=== PATIENT | female | born 1960 | race Caucasian/White ===

== ENCOUNTER 2021-06-03 08:43 | Outpatient (REF) | payer OTHER, SELFPAY ==
--- NOTE | ~2021-06-03 | XR_ITS ---
EXAMINATION: XR BILATERAL HIPS WITH AP PELVIS CLINICAL INFORMATION: Bilateral primary osteoarthrosis of hip. COMPARISON: None TECHNIQUE: AP view of the pelvis and 2 views of each hip were obtained. FINDINGS: Marked decreased joint space, subchondral sclerosis, osteophyte formations, consistent with moderate to severe osteoarthrosis is present at the right hip. Moderate osteoarthrosis is noted at the left hip. Both SI joints and symphysis pubis appear unremarkable. The soft tissues are unremarkable. XR/XR hip BI w PEL1V IMPRESSION: 1. Abnormal radiographic appearance of showing features consistent with moderate to severe osteoarthrosis of the right hip and moderate osteoarthrosis of the left hip. 2. Otherwise unremarkable.
== END 2021-06-03 08:44 | disposition home or self-care (01) ==
LOC: HO.XRAY 08:43
PROVIDERS: PCP Pediatrics; Visit Provider Internal Medicine
DX: M16.0 Bilateral primary osteoarthritis of hip (principal); M54.16 Radiculopathy, lumbar region
CPT/HCPCS: 73521; 99202

== ENCOUNTER 2021-12-31 08:39 | Outpatient (REF) | payer OTHER, SELFPAY ==
--- NOTE | ~2021-12-31 | MM_ITS ---
EXAMINATION: MM SCREENING DIGITAL BREAST TOMOSYNTHESIS, BILATERAL CLINICAL INFORMATION: Screening. Asymptomatic. The lifetime risk of breast cancer based on the Tyrer-Cuzick Model is 4.6%. COMPARISON: Mammography: May 25, 2019 and studies dating back to May 01, 2017 TECHNIQUE: Digital breast tomosynthesis is performed in both the craniocaudal and mediolateral oblique views along with computer-aided detection (CAD). Synthesized 2D images are generated from the tomosynthesis. FINDINGS: The breasts are almost entirely fatty (ACR BI-RADS breast composition Category a). There are no significant masses, abnormal calcifications, or other abnormalities. MM/MM tomosynthesis screening BI IMPRESSION: There are no significant changes from prior study. ASSESSMENT: BI-RADS 1: Negative RECOMMENDATION: Routine annual mammography screening. This patient's information was entered into a reminder system with a target due date for their next mammogram.
--- NOTE | ~2021-12-31 | MM_ITS ---
EXAMINATION: BONE DENSITOMETRY CLINICAL INDICATION: Menopausal. COMPARISON: Baseline BD dated 08/26/2018. TECHNIQUE: Using a [employer] DXA System (software version: 13.1) manufactured by [employer], dual-energy x-ray absorptiometry was performed of the lumbar spine and left hip. The images are of good technical quality. Summary results are attached. FINDINGS: AP SPINE L1-L4: Current: BMD 0.970 g/cm2, Z-score -1.6, T-score -1.8, osteopenia, 6.8% decrease from baseline (<5% change is not significant). Baseline: BMD 1.041 g/cm2. LEFT FEMUR, NECK: Current: BMD 0.749 g/cm2, Z-score -1.5, T-score -2.1, osteopenia. Baseline: BMD 0.831 g/cm2. LEFT FEMUR, TOTAL: Current: BMD 0.884 g/cm2, Z-score -0.8, T-score -1.0, normal, 6.8% decrease from baseline (<5% change is not significant). Baseline: BMD 0.864 g/cm2. IDENTIFIED RISK FACTORS: Menopause, tobacco use (current smoker), family history (parental hip fracture). HISTORY OF FRACTURE: None listed. MEDICATIONS: Calcium supplements or multivitamin, vitamin D. MM/XR DEXA axial skeleton IMPRESSION: 1. DIAGNOSIS: Osteopenia based on the lowest T-score value of -2.1 in the femoral neck applying World Health Organization criteria. 2. 10-YEAR FRACTURE RISK PREDICTION, FRAX: Major osteoporotic fracture (clinical spine, forearm, hip or shoulder) 18.2%. Hip fracture 2.3%. 3. Treatment Recommendations: NOF guidelines recommend consideration for treatment in postmenopausal women and men age 50 and older presenting with the following: -A hip or vertebral (clinical or morphometric) fracture. -T-score less than or equal to -2.5 at the femoral neck or spine after appropriate evaluation to exclude secondary causes. -Low bone mass at the hip or spine and a 10-year fracture probability by FRAX of greater than or equal to 3% for hip fracture or greater than or equal to 20% for major osteoporotic fracture based on the [place] adapted WHO algorithm. 4. Other Recommendations: All treatment decisions require clinical judgment and consideration of individual patient factors, including patient preferences, comorbidities, previous drug use, risk factors not captured in the FRAX model (e.g. frailty, falls, vitamin D deficiency, increased bone turnover, interval significant decline in bone density) and possible under or overestimation of fracture risk by FRAX. Additional medical evaluation for secondary cause of low bone mineral density may be appropriate. FUTURE SCAN RECOMMENDATION: People with diagnosed cases of osteoporosis or at high risk for fracture should have regular bone mineral density tests. For patients eligible for Medicare, routine testing is allowed once every 2 years. The testing frequency can be increased to one year for patients who have rapidly progressing disease, those who are receiving or discontinuing medical therapy to restore bone mass, or have additional risk factors.
== END 2021-12-31 08:40 | disposition home or self-care (01) ==
LOC: HO.MAMMO 08:39
PROVIDERS: PCP Pediatrics; Visit Provider Pediatrics
DX: Z12.31 Encounter for screening mammogram for malignant neoplasm of breast (principal); Z13.820 Encounter for screening for osteoporosis; M85.80 Other specified disorders of bone density and structure, unspecified site; Z78.0 Asymptomatic menopausal state
CPT/HCPCS: 77063; 77067; 77080

== ENCOUNTER → 2022-09-19 10:43 | Outpatient (RCR) | payer OTHER, SELFPAY ==
--- NOTE | 2021-07-24 17:26 | MHC.PT.EP ---
[facility] [place] Office [place] Office [address] Edouard Gaspar [address] [phone] F: [phone] F: [phone] F: [phone] F: [phone] Physical Therapy Plan of Care Date of Evaluation: Date of Surgery: Diagnosis: lumbar radiuculopathy, OA of B hips. Assessment: Pt is a 61 y/o female referred to PT for eval and treat of lumbar radiculopathy and B hip OA resulting in decreased tolerance for walking, standing, sitting for duration, squatting, negotiating stairs, and entering/ exiting vehicles secondary to decreased B hip and core strength, increased B hip tissue tension, decreased trunk ROM, R LE referred symptoms, and pain. Pt is deemed an appropriate candidate to receive skilled PT in order to address her physical limitations to improve her functional ability. Frequency and Duration: The patient will be seen 2 x/wk x 5 wks. Short Term Goals: initiate HEP. improve baseline pain to < 5/10; initial: 6-8/10 Mcc Goals: I with HEP. Pt will be able to walk 2 blocks with at least moderate difficulty; initial: extreme difficulty or unable (LEFI) LEFI score improved by at least 9 points to demonstrate improved functional ability. Improve B hip abd MMT to > 4+/5; initial 4/5. Treatment Plan: Modalities to reduce pain, spasms and effusion. Manual therapy to restore motion and function. Therapeutic exercise to improve strength and flexibility. Neuromuscular re-education for posture and balance. Therapeutic activities to return to functional activities of daily living. Electronically signed by: Harry Awad PT. Please sign and return to therapist. Thank you for your referral.
--- NOTE | 2022-09-19 10:41 | MHC.PT.DC ---
[facility] [place] Office [place] Office [place] Office [address] Edouard Gaspar [address] [phone] F: [phone] F: [phone] F: [phone] F: [phone] Physical Therapy Discharge Report Diagnosis: lumbar radiuculopathy, OA of B hips. Date of Surgery: Date of Evaluation: 07/22/21 Date of Discharge: 09/19/22 Treatments to Date: 1 Cancellations to Date: No Shows to Date: Discharge Status: Patient Elected to Stop Visit Non-compliance Discharge Summary: Pt did not trial therapy at the time after evaluation. Electronically signed by: Harry Awad PT. Please sign and return to therapist. Thank you for your referral.
== END | disposition home or self-care (01) ==
LOC: HO.PTCHIC 07-22 09:56
PROVIDERS: PCP Pediatrics; Visit Provider Internal Medicine
DX: M54.16 Radiculopathy, lumbar region (principal); M16.0 Bilateral primary osteoarthritis of hip
CPT/HCPCS: 97110; 97161

== ENCOUNTER 2022-12-17 06:18 | Inpatient (IN) | payer OTHER, SELFPAY ==
[2022-12-17] VITALS (11 sets, daily range): BP systolic 102–168; BP diastolic 42–98; PULSE 83–119; RESP 16–24; TEMP 36.4–37.8; O2SAT 94–98; BMI 29.2
--- NOTE | ~2022-12-17 | CT_ITS ---
EXAMINATION: CT HEAD WITHOUT CONTRAST CLINICAL INFORMATION: Altered mental status. COMPARISON: None available. TECHNIQUE: Contiguous axial imaging was performed from the skull base to vertex without intravenous administration of contrast. This CT examination was performed using dose optimization techniques as appropriate, variously including the following: *Automated exposure control *Adjustment of mA and/or kV according to patient size (this includes techniques or standardized protocols for targeted exams where dose is matched to indication/reason for exam; i.e. extremities or head) *Use of iterative reconstruction technique DLP: 641 mGy-cm FINDINGS: There is no acute intra-axial, extra-axial bleed, masses or midline shift. There is no acute infarction evolution. There is no edema. The carrillo to white matter differentiation is maintained. The lateral ventricles are symmetrical in size and configuration without enlargement. Bone windows reveal no calvarial abnormality. Minimal mucoperiosteal thickening in the floor of the right maxillary sinus. Rest of the paranasal sinuses and mastoid air cells are well-aerated. CT/CT head/brain wo IV con IMPRESSION: No acute intracranial process seen. Minimal right maxillary sinus inflammatory changes.
--- NOTE | ~2022-12-17 | XR_ITS ---
EXAMINATION: XR CHEST CLINICAL INFORMATION: 10/25/2010 chest radiograph. COMPARISON: None available. TECHNIQUE: Frontal view of the chest was obtained. FINDINGS: No significant abnormality is noted involving the heart, lungs, mediastinum, bony thorax or soft tissues. XR/XR chest 1V IMPRESSION: No acute cardiopulmonary process.
--- NOTE | 2022-12-17 06:27 | ECG_ITS ---
Test Reason : AMS Blood Pressure : / mmHG Vent. Rate : 119 BPM Atrial Rate : 119 BPM P-R Int : 178 ms QRS Dur : 062 ms QT Int : 312 ms P-R-T Axes : 071 018 078 degrees QTc Int : 438 ms Sinus tachycardia with Premature atrial complexes Nonspecific ST abnormality Abnormal ECG When compared with ECG of 18-MAR-2011 09:58, Premature atrial complexes are now Present Nonspecific ST and T wave abnormality slightly more prominent Referred By: Matt Bah Electronically Signed By:EMELIA LYMAN
--- NOTE | 2022-12-17 06:39 | ED.GENADULT ---
HPI - General Adult General Chief complaint: Altered Mental Status Stated complaint: FOUND IN ROAD,ALTERED PER EMS Time Seen by Provider: 12/17/22 06:39 Source: EMS, RN notes reviewed and old records reviewed Mode of arrival: EMS Limitations: altered mental status History of Present Illness HPI narrative: Patient is a 62-year-old female with history of HTN, T2DM, and unknown psychiatric disorder presenting to the emergency department via EMS for altered mental status. Per EMS, patient lives with her brother and he noted that she was not in the home around 3:00 a.m. and was later found sitting in the road outside. Patient nonverbal during assessment but resisting some interventions. MD complaint: altered mental status Onset (ago): hour(s) Treatments prior to arrival: none Related Data Home Medications Medication Instructions Recorded Confirmed aripiprazole 5 mg tablet 5 mg PO DAILY 06/03/21 12/17/22 atorvastatin 20 mg tablet 20 mg PO DAILY 06/03/21 12/17/22 bupropion HCl 300 mg 24 hr tablet, 300 mg PO DAILY 06/03/21 12/17/22 extended release metformin 500 mg tablet 500 mg PO BID 06/03/21 12/17/22 omega-3 fatty acids 1,000 mg 1,000 mg PO DAILY 06/03/21 12/17/22 capsule (Fish Oil Concentrate) venlafaxine 75 mg tablet 75 mg PO DAILY 06/03/21 12/17/22 celecoxib 100 mg capsule 100 mg PO DAILY PRN Pain 12/17/22 12/17/22 cholecalciferol (vitamin D3) 25 25 mcg PO DAILY 12/17/22 12/17/22 mcg (1,000 unit) tablet fluticasone propionate 220 1 puff inhalation BID 12/17/22 12/17/22 mcg/actuation HFA aerosol inhaler (Flovent HFA) ibuprofen 600 mg tablet 600 mg PO TID PRN Pain 12/17/22 12/17/22 [id number] acid 0.4 1 tab PO DAILY 12/17/22 12/17/22 mg-lycopene 300 mcg-lutein 250 mcg tablet (Cerovite Senior) Previous Rx's Medication Instructions Recorded acetaminophen 650 mg 650 mg PO Q8H PRN pain #90 tabs 06/03/21 tablet,extended release Allergies Allergy/AdvReac Type Severity Reaction Status Date / Time Iodinated Contrast Media Allergy Mild RASH Unverified 04/12/20 17:35 [IV Dye, Iodine Containing] Sulfa (Sulfonamide Allergy Mild RASH Unverified 04/12/20 17:35 Antibiotics) [Sulfa (Sulfonamides)] oxycodone [From Percocet] AdvReac Mild NAUSEA & Unverified 04/12/20 17:35 VOMITING Review of Systems Review of Systems: Yes Unobtainable due to mental status Neurologic: Reports confusion Psychiatric: Psychiatric: Reports confusion [facility] Past Medical History Medical History (Updated 12/17/22 @ 10:22 by Marquita Hayward NP) Anxiety Arthritis Depression Dyslipidemia (high LDL; low HDL) Hypertension Obesity Psychiatric disorder Type 2 diabetes mellitus without complication Surgical History (Updated 06/03/21 @ 09:12 by Adriel Forde) History of cholecystectomy Social History Social History Advance Directives: No Physical Exam ED Vital Signs: Vital Signs - 24 hr 12/17/22 06:37 12/17/22 08:17 12/17/22 09:15 Temperature 98.9 F 100.1 F Pulse Rate 119 H 103 H 101 H Respiratory Rate 24 H 20 18 Blood Pressure 149/89 H 111/50 L 118/59 L Pulse Oximetry 98 97 Oxygen Delivery Method Room Air 12/17/22 09:36 12/17/22 10:03 12/17/22 11:10 Temperature 98.5 F 98.4 F Pulse Rate 95 99 Respiratory Rate 21 H 16 Blood Pressure 128/59 L 120/70 Pulse Oximetry 96 98 Oxygen Delivery Method Room Air Room Air 12/17/22 12:17 Temperature 99.0 F Pulse Rate 95 Respiratory Rate 19 Blood Pressure 137/66 Pulse Oximetry 95 Oxygen Delivery Method Room Air BMI result Body Mass Index 29.2 Vital signs have been reviewed and appear to be correct. Blood pressure slightly elevated. Heart rate tachycardic. Respiratory rate slightlt elevated. Temperature normal. Oxygen saturation normal. Const General: no acute distress, confusion and other (eyes closed but patient moving all extremities spontaneously) Nutritional Appearance: average body habitus Orientation/consciousness: confusion Limitations: altered mental status HENMT Head: Yes No palpable skull fracture present, Yes normocephalic, Yes atraumatic, No abrasion, No Clayton's sign, No raccoon eyes, No scalp tenderness and No periorbital ecchymosis Ears: external ears normal, TM's normal bilaterally and EAC's normal General nose exam: Normal external nose present, Normal nares present, Normal nasal mucous membranes and turbinates present, Normal septum present and No nasal discharge present Face and sinus: Yes face symmetric, No maxillary instability and No Facial tenderness on exam of face and sinuses Mouth: tongue normal, mucous membranes dry and No mouth trauma Throat: Yes posterior oropharynx normal and Yes uvula midline Eyes Other: Patient forcefully keeping eyes closed General: appearance normal, both eyes and all related structures Pupils: Equal, round and reactive pupils present Neck Neck: Yes normal visual inspection Chest Chest palpation & inspection: normal inspection of the chest, normal palpation of entire chest wall and no crepitus Resp Effort & Inspection: normal respiratory effort Auscultation: clear to auscultation bilaterally Cardio Rate: tachycardic Rhythm: regular rhythm Heart sounds: S1 normal heart sound present and S2 normal heart sound present Peripheral pulses: Peripheral pulses 2+ throughout GI Inspection: Yes normal to inspection Palpation (GI): Soft to palpation, nontender, no guarding and not rigid Back/Spine/Pelvis Back: No erythema and No ecchymosis Cervical Spine: normal cervical lordosis Thoracic/Lumbar Spine: thoracic and lumbar spine normal to inspection Pelvis: no pain with anterior-posterior compression and no pain with lateral compression Skin General skin exam: no rashes or lesions noted Neuro General: moves all extremities, confusion and Unable to assess gait Cranial nerves: Yes Equal, round and reactive pupils present Speech: Other speech findings present (Neuro) (not speaking) Gait exam (Neuro): Unable to assess gait Pupils: Normal pupillary reactivity/response: bilateral Extrem General: Yes normal to inspection and Yes capillary refill normal Psych Appearance: disheveled Course Course Course Narrative: 09:33 Patient now awake and alert, oriented x3 but remains confused. She states that she was recently hospitalized for urinary issues, but is unsure which hospital, she believes it was [facility]. When asked why she was outside at 3:00 a.m. last night patient stated that she was ?in the ambulance with a couple of dogs and they were bringing me somewhere to drop a crate on me.? FINDINGS: There is no acute intra-axial, extra-axial bleed, masses or midline shift. There is no acute infarction evolution. There is no edema. The carrillo to white matter differentiation is maintained. The lateral ventricles are symmetrical in size and configuration without enlargement. Bone windows reveal no calvarial abnormality. Minimal mucoperiosteal thickening in the floor of the right maxillary sinus. Rest of the paranasal sinuses and mastoid air cells are well-aerated. CT/CT head/brain wo IV con IMPRESSION: No acute intracranial process seen. ? Minimal right maxillary sinus inflammatory changes. Patient providing UA specimen at this time. 10:20 UA positive for nitrites, 2+ leukocytes, recent UTI in september of this year per [facility] records. Urine for source of sepsis, hemodynamically stable, meets sepsis criteria but does not meet severe sepsis criteria. [place] text to Dr. Mcdonouhg for admission. Reevaluation(s) Reevaluation #1: Patient tachycardic, tachypneic, lactic 2.8, leukocytosis patient meeting sepsis criteria with unknown source. IV fluids ordered. Empiric abx ordered. Time: 08:20 Medications Administered Discontinued Medications Generic Name Dose Route Start Last Admin Trade Name Freq PRN Reason Stop Dose Admin Sodium Chloride 1,000 mls @ 999 mls/hr 12/17/22 08:30 12/17/22 10:04 Ns IV 12/17/22 09:30 Infused .Q1H1M STELLA Infusion Ceftriaxone Sodium 1 gm/ 50 mls @ 100 mls/hr 12/17/22 08:21 12/17/22 10:15 Sodium Chloride IV 12/17/22 08:50 100 mls/hr ONCE ONE Infusion Sodium Chloride 1,000 mls @ 999 mls/hr 12/17/22 10:30 12/17/22 14:51 Ns IV 12/17/22 11:30 Infused .Q1H1M STELLA Infusion Lorazepam 2 mg 12/17/22 08:24 12/17/22 08:36 Lorazepam 2 Mg/Ml Vial IVPUSH 12/17/22 08:25 2 mg ONCE ONE Administration Medical Decision Making Medical Decision Making MDM Narrative: Patient is a 62-year-old female with history of HTN, T2DM, and unknown psychiatric disorder presenting to the emergency department via EMS for altered mental status. On exam patient is maintaining her airway, moving all extremities equally and independently, resisting some interventions-squeezing eyes shut, turning head away during ear exam, skin intact, tachycardic, BP mildly elevated, afebrile, maintaining O2 sat of 98% on room air. POC glucose of 196 per EMS. Concern for ICH/CVA, metabolic derangement, metabolic acidosis/sepsis, toxidromes of intoxication/withdrawl, hepatic encephalopathy, endocrine emergency such as hypo/hyperthyroid or adrenal insufficiency, seizure, trauma. Given this wide differential, will send basic labs including electrolytes, TSH, LFTS, poc glucose to evaluate for infectious or metabolic causes, ETOH, UA, utox, CT head, CXR. Please refer to course for remaining clinical decision making. Lab Data 12/17/22 07:56 12/17/22 07:57 Labs: Lab Results 12/17/22 12/17/22 12/17/22 Range/Units 07:03 07:56 07:56 WBC 17.2 H (4.8-10.8) X10*3/uL RBC 5.86 H (4.20-5.50) X10*6/uL Hgb 16.7 H (12.0-16.0) g/dl Hct 50.8 H (37.0-47.0) % MCV 86.7 (80.0-98.0) fL MCH 28.5 (27.0-33.0) pg MCHC 32.9 (31.0-35.0) g/dl RDW 14.8 (11.0-16.0) % Plt Count 275 (160-400) X10*3/uL MPV 10.2 (9.4-12.3) fL Immature Gran % (Auto) 0.6 H (0.0-0.4) % Neut % (Auto) 86.3 H (45-73) % Lymph % (Auto) 7.3 L (20-40) % [place] % (Auto) 5.3 (2-11) % Eos % (Auto) 0.0 (0-4) % Baso % (Auto) 0.5 (0-2) % Lymph # (Auto) 1.3 (1.2-4.9) X10*3/uL [place] # (Auto) 0.9 (0.1-1.2) X10*3/uL Eos # (Auto) 0.0 (0.0-0.4) X10*3/uL Baso # (Auto) 0.1 (0.0-0.2) X10*3/uL Abs Immat Gran (auto) 0.11 H (0.00-0.03) X10*3/uL Absolute Neuts (auto) 14.8 H (2.0-8.3) x10*3/uL Absolute Nucleated RBC 0.000 (0.0-0.012) X10*3/uL Nucleated RBC % (auto) 0.0 (0.0-0.2) /100WBC VBG pH (7.32-7.43) VBG pCO2 mmHg VBG pO2 mmHg VBG HCO3 (22-26) mmol/L VBG O2 Saturation % VBG Base Excess mmol/L Sodium (135-145) mmol/L Potassium (3.3-5.1) mmol/L Chloride (96-108) mmol/L Carbon Dioxide (22-29) mmol/L Anion Gap (12-20) BUN (9-16) mg/dL Creatinine (0.5-1.4) mg/dL Estim Creat Clear Calc Estimated GFR POC Glucose 191 H (60-115) mg/dL Random Glucose (60-115) mg/dL Lactic Acid (0.5-2.0) mmol/L Lactic Acid F/U @ 2Hr (0.5-2.0) mmol/L Calcium (8.4-10.2) mg/dL Total Bilirubin (0.0-1.0) mg/dL Direct Bilirubin (0.0-0.5) mg/dL AST (5-31) U/L ALT (0-31) U/L Alkaline Phosphatase (39-117) U/L Troponin I High Sens 8.4 (<3.5-17.0) ng/L B-Natriuretic Peptide (<100) pg/mL Total Protein (6.5-8.0) g/dL Albumin (3.5-5.0) g/dL Lipase (8-78) U/L TSH (0.32-4.0) uIU/mL Urine Color Urine Appearance Urine pH (5.0-9.0) Ur Specific [place] (1.005-1.025) Urine Protein (Neg-Trace) mg/dL Urine Glucose (UA) (Negative) mg/dL Urine Ketones (Negative) mg/dL Urine Blood (Negative) Urine Nitrite (Negative) Ur Leukocyte Esterase (Negative) Urine RBC (0-2) /HPF Urine WBC (0-5) /HPF Ur Squamous Epith Cells (0-2) /HPF Calcium Oxalate Crystal Urine Bacteria (None Seen) Hyaline Casts (0-2) /LPF Urine Opiates Screen (Not Detect) Urine Fentanyl Screen (Not Detect) Ur Barbiturates Screen (Not Detect) Ur Phencyclidine Scrn (Not Detect) Ur Amphetamines Screen (Not Detect) U Benzodiazepines Scrn (Not Detect) Urine Cocaine Screen (Not Detect) U Marijuana (THC) Screen (Not Detect) Ethyl Alcohol mg/dL 12/17/22 12/17/22 12/17/22 Range/Units 07:56 07:56 07:57 WBC (4.8-10.8) X10*3/uL RBC (4.20-5.50) X10*6/uL Hgb (12.0-16.0) g/dl Hct (37.0-47.0) % MCV (80.0-98.0) fL MCH (27.0-33.0) pg MCHC (31.0-35.0) g/dl RDW (11.0-16.0) % Plt Count (160-400) X10*3/uL MPV (9.4-12.3) fL Immature Gran % (Auto) (0.0-0.4) % Neut % (Auto) (45-73) % Lymph % (Auto) (20-40) % [place] % (Auto) (2-11) % Eos % (Auto) (0-4) % Baso % (Auto) (0-2) % Lymph # (Auto) (1.2-4.9) X10*3/uL [place] # (Auto) (0.1-1.2) X10*3/uL Eos # (Auto) (0.0-0.4) X10*3/uL Baso # (Auto) (0.0-0.2) X10*3/uL Abs Immat Gran (auto) (0.00-0.03) X10*3/uL Absolute Neuts (auto) (2.0-8.3) x10*3/uL Absolute Nucleated RBC (0.0-0.012) X10*3/uL Nucleated RBC % (auto) (0.0-0.2) /100WBC VBG pH (7.32-7.43) VBG pCO2 mmHg VBG pO2 mmHg VBG HCO3 (22-26) mmol/L VBG O2 Saturation % VBG Base Excess mmol/L Sodium 139 (135-145) mmol/L Potassium 4.3 (3.3-5.1) mmol/L Chloride 105 (96-108) mmol/L Carbon Dioxide 16 L (22-29) mmol/L Anion Gap 22 H (12-20) BUN 20 H (9-16) mg/dL Creatinine 1.19 (0.5-1.4) mg/dL Estim Creat Clear Calc 58.4 Estimated GFR 46 POC Glucose (60-115) mg/dL Random Glucose 169 H (60-115) mg/dL Lactic Acid 2.8 H* (0.5-2.0) mmol/L Lactic Acid F/U @ 2Hr (0.5-2.0) mmol/L Calcium 10.0 (8.4-10.2) mg/dL Total Bilirubin 0.7 (0.0-1.0) mg/dL Direct Bilirubin 0.1 (0.0-0.5) mg/dL AST 20 (5-31) U/L ALT 20 (0-31) U/L Alkaline Phosphatase 99 (39-117) U/L Troponin I High Sens (<3.5-17.0) ng/L B-Natriuretic Peptide (<100) pg/mL Total Protein 7.3 (6.5-8.0) g/dL Albumin 4.4 (3.5-5.0) g/dL Lipase 26 (8-78) U/L TSH (0.32-4.0) uIU/mL Urine Color Urine Appearance Urine pH (5.0-9.0) Ur Specific [place] (1.005-1.025) Urine Protein (Neg-Trace) mg/dL Urine Glucose (UA) (Negative) mg/dL Urine Ketones (Negative) mg/dL Urine Blood (Negative) Urine Nitrite (Negative) Ur Leukocyte Esterase (Negative) Urine RBC (0-2) /HPF Urine WBC (0-5) /HPF Ur Squamous Epith Cells (0-2) /HPF Calcium Oxalate Crystal Urine Bacteria (None Seen) Hyaline Casts (0-2) /LPF Urine Opiates Screen (Not Detect) Urine Fentanyl Screen (Not Detect) Ur Barbiturates Screen (Not Detect) Ur Phencyclidine Scrn (Not Detect) Ur Amphetamines Screen (Not Detect) U Benzodiazepines Scrn (Not Detect) Urine Cocaine Screen (Not Detect) U Marijuana (THC) Screen (Not Detect) Ethyl Alcohol < 10 mg/dL 12/17/22 12/17/22 12/17/22 Range/Units 07:57 09:43 09:47 WBC (4.8-10.8) X10*3/uL RBC (4.20-5.50) X10*6/uL Hgb (12.0-16.0) g/dl Hct (37.0-47.0) % MCV (80.0-98.0) fL MCH (27.0-33.0) pg MCHC (31.0-35.0) g/dl RDW (11.0-16.0) % Plt Count (160-400) X10*3/uL MPV (9.4-12.3) fL Immature Gran % (Auto) (0.0-0.4) % Neut % (Auto) (45-73) % Lymph % (Auto) (20-40) % [place] % (Auto) (2-11) % Eos % (Auto) (0-4) % Baso % (Auto) (0-2) % Lymph # (Auto) (1.2-4.9) X10*3/uL [place] # (Auto) (0.1-1.2) X10*3/uL Eos # (Auto) (0.0-0.4) X10*3/uL Baso # (Auto) (0.0-0.2) X10*3/uL Abs Immat Gran (auto) (0.00-0.03) X10*3/uL Absolute Neuts (auto) (2.0-8.3) x10*3/uL Absolute Nucleated RBC (0.0-0.012) X10*3/uL Nucleated RBC % (auto) (0.0-0.2) /100WBC VBG pH 7.30 L (7.32-7.43) VBG pCO2 52 mmHg VBG pO2 34 mmHg VBG HCO3 26 (22-26) mmol/L VBG O2 Saturation 50.0 % VBG Base Excess -1.2 mmol/L Sodium (135-145) mmol/L Potassium (3.3-5.1) mmol/L Chloride (96-108) mmol/L Carbon Dioxide (22-29) mmol/L Anion Gap (12-20) BUN (9-16) mg/dL Creatinine (0.5-1.4) mg/dL Estim Creat Clear Calc Estimated GFR POC Glucose (60-115) mg/dL Random Glucose (60-115) mg/dL Lactic Acid (0.5-2.0) mmol/L Lactic Acid F/U @ 2Hr (0.5-2.0) mmol/L Calcium (8.4-10.2) mg/dL Total Bilirubin (0.0-1.0) mg/dL Direct Bilirubin (0.0-0.5) mg/dL AST (5-31) U/L ALT (0-31) U/L Alkaline Phosphatase (39-117) U/L Troponin I High Sens (<3.5-17.0) ng/L B-Natriuretic Peptide 12 (<100) pg/mL Total Protein (6.5-8.0) g/dL Albumin (3.5-5.0) g/dL Lipase (8-78) U/L TSH 1.78 (0.32-4.0) uIU/mL Urine Color Urine Appearance Urine pH (5.0-9.0) Ur Specific [place] (1.005-1.025) Urine Protein (Neg-Trace) mg/dL Urine Glucose (UA) (Negative) mg/dL Urine Ketones (Negative) mg/dL Urine Blood (Negative) Urine Nitrite (Negative) Ur Leukocyte Esterase (Negative) Urine RBC (0-2) /HPF Urine WBC (0-5) /HPF Ur Squamous Epith Cells (0-2) /HPF Calcium Oxalate Crystal Urine Bacteria (None Seen) Hyaline Casts (0-2) /LPF Urine Opiates Screen (Not Detect) Urine Fentanyl Screen (Not Detect) Ur Barbiturates Screen (Not Detect) Ur Phencyclidine Scrn (Not Detect) Ur Amphetamines Screen (Not Detect) U Benzodiazepines Scrn (Not Detect) Urine Cocaine Screen (Not Detect) U Marijuana (THC) Screen (Not Detect) Ethyl Alcohol mg/dL 12/17/22 12/17/22 12/17/22 Range/Units 10:01 10:01 10:22 WBC (4.8-10.8) X10*3/uL RBC (4.20-5.50) X10*6/uL Hgb (12.0-16.0) g/dl Hct (37.0-47.0) % MCV (80.0-98.0) fL MCH (27.0-33.0) pg MCHC (31.0-35.0) g/dl RDW (11.0-16.0) % Plt Count (160-400) X10*3/uL MPV (9.4-12.3) fL Immature Gran % (Auto) (0.0-0.4) % Neut % (Auto) (45-73) % Lymph % (Auto) (20-40) % [place] % (Auto) (2-11) % Eos % (Auto) (0-4) % Baso % (Auto) (0-2) % Lymph # (Auto) (1.2-4.9) X10*3/uL [place] # (Auto) (0.1-1.2) X10*3/uL Eos # (Auto) (0.0-0.4) X10*3/uL Baso # (Auto) (0.0-0.2) X10*3/uL Abs Immat Gran (auto) (0.00-0.03) X10*3/uL Absolute Neuts (auto) (2.0-8.3) x10*3/uL Absolute Nucleated RBC (0.0-0.012) X10*3/uL Nucleated RBC % (auto) (0.0-0.2) /100WBC VBG pH (7.32-7.43) VBG pCO2 mmHg VBG pO2 mmHg VBG HCO3 (22-26) mmol/L VBG O2 Saturation % VBG Base Excess mmol/L Sodium (135-145) mmol/L Potassium (3.3-5.1) mmol/L Chloride (96-108) mmol/L Carbon Dioxide (22-29) mmol/L Anion Gap (12-20) BUN (9-16) mg/dL Creatinine (0.5-1.4) mg/dL Estim Creat Clear Calc Estimated GFR POC Glucose (60-115) mg/dL Random Glucose (60-115) mg/dL Lactic Acid (0.5-2.0) mmol/L Lactic Acid F/U @ 2Hr 1.3 (0.5-2.0) mmol/L Calcium (8.4-10.2) mg/dL Total Bilirubin (0.0-1.0) mg/dL Direct Bilirubin (0.0-0.5) mg/dL AST (5-31) U/L ALT (0-31) U/L Alkaline Phosphatase (39-117) U/L Troponin I High Sens (<3.5-17.0) ng/L B-Natriuretic Peptide (<100) pg/mL Total Protein (6.5-8.0) g/dL Albumin (3.5-5.0) g/dL Lipase (8-78) U/L TSH (0.32-4.0) uIU/mL Urine Color Dark Yellow Urine Appearance Cloudy Urine pH 5.0 (5.0-9.0) Ur Specific [place] 1.025 (1.005-1.025) Urine Protein 30 (1+) H (Neg-Trace) mg/dL Urine Glucose (UA) Negative (Negative) mg/dL Urine Ketones 40 (Negative) mg/dL Urine Blood Small (1+) H (Negative) Urine Nitrite Positive H (Negative) Ur Leukocyte Esterase Moderate (2+) H (Negative) Urine RBC 3-5 H (0-2) /HPF Urine WBC >50 H (0-5) /HPF Ur Squamous Epith Cells 11-20 (0-2) /HPF Calcium Oxalate Crystal Present Urine Bacteria 4+ (None Seen) Hyaline Casts 11-20 (0-2) /LPF Urine Opiates Screen Not Detected (Not Detect) Urine Fentanyl Screen Not Detected (Not Detect) Ur Barbiturates Screen Not Detected (Not Detect) Ur Phencyclidine Scrn Not Detected (Not Detect) Ur Amphetamines Screen Not Detected (Not Detect) U Benzodiazepines Scrn Not Detected (Not Detect) Urine Cocaine Screen Not Detected (Not Detect) U Marijuana (THC) Screen Not Detected (Not Detect) Ethyl Alcohol mg/dL Independent Interpretation I performed an independent interpretation of an: EKG and Plain X-Ray Interpretation: EKG: sinus tachycardia with PACs, rate 119 bpm, normal NV interval, no evidence of STEMI Radiology Impression Discussion of test interpretation with radiology: I have reviewed the radiologist's reading. Radiologist Impression: FINDINGS: No significant abnormality is noted involving the heart, lungs, mediastinum, bony thorax or soft tissues. XR/XR chest 1V IMPRESSION: No acute cardiopulmonary process. Critical Care Time Critical Care Time Critical Care Time: Yes Total Critical Care Time: 37 Attestation: I have personally provided critical care time exclusive of time spent on separately billable procedures. Time includes review of lab data, radiology results, discussion with consultants, and monitoring for potential decompensation. Intervention performed as documented. Discharge Plan Discharge Clinical Impression: Acute metabolic encephalopathy, Sepsis, UTI (urinary tract infection) Patient Disposition: Admitted As Inpatient
[2022-12-17 07:07] LABS: Glucose, Whole Blood 191 mg/dL (60-115)
--- OUTSIDE RECORDS SUMMARY | 2022-12-17 07:21 | XMS_ITS | Continuity of Care Document ---
Author Name Unknown Organization [facility] ter Address [address] [place] [id number] Care Team Providers Care Sewer System Supervisor Name Role Phone Laina CHACON, Kaitlynn Pinzon Primary Care Physician [phone] Encounter [facility] Date(s): 10/17/22 - 10/22/[address] [id number] Encounter Diagnosis COPD exacerbation(Final) - 10/17/22 Polycythemia(Final) - 10/17/22 Discharge Disposition: A-D/C Home Attending Physician: Umang Arciniega DO Admitting Physician: Dadyay CHACON, Steven Referring Physician: Not on Staff, Referring MD Allergies, Adverse Reactions, Alerts Substance Reaction Severity Status sulfa drugs Active Contrast Dye Active Immunizations Given and Recorded Vaccine Date Status Refusal Reason influenza virus vaccine, inactivated 05/08/22 Fermín rded influenza virus vaccine, inactivated 05/14/20 Fermín rded influenza virus vaccine, inactivated 05/24/19 Fermín rded influenza virus vaccine, inactivated 05/12/18 Fermín rded influenza virus vaccine, inactivated 08/17/17 Fermín rded SARS-CoV-2 (COVID-19) Ad26 vaccine 10/22/20 Record ed zoster vaccine, inactivated 04/19/19 Recorded zoster vaccine, inactivated 02/15/19 Recorded Zoster Vaccine Live 04/22/18 Recorded pneumococcal 23-valent vaccine 05/11/17 Recorded tetanus/diphtheria/pertussis, acel(Tdap) 02/09/17 Recorded Medications albuterol CFC free 90 mcg/inh inhalation aerosol 1, puffs, Inhalation, 4 times a day, PRN, # 8 Gm, Refills 0, Tot. Refills 0, Maintenance, 10/22/22 7:38:00 EDT, Aerosol, Route to Pharmacy Electronically, [id number], [facility], 170, cm, 10/22/22 7:25:00 EDT, H... Start Date: 10/22/22 Status: Ordered ARIPiprazole 5 mg oral tablet 5 mg, 1, tablet, By Mouth, Daily, Refills 0, Maintenance, 12/24/17 14:31:00 EDT Start Date: 12/24/17 Status: Ordered atorvastatin 20 mg oral tablet 1 tablet = 20 mg, By Mouth, Daily, 0 Refills, Maintenance Start Date: 12/24/17 Status: Ordered Augmentin 875 mg-125 mg oral tablet 1 tablet, By Mouth, Every 12 hours, for 2 days, # 4 tablet, 0 Refills, Acute 10/24/22 7:11:00 EDT, 10/22/22 7:11:00 EDT, Tablet, [facility], Partial fill upon patient request if the prescription is for a schedule II opioid drug., 170, cm... Start Date: 10/22/22 Stop Date: 10/24/22 Status: Ordered buPROPion 300 mg/24 hours (XL) oral tablet, extended release 1 tablet = 300 mg, By Mouth, Every 24 hours, 0 Refills, Maintenance, 12/24/17 14:31:20 EDT Start Date: 12/24/17 Status: Ordered celecoxib 100 mg oral capsule 1 capsule = 100 mg, By Mouth, Daily, 0 Refills, Maintenance, 10/17/22 9:00:00 EDT, Partial fill upon patient request if the prescription is for a schedule II opioid drug. Start Date: 10/17/22 Status: Ordered Centravites Adults oral tablet 1 tablet, By Mouth, Daily, 0 Refills, Maintenance, 10/17/22 9:01:00 EDT, Partial fill upon patient request if the prescription is for a schedule II opioid drug. Start Date: 10/17/22 Status: Ordered Fish Oil 1000 mg oral capsule 1 capsule = 1,000 mg, By Mouth, 2 times a day, 0 Refills, Maintenance, 10/17/22 6:56:00 EDT, Capsule, Partial fill upon patient request if the prescription is for a schedule II opioid drug. Start Date: 10/17/22 Status: Ordered metFORMIN 500 mg oral tablet 1 tablet = 500 mg, By Mouth, 2 times a day, 0 Refills, Maintenance, 12/24/17 14:32:00 EDT Start Date: 12/24/17 Status: Ordered Nicoderm C-Q Clear 14 mg/24 hr transdermal film, extended release 1 patch, Topically, Daily, for 14 days, # 14 patch, 0 Refills, Acute 11/05/22 7:12:00 EDT, :12:00 EDT, Patch, [facility], Partial fill upon patient request if the prescriptionis for a schedule II opioid drug., 170, cm, ... Start Date: 10/22/22 Stop Date: 11/05/22 Status: Ordered predniSONE 20 mg oral tablet 2 tablet = 40 mg, By Mouth, Daily, for 4 days, # 8 tablet, 0 Refills, Acute 10/26/22 7:11:00 EDT, 10/22/22 7:11:00 EDT, Tablet, [facility], Partial fill upon patient request if the prescription is for a schedule II opioid drug., 170, cm,... Start Date: 10/22/22 Stop Date: 10/26/22 Status: Ordered venlafaxine 75 mg oral tablet 1 tablet = 75 mg, By Mouth, 2 times a day, 0 Refills, Maintenance, 12/24/17 14:31:35 EDT Start Date: 12/24/17 Status: Ordered Vitamin D3 1000 intl units oral capsule 1 capsule = 1,000 International_Units, By Mouth, Daily, 0 Refills, Maintenance, 12/24/17 14:32:51 EDT Start Date: 12/24/17 Status: Ordered Problem List Condition Confirmation Course Effective Dates Status Health St atus Informant Obese class I Confirmed Active Results Orders for Microbiology Reports Name Date Blood Culture 10/17/22 Blood Culture #2 10/17/22 Microbiology Reports TEST:Blood Culture, Second Order STATUS:Auth (Verified) BODY SITE: SOURCE:Blood COLLECTED DATE/TIME:10/17/22 12:20 AM Blood Culture, Second Order SPECIMEN DESCRIPTION : BLOOD LAC SPECIAL REQUESTS : NONE CULTURE : NO GROWTH 5 DAYS. REPORT STATUS : FINAL 10/22/2022 TEST:Blood Culture STATUS:Auth (Verified) BODY SITE: SOURCE:Blood COLLECTED DATE/TIME:10/17/22 12:15 AM Blood Culture SPECIMEN DESCRIPTION : BLOOD RIGHT FOREARM SPECIAL REQUESTS : NONE CULTURE : NO GROWTH 5 DAYS. REPORT STATUS : FINAL 10/22/2022 Radiology Reports * Exam Date Time Procedure Performing Provider Status 10/18/22 6:57 AM Chest Portable Kaitlynn Chow; Auth (Verified) Notes: (Chest Portable) Reason For Exam: Shortness of Breath RESULT: Chest Portable Chest Portable Reason: Shortness of Breath; Clinical Question(s): Pulmonary Edema; Effusion, atelectasis; Order Comment: COMPARISON: 10/17/2022, 07/14/2010 FINDINGS: LINES AND TUBES: None. LUNGS AND PLEURA: Stable faint hazy opacity in the left midlung. Additional scattered foci on the right are not well demonstrated on the current exam. The left hemidiaphragm is excluded from the image. Pulmonary vascularity is within normal limits. No pleural effusion. No pneumothorax. HEART, MEDIASTINUM AND IRENA: Heart is normal in size. Normal mediastinal and hilar contour. BONES AND SOFT TISSUES: No acute abnormality. IMPRESSION: No significant interval change in left midlung opacity which could represent discoid atelectasis. Previously described right lung hazy opacities are not well demonstrated on the current study. WSN: [id number] Ordering Physician: Tyrese Kenney Dictated By: Shantelle An MD Dictated Date/Time: 10/18/22 4:39 pm Reviewed By: Shantelle An MD Signed By: Shantelle An MD Signed Date/Time: 10/18/22 4:39 pm Transcribed By: DEBORAH Transcribed Date/Time: 10/18/22 4:38 pm * Exam Date Time Procedure Performing Provider Status 10/18/22 11:[address] Angio Chest Ivett Goldman; Auth (Verified) Notes: (CT Angio Chest) Reason For Exam: PE Suspected, Intermediate Prob, Positive D-Dimer;Other: RESULT: CT Angio Chest EXAMINATION: CT Angio Chest INDICATION: Reason: Other:; PE Suspected, Intermediate Prob, Positive D-Dimer; Clinical Question(s): Pulmonary Embolism; Order Comment: TECHNIQUE: Spiral CTA of the chest was performed after rapid IV contrast administration without cardiac gating, triggered by an BENY on the main pulmonary artery. Images are formatted in multiple planes using 2-D multiplanar and 3-D maximum intensity projection. 50 cc of Omnipaque 300 was administered intravenously. Weight-based protocol using automatic tube modulation was used to optimize exposure parameters. CTDIvol Body: 6.90 mGy, DLP Body: 342 mGy*cm. COMPARISONS: None. ANGIOGRAPHIC FINDINGS: No pulmonary embolism to the subsegmental level. Normal caliber pulmonary arteries. No acute aortic abnormality seen on this study performed without cardiac gating. NON-ANGIOGRAPHIC FINDINGS: Ship Keeper View Findings, Lines and Tubes: None. Trachea and Airways: Diffuse bronchial wall thickening is present. Lungs and Pleura: There are tree-in-bud and groundglass type opacity seen throughout the lungs as well as extensive calcified nodules. Calcified nodules are likely chronic. Tree-in-bud type opacity suggests infectious or inflammatory process/bronchiolitis. Aspiration can also produce this appearance. Previous examination also suggested diffuse centrilobular groundglass nodules suggesting smoking-related respiratory bronchiolitis. This may in part account for appearance on today's exam. Mediastinum and irena: No mass or hematoma. No mediastinal or hilar lymphadenopathy. No esophageal abnormality. Heart: Heart is normal in size. No pericardial effusion. Chest Wall Soft Tissues: Normal. Diaphragm and upper abdomen: No significant abnormality. Bones: No acute abnormality. IMPRESSION: No evidence of pulmonary embolism. Scattered groundglass opacity with some areas of tree-in-bud type abnormality. Previous exam suggested chronic most likely smoking-related lung disease. There does appear to be some interval change in the appearance from 11/21/2021 suggesting possible acute infectious or inflammatory bronchiolitis or aspiration. Extensive calcified nodules likely chronic. WSN: [id number] Ordering Physician: La Nena Reid Dictated By: Nilesh Gonsalez MD Dictated Date/Time: 10/18/22 12:01 p Reviewed By: Nilesh Gonsalez MD Signed By: Nilesh Gonsalez MD Signed Date/Time: 10/18/22 12:01 pm Transcribed By: DEBORAH Transcribed Date/Time: 10/18/22 11:54 am * Exam Date Time Procedure Performing Provider Status 10/17/22 12:40 AM Chest Portable Shani Casarez; Auth (Verified) Notes: (Chest Portable) Reason For Exam: Shortness of Breath RESULT: Chest Portable Chest Portable Reason: Shortness of Breath; Clinical Question(s): Pneumonia; Special Instructions: PUI COMPARISON: CT chest from 11/13/2021 Chest radiograph from 07/14/2010 FINDINGS: LINES AND TUBES: None. LUNGS AND PLEURA: Large number of small calcified granulomas throughout the lungs. Some faint scattered hazy opacities in the right greater than left lung are appreciated, increased from topogram from CT chest on 11/13/2021. Normal pulmonary vascularity. No pleural effusion. No pneumothorax. HEART, MEDIASTINUM AND IRENA: Heart is normal in size. Normal mediastinal and hilar contour. BONES AND SOFT TISSUES: No acute abnormality. Calculation of the right rotator cuff musculature. IMPRESSION: Some faint scattered hazy opacities in the right greater than left lung are appreciated, increased from topogram from CT chest on 11/13/2021. Infection is a possible consideration. Multiple small calcified granulomas. WSN: [id number] Ordering Physician: Tia Erazo Dictated By: Kenan Suazo MD Dictated Date/Time: 10/17/22 8:06 am Reviewed By: Kenan Suazo MD Signed By: Kenan Suazo MD Signed Date/Time: 10/17/22 8:06 am Transcribed By: DEBORAH Transcribed Date/Time: 10/17/22 8:02 am Vital Signs Most recent to oldest [Reference Range]: 1 2 3 Height 170 cm (10/22/22 7:25 AM) 170 cm (10/22/22 2:06 AM) 170 cm (10/21/22 7:44 PM) Weight 94.9 kg (10/22/22 5:11 AM) 94.9 kg (10/21/22 5:29 AM) 93.8 kg (10/20/22 6:12 AM) Oxygen Saturation [94-100 %] 94 % (10/22/22 7:25 AM) 96 % (10/22/22 2:06 AM) 95 % (10/21/22 7:44 PM) Pulse Rate [55-90 bpm] 78 bpm (10/22/22 7:25 AM) 87 bpm (10/22/22 2:06 AM) 89 bpm (10/21/22 7:44 PM) Body Mass Index [18.5-24.99 kg/m2] 33.98 kg/m2 *>HHI* (10/17/22 6:33 AM) Blood Pressure [90-138/55-84 mm Hg] 141/92mm Hg *H* (10/22/22 7:25 AM) 143/71mm Hg *H* (10/22/22 2:06 AM) 139/75mm Hg *H* (10/21/22 7:44 PM) Respiratory Rate [16-30 br/min] 18 br/min (10/22/22 7:25 AM) 18 br/min (10/22/22 2:06 AM) 18 br/min (10/21/22 7:44 PM) Temperature [96.8-100.4 DegF] 98.2 DegF (10/22/22 7:25 AM) 96.8 DegF (10/22/22 2:06 AM) 98.0 DegF (10/21/22 7:44 PM) Liters per Minute 4 L/min (10/22/22 7:25 AM) 3 L/min (10/22/22 2:06 AM) 3 L/min (10/21/22 7:44 PM) Mode of Delivery (Oxygen) Nasal cannula (10/22/22 7:25 AM) Nasal cannula (10/22/22 2:06 AM) Nasal cannula (10/21/22 7:44 PM) Blood pressure sites Arm, left (10/22/22 7:25 AM) Arm, left (10/22/22 2:06 AM) Arm, left (10/21/22 7:44 PM) Temperature Route Temporal (10/22/22 7:25 AM) Temporal (10/22/22 2:06 AM) Temporal (10/21/22 7:44 PM) Dry Weight 98.9 kg (10/17/22 6:33 AM) 99.1 kg (10/17/22 12:01 AM) Weight Obtained Via Bed scale (10/22/22 5:11 AM) Bed scale (10/21/22 5:29 AM) Bed scale (10/20/22 6:12 AM) Dry Weight Obtained Via Patient lift orozco ging scale (10/17/22 12:01 AM) Social History Social History Type Response Smoking Status 10 or more cigarette s (1/2 pack or more)/day in last 30 days; Interested in cessation: Yes; Type: Cigarettes; Tobacco user in household: Yes; Other: 1 to 1 1/2 pack a day - was attempting to quit; Started at age: 16; entered on: 10/17/22 Sex Admission evaluation note * Waldemar Pinedo MD: MODIFY, PERFORM, MODIFY Event Display: Admission Note Authored Date: Patient: ??SONALI HILLMAN ? Age:??62 Years?Sex:??Female?:??1960?? Chief Complaint/Reason for Consultation COPD exacerbation History of Present Illness 62-year-old??lady with past medical history??significant for??longstanding COPD,??anxiety,??heavy smoking for 40 years??and she is trying to??cut down smoking and is smoking half pack per??day.?She also complains of increasing shortness of breath??and wheezing.?? Oxygen saturation was in 60s??inER??on room air.?? Patient was put on nonrebreather??and later??on high flow oxygen.?? She also complained of dry??cough.?? CBC shows leukocytosis with left shift.?? Chest x-ray??is suggestive??of possible pneumonia.?? The patient is being admitted to [facility] for??further evaluation and treatment??for COPD exacerbation,???possible??pneumonia. Review of Systems Constitutional: No fever HEENT: No visual loss, blurred vision, double vision or yellow sclera. No runny nose or sore throat. Cardiovascular: No chest pain, palpitations or pedal edema. Respiratory: Shortness of breath, cough, wheezing. Gastrointestinal: No nausea, vomiting or diarrhea. No abdominal pain.?? Neurologic: No headache, dizziness, unilateral weakness, numbness or tingling in the extremities. Objective Measurements?? Height: 170 cm (10/17/22) Weight: 98.2 kg (10/17/22) Dry Weight: 98.9 kg (10/17/22) Body Mass Index:??33.98 kg/m2??Critical (10/17/22) ? Vital Signs?? Temperature: 97.7 DegF (10/17/22 08:00:00) Temperature Route: Oral (10/17/22 08:00:00) Pulse Rate: 90 bpm (10/17/22 06:33:00) Heart Rate Monitored: 73 bpm (10/17/22 10:00:00) Respiratory Rate: 20 br/min (10/17/22 10:00:00) Systolic Blood Pressure: 118 mm Hg (10/17/22 10:00:00) Diastolic Blood Pressure: 55 mm Hg (10/17/22 10:00:00) Blood pressure sites: Arm, right (10/17/22 10:00:00) Mean Arterial Pressure: 110 mm Hg (10/17/22 06:33:00) Pulse Pressure: 63 mm Hg (10/17/22 10:00:00) Oxygen Saturation: 95 % (10/17/22 10:00:00) Liters per Minute: 6 L/min (10/17/22 10:00:00) Mode of Delivery (Oxygen): Nasal cannula (10/17/22 10:00:00) FiO2: 40 % (10/17/22 00:21:00) Early Warning Score: 9 (10/17/22 10:44:56) ? Intake/Output? 10/17 04:31 10/17 07:00 10/16 07:00 10/15 07:00 10/14 07:00 ?? 10/17 10:52 10/17 10:52 10/17 06:59 10/16 06:59 10/15 06:59 Intake ?380 ?240 ?140 ?0 ?0 Output ?0 ?0 ?0 ?0 ?0 Net Total ?380 ?240 ?140 ?0 ?0 ? Urine Count ?2 ?1 ?1 ?0 ?0 ? Precautions No Precautions documented.? Mobility & Ambulation Level Mobility & Ambulation Level Activity Assistance: Minimum assistance (10/17/22) Activity Status ADL: Ambulating in room, Bathroom privileges, Up with assistance (10/17/22) Ambulatory devices needed: None (10/17/22) ? Physical Exam General: Alert Mental Status: Oriented to person, place and time. Head: Normocephalic. Neck: Supple Respiratory: Clear to auscultation and percussion. No wheezing, rales or rhonchi. Cardiovascular: Heart sounds normal. No thrills. Regular rate and rhythm, no murmurs, rubs or gallops. Gastrointestinal: Abdomen soft, non-tender, non-distended. Normal bowel sounds.?? Neurologic: Cranial nerves II-XII grossly intact. No focal neurological deficits. Sensation intact bilaterally. Skin: No rashes or lesions.?? Musculoskeletal: No cyanosis Assessment/Plan Diagnoses COPD exacerbation ??(J44.1) Polycythemia ??(D75.1) ?? Assessment:??62-year-old lady with past medical history significant for longstanding COPD, anxiety,heavy smoking for 40 years and she is trying to cut down smoking and is smoking half pack per day. She also complains of increasing shortness of breath and wheezing. Oxygen saturation was in 60s in ER on room air. Patient was put on nonrebreather and later on high flow oxygen. She also complained of dry cough. CBC shows leukocytosis with left shift. Chest x-ray is suggestive of possible pneumonia. The patient is being admitted to [facility] for further evaluation and treatment for COPD exacerbation, possible pneumonia. ? 1.?COPD exacerbation: I do not think this is pneumonia History of heavy smoking??for the past 40 years Patient??has leukocytosis Patient has longstanding??history of??smoking??and history of COPD??with oxygen saturations??in the60s Patient complains of??shortness of breath and wheezing Patient is on high flow oxygen Patient is afebrile??and not spiking any fevers Patient??received??methylprednisolone??125 mg x 1 I reviewed??p.o. prednisone??40 mg daily for??4 more days ? 2.?Extensive history of smoking: Patient states that she has been smoking for??about 40 years I have ordered nicotine patch I have discussed the potential??serious??side effects of??heavy smoking??which can include??lung cancer hypertension ? 3.?Hyponatremia: Na 125 Likely from hypovolemic hyponatremia Improved with IV fluids Na is normal now 133 ? 4.? Anxiety: Patient has history of anxiety We will continue with??bupropion,??venlafaxine ? 5.?DVT prophylaxis: Subcu heparin Diet:??Cardiac/diabetic diet CODE STATUS: Full code ? I have discussed the above plan with the patient at bedside who is in agreement ? Discharge Planning:? Histories Allergies Allergies ?(Active and Proposed Allergies Only) sulfa drugs? (Severity: Unknown severity, Onset: Unknown) Contrast Dye? (Severity: Unknown severity, Onset: Unknown) ? Past Medical History/Problem List Active Problems??(1) Obese class I ? Past Surgical History No surgery history documented. ? Social History Alcohol Details:??Use: Never. Employment/School Details:??Status: Disabled. Nutrition/Health Details:??Diet: Diabetic. Substance Abuse Details:??Use: Never. Tobacco Details:??Use: 10 or more cigarettes (1/2 pack or more)/day in last 30 days. ??Interested in cessation: Yes. ??Other: 1 ??to 1 1/2 pack a day - was attempting to quit. ??Type: Cigarettes. ??Started at age: 16 Years. ??Tobacco user in household: Yes. Electronic Cigarette/Vaping Details:??Electronic Cigarette Use: Never. ? Psychosocial History ? Family History No family history recorded. ? Medications Home Medications Aripiprazole (ARIPiprazole 5 mg oral tablet)?5?Milligram?1?tablet?By Mouth?Daily Atorvastatin (atorvastatin 20 mg oral tablet)?1?tab(s)?20?Milligram?By Mouth?Daily BuPROpion (buPROPion 300 mg/24 hours (XL) oral tablet, extended release)?1?tab(s)?300?Milligram?By Mouth?Every 24 hours Celecoxib (celecoxib 100 mg oral capsule)?1?capsule?100?Milligram?By Mouth?Daily Cholecalciferol (Vitamin D3 1000 intl units oral capsule)?1?capsule?1,000?InternationalUnit?By Mouth?Daily Metformin (metFORMIN 500 mg oral tablet)?1?tab(s)?500?Milligram?By Mouth?2 times a day Multivitamin With Minerals (Centravites Adults oral tablet)?1?tab(s)?By Mouth?Daily Paterson-3 Polyunsaturated Fatty Acids (Fish Oil 1000 mg oral capsule)?1?capsule?1,000?Milligram?By Mouth?2 times a day Venlafaxine (venlafaxine 75 mg oral tablet)?1?tab(s)?75?Milligram?By Mouth?2 times a day ? Inpatient Medications Medications (24) Active SCHEDULED: (12) Aripiprazole 5 mg Tablet (ARIPiprazole 5 mg oral tablet) ??5 mg, By Mouth, Daily BuPROPion XL 300 mg Tablet (BuPROpion SR Tablet) ??300 mg, By Mouth, Every 24 hours Heparin 5000 units/mL Inj (1 mL) (Heparin Inj) ??5,000 units 1 mL, Subcutaneous Injection, 3 times a day Insulin Lispro 100 units/mL Inj (3mL) (Insulin LISPRO Sliding Scale) ??2-10 units, Subcutaneous Injection, 3 times a day before meals Multivitamin Therapeutic / Minerals Tablet (Multivit Therapeutic/Minerals Tablet) ??1 tablet, By Mouth, Daily NaCl 0.9% Flush 3ml (NaCL 0.9% Flush) ??3 mL, IV Push, Every 8 hours NaCl 0.9% Flush 3ml (NaCL 0.9% Flush) ??3 mL, IV Push, Every 8 hours Nicotine 14 mg / 24 hour Patch (Nicotine Topical) ??14 mg, Topically, Daily PredniSONE 20 mg Tablet (predniSONE 20 mg oral tablet) ??40 mg, By Mouth, Daily Remove Patch (Remove ??Patch) ??1 each, Topically, Daily Venlafaxine IR 75 mg Tablet (Venlafaxine IR 75 mg tablet) ??75 mg, By Mouth, 2 times a day Vitamin D 1000 IU Tablet (cholecalciferol 1000 intl units oral tablet) ??1,000 International_Units,By Mouth, Daily CONTINUOUS: (0) PRN: (12) Acetaminophen 325 mg Tablet (Acetaminophen Tablet) ??650 mg, By Mouth, Every 4 hours Dextromethorphan-Guaifenesin 20 mg-200 mg/10 mL Liqu UD (Robitussin DM Liquid) ??10 mL, By Mouth, Every 4 hours Dextrose Inj Syringe (Dextrose 50% Inj Syringe (25Gm)) ??12.5 Gm, IV Push Slowly, Every 20 minutes Dextrose Inj Syringe (Dextrose 50% Inj Syringe (25Gm)) ??25 Gm, IV Push Slowly, Every 15 minutes Glucagon 1 mg Inj (Glucagon Inj) ??1 mg, Intramuscular, Once Glucose 40% Gel (15 Gm) (Glucose Gel) ??15 Gm, By Mouth, Every 20 minutes Glucose 40% Gel (15 Gm) (Glucose Gel) ??30 Gm, By Mouth, Every 20 minutes Melatonin 3 mg Tablet (Melatonin Tablet) ??3 mg, By Mouth, Daily at bedtime NaCl 0.9% Flush 3ml (NaCL 0.9% Flush) ??3 mL, IV Push, Every 8 hours Polyethylene Glycol 17 Gm Powder (MiraLax Powder) ??17 Gm 1 pack/packet, By Mouth, Daily Senna 8.6 mg / Docusate 50 mg tablet (Docusate/Senna Tablet) ??1 tablet, By Mouth, 2 times a day Simethicone 80 mg Chewable Tablet (Simethicone Tablet) ??80 mg, Chew, 3 times a day ? Results Recent Labs BLOOD COUNT & DIFF WBC 16.3 k/mm3 (High)?? 10/17/2022 00:15 RBC 5.72 m/mm3 (High)?? 10/17/2022 00:15 Hgb 16.2 Gm/dL (High)?? 10/17/2022 00:15 Hct 51.1 % (High)?? 10/17/2022 00:15 MCV 89.3 femtoliters ()?? 10/17/2022 00:15 MCH 28.3 pg ()?? 10/17/2022 00:15 MCHC 31.7 g/dL (Low)?? 10/17/2022 00:15 Platelet Count 334 k/mm3 ()?? 10/17/2022 00:15 RDW-SD 45.9 femtoliters ()?? 10/17/2022 00:15 MPV 9.2 femtoliters (Low)?? 10/17/2022 00:15 Nucleated RBC (Automated) 0.0 #/100 WBC'S ()?? 10/17/2022 00:15 Abs. NRBC 0.0 k/mm3 ()?? 10/17/2022 00:15 Abs. Neut 12.4 k/mm3 (High)?? 10/17/2022 00:15 Abs. Lymph 2.4 k/mm3 ()?? 10/17/2022 00:15 Abs. Harlan 1.3 k/mm3 (High)?? 10/17/2022 00:15 Abs. Eo 0.1 k/mm3 ()?? 10/17/2022 00:15 Abs. Baso 0.1 k/mm3 ()?? 10/17/2022 00:15 Neut % 75.7 % ()?? 10/17/2022 00:15 Lymph % 14.9 % (Low)?? 10/17/2022 00:15 Harlan % 7.7 % ()?? 10/17/2022 00:15 Eos % 0.4 % ()?? 10/17/2022 00:15 Baso % 0.7 % ()?? 10/17/2022 00:15 Imm Gran 0.6 % ()?? 10/17/2022 00:15 Abs. Imm Gran 0.1 k/mm3 ()?? 10/17/2022 00:15 ?? CARDIAC Nt-Probnp 515 pg/mL (High)?? 10/17/2022 00:23 ?? CHEM GENERAL Sodium 125 mmol/L (Low)?? 10/17/2022 00:23 Potassium 4.6 mmol/L ()?? 10/17/2022 00:23 Chloride 86 mmol/L (Low)?? 10/17/2022 00:23 Bicarbonate Level 26 mmol/L ()?? 10/17/2022 00:23 Anion Gap 13 ()?? 10/17/2022 00:23 Glucose Level 194 mg/dL (High)?? 10/17/2022 00:23 Glucose, POC 179 mg/dL (High)?? 10/17/2022 00:10 BUN 13 mg/dL ()?? 10/17/2022 00:23 Creatinine-Blood 0.6 mg/dL ()?? 10/17/2022 00:23 Estimated GFR Creatinine 101 ML/MIN/1.73 M2 ()?? 10/17/2022 00:23 Calcium 9.4 mg/dL ()?? 10/17/2022 00:23 Protein, Total 7.5 Gm/dL ()?? 10/17/2022 00:23 Albumin 4.3 Gm/dL ()?? 10/17/2022 00:23 AG Ratio 1.3 ()?? 10/17/2022 00:23 Alkaline Phosphatase 113 units/L (High)?? 10/17/2022 00:23 AST (SGOT) 36 units/L (High)?? 10/17/2022 00:23 ALT (SGPT) 49 units/L (High)?? 10/17/2022 00:23 Bilirubin, Total 0.3 mg/dL ()?? 10/17/2022 00:23 Lactate 1.1 mmol/L ()?? 10/17/2022 02:43 ?? HEME OTHER Hold Blue Top SPECIMEN DISCARDED AFTER 4 HOURS. ()?? 10/17/2022 00:15 ?? VIROLOGY Influenza A PCR NEGATIVE ()?? 10/17/2022 00:15 Influenza B PCR NEGATIVE ()?? 10/17/2022 00:15 RSV PCR NEGATIVE ()?? 10/17/2022 00:15 COVID-19 PCR Specimen Source NASAL ()?? 10/17/2022 00:15 COVID-19 PCR Result NEGATIVE ()?? 10/17/2022 00:15 ? EKG study * Event Display: EKG Authored Date: * Event Display: ECG 12-Lead Authored Date: Please click on pdf link to open report * Event Display: ECG 12-Lead Authored Date: Ventricular Rate: 108 BPM Atrial Rate: 108 BPM P-R Interval: 200 ms QRS Duration: 74 ms Q-T Interval: 340 ms QTC Calculation(Bazett): 455 ms P [place]: 70 degrees R [place]: 37 degrees T [place]: 44 degrees Sinus tachycardia Biatrial enlargement Anteroseptal infarct , age undetermined Abnormal ECG No previous ECGs available Confirmed by UMANG GALAN ([id number]) on 10/17/2022 9:58:15 AM [place]: UMANG GALAN Heart * Event Display: Echocardiogram - Complete Authored Date: Transthoracic Echocardiography Report (TTE) Patient Demographics Patient Name SONALI HILLMAN Date of Study 10/17/2022 Corporate Gender Female Facility Race Ethnicity Date of 1960 Height: 66.93 inches Age 62 year(s) Weight: 216.05 pounds Accession Number [id number] BSA: 2.09 m2 Room Number [id number] BMI: 33.91 kg/m2 Referring Physician Waldemar Pinedo Interpreting Tianna Hunt MD, MD Physician School Transportation Supervisor Kandice Hamilton RCS Indications Heart failure. Clinical History Tobacco use. COPD Study Data Type of Study TTE procedure:Echo Complete-Doppler, Colorflow, M-Mode. Study Date10/17/2022 Start Time: 12:50 PM Study Location: [facility] [place] Study Status: Bedside Patient Status: Routine Technical Quality: Technically difficult due to breathing difficulities. Blood Pressure:126/76 mmHg EKG: Normal sinus rhythm HR: 86 bpm 2D Measurements LV Diastolic Dimension: 3.76 cm LV Systolic Dimension: 2.6 cm LV Septum Diastolic: 0.9 cm LV PW Diastolic: 0.8 cm LA ESV (BP):29.9 ml IVC Inspiration: 1.72 cm LA ESV Index: 14 ml/m2 LVOT Stroke Volume: 65.21 ml LVOT: 2.08 cm Stroke Volume Index31.2 ml/m2 Ascending Aorta:2.7 cm Cardiac Index:2.68 l/min/m2 Doppler Measurements AV Peak Velocity: 156 cm/s MV Peak E-Wave: 73.4 cm/s AV Peak Gradient: 9.73 mmHg MV Peak A-Wave: 90.2 cm/s AV Mean Gradient: 5 mmHg MV E/A Ratio: 0.81 AV VTI:25.6 cm MV P1/2t: 42 msec LVOT Peak Velocity: 109 cm/s LVOT VTI19.2 cm MV Deceleration Time: 144 msec AV Area (Continuity):2.55 cm2 MV Area (PHT): 5.24 cm2 E' Septal Velocity: 5.44 cm/s E' Lateral Velocity: 10.1 cm/s E/Med E':[id number] E/Lat E':[id number] Cardiac Anatomy Left Ventricle/Interventricular Septum The left ventricular size is normal. Left ventricular wall thickness is normal. The LV systolic function is normal . The left ventricular ejection fraction is 55-60 %. There are no definite regional wall motion abnormalities. There is no doppler evidence of increased filling pressures. Left Atrium/Interatrial Septum The left atrium is normal in size. Aortic Valve The aortic valve is trileaflet . The aortic valve appears mildly calcified. There is no significant aortic stenosis. There is no aortic regurgitation. Mitral Valve The mitral valve opening is normal. There is trivial mitral regurgitation. Aorta The ascending aorta and aortic root are normal in size. Right Ventricle The right ventricle is normal in size. Right ventricular systolic function appears preserved. Right Atrium The right atrium is normal in size. Pulmonic Valve The pulmonic valve is poorly visualized. Tricuspid Valve The tricuspid valve is grossly normal. There is no significant tricuspid valve regurgitation. Pumonary Artery An accurate pulmonary artery pressure could not be obtained. Venous Structures The inferior vena cava is moderately dilated with poor inspiratory collapse consistent with elevated right atrial pressures. Pericardium/Extracardiac There is no significant pericardial effusion. Summary The left ventricular size is normal. Left ventricular wall thickness is normal. The LV systolic function is normal . The left ventricular ejection fraction is 55-60 %. There are no definite regional wall motion abnormalities. There is no doppler evidence of increased filling pressures. The right ventricle is normal in size. Right ventricular systolic function appears preserved. The inferior vena cava is moderately dilated with poor inspiratory collapse consistent with elevated right atrial pressures. Comparison No prior study available for comparison. Signature * Event Display: Echocardiogram - Complete Authored Date: Note * Kassidy Thornton RN: PERFORM Event Display: Discharge/Transfer Note Hospital Authored Date: Nursing Discharge Note Entered On: 10/22/2022 10:50 EDT Performed On: 10/22/2022 10:50 EDT by Kassidy Thornton RN Nursing Discharge Note 2 Discharge Time : 10/22/2022 10:45 EDT Discharge Level of Care at Discharge : Homehealth/VNA Discharge VNA/Hospice/Home Care(v001) : [facility] [phone] Discharge Medical [employer](v001) : Naila Green Patient Left Unit Via : Wheelchair Patient Accompanied Off Unit with : Responsible adult DC Instructions Provided & Signed by Pt : Yes Patient Understands D/C Instructions : Yes Patient Instructions Discharge Signed : Yes Did Pt have Specialty Bed or Wound Vac : No Kassidy Thornton RN 10/22/2022 10:50 EDT * Umang Arciniega DO: MODIFY, PERFORM Event Display: Discharge/Transfer Note Hospital Authored Date: [id number] Patient: ??SONALI HILLMAN ? Age:??62 Years?Sex:??Female?:??1960?? Patient Information Discharge Location: Primary Care Physician: Kaitlynn Marina MD Admit Date/Time: 10/17/22 04:31 Discharge Disposition Discharge Disposition: Home with Home Health Discharge Diagnosis Anxiety (F41.9) Aspiration pneumonia (J69.0) COPD exacerbation (J44.1) Polycythemia (D75.1) Tobacco use (Z72.0) Obese class I ?? _ Discharge Medications Albuterol (albuterol CFC free 90 mcg/inh inhalation aerosol)?1?puff(s)?Inhalation?4 times a day?as needed?as needed for wheezing Amoxicillin-Clavulanate (Augmentin 875 mg-125 mg oral tablet)?1?tab(s)?By Mouth?Every 12 hours?for 2?Days Aripiprazole (ARIPiprazole 5 mg oral tablet)?5?Milligram?1?tablet?By Mouth?Daily Atorvastatin (atorvastatin 20 mg oral tablet)?1?tab(s)?20?Milligram?By Mouth?Daily BuPROpion (buPROPion 300 mg/24 hours (XL) oral tablet, extended release)?1?tab(s)?300?Milligram?By Mouth?Every 24 hours Celecoxib (celecoxib 100 mg oral capsule)?1?capsule?100?Milligram?By Mouth?Daily Cholecalciferol (Vitamin D3 1000 intl units oral capsule)?1?capsule?1,000?InternationalUnit?By Mouth?Daily Metformin (metFORMIN 500 mg oral tablet)?1?tab(s)?500?Milligram?By Mouth?2 times a day Multivitamin With Minerals (Centravites Adults oral tablet)?1?tab(s)?By Mouth?Daily Nicotine (Nicoderm C-Q Clear 14 mg/24 hr transdermal film, extended release)?1?patch(es)?Topically?Daily?for 14?Days [place]erson-3 Polyunsaturated Fatty Acids (Fish Oil 1000 mg oral capsule)?1?capsule?1,000?Milligram?By Mouth?2 times a day PredniSONE (predniSONE 20 mg oral tablet)?2?tab(s)?40?Milligram?By Mouth?Daily?for 4?Days Venlafaxine (venlafaxine 75 mg oral tablet)?1?tab(s)?75?Milligram?By Mouth?2 times a day ? Quality Measures Tobacco Use Treatment:?Cessation Medication Prescribed on Discharge:??Tobacco Cessation Medication Prescribed ? Vaccinations and Immunoprophylaxis influenza virus vaccine, inactivated: 0.5 Unknown (05/08/22 08:00:00) influenza virus vaccine, inactivated: 0.5 Unknown (05/14/20 08:00:00) influenza virus vaccine, inactivated: 0.5 Unknown (05/24/19 08:00:00) influenza virus vaccine, inactivated: 0.5 Unknown (05/12/18 08:00:00) influenza virus vaccine, inactivated: 0.5 Unknown (08/17/17 07:00:00) pneumococcal 23-valent vaccine: 0.5 Unknown (05/11/17 08:00:00) SARS-CoV-2 (COVID-19) Ad26 vaccine: 0.5 Unknown (10/22/20 08:00:00) tetanus/diphtheria/pertussis, acel(Tdap): 0.5 Unknown (02/09/17 08:00:00) Zoster Vaccine Live: 0.65 Unknown (04/22/18 08:00:00) zoster vaccine, inactivated: 0.5 Unknown (04/19/19 08:00:00) zoster vaccine, inactivated: 0.5 Unknown (02/15/19 08:00:00) ?? Medications Started Albuterol (albuterol 90 mcg/inh inhalation powder)?1?puff(s)?Inhalation?Every 6 hours?as needed?as needed Amoxicillin-Clavulanate (Augmentin 875 mg-125 mg oral tablet)?1?tab(s)?By Mouth?Every 12 hours?for 2?Days Nicotine (Nicoderm C-Q Clear 14 mg/24 hr transdermal film, extended release)?1?patch(es)?Topically?Daily?for 14?Days PredniSONE (predniSONE 20 mg oral tablet)?2?tab(s)?40?Milligram?By Mouth?Daily?for 4?Days Hospital Course Ms. hillman is a 62-year-old lady with medical history significant for longstanding COPD, anxiety, heavy smoking for 40 years and she is trying to cut down smoking and is smoking half pack per day. She also complains of increasing shortness of breath and wheezing. Oxygen saturation was in 60s in ER onroom air. Patient was put on nonrebreather and later on high flow oxygen. She also complained of dry cough. CBC shows leukocytosis with left shift. Chest x-ray is suggestive of possible pneumonia. The patient is being admitted to [facility] for further evaluation and treatment for COPD exacerbation, possible??aspiration??pneumonia.?She was started on Unasyn??and azithromycin??for possible infection. She continued course of steroids??will complete with oral prednisone outpatient.??She continues??with??present tobacco use history,??she will be discharged with nicotine patch.??She willcontinue with VNA and home oxygen.??She will follow-up with PCP. All discharge medications, instructions, questions??were discussed prior to leaving the hospital. ? COPD exacerbation ??Acute hypoxic respiratory failure ??Possible pneumonia (aspiration) vs infectious or inflammatory bronchiolitis ??Patient with a long standing history of COPD and 40 pack year smoking hx presented with hypoxia to the 60s at home ??She has leukocytosis and had worsening of SOB overnight along with tachycardia. CTPE obtained which suggests possible superimposed bacterial bronchiolitis vs aspiration ??-Continue unasyn as patient feels shortness of breath is improving, despite procalcitonin being low. Added azithromycin to reduce inflammation ??-Change to prednisone 40 mg daily from tomorrow, got one dose of solumedrol this morning ??-Albuteroll prn, scheduled duonebs q6h ??-Hold off on BiPAP for now as she is improving. Downgraded from [facility] 10/18 -Seen by pulm rehab this morning who are recommending 3L o2 at rest and 4L with ambulation, papers signed ? Extensive history of smoking ??Patient states that she has been smoking for about 40 years ??I have ordered nicotine patch ??I have discussed the potential serious side effects of heavy smoking which can include lung cancer hypertension ? Anxiety ??We will continue with bupropion, venlafaxine ? DVT prophylaxis: Subcu heparin ??Diet: Cardiac/diabetic diet ??CODE STATUS: Full code ?? Objective Measurements?? Height: 170 cm (10/22/22) Weight: 94.9 kg (10/22/22) Dry Weight: 98.9 kg (10/17/22) Body Mass Index:??33.98 kg/m2??Critical (10/17/22) ? Vital Signs?? Temperature: 96.8 DegF (10/22/22 02:06:00) Temperature Route: Temporal (10/22/22 02:06:00) Pulse Rate: 87 bpm (10/22/22 02:06:00) Respiratory Rate: 18 br/min (10/22/22 02:06:00) Systolic Blood Pressure:??143 mm Hg??High (10/22/22 02:06:00) Diastolic Blood Pressure: 71 mm Hg (10/22/22 02:06:00) Blood pressure sites: Arm, left (10/22/22 02:06:00) Mean Arterial Pressure: 95 mm Hg (10/22/22 02:06:00) Pulse Pressure: 72 mm Hg (10/22/22 02:06:00) Oxygen Saturation: 96 % (10/22/22 02:06:00) Liters per Minute: 3 L/min (10/22/22 02:06:00) Mode of Delivery (Oxygen): Nasal cannula (10/22/22 02:06:00) Early Warning Score: 2 (10/22/22 02:07:50) ? . Physical Exam Constitutional: Alert, in no distress. Oriented to person, place and time. Respiratory: Decreased bibasilar breath sounds Cardiovascular: RRR. S1 S2 regular. No murmurs, rubs or gallops. No JVD Gastrointestinal: Abdomen soft, non-tender, non-distended. Normal bowel sounds. No hepatosplenomegaly. Neurologic: Cranial nerves II-XII grossly intact. No focal neurological deficits. Flexor plantar response. Moves all extremities spontaneously. Sensation intact bilaterally. Skin: No rashes or lesions. No petechiae or purpura.?? Patient Education Titles Chronic Lung Disease: Starting an Exercise Plan?? Chronic Lung Disease: Preventing Lung Infections?? Chronic Lung Disease: Tips for Safe Exercise?? Follow-Up Appointments Added Follow Up ?Time Frame ?Comments Laina CHACON , Kaitlynn Pinzon Post Discharge Care Code Status: ?? Full Resuscitation Prognosis: Fair Home Health Face to Face *Denotes mandatory farley ?? *I certify that this patient is under my care and that I or an allowed non- physician working with me had a face to face encounter with the patient on this date:??10/22/2022 07:21 ?? *The encounter with the patient was in whole, or in part, for the following medical condition, which is the primary diagnosis(es) for home health care:??Anxiety (F41.9) Aspiration pneumonia (J69.0) COPD exacerbation (J44.1) Polycythemia (D75.1) Tobacco use (Z72.0) Obese class I ? *Select the indications for the discipline/s that are being arranged for this patient. Nursing (select all that apply): [_] None [_x] Medication management (reconciliation, teaching)?? [x_] Chronic disease management?? [_] Wound care and treatment?? [_] Home safety evaluation [_] Administer SQ/IM/IV medications?? [_] Cath care?? [_] Drain care?? [_] Trach or GT care?? Other _ Occupation Therapy (select all that apply): [_] None [_] ADL Management [_] Fall prevention training [_] Energy conservation [_] Cognitive training Other _ Physical Therapy (select all that apply): [_] None [_] Functional mobility training [_] Home exercise program to strengthen [_] Increase ROM?? [_] Falls prevention training [_] Home maintenance program for chronic disease Other _ Speech Therapy (select all that apply): [_] None [_] Swallow evaluation and training [_] Speech and language training [_] Cognitive training to process, organize, and/or recall information Other _ ? *Homebound due to (select all that apply): [x_] Inability to leave home without assistance/supervision [_] Inability to ambulate without assistance [_] Pain [_] Decreased strength and endurance [_] Unsteady gait [x_] Severe SOB and fatigue [_] Impaired transfers [_] Inability to negotiate stairs [_] Limited weight bearing [_] Mental status change? *Physician Signature:??Umang Arciniega D.O. ?? *By signing this, I certify that I have personally evaluated the patient and agree with the findings and recommendations as documented above. ? Results Discharge Labs BLOOD COUNT & DIFF WBC 13.1 k/mm3 (High)?? 10/21/2022 07:44 RBC 5.10 m/mm3 ()?? 10/21/2022 07:44 Hgb 14.8 Gm/dL ()?? 10/21/2022 07:44 Hct 46.8 % (High)?? 10/21/2022 07:44 MCV 91.8 femtoliters ()?? 10/21/2022 07:44 MCH 29.0 pg ()?? 10/21/2022 07:44 MCHC 31.6 g/dL (Low)?? 10/21/2022 07:44 Platelet Count 304 k/mm3 ()?? 10/21/2022 07:44 RDW-SD 49.0 femtoliters (High)?? 10/21/2022 07:44 MPV 9.2 femtoliters (Low)?? 10/21/2022 07:44 Nucleated RBC (Automated) 0.0 #/100 WBC'S ()?? 10/21/2022 07:44 Abs. NRBC 0.0 k/mm3 ()?? 10/21/2022 07:44 Abs. Neut 9.7 k/mm3 (High)?? 10/21/2022 07:44 Abs. Lymph 2.2 k/mm3 ()?? 10/21/2022 07:44 Abs. Harlan 1.0 k/mm3 (High)?? 10/21/2022 07:44 Abs. Eo 0.1 k/mm3 ()?? 10/21/2022 07:44 Abs. Baso 0.1 k/mm3 ()?? 10/21/2022 07:44 Neut % 73.7 % ()?? 10/21/2022 07:44 Lymph % 16.9 % ()?? 10/21/2022 07:44 Harlan % 7.9 % ()?? 10/21/2022 07:44 Eos % 0.5 % ()?? 10/21/2022 07:44 Baso % 0.6 % ()?? 10/21/2022 07:44 Imm Gran 0.4 % ()?? 10/21/2022 07:44 Abs. Imm Gran 0.1 k/mm3 ()?? 10/21/2022 07:44 ?? CARDIAC Nt-Probnp 515 pg/mL (High)?? 10/17/2022 00:23 ? CHEM GENERAL Sodium 140 mmol/L ()?? 10/21/2022 07:45 Potassium 4.5 mmol/L ()?? 10/21/2022 07:45 Chloride 96 mmol/L (Low)?? 10/21/2022 07:45 Bicarbonate Level 34 mmol/L (High)?? 10/21/2022 07:45 Anion Gap 10 ()?? 10/21/2022 07:45 Glucose Level 181 mg/dL (High)?? 10/19/2022 09:26 Glucose, POC 142 mg/dL (High)?? 10/21/2022 20:25 BUN 16 mg/dL ()?? 10/21/2022 07:45 Creatinine-Blood 0.7 mg/dL ()?? 10/21/2022 07:45 Estimated GFR Creatinine 95 ML/MIN/1.73 M2 ()?? 10/21/2022 07:45 Osmolality 267 mOs/kg (Low)?? 10/17/2022 00:23 Calcium 9.4 mg/dL ()?? 10/19/2022 09:26 Magnesium 2.3 mg/dL ()?? 10/18/2022 06:42 Protein, Total 7.5 Gm/dL ()?? 10/17/2022 00:23 Albumin 4.3 Gm/dL ()?? 10/17/2022 00:23 AG Ratio 1.3 ()?? 10/17/2022 00:23 Alkaline Phosphatase 113 units/L (High)?? 10/17/2022 00:23 AST (SGOT) 36 units/L (High)?? 10/17/2022 00:23 ALT (SGPT) 49 units/L (High)?? 10/17/2022 00:23 Bilirubin, Total 0.3 mg/dL ()?? 10/17/2022 00:23 Lactate 1.1 mmol/L ()?? 10/17/2022 02:43 Uric Acid 2.8 mg/dL ()?? 10/17/2022 00:23 ?? ENDOCRINE/TUMOR MARKER TSH 1.08 uIU/mL ()?? 10/18/2022 06:42 Cortisol Level 58.6 ??g/dL ()?? 10/18/2022 06:42 ?? HEME OTHER Hold Blue Top SPECIMEN DISCARDED AFTER 4 HOURS. ()?? 10/17/2022 00:15 ? MISC. CHEMISTRY Procalcitonin 0.06 ng/mL ()?? 10/18/2022 06:42 ? UA/URINALYSIS Appear/Color, Urine LIGHT YELLOW ()?? 10/17/2022 16:09 Specific Geronimo, Urine 1.010 ()?? 10/17/2022 16:09 pH, Urine 6.0 ()?? 10/17/2022 16:09 Albumin, Urine TRACE (Abnormal)?? 10/17/2022 16:09 Glucose, Urine 1+ (Abnormal)?? 10/17/2022 16:09 Ketones, Urine NEGATIVE ()?? 10/17/2022 16:09 Bilirubin, Urine NEGATIVE ()?? 10/17/2022 16:09 Hemoglobin, Urine NEGATIVE ()?? 10/17/2022 16:09 Nitrite, Urine POSITIVE (Abnormal)?? 10/17/2022 16:09 Leukocyte, Urine 1+ (Abnormal)?? 10/17/2022 16:09 Urobilinogen NORMAL mg/dL ()?? 10/17/2022 16:09 WBC's, Urine 9 /HPF (High)?? 10/17/2022 16:09 RBC's, Urine 1 /HPF ()?? 10/17/2022 16:09 Bacteria HEAVY HPF (Abnormal)?? 10/17/2022 16:09 Hold Urine Culture Testing available 48 hours from time of collection. ()?? 10/17/2022 16:09 ? URINE OTHER Creatinine, Urine Random 46.1 mg/dL ()?? 10/17/2022 16:09 Sodium, Urine Random 20 mmol/L ()?? 10/17/2022 16:09 Chloride, Urine Random 26 mmol/L ()?? 10/17/2022 16:09 Urea Nitrogen, Urine Random 474.0 mg/dL ()?? 10/17/2022 16:09 Osmolality, Urine Random 288 mOsm/kg ()?? 10/17/2022 16:09 ? VIROLOGY Influenza A PCR NEGATIVE ()?? 10/17/2022 00:15 Influenza B PCR NEGATIVE ()?? 10/17/2022 00:15 RSV PCR NEGATIVE ()?? 10/17/2022 00:15 COVID-19 PCR Specimen Source NASAL ()?? 10/20/2022 05:22 COVID-19 PCR Result NEGATIVE ()?? 10/20/2022 05:22 ? 39??minutes spent on discharge * Suzi RIOS, Cara Juarez: PERFORM Event Display: Patient Education/Instruction Authored Date: [id number] Inpatient Adult Discharge Instructions [place] [id number] Name: SONALI HILLMAN : 1960 Visit: 10/17/2022 04:31:00 Current Date: 10/22/2022 09:56 Account: [id number] Inpatient Adult Discharge Instructions We would like to thank you for allowing us to assist you with your healthcare needs. The following includes patient education materials and information regarding your injury/illness. Our entire staffstrives to provide an excellent experience for our patients and their families. PLEASE ENSURE YOU FOLLOW-UP PER THE INSTRUCTIONS BELOW! ?? YOUR OPINION IS IMPORTANT TO US! Please complete the survey you may receive by mail or email. Your feedback will be used to make improvements to the healthcare experiences of our patients and their families. Surveys are administered by [employer] ?? If further treatment with your primary care physician or another doctor is recommended, it is important for you to keep the appointment. Call your primary care physician or return to the Emergency Department immediately if your condition worsens, fails to improve, or new symptoms develop. If you need to find a doctor, you can call [facility] for a referral at [phone] or toll free at [phone] Box [email or web address] [phone]) or log in to [email or web address].. ?? You can view and manage your care through the patient portal or by using a health care sarah of your choosing. [employer] is a website that allows you to securely view your medical information including your hospital discharge summary, office visit summaries, medications and follow-up visits. You can also request appointments, renew medications, and request access to your medical information using a health care sarah of your choosing, or just ask a question. You can enroll at [email or web address] or register during your next office visit. You have been discharged from [facility], Patient Care Unit: M7. If you have any questions regarding these instructions after you leave, please call us and we will be happy to assist you. [facility] Your Care Team Attending Physician Umang Arciniega DO Consulting Providers Ranjith CHACON, Jeremy Burns MD Discharging Providers Umang Arciniega DO Reason for Admission General medical Your Diagnosis COPD exacerbation Polycythemia Aspiration pneumonia Anxiety Tobacco use Tests Performed Below is a partial list of the tests performed during your hospitalization. You may have had other tests and procedures not included in this list. Please discuss all test results with your provider. Basic Metabolic Panel BUN CBC w/ Differential Comprehensive Metabolic Panel Cortisol Level COVID-19 (2019 Novel Coronavirus) PCR COVID-19, RSV, and Flu A/B, Rapid PCR Creatinine Electrolytes GLUCOSE POC Hold Blue Top Tube Lactate Level Lytes Magnesium Level OSMOLALITY, SERUM ProBNP PROCALCITONIN, SERUM Sodium Urine TSH Urea Nitrogen Urine?-- Results Pending -- URIC ACID Urinalysis w/hold for Urine Culture Urine Chloride Urine Creatinine Urine Osmolality CT Angio Chest CXR Portable XR Chest Portable ? You will be contacted within 72 hours with your results. Primary Care Provider Laina CHACON , Kaitlynn Pinzon Advance Directive Health Care Proxy on File No Patient refuses to discuss Patient has a Designated Caregiver: No Discharge Vitals Temperature: 98.2 DegF Height: 170 cm Pulse Rate: 78 bpm Weight: 94.9 kg Respiratory Rate: 18 br/min Body Mass Index:??33.98 kg/m2??Critical Systolic Blood Pressure:??141 mm Hg??High Body surface area: 2.15 Diastolic Blood Pressure:??92 mm Hg??High ?? Oxygen Saturation: 94 % ?? Studies Pending All tests and labs ordered during this hospital stay have been completed unless listed below. Please discuss all pending results with your provider listed above in these instructions. ?? Add On Lab Order Blood Culture Blood Culture #2 Sputum Culture w/ Gram Smear Urea Nitrogen Urine What to do next Instructions From Your Doctor Discharge Orders Code Status:?? Full Resuscitation Prognosis:??Fair You Need to Schedule the Following Appointments Follow Up with??Laina CHACON , Kaitlynn Pinzon When?? Where: [address] [place] [phone] Discharge Medications SONALI HILLMAN :1960 Visit Date:10/17/2022 Medications: Please continue your medications until treatment is completed or stopped by your provider. Medications not listed below should be discontinued. Discuss any questions related to medications with your provider. What How Much When Instructions Next Dose New Albuterol (albuterol CFC free 90 mcg/ inh inhalation aerosol) 1 puff(s) Inhalation 4 times a day as needed for as needed for wheezing Pickup at [place] [address] as needed New Amoxicillin-Clavulanate (Augmentin 875 mg-125 mg oral tablet) 1 tab(s) Oral Every 12 hours Duration: 2 Days Pickup at [place] [address] Bedtime tonight? New Nicotine (Nicoderm C-Q Clear 14 mg/ 24 hr transdermal film, extended release) 1 patch(es) Topically Daily Duration: 14 Days Pickup at [place] [address] in the AM / remove patch at bedtime to prevent compromised sleep New PredniSONE (predniSONE 20 mg oral tablet) 2 tab(s) Oral Daily Duration: 4 Days Pickup at [place] [address] in the AM Unchanged Aripiprazole (ARIPiprazole 5 mg oral tablet) 1 tab(s) Oral Daily in the AM Unchanged Atorvastatin (atorvastatin 20 mg oral tablet) 1 tab(s) Oral Daily Daily at bedtime Bedtime tonight Unchanged BuPROpion (buPROPion 300 mg/ 24 hours (XL) oral tablet, extended release) 1 tab(s) Oral Every 24 hours In the AM Unchanged Celecoxib (celecoxib 100 mg oral capsule) 1 capsule Oral Daily in the AM Unchanged Cholecalciferol (Vitamin D3 1000 intl units oral capsule) 1 capsule Oral Daily in the AM Unchanged Metformin (metFORMIN 500 mg oral tablet) 1 tab(s) Oral Twice a day Before supper tonight Unchanged Multivitamin With Minerals (Centravites Adults oral tablet) 1 tab(s) Oral Daily in the AM Unchanged Paterson-3 Polyunsaturated Fatty Acids (Fish Oil 1000 mg oral capsule) 1 capsule Oral Twice a day Bedtime tonight Unchanged Venlafaxine (venlafaxine 75 mg oral tablet) 1 tab(s) Oral Twice a day Bedtime tonight Pharmacy Information [facility]: [address], [place] [id number] [phone] Test Results Below is a partial list of the most recent Laboratory test results done prior to this discharge. You may have had other tests and procedures not included in this list. Please discuss all test resultswith your provider. Basic Metabolic Panel (10/19/2022) ???Sodium - 138 mmol/L???Potassium - 4.6 mmol/L???Chloride - 92 mmol/L???Bicarbonate Level - 36 mmol/L???Anion Gap - 10???Glucose Level - 181 mg/dL???BUN - 19 mg/dL???Creatinine-Blood - 0.7 mg/dL???Estimated GFR Creatinine - 91 ML/MIN/1.73 M2???Calcium - 9.4 mg/dL BUN (10/21/2022) ???BUN - 16 mg/dL CBC w/ Differential (10/21/2022) ???WBC - 13.1 k/mm3???RBC - 5.10 m/mm3???Hgb - 14.8 Gm/dL???Hct - 46.8 %???MCV - 91.8 femtoliters???MCH - 29.0 pg???MCHC - 31.6 g/dL???Platelet Count - 304 k/mm3???RDW-SD - 49.0 femtoliters???MPV - 9.2 femtoliters???Nucleated RBC (Automated) - 0.0 #/100 WBC'S???Abs. NRBC - 0.0 k/mm3???Abs. Neut - 9.7 k/mm3???Abs. Lymph - 2.2 k/mm3???Abs. Harlan - 1.0 k/mm3???Abs. Eo - 0.1 k/mm3???Abs. Baso - 0.1 k/mm3???Neut % - 73.7 %???Lymph % - 16.9 %???Harlan % - 7.9 %???Eos % - 0.5 %???Baso % - 0.6 %???Imm Gran - 0.4 %???Abs. Imm Gran - 0.1 k/mm3 Comprehensive Metabolic Panel (10/17/2022) ???Sodium - 125 mmol/L???Potassium - 4.6 mmol/L???Chloride - 86 mmol/L???Bicarbonate Level - 26 mmol/L???Anion Gap - 13???Glucose Level - 194 mg/dL???BUN - 13 mg/dL???Creatinine-Blood - 0.6 mg/dL???Estimated GFR Creatinine - 101 ML/MIN/1.73 M2???Calcium - 9.4 mg/dL???Protein, Total - 7.5 Gm/dL???Alb umin - 4.3 Gm/dL???AG Ratio - 1.3???Alkaline Phosphatase - 113 units/L???AST (SGOT) - 36 units/L???ALT (SGPT) - 49 units/L???Bilirubin, Total - 0.3 mg/dL Cortisol Level (10/18/2022) ???Cortisol Level - 58.6 ??g/dL COVID-19 (2019 Novel Coronavirus) PCR (10/20/2022) ???COVID-19 PCR Specimen Source - NASAL???COVID-19 PCR Result - NEGATIVE COVID-19, RSV, and Flu A/B, Rapid PCR (10/17/2022) ???Influenza A PCR - NEGATIVE???Influenza B PCR - NEGATIVE???RSV PCR - NEGATIVE???COVID-19 PCR Specimen Source - NASAL???COVID-19 PCR Result - NEGATIVE Creatinine (10/21/2022) ???Creatinine-Blood - 0.7 mg/dL???Estimated GFR Creatinine - 95 ML/MIN/1.73 M2 Electrolytes (10/21/2022) ???Sodium - 140 mmol/L???Potassium - 4.5 mmol/L???Chloride - 96 mmol/L???Bicarbonate Level - 34 mmol/L???Anion Gap - 10 GLUCOSE POC (10/22/2022) ???Glucose, POC - 114 mg/dL Hold Blue Top Tube (10/17/2022) ???Hold Blue Top - SPECIMEN DISCARDED AFTER 4 HOURS. Lactate Level (10/17/2022) ???Lactate - 1.1 mmol/L Lytes (10/17/2022) ???Sodium - 133 mmol/L???Potassium - 4.1 mmol/L???Chloride - 89 mmol/L???Bicarbonate Level - 35 mmol/L???Anion Gap - 9 Magnesium Level (10/18/2022) ???Magnesium - 2.3 mg/dL OSMOLALITY, SERUM (10/17/2022) ???Osmolality - 267 mOs/kg ProBNP (10/17/2022) ???Nt-Probnp - 515 pg/mL PROCALCITONIN, SERUM (10/18/2022) ???Procalcitonin - 0.06 ng/mL Sodium Urine (10/17/2022) ???Sodium, Urine Random - 20 mmol/L TSH (10/18/2022) ???TSH - 1.08 uIU/mL URIC ACID (10/17/2022) ???Uric Acid - 2.8 mg/dL Urinalysis w/hold for Urine Culture (10/17/2022) ???Appear/Color, Urine - LIGHT YELLOW???Specific Geronimo, Urine - 1.010???pH, Urine - 6.0???Albumin, Urine - TRACE???Glucose, Urine - 1+???Ketones, Urine - NEGATIVE???Bilirubin, Urine - NEGATIVE???Hemoglobin, Urine - NEGATIVE???Nitrite, Urine - POSITIVE???Leukocyte, Urine - 1+???Urobilinogen - NORMAL???WBC's, Urine - 9 /HPF???RBC's, Urine - 1 /HPF???Bacteria - HEAVY???Hold Urine Culture - Testingavailable 48 hours from time of collection. Urine Chloride (10/17/2022) ???Chloride, Urine Random - 26 mmol/L Urine Creatinine (10/17/2022) ???Creatinine, Urine Random - 46.1 mg/dL Urine Osmolality (10/17/2022) ???Osmolality, Urine Random - 288 mOsm/kg Allergies (NKA means No Known Allergies) Contrast Dye sulfa drugs Problems Active Problems??(1) Obese class I?? Education Materials Below is the list of Educational Leaflet Providered with your Discharge Instructions. Prednisone Oral Tablet?? Amoxicillin/Clavulanate Oral Tablet?? Albuterol Dry Powder Inhaler?? Nicotine Transdermal System?? Anxiety: Learning to Just Be?? Chronic Lung Disease: Starting an Exercise Plan?? Chronic Lung Disease: Preventing Lung Infections?? Chronic Lung Disease: Tips for Safe Exercise?? Valuables and Belongings I fully understand and agree that [facility] accepts no responsibility for all my personal property including clothing, toilet articles, radios, jewelry, dentures, hearing aids, rings, money, or any other property that is in my possession or is brought to me after admission. I understand certain valuables may be placed in a hospital safe for a short period of time. I understand that the hospital is not liable for loss or damage due to accident, fire, or other natural occurrence while said property is in the safe. I accept full responsibility for any personal property that I keep with me, and will not hold the hospital responsible in case of loss or disappearance. I acknowledge that i have been encouraged to send valuables and belongings home. ?? Review of Valuable and Belonging List: With patient Date for Pt to Sign Valuables/Belongings: 10/17/22 06:44:00 ?? Other Discharge Information ? Case Management Discharge Plan?? Discharge Plan?? Discharge Agency Information?? Discharge Level of Care at Discharge: Homehealth/VNA Agency [employer] [facility]1: Intake Discharge Rx Program: Discharge Prescription Program Service Categories #1: Correction Discharge Rx Program: Discharge Prescription Program Service Comments #1: A nurse will call you to arrange a visit with you at your home. If you do not hear from agency, please call them. Discharge VNA/Hospice/Home Care: [facility] [phone] ?? Discharge Medical Equipment Companies: [employer] ? Pulmonary Rehab Status?? Pulmonary Rehab Discharge Status?? Patient Going Home on Oxygen: Yes Portable unit required: Yes Oxygen Device used at Home: Nasal cannula Liter flow: 2 LPM Oxygen Use Duration: At rest Oxygen Device used at Home (secondary): Nasal cannula Liter flow (secondary): 4 LPM Oxygen Use Duration (secondary): With activity CPAP/BiPAP Mask Type: Full CPAP/BiPAP Mask Size: Medium Respiratory Rate: 18 br/min Discharge Medical Equipment Companies: [employer] Home care instructions: Call company when you get home. ? Common Emergency Awareness Tips IS IT A STROKE? Act FAST and Check for these signs: FACE Does the face look uneven? ARM Does one arm drift down? SPEECH Does their speech sound strange? TIME Call at any sign of stroke ?? Heart Attack Signs Chest discomfort: Most heart attacks involve discomfort in the center of the chest and lasts more than a few minutes, or goes away and comes back. It can feel like uncomfortable pressure, squeezing, fullness or pain. Discomfort in upper body: Symptoms can include pain or discomfort in one or both arms, back, neck, jaw or stomach. Shortness of breath: With or without discomfort. Other signs: Breaking out in a cold sweat, nausea, or lightheaded. Remember, MINUTES DO MATTER. If you experience any of these heart attack warning signs, call to get immediate medical attention! ?? Smoking can increase your chances of developing chronic health problems and can cause harmful effects to other family members in your house. If you smoke, you are strongly encouraged to quit. Please call [facility] at [phone] or [phone]) or log in to [email or web address] for referrals to smoking cessation programs. ?? The National Suicide Prevention Hotline is available 16/02 if you or someone you know needs to find a reason to keep living. By calling 4-288-435-ylgv (1593) you'll be connected to a skilled, trained counselor at a crisis center in your area. INPATIENT DISCHARGE INSTRUCTIONS SIGNATURE PAGE SONALI HILLMAN Location:[facility] Registration Date and Time:10/17/2022 04:31 EDT Primary Care Physician: Laina CHACON , Kaitlynn Pinzon, I SONALI HILLMAN, have received the above patient education materials/instructions and have verbalized understanding. If ambulance or transport services are being used I further acknowledge being given a choice of service. ?? If you need to contact me, please call me at this number: . Patient/Solar Project Engineer Name: Patient/Solar Project Engineer Signature: Relationship to Patient: Witness Name/Signature: Date: * Cara Archer RN: PERFORM Event Display: Patient Education Leaflets Authored Date: [id number] Prednisone Oral Tablet ?? [id number] Prednisone Oral Tablet Brands: Deltasone Uses This medicine is used for the following purposes: ??? allergic reaction ??? autoimmune disorder ???blood disorder ??? endocrine disorder ??? inflammatory disease ??? immune suppression ??? cancer ??? COVID-19 (coronavirus) ?? Instructions Take the medicine with food. You may take with food to prevent stomach upset. Store at room temperature away from heat, light, and moisture. Do not keep in the bathroom. It is important that you keep taking each dose of this medicine on time even if you are feeling well. If you forget to take a dose on time, take it as soon as you remember. If it is almost time for thenext dose, do not take the missed dose. Return to your normal schedule. Do not take 2 doses at one time. Drug interactions can change how medicines work or increase risk for side effects. Tell your healthcare providers about all medicines taken. Include prescription and vurz-szk-valbjzr medicines, vitamins, and herbal medicines. Speak with your doctor or pharmacist before starting or stopping any medicine. Tell your doctor if symptoms do not get better or if they get worse. Talk to your doctor before taking other medicines, including aspirins and ibuprofen containing products. Speak to your doctor about which medicines are safe to use while you are on this medicine. This medicine may affect your blood sugar levels. If you have diabetes, talk to your doctor before changing the dose of your diabetes medicine. This medicine may affect the strength of your bones. If you have or are at increased risk for osteoporosis (weakening of the bones), your doctor may recommend foods with calcium and vitamin D. This medicine may interfere with skin allergy tests. Please tell your doctor or nurse that you are taking this medicine. Keep all appointments for medical exams and tests while on this medicine. ?? Cautions Tell your doctor and pharmacist if you ever had an allergic reaction to a medicine. This medicine may cause serious bleeding from the stomach or bowels. Stop this medicine and call your doctor immediately if you see any signs of bleeding. Bleeding can cause pain in the stomach, vomiting up liquid that looks like coffee grounds, and red or dark tarry stools. Do not use the medication any more than instructed. Please check with your doctor before drinking alcohol while on this medicine. Avoid smoking while on this medicine. Smoking may increase your risk for stomach bleeding. This medicine may reduce your body's ability to fight infections. Avoid contact with people with colds, flu or other infections. Contact your doctor if you develop fever, cough, sore throat, or chills. Speak with your health care provider before receiving any vaccinations. Tell the doctor or pharmacist if you are , planning to be , or . Always carry an ID card or wear a medical alert bracelet indicating your medical condition. Do not share this medicine with anyone who has not been prescribed this medicine. ?? Side Effects The following is a list of some common side effects from this medicine. Please speak with your doctor about what you should do if you experience these or other side effects. ??? acne ??? agitated feeling or trouble sleeping ??? decreased appetite ??? high blood sugar ??? high blood pressure ??? nausea and vomiting ??? stomach upset or abdominal pain Call your doctor or get medical help right away if you notice any of these more serious side effects: ??? bleeding or bruising ??? bone pain ??? coughing up blood or vomit that looks like coffee grounds ??? depression or feeling sad ??? swelling of the legs, feet, and hands ??? fever or chills ??? fast or irregular heart beats ??? menstruation changes (missed or fewer periods) ??? mood changes ??? muscle pain or cramps ??? seizures ??? thinning of the skin ??? severe stomach or bowel pain ??? dark, tarry stool ??? unusual or unexplained tiredness or weakness ??? increased urinary frequency ??? blurring or changes of vision ??? sudden or unexplained weight gain ??? slow wound healing A few people may have an allergic reaction to this medicine. Symptoms can include difficulty breathing, skin rash, itching, swelling, or severe dizziness. If you notice any of these symptoms, seek medical help quickly. ?? Extra Please speak with your doctor, nurse, or pharmacist if you have any questions about this medicine. ?? [email or web address] IMPORTANT NOTE: This document tells you briefly how to take your medicine, but it does not tell youall there is to know about it. Your doctor or pharmacist may give you other documents about your medicine. Please talk to them if you have any questions. Always follow their advice. There is a more complete description of this medicine available in [employer]. Scan this code on your smartphone or tablet or use the web address below. You can also ask your pharmacist for a printout. If you have any questions, please ask your pharmacist. The display and use of this drug information is subject to Terms of Use. Copyright(c) 2022 [employer]. ?? [employer]. All rights reserved. This information is not intended as a substitute for professional medical care. Always follow your healthcare professional's instructions. ?? * Suzi RIOS, Cara Juarez: PERFORM Event Display: Patient Education Leaflets Authored Date: [id number] Amoxicillin/Clavulanate Oral Tablet ?? [id number] Amoxicillin/Clavulanate Oral Tablet Brands: Augmentin Uses For treating bacterial infection. ?? Instructions Take the medicine with food. Keep the medicine at room temperature. Avoid heat and direct light. It is important that you keep taking each dose of this medicine on time even if you are feeling well. If you forget to take a dose on time, take it as soon as you remember. If it is almost time for thenext dose, do not take the missed dose. Return to your normal schedule. Do not take 2 doses at one time. Tell your doctor and pharmacist about all your medicines. Include prescription and yucd-hrr-raiycegvwrmjcusu, vitamins, and herbal medicines. Keep using this medicine for the full number of days that it is prescribed. Do not stop the medicine even if you start to feel better. If you have diabetes and use urine glucose tests, this medicine may cause incorrect results. Pleasecheck with your doctor before making any changes to your diabetes treatment plan. ?? Cautions Tell your doctor and pharmacist if you ever had an allergic reaction to a medicine. Do not use the medication any more than instructed. Please tell your doctor if you have moderate to severe diarrhea while on this medicine. Do not treat the diarrhea with azvn-pib-hahbjxu diarrhea medicine. Tell the doctor or pharmacist if you are , planning to be , or . Do not start or stop any other medicines without first speaking to your doctor or pharmacist. Do not share this medicine with anyone who has not been prescribed this medicine. ?? Side Effects The following is a list of some common side effects from this medicine. Please speak with your doctor about what you should do if you experience these or other side effects. ??? diarrhea ??? nausea and vomiting ??? stomach upset or abdominal pain Call your doctor or get medical help right away if you notice any of these more serious side effects: ??? severe or persistent abdominal pain ??? severe, watery or bloody diarrhea ??? signs of liver damage (such as yellowing of eye or skin, dark urine, or unusual tiredness) ??? red, burning, or itchyskin ??? yeast infection of mouth ??? vaginal itching or discharge A few people may have an allergic reaction to this medicine. Symptoms can include difficulty breathing, skin rash, itching, swelling, or severe dizziness. If you notice any of these symptoms, seek medical help quickly. ?? Extra Please speak with your doctor, nurse, or pharmacist if you have any questions about this medicine. ?? [email or web address] IMPORTANT NOTE: This document tells you briefly how to take your medicine, but it does not tell youall there is to know about it. Your doctor or pharmacist may give you other documents about your medicine. Please talk to them if you have any questions. Always follow their advice. There is a more complete description of this medicine available in [employer]. Scan this code on your smartphone or tablet or use the web address below. You can also ask your pharmacist for a printout. If you have any questions, please ask your pharmacist. The display and use of this drug information is subject to Terms of Use. Copyright(c) 2022 [employer]. ?? [employer]. All rights reserved. This information is not intended as a substitute for professional medical care. Always follow your healthcare professional's instructions. ?? * Suzi RIOS, Cara Juarez: PERFORM Event Display: Patient Education Leaflets Authored Date: [id number] Albuterol Dry Powder Inhaler ?? [id number] Albuterol Dry Powder Inhaler Brands: ProAir Uses This medicine is used for the following purposes: ??? prevent asthma attacks ??? asthma ??? chroniclung disease ?? Instructions Use the medicine as needed if you experience wheezing or difficulty breathing. Keep the medicine at room temperature. Avoid heat and direct light. Do not use a spacer with this inhaler. Ask your doctor, nurse or pharmacist to show you how to use this medicine correctly. Keep the medicine in the foil pouch until you are ready to use it. Do not wash the inhaler in water or take the inhaler apart. If you are using more than one puff or more than one inhaled medicine, wait at least 1 minute between puffs. Keep track of how many times you use the inhaler. Do not use it more than the total number of dosesshown on the package. Drug interactions can change how medicines work or increase risk for side effects. Tell your healthcare providers about all medicines taken. Include prescription and rpon-hek-otyqrbs medicines, vitamins, and herbal medicines. Speak with your doctor or pharmacist before starting or stopping any medicine. Do not share this medicine with anyone who has not been prescribed this medicine. Keep all appointments for medical exams and tests while on this medicine. ?? Cautions Tell your doctor and pharmacist if you ever had an allergic reaction to a medicine. Do not use the medication any more than instructed. Your ability to stay alert or to react quickly may be impaired by this medicine. Do not drive or operate machinery until you know how this medicine will affect you. Please check with your doctor before drinking alcohol while on this medicine. Tell the doctor or pharmacist if you are , planning to be , or . If this medicine causes more wheezing or makes it harder to breathe, stop the medicine. Get medicalhelp right away. If you have any trouble using the medicine, please tell your doctor, nurse or pharmacist. ?? Side Effects The following is a list of some common side effects from this medicine. Please speak with your doctor about what you should do if you experience these or other side effects. ??? agitated feeling or trouble sleeping ??? coughing ??? dizziness ??? dry mouth ??? headaches ???hoarseness or throat irritation ??? high blood pressure ??? nausea ??? shakiness ??? changes in taste or unpleasant taste Call your doctor or get medical help right away if you notice any of these more serious side effects: ??? rarely, a severe episode of asthma may occur ??? chest pain ??? confusion ??? fast or irregularheart beats ??? rapid breathing ??? worsening breathing symptoms A few people may have an allergic reaction to this medicine. Symptoms can include difficulty breathing, skin rash, itching, swelling, or severe dizziness. If you notice any of these symptoms, seek medical help quickly. ?? Extra Please speak with your doctor, nurse, or pharmacist if you have any questions about this medicine. ?? [email or web address] IMPORTANT NOTE: This document tells you briefly how to take your medicine, but it does not tell youall there is to know about it. Your doctor or pharmacist may give you other documents about your medicine. Please talk to them if you have any questions. Always follow their advice. There is a more complete description of this medicine available in [employer]. Scan this code on your smartphone or tablet or use the web address below. You can also ask your pharmacist for a printout. If you have any questions, please ask your pharmacist. The display and use of this drug information is subject to Terms of Use. Copyright(c) 2022 [employer]. ?? 5359-9867 [employer]. All rights reserved. This information is not intended as a substitute for professional medical care. Always follow your healthcare professional's instructions. ?? * Event Display: Cardiac Rhythm Strips Authored Date: * Pao Gutierrez: PERFORM Event Display: Discharge/Transfer Note Hospital Authored Date: Pulmonary Rehab Discharge Status Entered On: 10/21/2022 11:11 EDT Performed On: 10/21/2022 11:10 EDT by Pao Gutierrez Pulmonary Rehab Discharge Status Patient Going Home on Oxygen : Yes Portable unit required : Yes Oxygen Device used at Home : Nasal cannula Liter flow : 2 LPM Oxygen Use Duration : At rest Oxygen Device used at Home (secondary) : Nasal cannula Liter flow (secondary) : 4 LPM Oxygen Use Duration (secondary) : With activity Discharge Medical Equip Colatris(v001) [facility] Call company when you get home. Pao Gutierrez - 10/21/2022 11:10 EDT * Event Display: Cardiac Rhythm Strips Authored Date: Hospital Progress note * Jennifer Casarez RN: VERIFY, PERFORM, SIGN Event Display: Progress Note Hospital Authored Date: [id number] Patient: SONALI HILLMAN Age: 62 years Sex: Female : 1960 Associated Diagnoses: None Author: Jennifer Casarez RN Findings Problem Related to Alteration in Cardiac Function (new) : Alteration in Cardiac Function/new 10/22/2022 4:00 EDT Alteration in Cardiac Status Related to Heart failure Goals & Outcomes, Cardiac Status Pt will resume/maintain adequate cardiac output, Pt will resume/maintain adequate respiratory function Cardiac Interventions Implemented Assess/monitor cardiac status, Assess/monitor neuro status, Assess/monitor respiratory status, Document & Monitor O2 Sats; Administer O2 as ordered, Monitor & document daily weight BH Goals/Interventions, Cardiac Yes Cardiac, Problem Start 10/19/2022 22:47 Reviewed Plan with, Cardiac Status Patient Patient Progression, Cardiac Status Patient progressing according to plan . Nursing Data Respiratory/Pulmonary Data. : Respiratory/Pulmonary Data. 10/21/2022 21:00 EDT Respiratory Symptoms Dyspnea with exertion Respiratory effort Unlabored Chest expansion Symmetrical Accessory Muscles use No Cough Non-productive Respiratory pattern Regular Left Upper Lobe Breath Sounds Wheezing, expiratory, Wheezing, inspiratory Right Upper Lobe Breath Sounds Wheezing, expiratory, Wheezing, inspiratory Right Middle Lobe Breath Sounds Wheezing, expiratory, Wheezing, inspiratory Left Lower Lobe Breath Sounds Coarse crackles Right Lower Lobe Breath Sounds Coarse crackles Respiratory distress Mild Respiratory WNL except . Vital Signs : VITAL SIGNS SECTION 10/22/2022 2:06 EDT Temperature 96.8 DegF Temperature Route Temporal Pulse Rate 87 bpm Respiratory Rate 18 br/min Systolic Blood Pressure 143 mm Hg H Diastolic Blood Pressure 71 mm Hg Blood pressure sites Arm, left Mean Arterial Pressure 95 mm Hg Pulse Pressure 72 mm Hg Oxygen Saturation 96 % Liters per Minute 3 L/min Mode of Delivery (Oxygen) Nasal cannula 10/21/2022 20:31 EDT Early Warning Score 2.00 10/21/2022 19:45 EDT Early Warning Score 2.00 10/21/2022 19:44 EDT Temperature 98.0 DegF Temperature Route Temporal Pulse Rate 89 bpm Respiratory Rate 18 br/min Systolic Blood Pressure 139 mm Hg H Diastolic Blood Pressure 75 mm Hg Blood pressure sites Arm, left Mean Arterial Pressure 96 mm Hg Pulse Pressure 64 mm Hg Oxygen Saturation 95 % Liters per Minute 3 L/min Mode of Delivery (Oxygen) Nasal cannula . Evaluation The pt. 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 She denied experiencing pain, chest pain, and dizziness. Her lung sounds include scattered wheezes and course crackles and she has had an occasional non productive cough. She has no lower extremity edema and positive pedal pulses. The pt. is currently resting in bed with her call chang at the bedside. See the biophysical assessment, CIS and I&O for additional information.. * Antoinette Germain RN: VERIFY, PERFORM, SIGN Event Display: Progress Note Hospital Authored Date: Patient: SONALI HILLMAN Age: 62 years Sex: Female : 1960 Associated Diagnoses: None Author: Antoinette Germain RN Findings Problem Related to Alteration in Cardiac Function (new) : Alteration in Cardiac Function/new 10/21/2022 9:00 EDT Alteration in Cardiac Status Related to Heart failure Goals & Outcomes, Cardiac Status Pt will resume/maintain adequate cardiac output, Pt will resume/maintain adequate respiratory function Cardiac Interventions Implemented Assess/monitor cardiac status, Assess/monitor neuro status, Assess/monitor respiratory status, Assess for tolerance of IV infusions; verify rate & dose, Call/Report variances in ECG to provider, Ensure adequate caloric intake, If no bowel movement in 3 days activate bowel regime, Monitor anticoagulation values, Monitor ECG w/administration of antiarrhythmics (CO 13.420), Prep pt for treatments & procedures, Teach/encourage deep breath & cough exercises, Team conversation regarding appropriate level of care, Turn & reposition Q2 hours per activity restrictions, Use adjunctive therapies per Standards of Practice, Fluid restriction per MD order, Assess for sleep apnea, caffeine intake, stress, Assess for symptoms: blurred vision, headaches BH Goals/Interventions, Cardiac Yes Cardiac, Problem Start 10/19/2022 22:47 Reviewed Plan with, Cardiac Status Patient Patient Progression, Cardiac Status Plan Initiation . Alteration in Respiratory Function (new) : Alteration in Respiratory Function/new 10/21/2022 9:00 EDT Alteration in Resp Status Related to COPD Goals & Outcomes, Respiratory Pt will maintain/resume baseline physical assessment, Pt will notdevelop complications r/t mechanical ventilation, Pt will maintain adequate nutritional intake, Pt will maintain/resume normal fluid/electrolyte balance, Pt will not develop complications r/t immobility, Pt will demonstrate proper technique w/self care procedures Interventions, Respiratory Assess/monitor tolerance to IV infusions; verify rate/dose, Assess for and report S&S of respiratory distress, Position for comfort & optimal oxygenation, Monitor sputum color & consistency. Report changes to MD, Teach the proper use of inhalers, Teach Pt/caregiver Smoking cessation education, Teach purse lip breathing as needed for breathing retraining, Teach tripod positioning to promote air exchange BH Goals/Interventions, Respiratory Yes Respiratory, Problem Start 10/17/2022 9:00 Reviewed Plan with, Respiratory Patient Patient Progression, Respiratory Patient progressing according to plan . Evaluation PT IS ALERT AND ORIENTED X 4 PT IS VERY [place] ENCOURAGED TO WEAR HEARING AIDES. EDUCATED ON SMOKING CESSATION AND COUGHING AND DEEP BREATHING, , SKIN PALE, PT IS AMBULATING OOB TO THE BATHROOM, PT IS INCONTINENT OF URINE AND STATES THAT SHE HAS HAD LOSS OF BLADDER CONTROL FOR A WHILE. PT ENCOURAGED TO AMBULATE , KEGALS, AND WEAR INCONTINENCE PADS ALSO EDUCATED ON SKIN CARE AND HYGIENE WITH INCONTINENCE, TOLERATING UPDRAFTS WITHOUT DIFFICULTY. APPETITE GOOD, LS COARSHE WHEEZES INCREASED PRODUCTIVECOUGH , ABLE TO EXPECTORATE, TOLERATING IV ABT, PULMONARY SPOKE WITH PT TODAY AND PLAN FOR 3 LN/C AT REST WITH 4 LITERS WITH ACTIVITY AND AMBULATION, BLOOD SUGARS WNL, TARA LEGS ELEVATED, DENIES PAIN,VSS, CALL CHANG WITHIN REACH. DISCUSSED MEDICATION MANAGEMENT AND SIDE EFFECTS OF MEDS AND COMPLIANCE, . Discharge Information Case Management Discharge Plan : Case Management Discharge Plan Data 10/21/2022 15:26 EDT Discharge Level of Care at Discharge Homehealth/VNA Discharge VNA/Hospice/Home Care [facility] [phone] Agency [employer] [facility]1 Intake Service Categories #1 Correction Service Comments #1 A nurse will call you to arrange a visit with you at your home. If you do not hear from agency, please call them. 10/21/2022 11:10 EDT Discharge Medical Equipment [facility] Naila [facility] * Jeanette CHACON, Atchayaa: PERFORM Event Display: Progress Note Hospital Authored Date: [id number] Patient: ??SONALI HILLMAN ? Age:??62 Years?Sex:??Female?:??1960?? Subjective Plan was for dc today if patient was feeling better but she feels anxious and?? still has wheezing.She reports sob is improved Seen by pulm rehab this morning who are recommending 3L o2 at rest and 4L with ambulation, papers signed Review of Systems Negative except for the above Allergies Allergies ?(Active and Proposed Allergies Only) sulfa drugs? (Severity: Unknown severity, Onset: Unknown) Contrast Dye? (Severity: Unknown severity, Onset: Unknown) ? Past Medical History Active Problems??(1) Obese class I ? Past Surgical History No surgery history documented. ? Social History Alcohol Details:??Use: Never. Employment/School Details:??Status: Disabled. Nutrition/Health Details:??Diet: Diabetic. Substance Abuse Details:??Use: Never. Tobacco Details:??Use: 10 or more cigarettes (1/2 pack or more)/day in last 30 days. ??Interested in cessation: Yes. ??Other: 1 ??to 1 1/2 pack a day - was attempting to quit. ??Type: Cigarettes. ??Started at age: 16 Years. ??Tobacco user in household: Yes. Electronic Cigarette/Vaping Details:??Electronic Cigarette Use: Never. ? Objective Vital Signs?? Temperature: 98.4 DegF (10/21/22 13:20:00) Temperature Route: Oral (10/21/22 13:20:00) Pulse Rate:??97 bpm??High (10/21/22 13:20:00) Respiratory Rate: 20 br/min (10/21/22 13:20:00) Systolic Blood Pressure:??150 mm Hg??High (10/21/22 13:20:00) Diastolic Blood Pressure:??95 mm Hg??High (10/21/22 13:20:00) Blood pressure sites: Arm, left (10/21/22 13:20:00) Mean Arterial Pressure: 113 mm Hg (10/21/22 13:20:00) Pulse Pressure: 55 mm Hg (10/21/22 13:20:00) Oxygen Saturation:??93 %??Low (10/21/22 13:20:00) Liters per Minute: 4 L/min (10/21/22 13:20:00) Mode of Delivery (Oxygen): Nasal cannula (10/21/22 13:20:00) Early Warning Score: 2 (10/21/22 13:22:21) ? Intake/Output? 10/17 04:31 10/21 07:00 10/20 07:00 10/19 07:00 10/18 07:00 ?? 10/21 14:06 10/21 14:06 10/21 06:59 10/20 06:59 10/19 06:59 Intake ? 3170 ?300 ?560 ?660 ?970 Output ? 6000 ?600 ? 1600 ? 1450 ?950 Net Total ?-2830 ? -300 ?-1040 ? -790 ? 20 ? Urine Count ?6 ?0 ?0 ?0 ?4 ? Mobility & Ambulation Level Mobility & Ambulation Level Activity Assistance: Minimum assistance (10/20/22) Activity Status ADL: Bathroom privileges, Up to chair (10/20/22) Ambulatory devices needed: Walker (10/19/22) ? Physical Exam Constitutional: Alert, in no distress. Mental Status: Oriented to person, place and time. Head: Normocephalic. Eyes: Pupils are equal, round and reactive to light. Extraocular muscles intact. Ear, Nose and Throat: Oropharynx clear, mucous membranes moist. Ears and nose without masses, lesions or deformities. Trachea midline. Neck: Supple, Full range of motion. Respiratory: Bilateral wjheezing, significantly improved from prior days Cardiovascular: S1 S2 regular. No murmurs, rubs or gallops. Gastrointestinal: Abdomen soft, non-tender, non-distended. Normal bowel sounds. No pulsatile mass. No hepatosplenomegaly. Genitourinary: No costovertebral angle tenderness. Neurologic: Cranial nerves II-XII grossly intact. No focal neurological deficits. Flexor plantar response. Moves all extremities spontaneously. Sensation intact bilaterally. Skin: No rashes or lesions. No petechiae or purpura.?? Musculoskeletal: No cyanosis or clubbing. No gross deformities. Normal range of motion. Heme/Lymphatics/Immun: Palpation of neck reveals no swelling or tenderness of neck nodes. Palpationof groin reveals no swelling or tenderness of groin nodes. Psychiatric: Normal mood and affect _ Home Medications Aripiprazole (ARIPiprazole 5 mg oral tablet)?5?Milligram?1?tablet?By Mouth?Daily Atorvastatin (atorvastatin 20 mg oral tablet)?1?tab(s)?20?Milligram?By Mouth?Daily BuPROpion (buPROPion 300 mg/24 hours (XL) oral tablet, extended release)?1?tab(s)?300?Milligram?By Mouth?Every 24 hours Celecoxib (celecoxib 100 mg oral capsule)?1?capsule?100?Milligram?By Mouth?Daily Cholecalciferol (Vitamin D3 1000 intl units oral capsule)?1?capsule?1,000?InternationalUnit?By Mouth?Daily Metformin (metFORMIN 500 mg oral tablet)?1?tab(s)?500?Milligram?By Mouth?2 times a day Multivitamin With Minerals (Centravites Adults oral tablet)?1?tab(s)?By Mouth?Daily Paterson-3 Polyunsaturated Fatty Acids (Fish Oil 1000 mg oral capsule)?1?capsule?1,000?Milligram?By Mouth?2 times a day Venlafaxine (venlafaxine 75 mg oral tablet)?1?tab(s)?75?Milligram?By Mouth?2 times a day ? Inpatient Medications Medications (29) Active SCHEDULED: (15) Albuterol/Ipratropium Inhalation Astrid 3mL (Duoneb Inhalation Solution) ??1 vials, BAND Nebulizer, 4 times a day Ampicillin/Sulbactam 3 Gm Inj (Unasyn IVPB) ??3 Gm, IVPB, Every 6 hours Aripiprazole 5 mg Tablet (ARIPiprazole 5 mg oral tablet) ??5 mg, By Mouth, Daily Azithromycin 500 mg Tablet (Azithromycin Tablet) ??500 mg, By Mouth, Daily BuPROPion XL 300 mg Tablet (BuPROpion SR Tablet) ??300 mg, By Mouth, Every 24 hours Heparin 5000 units/mL Inj (1 mL) (Heparin Inj) ??5,000 units 1 mL, Subcutaneous Injection, 3 times a day Insulin Lispro 100 units/mL Inj (3mL) (Insulin LISPRO Sliding Scale) ??2-10 units, Subcutaneous Injection, 3 times a day before meals Multivitamin Therapeutic / Minerals Tablet (Multivit Therapeutic/Minerals Tablet) ??1 tablet, By Mouth, Daily NaCl 0.9% Flush 3ml (NaCL 0.9% Flush) ??3 mL, IV Push, Every 8 hours NaCl 0.9% Flush 3ml (NaCL 0.9% Flush) ??3 mL, IV Push, Every 8 hours Nicotine 14 mg / 24 hour Patch (Nicotine Topical) ??14 mg, Topically, Daily PredniSONE 20 mg Tablet (predniSONE 20 mg oral tablet) ??40 mg, By Mouth, Daily Remove Patch (Remove ??Patch) ??1 each, Topically, Daily Venlafaxine 37.5 mg XR Capsule (venlafaxine 37.5 mg oral capsule, extended release) ??75 mg, By Mouth, Daily Vitamin D 1000 IU Tablet (cholecalciferol 1000 intl units oral tablet) ??1,000 International_Units,By Mouth, Daily CONTINUOUS: (0) PRN: (14) Acetaminophen 325 mg Tablet (Acetaminophen Tablet) ??650 mg, By Mouth, Every 4 hours Albuterol 0.083% Inhalation Solution (Albuterol 0.083% inhalation astrid) ??2.5 mg 3 mL, BAND Nebulizer, Every 4 hours Albuterol/Ipratropium Inhalation Astrid 3mL (Duoneb Inhalation Solution) ??1 vials, BAND Nebulizer, Every 4 hours Dextromethorphan-Guaifenesin 20 mg-200 mg/10 mL Liqu UD (Robitussin DM Liquid) ??10 mL, By Mouth, Every 4 hours Dextrose Inj Syringe (Dextrose 50% Inj Syringe (25Gm)) ??12.5 Gm, IV Push Slowly, Every 20 minutes Dextrose Inj Syringe (Dextrose 50% Inj Syringe (25Gm)) ??25 Gm, IV Push Slowly, Every 15 minutes Glucagon 1 mg Inj (Glucagon Inj) ??1 mg, Intramuscular, Once Glucose 40% Gel (15 Gm) (Glucose Gel) ??15 Gm, By Mouth, Every 20 minutes Glucose 40% Gel (15 Gm) (Glucose Gel) ??30 Gm, By Mouth, Every 20 minutes Melatonin 3 mg Tablet (Melatonin Tablet) ??3 mg, By Mouth, Daily at bedtime NaCl 0.9% Flush 3ml (NaCL 0.9% Flush) ??3 mL, IV Push, Every 8 hours Polyethylene Glycol 17 Gm Powder (MiraLax Powder) ??17 Gm 1 pack/packet, By Mouth, Daily Senna 8.6 mg / Docusate 50 mg tablet (Docusate/Senna Tablet) ??1 tablet, By Mouth, 2 times a day Simethicone 80 mg Chewable Tablet (Simethicone Tablet) ??80 mg, Chew, 3 times a day ? 72 Hour Antibiotic History Active Antibiotics Calendar Day Last Administered First Administered Ampicillin-Sulbactam??3 Gm, 100 mL/hr, IVPB, Every 6 hours ?4 10/21/2022 08:57 10/18/2022 15:45 Azithromycin??500 mg, By Mouth, Daily ?3 10/21/2022 08:47 10/19/2022 16:18 ? Results Recent Labs BLOOD COUNT & DIFF WBC 13.1 k/mm3 (High)?? 10/21/2022 07:44 RBC 5.10 m/mm3 ()?? 10/21/2022 07:44 Hgb 14.8 Gm/dL ()?? 10/21/2022 07:44 Hct 46.8 % (High)?? 10/21/2022 07:44 MCV 91.8 femtoliters ()?? 10/21/2022 07:44 MCH 29.0 pg ()?? 10/21/2022 07:44 MCHC 31.6 g/dL (Low)?? 10/21/2022 07:44 Platelet Count 304 k/mm3 ()?? 10/21/2022 07:44 RDW-SD 49.0 femtoliters (High)?? 10/21/2022 07:44 MPV 9.2 femtoliters (Low)?? 10/21/2022 07:44 Nucleated RBC (Automated) 0.0 #/100 WBC'S ()?? 10/21/2022 07:44 Abs. NRBC 0.0 k/mm3 ()?? 10/21/2022 07:44 Abs. Neut 9.7 k/mm3 (High)?? 10/21/2022 07:44 Abs. Lymph 2.2 k/mm3 ()?? 10/21/2022 07:44 Abs. Harlan 1.0 k/mm3 (High)?? 10/21/2022 07:44 Abs. Eo 0.1 k/mm3 ()?? 10/21/2022 07:44 Abs. Baso 0.1 k/mm3 ()?? 10/21/2022 07:44 Neut % 73.7 % ()?? 10/21/2022 07:44 Lymph % 16.9 % ()?? 10/21/2022 07:44 Harlan % 7.9 % ()?? 10/21/2022 07:44 Eos % 0.5 % ()?? 10/21/2022 07:44 Baso % 0.6 % ()?? 10/21/2022 07:44 Imm Gran 0.4 % ()?? 10/21/2022 07:44 Abs. Imm Gran 0.1 k/mm3 ()?? 10/21/2022 07:44 ?? CHEM GENERAL Sodium 140 mmol/L ()?? 10/21/2022 07:45 Potassium 4.5 mmol/L ()?? 10/21/2022 07:45 Chloride 96 mmol/L (Low)?? 10/21/2022 07:45 Bicarbonate Level 34 mmol/L (High)?? 10/21/2022 07:45 Anion Gap 10 ()?? 10/21/2022 07:45 Glucose, POC 117 mg/dL (High)?? 10/21/2022 11:04 BUN 16 mg/dL ()?? 10/21/2022 07:45 Creatinine-Blood 0.7 mg/dL ()?? 10/21/2022 07:45 Estimated GFR Creatinine 95 ML/MIN/1.73 M2 ()?? 10/21/2022 07:45 ?? VIROLOGY COVID-19 PCR Specimen Source NASAL ()?? 10/20/2022 05:22 COVID-19 PCR Result NEGATIVE ()?? 10/20/2022 05:22 ? Abnormal Labs ?? BLOOD COUNT & DIFF ??Abs. Imm Gran ??0.1 k/mm3 () ??10/21/2022 07:44 ??Abs. Harlan ??1.0 k/mm3 (High) ??10/21/2022 07:44 ??Abs. NRBC ??0.0 k/mm3 () ??10/21/2022 07:44 ??Abs. Neut ??9.7 k/mm3 (High) ??10/21/2022 07:44 ??Hct ??46.8 % (High) ??10/21/2022 07:44 ??Imm Gran ??0.4 % () ??10/21/2022 07:44 ??MCHC ??31.6 g/dL (Low) ??10/21/2022 07:44 ??MPV ??9.2 femtoliters (Low) ??10/21/2022 07:44 ??Nucleated RBC (Automated) ??0.0 #/100 WBC'S () ??10/21/2022 07:44 ??RDW-SD ??49.0 femtoliters (High) ??10/21/2022 07:44 ??WBC ??13.1 k/mm3 (High) ??10/21/2022 07:44 ? CHEM GENERAL ??Bicarbonate Level ??34 mmol/L (High) ??10/21/2022 07:45 ??Chloride ??96 mmol/L (Low) ??10/21/2022 07:45 ??Estimated GFR Creatinine ??95 ML/MIN/1.73 M2 () ??10/21/2022 07:45 ??Glucose, POC ??117 mg/dL (High) ??10/21/2022 11:04 ? Note: Critical results are displayed in red. ? Blood Glucose Trend Glucose, POC:??117 mg/dL??High (10/21/22 11:04:00) Glucose, POC:??104 mg/dL??High (10/21/22 07:27:00) Glucose, POC:??143 mg/dL??High (10/20/22 22:31:00) Glucose, POC:??113 mg/dL??High (10/20/22 16:27:00) ? Urinalysis?? No qualifying data available. ?? Microbiology ?? COVID-19, RSV, and Flu A/B, Rapid PCR?? Completed?? Source: Nasal Body Site: Nose Collected Dt/Tm: 10/17/2022 00:07 Last Updated Dt/Tm: 10/17/2022 01:39 COVID-19 (2019 Novel Coronavirus) PCR?? Completed?? Source: Nasal Body Site: Nose Collected Dt/Tm: 10/20/2022 05:22 Last Updated Dt/Tm: 10/20/2022 17:20 ? Assessment/Plan 62-year-old lady with past medical history significant for longstanding COPD, anxiety, heavy smoking for 40 years and she is trying to cut down smoking and is smoking half pack per day. She also complains of increasing shortness of breath and wheezing. Oxygen saturation was in 60s in ER on room air. Patient was put on nonrebreather and later on high flow oxygen. She also complained of dry cough. CBC shows leukocytosis with left shift. Chest x-ray is suggestive of possible pneumonia. The patientis being admitted to [facility] for further evaluation and treatment for COPD exacerbation, possible pneumonia. ? COPD exacerbation Acute hypoxic respiratory failure Possible pneumonia (aspiration) vs infectious or inflammatory bronchiolitis Patient with a long standing history of COPD and 40 pack year smoking hx presented with hypoxia to the 60s at home She has leukocytosis and had worsening of SOB overnight??along with tachycardia. CTPE obtained which suggests possible superimposed bacterial bronchiolitis vs aspiration -Continue unasyn as patient feels shortness of breath is improving, despite procalcitonin being low. Added azithromycin to reduce inflammation -Change to prednisone 40 mg daily from tomorrow, got one dose of solumedrol this morning -Albuteroll prn, scheduled duonebs q6h -Hold off on BiPAP for now as she is improving. Downgraded from [facility] 10/18 ? Extensive history of smoking Patient states that she has been smoking for??about 40 years I have ordered nicotine patch I have discussed the potential??serious??side effects of??heavy smoking??which can include??lung cancer hypertension ? Anxiety We will continue with??bupropion,??venlafaxine ?? DVT prophylaxis: Subcu heparin Diet:??Cardiac/diabetic diet CODE STATUS: Full code OMN - copd exacerbation, wheezing, anticipate dc 10/22 am ?Order Date/Time ??Order Action ??Order Name ??Order Detail ??10/21/2022 11:11 ??Discontinue ??Pulm Rehab Nurse Eval Treat ??Reason: Home Care and Equipment, Home Care/Equipment: Oxygen Therapy, 10/21/22 10:23:00 EDT ??10/21/2022 11:05 ??Order ??Glucose POC ??Routine, 10/21/22 11:04:00 EDT ??10/21/2022 10:23 ??Order ??Pulm Rehab Nurse Eval Treat ??Reason: Home Care and Equipment, Home Care/Equipment: Oxygen Therapy, 10/21/22 10:23:00 EDT ??10/21/2022 07:39 ??Order ??Glucose POC ??Routine, 10/21/22 7:27:00 EDT ? CTA Chest vessels W contrast IV * BHSPowerscribe , CIS S: TRANSCRIBE Sunshine CHACON, Nilesh S: VERIFY Event Display: Result: Authored Date: EXAMINATION: CT Angio Chest INDICATION: Reason: Other:; PE Suspected, Intermediate Prob, Positive D-Dimer; Clinical Question(s): Pulmonary Embolism; Order Comment: TECHNIQUE: Spiral CTA of the chest was performed after rapid IV contrast administration without cardiac gating, triggered by an BENY on the main pulmonary artery. Images are formatted in multiple planes using 2-D multiplanar and 3-D maximum intensity projection. 50 cc of Omnipaque 300 was administered intravenously. Weight-based protocol using automatic tube modulation was used to optimize exposure parameters. CTDIvol Body: 6.90 mGy, DLP Body: 342 mGy*cm. COMPARISONS: None. ANGIOGRAPHIC FINDINGS: No pulmonary embolism to the subsegmental level. Normal caliber pulmonary arteries. No acute aortic abnormality seen on this study performed without cardiac gating. NON-ANGIOGRAPHIC FINDINGS: Ship Keeper View Findings, Lines and Tubes: None. Trachea and Airways: Diffuse bronchial wall thickening is present. Lungs and Pleura: There are tree-in-bud and groundglass type opacity seen throughout the lungs as well as extensive calcified nodules. Calcified nodules are likely chronic. Tree-in-bud type opacity suggests infectious or inflammatory process/bronchiolitis. Aspiration can also produce this appearance. Previous examination also suggested diffuse centrilobular groundglass nodules suggesting smoking-related respiratory bronchiolitis. This may in part account for appearance on today's exam. Mediastinum and irena: No mass or hematoma. No mediastinal or hilar lymphadenopathy. No esophageal abnormality. Heart: Heart is normal in size. No pericardial effusion. Chest Wall Soft Tissues: Normal. Diaphragm and upper abdomen: No significant abnormality. Bones: No acute abnormality. IMPRESSION: No evidence of pulmonary embolism. Scattered groundglass opacity with some areas of tree-in-bud type abnormality. Previous exam suggested chronic most likely smoking-related lung disease. There does appear to be some interval change in the appearance from 11/21/2021 suggesting possible acute infectious or inflammatory bronchiolitis or aspiration. Extensive calcified nodules likely chronic. WSN: [id number] Ordering Physician: La Nena Reid Dictated By: Nilesh Gonsalez MD Dictated Date/Time: 10/18/22 12:01 p Reviewed By: Nilesh Gonsalez MD Signed By: Nilesh Gonsalez MD Signed Date/Time: 10/18/22 12:01 pm Transcribed By: DEBORAH Transcribed Date/Time: 10/18/22 11:54 am Portable XR Chest Views * [facility]SPowerscribe , CIS S: TRANSCRIBE Shantelle An MD: VERIFY Event Display: Result: Authored Date: [id number] Chest Portable Reason: Shortness of Breath; Clinical Question(s): Pulmonary Edema; Effusion, atelectasis; Order Comment: COMPARISON: 10/17/2022, 07/14/2010 FINDINGS: LINES AND TUBES: None. LUNGS AND PLEURA: Stable faint hazy opacity in the left midlung. Additional scattered foci on the right are not well demonstrated on the current exam. The left hemidiaphragm is excluded from the image. Pulmonary vascularity is within normal limits. No pleural effusion. No pneumothorax. HEART, MEDIASTINUM AND IRENA: Heart is normal in size. Normal mediastinal and hilar contour. BONES AND SOFT TISSUES: No acute abnormality. IMPRESSION: No significant interval change in left midlung opacity which could represent discoid atelectasis. Previously described right lung hazy opacities are not well demonstrated on the current study. WSN: [id number] Ordering Physician: Tyrese Kenney Dictated By: Shantelle An MD Dictated Date/Time: 10/18/22 4:39 pm Reviewed By: Shantelle An MD Signed By: Shantelle An MD Signed Date/Time: 10/18/22 4:39 pm Transcribed By: DEBORAH Transcribed Date/Time: 10/18/22 4:38 pm * SHANTESPowerscquangbe , CIS S: TRANSCRIBE Kenan Suazo MD: VERIFY Event Display: Result: Authored Date: [id number] Chest Portable Reason: Shortness of Breath; Clinical Question(s): Pneumonia; Special Instructions: PUI COMPARISON: CT chest from 11/13/2021 Chest radiograph from 07/14/2010 FINDINGS: LINES AND TUBES: None. LUNGS AND PLEURA: Large number of small calcified granulomas throughout the lungs. Some faint scattered hazy opacities in the right greater than left lung are appreciated, increased from topogram from CT chest on 11/13/2021. Normal pulmonary vascularity. No pleural effusion. No pneumothorax. HEART, MEDIASTINUM AND IRENA: Heart is normal in size. Normal mediastinal and hilar contour. BONES AND SOFT TISSUES: No acute abnormality. Calculation of the right rotator cuff musculature. IMPRESSION: Some faint scattered hazy opacities in the right greater than left lung are appreciated, increased from topogram from CT chest on 11/13/2021. Infection is a possible consideration. Multiple small calcified granulomas. WSN: [id number] Ordering Physician: Tia Erazo Dictated By: Kenan Suazo MD Dictated Date/Time: 10/17/22 8:06 am Reviewed By: Kenan Suazo MD Signed By: Kenan Suazo MD Signed Date/Time: 10/17/22 8:06 am Transcribed By: DEBORAH Transcribed Date/Time: 10/17/22 8:02 am Patient Care team information Care Team Personnel Name: Kaitlynn Marina MD Position: [facility] Outreach Member Role: PCP Address: Address: [address] [place] [id number] Name: Giselle Mota RN Position: [facility] RN Member Role: Primary Care Nurse Name: Kassidy Thornton RN Position: [facility] RN Member Role: Primary Care Nurse Name: Payton Bee RN Position: [facility] RN Member Role: Primary Care Nurse Name: Cheng Catalan RN Position: S RN Member Role: Primary Care Nurse Name: Tara Fraser MD Position: [facility] ED Medicine MD Member Role: Chart Review Address: Address: [address] [place] [address] Emergency Medicine [place], [place] [address] Name: Kali Martines RN Position: [facility] ED RN W/OE and Tasks Member Role: Patient Care Provider Name: Tia Erazo DO Position: [facility] Resident Member Role: ED Resident Address: Address: [address] [place] [address]- Name: Sugey Cedillo Position: [facility] ED TA [facility] Member Role: Rubber Roller Grinder Operator Name: Brisa Hopkins Position: [facility] ED OA Charge Member Role: ED Associate Care Team Related Persons Name: YUMIKO SALCEDO Name: TIANNA HILLMAN Address: [address] [place] [address] Name: YUMIKO HITCHCOCK Address: [address] [place] [address]
--- OUTSIDE RECORDS SUMMARY | 2022-12-17 07:21 | XMS_ITS | Continuity of Care Document ---
Author Name Unknown Organization [facility] ter Address [address] [place] [address]- Care Team Providers Care Brick Maker Name Role Phone Laina CHACON, Kaitlynn Pinzon Primary Care Physician [phone] Encounter [facility] Date(s): 08/29/19 - 08/29/[address] [address]- [facility] Attending Physician: Rao CHACON, Ekta Dia
--- OUTSIDE RECORDS SUMMARY | 2022-12-17 07:21 | XMS_ITS | Continuity of Care Document ---
Author Name Unknown Organization [facility] ter Address [address] [place] [address]- Encounter [facility] Date(s): 01/11/19 - 11/25/[address] [address]- [facility] Attending Physician: Valerie Lee MD Admitting Physician: Valerie Lee MD Allergies, Adverse Reactions, Alerts Substance Reaction Severity Status sulfa drugs Active Contrast Dye Active Medications ARIPiprazole 5 mg oral tablet 5 mg, 1, tablet, By Mouth, Daily, Refills 0, Maintenance, 12/24/17 14:31:00 EDT Start Date: 12/24/17 Status: Ordered atorvastatin 20 mg oral tablet 1 tablet = 20 mg, By Mouth, Daily, 0 Refills, Maintenance Start Date: 12/24/17 Status: Ordered buPROPion 300 mg/24 hours (XL) oral tablet, extended release 1 tablet = 300 mg, By Mouth, Every 24 hours, 0 Refills, Maintenance, 12/24/17 14:31:20 EDT Start Date: 12/24/17 Status: Ordered metFORMIN 500 mg oral tablet 1 tablet = 500 mg, By Mouth, 2 times a day, 0 Refills, Maintenance, 12/24/17 14:32:00 EDT Start Date: 12/24/17 Status: Ordered NuLYTELY Grant oral powder for reconstitution See Instructions, 240 mL By Mouth Daily as directed on package labeling split prep, # 4,000 mL, 0 Refills, Maintenance, 12/24/17 14:45:32 EDT, REC Powder Start Date: 12/24/17 Status: Ordered NuLYTELY with Flavor Packs oral powder for reconstitution See Instructions, 1 glass every 15-30 minutes until finished, # 4,000 mL, 0 Refills, Maintenance, 05/09/19 9:23:22 EDT, procedure is 05/17, 1 glass every 15-30 minutes until finished Start Date: 05/09/19 Status: Ordered ranitidine 150 mg oral capsule 1 capsule = 150 mg, By Mouth, 2 times a day, 0 Refills, Maintenance, 12/24/17 14:31:52 EDT Start Date: 12/24/17 Status: Ordered traZODone 100 mg oral tablet 100 mg, 1, tablet, By Mouth, 3 times a day, Refills 0, Maintenance, 12/24/17 14:32:32 EDT Start Date: 12/24/17 Status: Ordered venlafaxine 75 mg oral tablet 1 tablet = 75 mg, By Mouth, 2 times a day, 0 Refills, Maintenance, 12/24/17 14:31:35 EDT Start Date: 12/24/17 Status: Ordered Vitamin D3 1000 intl units oral capsule 1 capsule = 1,000 International_Units, By Mouth, Daily, 0 Refills, Maintenance, 12/24/17 14:32:51 EDT Start Date: 12/24/17 Status: Ordered
--- OUTSIDE RECORDS SUMMARY | 2022-12-17 07:21 | XMS_ITS | Continuity of Care Document ---
Author Name Unknown Organization [facility] ter Address [address] [place] [address]- Encounter [facility] Date(s): 08/29/19 - 08/29/[address] [address]- [facility] Attending Physician: Ekta Yeh MD Allergies, Adverse Reactions, Alerts Substance Reaction [...]
--- OUTSIDE RECORDS SUMMARY | 2022-12-17 07:21 | XMS_ITS | Continuity of Care Document ---
Author Name Unknown Organization [facility] edicine Address [address] [address]- Care Team Providers Care Airport Operations Duty Manager Name Role Phone Kaitlynn Marina MD Primary Care Physician [phone] Encounter [facility] [place] [place] ACCT R [id number] Date(s): 09/19/21 - 10/19/21 [facility] Pulmonary Medicine [address] [place] [address]- Attending Physician: Nico Nieves Admitting Physician: AdmNico weinstein Referring Physician: AdmtrNico Allergies, Adverse Reactions, Alerts Substance Reaction Severity [...]
--- OUTSIDE RECORDS SUMMARY | 2022-12-17 07:21 | XMS_ITS | Continuity of Care Document ---
Author Name Unknown Organization [facility] Address [address] [place] [address]- Care Team Providers Care Seam Finisher Name Role Phone Laina CHACON, Kaitlynn Pinzon Primary Care Physician Encounter [facility] Date(s): 10/21/22 - 11/20/[address] [address] Attending Physician: Not on Staff, Attending MD Admitting Physician: Not on Staff, Admitting MD Referring Physician: Not on Staff, Referring MD [...] 7:38:00 EDT, Aerosol, Route to Pharmacy Electronically, [id number], [facility], 170, cm, 10/22/22 7:25:00 [...] 14:32:00 EDT Start Date: 12/24/17 Status: Ordered venlafaxine [...] atus Informant Obese class I Confirmed Active Social History Social History Type Response Smoking Status 10 or more cigarette s (1/2 pack or more)/day in last 30 days; Interested in cessation: Yes; Type: Cigarettes; Tobacco user in household: Yes; Other: 1 to 1 1/2 pack a day - was attempting to quit; Started at age: 16; entered on: 10/17/22 Sex Patient Care team information Care Team Personnel Name: Kaitlynn Marina MD Position: [facility] Outreach Member Role: PCP Address: Address: [address] [place] [address]- Name: Giselle Mota RN Position: S RN Member Role: Primary Care Nurse Name: Kassidy Thornton RN Position: [facility] RN Member Role: Primary Care Nurse Name: Payton Bee RN Position: [facility] RN Member Role: Primary Care Nurse Care Team Related Persons Name: YUMIKO SALCEDO Name: TIANNA FORDE Address: [address] [place] [address] Name: YUMIKO HITCHCOCK Address: [address] [place] [address]
[2022-12-17 08:01] LABS: MANUAL DIFF FLAG NO
[2022-12-17 08:03] LABS: Basophils Absolute Auto 0.1 X10*3/uL (0.0-0.2); Basophils Percent Auto 0.5 % (0-2); Hematocrit 50.8 % (37.0-47.0); Hemoglobin 16.7 g/dl (12.0-16.0); Imm Gran Abs Auto 0.11 X10*3/uL (0.00-0.03); Imm Gran Pct Auto 0.6 % (0.0-0.4); Lymphocytes Absolute Auto 1.3 X10*3/uL (1.2-4.9); Lymphocytes Percent Auto 7.3 % (20-40); Mean Corpuscular HGB Conc 32.9 g/dl (31.0-35.0); Mean Corpuscular Hemoglobin 28.5 pg (27.0-33.0); Mean Corpuscular Volume 86.7 fL (80.0-98.0); Mean Platelet Volume 10.2 fL (9.4-12.3); Monocytes Absolute Auto 0.9 X10*3/uL (0.1-1.2); Monocytes Percent Auto 5.3 % (2-11); Neutrophils Absolute Auto 14.8 x10*3/uL (2.0-8.3); Neutrophils Percent Auto 86.3 % (45-73); Platelet Count 275 X10*3/uL (160-400); Red Blood Count 5.86 X10*6/uL (4.20-5.50); Red Cell Distribution Width 14.8 % (11.0-16.0); White Blood Count 17.2 X10*3/uL (4.8-10.8)
[2022-12-17 08:16] LABS: Ethanol < 10 mg/dL
[2022-12-17 08:19] LABS: Lactic Acid 2.8 mmol/L (0.5-2.0)
[2022-12-17 08:19] LABS: Alanine Aminotransferase 20 U/L (0-31); Albumin Level 4.4 g/dL (3.5-5.0); Alkaline Phosphatase 99 U/L (39-117); Anion Gap 22 (12-20); Aspartate Amino Transferase 20 U/L (5-31); Bilirubin Direct 0.1 mg/dL (0.0-0.5); Bilirubin Total 0.7 mg/dL (0.0-1.0); Blood Urea Nitrogen 20 mg/dL (9-16); Carbon Dioxide 16 mmol/L (22-29); Chloride 105 mmol/L (96-108); Creatinine Clr Calc Pharmacy 58.4; Estimated Glomerular Filt Rate 46; Glucose Random 169 mg/dL (60-115); Lipase 26 U/L (8-78); Potassium 4.3 mmol/L (3.3-5.1); Sodium 139 mmol/L (135-145); Total Protein 7.3 g/dL (6.5-8.0)
[2022-12-17 08:23] LABS: B Type Natriuretic Peptide 12 pg/mL (<100)
[2022-12-17 08:25] LABS: Troponin-I High Sensitivity 8.4 ng/L (<3.5-17.0)
[2022-12-17] MEDS: LORazepam 2 MG/ML VIAL IVPUSH (08:36)
[2022-12-17] MEDS: 0.9 % Sodium Chloride 1,000 ML 999 ML IV ×2 (08:39→11:27)
--- NOTE | 2022-12-17 08:45 | PC.NURSE ---
patient is here with ams, she is not talking and is agitated.
--- NOTE | 2022-12-17 09:13 | PC.NURSE ---
unable to verify allergies or meds due to AMS
--- NOTE | 2022-12-17 09:42 | MHC.EDTECH ---
called [facility] @ 9:39am and spoke with Micheal requesting records per RAY Juárez
[2022-12-17] MEDS: cefTRIAXone sodium 1 GM in 0.9 % Sodium Chloride 50 ML IV (09:50)
[2022-12-17 10:00] LABS: Reflex Lactate? Lactic Acid Added
[2022-12-17 10:00] LABS: VBG Base Excess -1.2 mmol/L; VBG HCO3 26 mmol/L (22-26); VBG pCO2 52 mmHg; VBG pO2 34 mmHg
[2022-12-17 10:11] LABS: Appearance Urine Cloudy; Color Urine Dark Yellow; Glucose Urine UA Negative (Negative); Leukocyte Esterase Urine Moderate (2+) (Negative); Nitrite Urine Positive (Negative); Specific Gravity - Urine 1.025 (1.005-1.025); UMIC TRIGGER UACC YES; Urine Blood Small (1+) (Negative); Urine Ketones 40 mg/dL (Negative); Urine Protein 30 (1+) mg/dL (Neg-Trace)
[2022-12-17 10:19] LABS: Venous Blood Gas Refer to POC result
[2022-12-17 10:24] LABS: Bacteria Urine 4+ (None Seen); Calcium Oxalate Crystals Urine Present; UACC Culture Trigger YES; WBC Urine >50 /HPF (0-5)
[2022-12-17 10:29] LABS: TSH reflex Free T4 1.78 uIU/mL (0.32-4.0)
[2022-12-17 10:34] LABS: Amphetamine Screen Urine Not Detected (Not Detect); Barbiturates, Urine Not Detected (Not Detect); Benzodiazepines Screen Urine Not Detected (Not Detect); Cannabinoid Screen Urine Not Detected (Not Detect); Cocaine Screen Urine Not Detected (Not Detect); Fentanyl, urine Not Detected (Not Detect); Opiate Screen Urine Not Detected (Not Detect); Phencyclidine Screen Urine Not Detected (Not Detect)
[2022-12-17 10:45] LABS: ~Lactic Acid-LAB USE ONLY 1.3 mmol/L (0.5-2.0)
--- NOTE | 2022-12-17 11:02 | PHA.MEDREC ---
Pharmacy Consult ? Medication Reconciliation Pharmacy has completed the medication reconciliation. Spoke to patient's daughter Dana on phone ([phone]) who went over med bottles from her mom's house with me. Unsure if she has been taking medications regularly or not
--- NOTE | 2022-12-17 11:19 | PC.NURSE ---
spoke with daughter Dana regarding her mom and status. History of Bipolar, schzo and anxiety/depression disorder. 6-8 weeks ago her brother passed who is lived with and she has probably been noncompliant with her psyc meds since then. INformed her of her diagnosis and her need for an admission.
[2022-12-17] MEDS: Celecoxib 100 MG CAPSULE PO (20:03)
[2022-12-17] MEDS: Acetaminophen 325 MG TABLET 650 MG PO (20:03)
[2022-12-17] MEDS: metFORMIN HCl 500 MG TABLET PO (20:16)
--- NOTE | 2022-12-17 22:07 | MHC.EDTECH ---
Patient given a sandwich and milk
[2022-12-18 06:10] VITALS: BP 115/55; PULSE 75; RESP 20; O2SAT 96
--- NOTE | 2022-12-18 07:55 | PC.NURSE ---
assumed care of pt at 0700. pt resting quietly in hospital bed sleeping. in no apparent distress. rr even/unlabored. wctm
--- NOTE | 2022-12-18 08:23 | PM.IMHP ---
History of Present Illness Date of Service: 12/18/22 Chief Complaint: confusion 62-year-old female with history of HTN, T2DM, and unknown psychiatric disorder presenting to the emergency department via EMS for altered mental status.? Per EMS, patient lives with her brother and he noted that she was not in the home around 3:00 a.m. and was later found sitting in the road outside.? Patient nonverbal during assessment but resisting some interventions. In the ER, CT of head unremarkable. Urine with active sediment consistent with UTI. Review of Systems Review of Systems: Unable to obtain secondary to confusion [facility] Medical History Anxiety Arthritis Depression Dyslipidemia (high LDL; low HDL) Hypertension Obesity Psychiatric disorder Type 2 diabetes mellitus without complication Surgical History History of cholecystectomy Social History Advance Directives: No Meds Allergies Allergy/AdvReac Type Severity Reaction Status Date / Time Iodinated Contrast Media Allergy Mild RASH Unverified 04/12/20 17:35 [IV Dye, Iodine Containing] Sulfa (Sulfonamide Allergy Mild RASH Unverified 04/12/20 17:35 Antibiotics) [Sulfa (Sulfonamides)] oxycodone [From Percocet] AdvReac Mild NAUSEA & Unverified 04/12/20 17:35 VOMITING Active Medications: Current Medications Acetaminophen (Acetaminophen 325 Mg Tablet) 650 mg PO Q8H PRN PRN Reason: pain Last Admin: 12/17/22 20:03 Dose: 650 mg Acetaminophen (Acetaminophen 325 Mg Tablet) 650 mg PO Q6H PRN PRN Reason: Pain, Mild (Pain Scale 1-3) Aripiprazole (Aripiprazole 5 Mg Tablet) 5 mg PO DAILY [facility] Atorvastatin Calcium (Atorvastatin Calcium 20 Mg Tablet) 20 mg PO DAILY [facility] Bupropion HCl (Bupropion Hcl Xl 300 Mg Tab.Er.24h) 300 mg PO DAILY [facility] Enoxaparin Sodium (Enoxaparin Sodium 40 Mg/0.4 Ml Syringe) 40 mg SUBCUT Q24H [facility] Fluticasone Propionate (Fluticasone Propionate 250 Mcg Blst.W.Dev) 1 puff INHALE RBID [facility] Last Admin: 12/18/22 07:31 Dose: Not Given Glucose (Glucose Gel 15 Gm Gel..Gram.) 15 gm PO Q15M PRN; Protocol PRN Reason: per Hypoglycemia Standing Ord. Dextrose (D10) 250 mls @ 750 mls/hr IV Q15M PRN; Protocol PRN Reason: per Hypoglycemia Standing Ord. Insulin Human Lispro (Insulin Lispro 100 Unit/Ml 3 Ml Vial) 0 unit SUBCUT QIDACHS [facility]; Protocol Metformin HCl (Metformin Hcl 500 Mg Tablet) 500 mg PO BID [facility] Last Admin: 12/17/22 20:16 Dose: 500 mg Multivitamins/Vitamin C (Multivitamin Tablet) 1 tab PO DAILY [facility] Pharmacy Consult (Consult Rx Perform Med Rec) 1 each MISCELLANE ONCE PRN PRN Reason: Consult order Sodium Chloride (0.9 % Sodium Chloride Flush 3 Ml Syringe) 3 ml IVFLUSH QSHIFT [facility] Venlafaxine HCl (Venlafaxine Hcl 25 Mg Tablet) 75 mg PO DAILY [facility] Vitamin D (Cholecalciferol (Vitamin D3) 25 Mcg Tablet) 25 mcg PO DAILY [facility] Home Medications Medication Instructions Recorded Confirmed Last Taken Type aripiprazole 5 mg tablet 5 mg PO DAILY 06/03/21 12/17/22 Unknown History atorvastatin 20 mg tablet 20 mg PO DAILY 06/03/21 12/17/22 Unknown History bupropion HCl 300 mg 24 hr tablet, 300 mg PO DAILY 06/03/21 12/17/22 Unknown History extended release metformin 500 mg tablet 500 mg PO BID 06/03/21 12/17/22 Unknown History omega-3 fatty acids 1,000 mg 1,000 mg PO DAILY 06/03/21 12/17/22 Unknown History capsule (Fish Oil Concentrate) venlafaxine 75 mg tablet 75 mg PO DAILY 06/03/21 12/17/22 Unknown History celecoxib 100 mg capsule 100 mg PO DAILY PRN Pain 12/17/22 12/17/22 Unknown History cholecalciferol (vitamin D3) 25 25 mcg PO DAILY 12/17/22 12/17/22 Unknown History mcg (1,000 unit) tablet fluticasone propionate 220 1 puff inhalation BID 12/17/22 12/17/22 Unknown History mcg/actuation HFA aerosol inhaler (Flovent HFA) ibuprofen 600 mg tablet 600 mg PO TID PRN Pain 12/17/22 12/17/22 Unknown History dotfosug-yfo-xmnpx acid 0.4 1 tab PO DAILY 12/17/22 12/17/22 Unknown History mg-lycopene 300 mcg-lutein 250 mcg tablet (Cerovite Senior) Physical Exam Vital Signs and Narrative: Vital Signs: Last Vital Signs Temp 97.6 F 12/17/22 21:40 Pulse 75 12/18/22 06:10 Resp 20 12/18/22 06:10 BP 115/55 L 12/18/22 06:10 Pulse Ox 96 12/18/22 06:10 O2 Del Method Room Air 12/18/22 06:10 BMI result Body Mass Index 29.2 Const: Other: Awake; minimally verbal. Will make eye contact Resp: Other: Clear to auscultation bilaterally no rales rhonchi or wheezes Cardio: Other: No S4; positive S1-S2; no S3 murmurs rubs or gallops GI: Other: Soft nontender nondistended normoactive bowel sounds Neuro: Other: Awake alert. Cranial nerves 2-12 appear grossly intact (limited exam) motor 5/5 all extremities. Extrem: Other: No edema bilaterally Results Labs 12/17/22 07:56 12/17/22 07:57 Labs: Laboratory Results - last 24 hr 12/17/22 12/17/22 12/17/22 07:56 07:57 09:43 VBG pH VBG pCO2 VBG pO2 VBG HCO3 VBG O2 Saturation VBG Base Excess Lactic Acid F/U @ 2Hr Troponin I High Sens 8.4 B-Natriuretic Peptide 12 TSH 1.78 Urine Color Urine Appearance Urine pH Ur Specific [place] Urine Protein Urine Glucose (UA) Urine Ketones Urine Blood Urine Nitrite Ur Leukocyte Esterase Urine RBC Urine WBC Ur Squamous Epith Cells Calcium Oxalate Crystal Urine Bacteria Hyaline Casts Urine Opiates Screen Urine Fentanyl Screen Ur Barbiturates Screen Ur Phencyclidine Scrn Ur Amphetamines Screen U Benzodiazepines Scrn Urine Cocaine Screen U Marijuana (THC) Screen 12/17/22 12/17/22 12/17/22 09:47 10:01 10:01 VBG pH 7.30 L VBG pCO2 52 VBG pO2 34 VBG HCO3 26 VBG O2 Saturation 50.0 VBG Base Excess -1.2 Lactic Acid F/U @ 2Hr Troponin I High Sens B-Natriuretic Peptide TSH Urine Color Dark Yellow Urine Appearance Cloudy Urine pH 5.0 Ur Specific [place] 1.025 Urine Protein 30 (1+) H Urine Glucose (UA) Negative Urine Ketones 40 Urine Blood Small (1+) H Urine Nitrite Positive H Ur Leukocyte Esterase Moderate (2+) H Urine RBC 3-5 H Urine WBC >50 H Ur Squamous Epith Cells 11-20 Calcium Oxalate Crystal Present Urine Bacteria 4+ Hyaline Casts 11-20 Urine Opiates Screen Not Detected Urine Fentanyl Screen Not Detected Ur Barbiturates Screen Not Detected Ur Phencyclidine Scrn Not Detected Ur Amphetamines Screen Not Detected U Benzodiazepines Scrn Not Detected Urine Cocaine Screen Not Detected U Marijuana (THC) Screen Not Detected 12/17/22 10:22 VBG pH VBG pCO2 VBG pO2 VBG HCO3 VBG O2 Saturation VBG Base Excess Lactic Acid F/U @ 2Hr 1.3 Troponin I High Sens B-Natriuretic Peptide TSH Urine Color Urine Appearance Urine pH Ur Specific [place] Urine Protein Urine Glucose (UA) Urine Ketones Urine Blood Urine Nitrite Ur Leukocyte Esterase Urine RBC Urine WBC Ur Squamous Epith Cells Calcium Oxalate Crystal Urine Bacteria Hyaline Casts Urine Opiates Screen Urine Fentanyl Screen Ur Barbiturates Screen Ur Phencyclidine Scrn Ur Amphetamines Screen U Benzodiazepines Scrn Urine Cocaine Screen U Marijuana (THC) Screen Imaging Radiologist's Impressions: Impressions Head CT 12/17/22 08:55 IMPRESSION: No acute intracranial process seen. Minimal right maxillary sinus inflammatory changes. Assessment and Plan (1) Acute metabolic encephalopathy: Status: Acute (2) Sepsis: Status: Acute (3) UTI (urinary tract infection): Status: Acute (4) Hypertension: Status: Acute (5) Type 2 diabetes mellitus without complication: Status: Acute (6) Depression: Status: Acute Plan 62-year-old female with history of hypertension type 2 diabetes and unknown psychiatric disorder presents to the emergency room with acute mental status changes. Remains essentially nonverbal but more alert this a.m. 1. Acute metabolic encephalopathy secondary to UTI with sepsis -call placed to daughter Dana; message left for further information -ceftriaxone 2 g IV daily -follow-up urine culture 2. Hypertension -lists no home meds -acceptable control at present -at therapies as clinically indicated 3. Type 2 diabetes -continue metformin at outpatient dosing. .. Adjust as indicated -lispro correctional scale -ADA diet 4. Depression (per ER staff daughter states patient's brother 6 weeks ago which worsened her depression) -continue outpatient therapies -involve psych once UTI adequately treated Full code Lovenox Patient will require 2 midnights of inpatient stay going forward to treat UTI with IV antibiotics and assess acute metabolic encephalopathy response to therapy. This cannot be achieved a lesser acute setting Time Spent With Patient Time: Total time managing care of this patient today ____ minutes. Quality Stroke Does the patient have a stroke diagnosis?: No VTE Prior VTE?: No VTE Risk Level:: Medical - moderate - high VTE Device Contraindication: Treatment Not Indicated VTE Drug Contraindication: N/A - Med Ordered
[2022-12-18] MEDS: Cholecalciferol (Vitamin D3) 25 MCG TABLET PO (08:49)
[2022-12-18] MEDS: buPROPion HCl XL 300 MG TAB.ER.24H PO (08:50)
[2022-12-18] MEDS: Atorvastatin Calcium 20 MG TABLET PO (08:50)
[2022-12-18] MEDS: ARIPiprazole 5 MG TABLET PO (08:50)
[2022-12-18] MEDS: metFORMIN HCl 500 MG TABLET PO ×2 (08:50→21:15)
[2022-12-18] MEDS: Multivitamin TABLET 1 TAB PO (08:50)
[2022-12-18] MEDS: Venlafaxine HCL 25 MG TABLET 75 MG PO (08:51)
[2022-12-18] MEDS: cefTRIAXone sodium 2 GM in 0.9 % Sodium Chloride 50 ML IV (08:54)
--- NOTE | 2022-12-18 09:02 | PC.NURSE ---
pt medicated per sep. resting quietly. reports 3/10 pain but cannot tell me where. flat affect. in no apparent distress. awaiting admission orders. tm
[2022-12-18 12:48] VITALS: BP 124/70; PULSE 74; RESP 16; O2SAT 96
[2022-12-18 12:49] LABS: Glucose, Whole Blood 89 mg/dL (60-115)
[2022-12-18 14:47] VITALS: BP 107/53; PULSE 71; RESP 16; TEMP 37.2; O2SAT 94
[2022-12-18 16:07] LABS: Glucose, Whole Blood 125 mg/dL (60-115)
[2022-12-18] MEDS: 0.9 % Sodium Chloride Flush 3 ML SYRINGE IVFLUSH ×2 (17:06→21:16)
[2022-12-18 19:26] VITALS: BP 133/70; PULSE 95; RESP 18; TEMP 36.8; O2SAT 95
[2022-12-18 20:24] LABS: Glucose, Whole Blood 166 mg/dL (60-115)
[2022-12-18] MEDS: Insulin Lispro 100 UNIT/ML 3 ML VIAL SUBCUT (21:15)
[2022-12-19 03:31] VITALS: BP 107/51; PULSE 81; RESP 18; TEMP 36.6; O2SAT 96
[2022-12-19 07:36] VITALS: BP 115/58; PULSE 74; RESP 18; TEMP 36.7; O2SAT 95
[2022-12-19 08:00] LABS: MANUAL DIFF FLAG NO
[2022-12-19 08:03] LABS: Basophils Absolute Auto 0.1 X10*3/uL (0.0-0.2); Basophils Percent Auto 1.1 % (0-2); Eosinophils Absolute Auto 0.1 X10*3/uL (0.0-0.4); Eosinophils Percent Auto 1.3 % (0-4); Hematocrit 39.5 % (37.0-47.0); Hemoglobin 12.9 g/dl (12.0-16.0); Imm Gran Abs Auto 0.03 X10*3/uL (0.00-0.03); Imm Gran Pct Auto 0.4 % (0.0-0.4); Lymphocytes Absolute Auto 1.9 X10*3/uL (1.2-4.9); Mean Corpuscular HGB Conc 32.7 g/dl (31.0-35.0); Mean Corpuscular Volume 88.8 fL (80.0-98.0); Mean Platelet Volume 10.1 fL (9.4-12.3); Monocytes Absolute Auto 0.7 X10*3/uL (0.1-1.2); Monocytes Percent Auto 7.8 % (2-11); Neutrophils Absolute Auto 5.5 x10*3/uL (2.0-8.3); Neutrophils Percent Auto 66.4 % (45-73); Platelet Count 219 X10*3/uL (160-400); Red Blood Count 4.45 X10*6/uL (4.20-5.50); Red Cell Distribution Width 15.6 % (11.0-16.0); White Blood Count 8.3 X10*3/uL (4.8-10.8)
[2022-12-19 08:06] LABS: Glucose, Whole Blood 114 mg/dL (60-115)
[2022-12-19 08:20] LABS: Alanine Aminotransferase 17 U/L (0-31); Albumin Level 3.4 g/dL (3.5-5.0); Alkaline Phosphatase 70 U/L (39-117); Anion Gap 12 (12-20); Aspartate Amino Transferase 18 U/L (5-31); Bilirubin Total 0.6 mg/dL (0.0-1.0); Blood Urea Nitrogen 9 mg/dL (9-16); Calcium 8.8 mg/dL (8.4-10.2); Carbon Dioxide 24 mmol/L (22-29); Chloride 113 mmol/L (96-108); Creatinine Clr Calc Pharmacy 92.7; Estimated Glomerular Filt Rate > 60; Glucose Random 108 mg/dL (60-115); Potassium 3.8 mmol/L (3.3-5.1); Sodium 145 mmol/L (135-145); Total Protein 5.3 g/dL (6.5-8.0)
[2022-12-19] MEDS: Atorvastatin Calcium 20 MG TABLET PO (08:39)
[2022-12-19] MEDS: Multivitamin TABLET 1 TAB PO (08:39)
[2022-12-19] MEDS: Venlafaxine HCL 25 MG TABLET 75 MG PO (08:39)
[2022-12-19] MEDS: Enoxaparin Sodium 40 MG/0.4 ML SYRINGE SUBCUT (08:39)
[2022-12-19] MEDS: cefTRIAXone sodium 2 GM in 0.9 % Sodium Chloride 50 ML IV (08:39)
[2022-12-19] MEDS: Cholecalciferol (Vitamin D3) 25 MCG TABLET PO (08:39)
[2022-12-19] MEDS: buPROPion HCl XL 300 MG TAB.ER.24H PO (08:40)
[2022-12-19] MEDS: metFORMIN HCl 500 MG TABLET PO ×2 (08:40→20:31)
[2022-12-19] MEDS: 0.9 % Sodium Chloride Flush 3 ML SYRINGE IVFLUSH ×2 (08:40→15:40)
[2022-12-19] MEDS: ARIPiprazole 5 MG TABLET PO (08:40)
--- NOTE | 2022-12-19 09:30 | MHC.CLN ---
NUTRITION DIET CHANGED TO DIABETIC 1800 KCAL DUE TO DX DM AND TAKES DM MED.
[2022-12-19 11:19] LABS: Glucose, Whole Blood 105 mg/dL (60-115)
--- NOTE | 2022-12-19 13:01 | HO.PM.IMPN ---
Subjective Subjective Date of Service: 12/19/22 Interval History: Minimally interactive this a.m.. Denies pain. Appears more alert Review of Systems Unable to obtain Physical Exam Vital Signs: Vital Signs: Last Vital Signs Temp 98.1 F 12/19/22 07:36 Pulse 74 12/19/22 07:36 Resp 18 12/19/22 07:36 BP 115/58 L 12/19/22 07:36 Pulse Ox 95 12/19/22 07:36 O2 Del Method Room Air 12/19/22 07:36 BMI result Body Mass Index 29.2 Const: Other: Awake; minimally verbal. Will make eye contact Resp: Other: Clear to auscultation bilaterally no rales rhonchi or wheezes Cardio: Other: No S4; positive S1-S2; no S3 murmurs rubs or gallops GI: Other: Soft nontender nondistended normoactive bowel sounds Neuro: Other: Awake alert. Cranial nerves 2-12 appear grossly intact (limited exam) motor 5/5 all extremities. Extrem: Other: No edema bilaterally Objective Data Active Medications Acetaminophen (Acetaminophen 325 Mg Tablet) 650 mg PO Q8H PRN PRN Reason: pain Last Admin: 12/17/22 20:03 Dose: 650 mg Documented By: ANGUS Acetaminophen (Acetaminophen 325 Mg Tablet) 650 mg PO Q6H PRN PRN Reason: Pain, Mild (Pain Scale 1-3) Aripiprazole (Aripiprazole 5 Mg Tablet) 5 mg PO DAILY [facility] Last Admin: 12/19/22 08:40 Dose: 5 mg Documented By: XIOMY Atorvastatin Calcium (Atorvastatin Calcium 20 Mg Tablet) 20 mg PO DAILY [facility] Last Admin: 12/19/22 08:39 Dose: 20 mg Documented By: XIOMY Bupropion HCl (Bupropion Hcl Xl 300 Mg Tab.Er.24h) 300 mg PO DAILY [facility] Last Admin: 12/19/22 08:40 Dose: 300 mg Documented By: XIOMY Enoxaparin Sodium (Enoxaparin Sodium 40 Mg/0.4 Ml Syringe) 40 mg SUBCUT Q24H [facility] Last Admin: 12/19/22 08:39 Dose: 40 mg Documented By: XIOMY Fluticasone Propionate (Fluticasone Propionate 250 Mcg Blst.W.Dev) 1 puff INHALE RBID [facility] Last Admin: 12/19/22 08:00 Dose: Not Given Documented By: KENNETH Non-Admin Reason: Med Not Available Glucose (Glucose Gel 15 Gm Gel..Gram.) 15 gm PO Q15M PRN; Protocol PRN Reason: per Hypoglycemia Standing Ord. Dextrose (D10) 250 mls @ 750 mls/hr IV Q15M PRN; Protocol PRN Reason: per Hypoglycemia Standing Ord. Ceftriaxone Sodium 2 gm/ (Sodium Chloride) 50 mls @ 100 mls/hr IV Q24H [facility] Last Infusion: 12/19/22 09:44 Dose: 0 mls/hr Documented By: XIOMY Insulin Human Lispro (Insulin Lispro 100 Unit/Ml 3 Ml Vial) 0 unit SUBCUT QIDACHS [facility]; Protocol Last Admin: 12/19/22 11:32 Dose: Not Given Documented By: XIOMY Non-Admin Reason: No Insulin Coverage Metformin HCl (Metformin Hcl 500 Mg Tablet) 500 mg PO BID [facility] Last Admin: 12/19/22 08:40 Dose: 500 mg Documented By: XIOMY Multivitamins/Vitamin C (Multivitamin Tablet) 1 tab PO DAILY [facility] Last Admin: 12/19/22 08:39 Dose: 1 tab Documented By: XIOMY Pharmacy Consult (Consult Rx Perform Med Rec) 1 each MISCELLANE ONCE PRN PRN Reason: Consult order Sodium Chloride (0.9 % Sodium Chloride Flush 3 Ml Syringe) 3 ml IVFLUSH QSHIFT [facility] Last Admin: 12/19/22 08:40 Dose: 3 ml Documented By: XIOMY Venlafaxine HCl (Venlafaxine Hcl 25 Mg Tablet) 75 mg PO DAILY [facility] Last Admin: 12/19/22 08:39 Dose: 75 mg Documented By: XIOMY Vitamin D (Cholecalciferol (Vitamin D3) 25 Mcg Tablet) 25 mcg PO DAILY [facility] Last Admin: 12/19/22 08:39 Dose: 25 mcg Documented By: XIOMY Labs 12/19/22 07:47 12/19/22 07:47 Labs: Laboratory Results - last 24 hr 12/18/22 12/18/22 12/19/22 16:03 20:20 07:38 MCV MCH MCHC RDW Plt Count MPV Immature Gran % (Auto) Neut % (Auto) Lymph % (Auto) Gem % (Auto) Eos % (Auto) Baso % (Auto) Lymph # (Auto) Gem # (Auto) Eos # (Auto) Baso # (Auto) Abs Immat Gran (auto) Absolute Neuts (auto) Absolute Nucleated RBC Nucleated RBC % (auto) Anion Gap Estim Creat Clear Calc Estimated GFR POC Glucose 125 H 166 H 114 Random Glucose Calcium Total Bilirubin AST ALT Alkaline Phosphatase Total Protein Albumin 12/19/22 12/19/22 12/19/22 07:47 07:47 11:05 MCV 88.8 MCH 29.0 MCHC 32.7 RDW 15.6 Plt Count 219 MPV 10.1 Immature Gran % (Auto) 0.4 Neut % (Auto) 66.4 Lymph % (Auto) 23.0 Gem % (Auto) 7.8 Eos % (Auto) 1.3 Baso % (Auto) 1.1 Lymph # (Auto) 1.9 Gem # (Auto) 0.7 Eos # (Auto) 0.1 Baso # (Auto) 0.1 Abs Immat Gran (auto) 0.03 Absolute Neuts (auto) 5.5 Absolute Nucleated RBC 0.000 Nucleated RBC % (auto) 0.0 Anion Gap 12 Estim Creat Clear Calc 92.7 Estimated GFR > 60 POC Glucose 105 Random Glucose 108 Calcium 8.8 D Total Bilirubin 0.6 AST 18 ALT 17 Alkaline Phosphatase 70 Total Protein 5.3 L Albumin 3.4 L Microbiology Microbiology Results: Microbiology 12/17/22 09:43 Blood Culture - Preliminary Blood - Venous No growth after 48 hours. 12/17/22 Unknown Urine Culture - Preliminary Urine clean catch - Urine carrillo top Gram negative juanita 12/17/22 07:57 Blood Culture - Preliminary Blood - Venous No growth after 48 hours. Assessment and Plan (1) Acute metabolic encephalopathy: Status: Acute (2) Sepsis: Status: Acute (3) UTI (urinary tract infection): Status: Acute (4) Hypertension: Status: Acute (5) Type 2 diabetes mellitus without complication: Status: Acute Plan 62-year-old female with history of hypertension type 2 diabetes and unknown psychiatric disorder presents to the emergency room with acute mental status changes. Remains essentially nonverbal but more alert this a.m. 1. Acute metabolic encephalopathy secondary to UTI with sepsis -call placed to [facility]; message left for further information -ceftriaxone 2 g IV daily -urine culture... Prelim gram-negative rods 2. Hypertension -lists no home meds -acceptable control at present -at therapies as clinically indicated 3. Type 2 diabetes -continue metformin at outpatient dosing. .. Adjust as indicated -lispro correctional scale -ADA diet 4. Depression (per ER staff daughter states patient's brother 6 weeks ago which worsened her depression) -continue outpatient therapies -psych consult Full code Juan David Will require ongoing hospitalization for IV antibiotics to treat UTI causing acute metabolic encephalopathy Time Spent With Patient Time: Total time managing care of this patient today ____ minutes. Quality Stroke Does the patient have a stroke diagnosis?: No VTE Prior VTE?: No VTE Risk Level:: Medical - moderate - high VTE Device Contraindication: Treatment Not Indicated VTE Drug Contraindication: N/A - Med Ordered
--- NOTE | 2022-12-19 15:07 | P.CNPS_ITS ---
History of Present Illness Date of Service: 12/19/22 Chief Complaint: Sepsis secondary to UTI Requesting physician: Micheal Mcdonough Sources of Information: patient interviewed, chart reviewed and crisis/core team assessment reviewed HPI Narrative: Pt is a 62 yo female with psychiatric history, who presents with disorganized behavior in face of urosepsis and possibly psychosocial stressor of recently brother. Patient was found sitting outside her house at 03:00 in the morning and brought to the emergency room. Patient is medically stabilizing; White count returned to normal, vitals stable however patient remains confused and speaking very little, seems confused and continues to need consistent help froml nursing to attend ADLs. Psychiatry consulted to assess. On approach patient sitting up in bed, alert and oriented. She has considerable speech latency and when she talks she has very few words, however she is able to answer most questions appropriately. She says she is all right. She is not sure why she is in the hospital, because they had to get me out of the house but accepts that she had a urinary tract infection. She knows her date, but the hospital, the year; she thought maybe it was December. Patient said she lives with her stepbrother at [facility]; her younger brother a few weeks ago; the 2 were close and she is sad. Patient says she thinks she takes Abilify for depression or anxiety. Regarding auditory hallucinations, she says she thinks so but it is difficult to explain. Bunch Breaker asked if she is aware that there is significant latency and her response time. She is aware and says I have always been on the hesitant side... However she agrees that her latency is considerably more than usual. Past Psychiatric History: Patient currently on Abilify 5 mg, Wellbutrin 300 mg, venlafaxine Medical Evaluation Reviewed: Yes [facility] Medical History Anxiety Arthritis Depression Dyslipidemia (high LDL; low HDL) Hypertension Obesity Psychiatric disorder Type 2 diabetes mellitus without complication Surgical History History of cholecystectomy Family History: Unknown Social History: Lives with her stepbrother Phil in [place] Has a daughter named Dana who was involved Patient's younger brother recently Substance History: Unknown Trauma History: Unknown Diagnostics Vital Signs (24Hr): Vital Signs - 24 hr 12/18/22 19:26 12/19/22 03:31 12/19/22 07:36 Temperature 98.2 F 97.8 F 98.1 F Pulse Rate 95 81 74 Respiratory Rate 18 18 18 Blood Pressure 133/70 107/51 L 115/58 L Pulse Oximetry 95 96 95 Oxygen Delivery Method Room Air Room Air Room Air BMI result Body Mass Index 29.2 Labs 12/19/22 07:47 12/19/22 07:47 Labs: Laboratory Results - last 48 hr 12/18/22 12/18/22 12/18/22 12:42 16:03 20:20 WBC RBC Hgb Hct MCV MCH MCHC RDW Plt Count MPV Immature Gran % (Auto) Neut % (Auto) Lymph % (Auto) [place] % (Auto) Eos % (Auto) Baso % (Auto) Lymph # (Auto) [place] # (Auto) Eos # (Auto) Baso # (Auto) Abs Immat Gran (auto) Absolute Neuts (auto) Absolute Nucleated RBC Nucleated RBC % (auto) Sodium Potassium Chloride Carbon Dioxide Anion Gap BUN Creatinine Estim Creat Clear Calc Estimated GFR POC Glucose 89 125 H 166 H Random Glucose Calcium Total Bilirubin AST ALT Alkaline Phosphatase Total Protein Albumin 12/19/22 12/19/22 12/19/22 07:38 07:47 07:47 WBC 8.3 RBC 4.45 D Hgb 12.9 D Hct 39.5 D MCV 88.8 MCH 29.0 MCHC 32.7 RDW 15.6 Plt Count 219 MPV 10.1 Immature Gran % (Auto) 0.4 Neut % (Auto) 66.4 Lymph % (Auto) 23.0 [place] % (Auto) 7.8 Eos % (Auto) 1.3 Baso % (Auto) 1.1 Lymph # (Auto) 1.9 [place] # (Auto) 0.7 Eos # (Auto) 0.1 Baso # (Auto) 0.1 Abs Immat Gran (auto) 0.03 Absolute Neuts (auto) 5.5 Absolute Nucleated RBC 0.000 Nucleated RBC % (auto) 0.0 Sodium 145 Potassium 3.8 Chloride 113 H Carbon Dioxide 24 Anion Gap 12 BUN 9 Creatinine 0.75 Estim Creat Clear Calc 92.7 Estimated GFR > 60 POC Glucose 114 Random Glucose 108 Calcium 8.8 D Total Bilirubin 0.6 AST 18 ALT 17 Alkaline Phosphatase 70 Total Protein 5.3 L Albumin 3.4 L 12/19/22 11:05 WBC RBC Hgb Hct MCV MCH MCHC RDW Plt Count MPV Immature Gran % (Auto) Neut % (Auto) Lymph % (Auto) [place] % (Auto) Eos % (Auto) Baso % (Auto) Lymph # (Auto) [place] # (Auto) Eos # (Auto) Baso # (Auto) Abs Immat Gran (auto) Absolute Neuts (auto) Absolute Nucleated RBC Nucleated RBC % (auto) Sodium Potassium Chloride Carbon Dioxide Anion Gap BUN Creatinine Estim Creat Clear Calc Estimated GFR POC Glucose 105 Random Glucose Calcium Total Bilirubin AST ALT Alkaline Phosphatase Total Protein Albumin Imaging Radiology Impressions: ITS Impressions Chest X-Ray 12/17/22 06:50 IMPRESSION: No acute cardiopulmonary process. Head CT 12/17/22 08:55 IMPRESSION: No acute intracranial process seen. Minimal right maxillary sinus inflammatory changes. Mental Status Exam Mental Status Exam Narrative: Pt is alert and oriented; behavior is cooperative but also disorganized; calm; dressed in hospital attire, combed hair; mood is described as alright and affect constricted; eye contact appropriate; Speech is latent; psychomotor retardation present; thought process is goal directed but slow; Thought content is somewhat confused about situation; possibly some AH and pt seems internally preoccupied. Patients insight and judgment impaired Medications Medications Current Medications Acetaminophen (Acetaminophen 325 Mg Tablet) 650 mg PO Q8H PRN PRN Reason: pain Last Admin: 12/17/22 20:03 Dose: 650 mg Acetaminophen (Acetaminophen 325 Mg Tablet) 650 mg PO Q6H PRN PRN Reason: Pain, Mild (Pain Scale 1-3) Aripiprazole (Aripiprazole 5 Mg Tablet) 5 mg PO DAILY [facility] Last Admin: 12/19/22 08:40 Dose: 5 mg Atorvastatin Calcium (Atorvastatin Calcium 20 Mg Tablet) 20 mg PO DAILY [facility] Last Admin: 12/19/22 08:39 Dose: 20 mg Bupropion HCl (Bupropion Hcl Xl 300 Mg Tab.Er.24h) 300 mg PO DAILY [facility] Last Admin: 12/19/22 08:40 Dose: 300 mg Enoxaparin Sodium (Enoxaparin Sodium 40 Mg/0.4 Ml Syringe) 40 mg SUBCUT Q24H [facility] Last Admin: 12/19/22 08:39 Dose: 40 mg Fluticasone Propionate (Fluticasone Propionate 250 Mcg Blst.W.Dev) 1 puff INHALE RBID [facility] Last Admin: 12/19/22 08:00 Dose: Not Given Glucose (Glucose Gel 15 Gm Gel..Gram.) 15 gm PO Q15M PRN; Protocol PRN Reason: per Hypoglycemia Standing Ord. Dextrose (D10) 250 mls @ 750 mls/hr IV Q15M PRN; Protocol PRN Reason: per Hypoglycemia Standing Ord. Ceftriaxone Sodium 2 gm/ (Sodium Chloride) 50 mls @ 100 mls/hr IV Q24H [facility] Last Infusion: 12/19/22 09:44 Dose: Infused Insulin Human Lispro (Insulin Lispro 100 Unit/Ml 3 Ml Vial) 0 unit SUBCUT QIDACHS [facility]; Protocol Last Admin: 12/19/22 11:32 Dose: Not Given Metformin HCl (Metformin Hcl 500 Mg Tablet) 500 mg PO BID [facility] Last Admin: 12/19/22 08:40 Dose: 500 mg Multivitamins/Vitamin C (Multivitamin Tablet) 1 tab PO DAILY [facility] Last Admin: 12/19/22 08:39 Dose: 1 tab Pharmacy Consult (Consult Rx Perform Med Rec) 1 each MISCELLANE ONCE PRN PRN Reason: Consult order Sodium Chloride (0.9 % Sodium Chloride Flush 3 Ml Syringe) 3 ml IVFLUSH QSHIFT [facility] Last Admin: 12/19/22 08:40 Dose: 3 ml Venlafaxine HCl (Venlafaxine Hcl 25 Mg Tablet) 75 mg PO DAILY [facility] Last Admin: 12/19/22 08:39 Dose: 75 mg Vitamin D (Cholecalciferol (Vitamin D3) 25 Mcg Tablet) 25 mcg PO DAILY [facility] Last Admin: 12/19/22 08:39 Dose: 25 mcg Allergies Allergies Allergy/AdvReac Type Severity Reaction Status Date / Time Iodinated Contrast Media Allergy Mild RASH Unverified 04/12/20 17:35 [IV Dye, Iodine Containing] Sulfa (Sulfonamide Allergy Mild RASH Unverified 04/12/20 17:35 Antibiotics) [Sulfa (Sulfonamides)] oxycodone [From Percocet] AdvReac Mild NAUSEA & Unverified 04/12/20 17:35 VOMITING Assessment & Plan Assessment & Plan (1) Delirium: Status: Acute Code(s): R41.0 - Disorientation, unspecified Assessment and Plan: due to urosepsis (2) Depression: Status: Acute Code(s): F32.A - Depression, unspecified (3) Anxiety: Status: Acute Code(s): F41.9 - Anxiety disorder, unspecified Plan Pt is a 62 yo female with psychiatric history, who presents with disorganized behavior in face of urosepsis and possibly psychosocial stressor of recently brother. Patient was found sitting outside her house at 03:00 in the morning and brought to the emergency room. Patient is medically stabilizing; White count returned to normal, vitals stable however patient remains confused and speaking very little, seems confused and continues to need consistent help from nursing to attend ADLs. Psychiatry consulted to assess. Impression Patient has significant speech latency and seems confused, still needing help attending to ADLs. Patient's history and level of function remain unknown other than she self reports living in [place] with her stepbrother. Patient has psychiatric history for at least depression/anxiety however it is unclear if she also has psychotic illness. Even though WBC has normalized and vitals are s table, it remains possible that she is off of her baseline and still with some delirium due to the residual effects of urosepsis. It is likely that grief from the recent of her younger brother is contributory. Bunch Breaker recommends giving patient a little more time to clear up while gathering collateral from either her sister or stepbrother to better assess how close she is to her baseline functioning. Total time managing care of this patient today ____ minutes. Patient educated on: diagnosis, medication risk/benefits and medical condition Informed Consent: understands, does not understand and further education needed
[2022-12-19 15:38] VITALS: BP 109/55; PULSE 70; RESP 14; TEMP 36.1; O2SAT 95
[2022-12-19 16:15] LABS: Glucose, Whole Blood 95 mg/dL (60-115)
[2022-12-19 19:26] VITALS: BP 141/77; PULSE 100; RESP 20; TEMP 36.6; O2SAT 95
[2022-12-19 20:25] LABS: Glucose, Whole Blood 135 mg/dL (60-115)
[2022-12-20 03:58] VITALS: BP 124/66; PULSE 70; RESP 18; TEMP 36.8; O2SAT 96
[2022-12-20 06:22] LABS: MANUAL DIFF FLAG NO
[2022-12-20 06:26] LABS: Basophils Absolute Auto 0.1 X10*3/uL (0.0-0.2); Basophils Percent Auto 1.2 % (0-2); Eosinophils Absolute Auto 0.1 X10*3/uL (0.0-0.4); Eosinophils Percent Auto 1.3 % (0-4); Hematocrit 40.2 % (37.0-47.0); Imm Gran Abs Auto 0.04 X10*3/uL (0.00-0.03); Imm Gran Pct Auto 0.5 % (0.0-0.4); Lymphocytes Absolute Auto 1.8 X10*3/uL (1.2-4.9); Lymphocytes Percent Auto 23.4 % (20-40); Mean Corpuscular HGB Conc 32.3 g/dl (31.0-35.0); Mean Corpuscular Hemoglobin 28.7 pg (27.0-33.0); Mean Corpuscular Volume 88.7 fL (80.0-98.0); Mean Platelet Volume 10.3 fL (9.4-12.3); Monocytes Absolute Auto 0.6 X10*3/uL (0.1-1.2); Monocytes Percent Auto 8.5 % (2-11); Neutrophils Absolute Auto 4.9 x10*3/uL (2.0-8.3); Neutrophils Percent Auto 65.1 % (45-73); Platelet Count 219 X10*3/uL (160-400); Red Blood Count 4.53 X10*6/uL (4.20-5.50); Red Cell Distribution Width 15.3 % (11.0-16.0); White Blood Count 7.6 X10*3/uL (4.8-10.8)
[2022-12-20 06:41] LABS: Alanine Aminotransferase 17 U/L (0-31); Albumin Level 3.5 g/dL (3.5-5.0); Alkaline Phosphatase 69 U/L (39-117); Anion Gap 11 (12-20); Aspartate Amino Transferase 16 U/L (5-31); Bilirubin Total 0.6 mg/dL (0.0-1.0); Blood Urea Nitrogen 10 mg/dL (9-16); Carbon Dioxide 26 mmol/L (22-29); Chloride 110 mmol/L (96-108); Creatinine Clr Calc Pharmacy 85.9; Estimated Glomerular Filt Rate > 60; Glucose Fasting 110 mg/dL (60-99); Potassium 3.8 mmol/L (3.3-5.1); Sodium 143 mmol/L (135-145); Total Protein 5.4 g/dL (6.5-8.0)
[2022-12-20 07:12] VITALS: BP 121/61; PULSE 64; RESP 20; TEMP 36.8; O2SAT 97
[2022-12-20 07:32] LABS: Glucose, Whole Blood 111 mg/dL (60-115)
[2022-12-20] MEDS: Fluticasone Propionate 250 MCG BLST.W.DEV 1 PUFF INHALE ×2 (07:45→20:16)
[2022-12-20 07:47] VITALS: PULSE 83; RESP 18; O2SAT 91
[2022-12-20] MEDS: cefTRIAXone sodium 2 GM in 0.9 % Sodium Chloride 50 ML IV (08:12)
[2022-12-20] MEDS: Atorvastatin Calcium 20 MG TABLET PO (08:13)
[2022-12-20] MEDS: buPROPion HCl XL 300 MG TAB.ER.24H PO (08:13)
[2022-12-20] MEDS: Venlafaxine HCL 25 MG TABLET 75 MG PO (08:13)
[2022-12-20] MEDS: metFORMIN HCl 500 MG TABLET PO ×2 (08:13→21:06)
[2022-12-20] MEDS: Multivitamin TABLET 1 TAB PO (08:13)
[2022-12-20] MEDS: Cholecalciferol (Vitamin D3) 25 MCG TABLET PO (08:13)
[2022-12-20] MEDS: 0.9 % Sodium Chloride Flush 3 ML SYRINGE IVFLUSH ×3 (08:13→22:04)
[2022-12-20] MEDS: Enoxaparin Sodium 40 MG/0.4 ML SYRINGE SUBCUT (08:13)
[2022-12-20] MEDS: ARIPiprazole 5 MG TABLET PO (08:13)
[2022-12-20 11:25] LABS: Glucose, Whole Blood 93 mg/dL (60-115)
--- NOTE | 2022-12-20 12:12 | P.PNIM_ITS ---
Subjective Subjective Date of Service: 12/20/22 Interval History: Remains essentially catatonic/nonverbal despite resolution of UTI. No acute issues overnight Review of Systems Unable to obtain Physical Exam Vital Signs: Vital Signs: Last Vital Signs Temp 98.2 F 12/20/22 07:12 Pulse 83 12/20/22 07:47 Resp 18 12/20/22 07:47 BP 121/61 12/20/22 07:12 Pulse Ox 97 12/20/22 07:12 O2 Del Method Room Air 12/20/22 07:12 BMI result Body Mass Index 29.2 Const: Other: Awake; minimally verbal. Will make eye contact Resp: Other: Clear to auscultation bilaterally no rales rhonchi or wheezes Cardio: Other: No S4; positive S1-S2; no S3 murmurs rubs or gallops GI: Other: Soft nontender nondistended normoactive bowel sounds Neuro: Other: Awake alert. Cranial nerves 2-12 appear grossly intact (limited exam) motor 5/5 all extremities. Extrem: Other: No edema bilaterally Objective Data Active Medications Acetaminophen (Acetaminophen 325 Mg Tablet) 650 mg PO Q8H PRN PRN Reason: pain Last Admin: 12/17/22 20:03 Dose: 650 mg Documented By: ANGUS Acetaminophen (Acetaminophen 325 Mg Tablet) 650 mg PO Q6H PRN PRN Reason: Pain, Mild (Pain Scale 1-3) Aripiprazole (Aripiprazole 5 Mg Tablet) 5 mg PO DAILY [facility] Last Admin: 12/20/22 08:13 Dose: 5 mg Documented By: MARLON Atorvastatin Calcium (Atorvastatin Calcium 20 Mg Tablet) 20 mg PO DAILY [facility] Last Admin: 12/20/22 08:13 Dose: 20 mg Documented By: MARLON Bupropion HCl (Bupropion Hcl Xl 300 Mg Tab.Er.24h) 300 mg PO DAILY [facility] Last Admin: 12/20/22 08:13 Dose: 300 mg Documented By: MARLON Enoxaparin Sodium (Enoxaparin Sodium 40 Mg/0.4 Ml Syringe) 40 mg SUBCUT Q24H [facility] Last Admin: 12/20/22 08:13 Dose: 40 mg Documented By: MARLON Fluticasone Propionate (Fluticasone Propionate 250 Mcg Blst.W.Dev) 1 puff INHALE RBID [facility] Last Admin: 12/20/22 07:45 Dose: 1 puff Documented By: YOGESH Glucose (Glucose Gel 15 Gm Gel..Gram.) 15 gm PO Q15M PRN; Protocol PRN Reason: per Hypoglycemia Standing Ord. Dextrose (D10) 250 mls @ 750 mls/hr IV Q15M PRN; Protocol PRN Reason: per Hypoglycemia Standing Ord. Ceftriaxone Sodium 2 gm/ (Sodium Chloride) 50 mls @ 100 mls/hr IV Q24H [facility] Last Infusion: 12/20/22 08:47 Dose: 0 mls/hr Documented By: MARLON Insulin Human Lispro (Insulin Lispro 100 Unit/Ml 3 Ml Vial) 0 unit SUBCUT QIDACHS [facility]; Protocol Last Admin: 12/20/22 11:26 Dose: Not Given Documented By: MARLON Non-Admin Reason: No Insulin Coverage Metformin HCl (Metformin Hcl 500 Mg Tablet) 500 mg PO BID [facility] Last Admin: 12/20/22 08:13 Dose: 500 mg Documented By: MARLON Multivitamins/Vitamin C (Multivitamin Tablet) 1 tab PO DAILY [facility] Last Admin: 12/20/22 08:13 Dose: 1 tab Documented By: MARLON Pharmacy Consult (Consult Rx Perform Med Rec) 1 each MISCELLANE ONCE PRN PRN Reason: Consult order Sodium Chloride (0.9 % Sodium Chloride Flush 3 Ml Syringe) 3 ml IVFLUSH QSHIFT [facility] Last Admin: 12/20/22 08:13 Dose: 3 ml Documented By: MARLON Venlafaxine HCl (Venlafaxine Hcl 25 Mg Tablet) 75 mg PO DAILY [facility] Last Admin: 12/20/22 08:13 Dose: 75 mg Documented By: MARLON Vitamin D (Cholecalciferol (Vitamin D3) 25 Mcg Tablet) 25 mcg PO DAILY [facility] Last Admin: 12/20/22 08:13 Dose: 25 mcg Documented By: MARLON Labs 12/20/22 05:59 12/20/22 05:59 Labs: Laboratory Results - last 24 hr 12/19/22 12/19/22 12/20/22 16:11 20:04 05:59 MCV 88.7 MCH 28.7 MCHC 32.3 RDW 15.3 Plt Count 219 MPV 10.3 Immature Gran % (Auto) 0.5 H Neut % (Auto) 65.1 Lymph % (Auto) 23.4 [place] % (Auto) 8.5 Eos % (Auto) 1.3 Baso % (Auto) 1.2 Lymph # (Auto) 1.8 [place] # (Auto) 0.6 Eos # (Auto) 0.1 Baso # (Auto) 0.1 Abs Immat Gran (auto) 0.04 H Absolute Neuts (auto) 4.9 Absolute Nucleated RBC 0.000 Nucleated RBC % (auto) 0.0 Anion Gap Estim Creat Clear Calc Estimated GFR POC Glucose 95 135 H Fasting Glucose Calcium Total Bilirubin AST ALT Alkaline Phosphatase Total Protein Albumin 12/20/22 12/20/22 12/20/22 05:59 07:15 11:14 MCV MCH MCHC RDW Plt Count MPV Immature Gran % (Auto) Neut % (Auto) Lymph % (Auto) [place] % (Auto) Eos % (Auto) Baso % (Auto) Lymph # (Auto) [place] # (Auto) Eos # (Auto) Baso # (Auto) Abs Immat Gran (auto) Absolute Neuts (auto) Absolute Nucleated RBC Nucleated RBC % (auto) Anion Gap 11 L Estim Creat Clear Calc 85.9 Estimated GFR > 60 POC Glucose 111 93 Fasting Glucose 110 H Calcium 9.0 Total Bilirubin 0.6 AST 16 ALT 17 Alkaline Phosphatase 69 Total Protein 5.4 L Albumin 3.5 Microbiology Microbiology Results: Microbiology 12/17/22 Unknown Urine Culture - Final Urine clean catch - Urine carrillo top Klebsiella pneumoniae 12/17/22 09:43 Blood Culture - Preliminary Blood - Venous No growth after 48 hours. 12/17/22 07:57 Blood Culture - Preliminary Blood - Venous No growth after 48 hours. Assessment and Plan (1) Depression: Status: Acute (2) Hypertension: Status: Acute (3) Type 2 diabetes mellitus without complication: Status: Acute Plan 62-year-old female with history of hypertension type 2 diabetes and unknown psychiatric disorder presents to the emergency room with acute mental status changes. Remains essentially nonverbal but more alert this a.m. 1. Depression with psychotic features(catatonic features) -UTI resolved. Klebsiella sensitive to ceftriaxone. This presentation is in no way related to UTI. Purely psychiatric manifestation -will re consult Psychiatry -call placed to daughter Dana; message left for further information -ceftriaxone 2 g IV daily -urine culture... Klebsiella SS CTX 2. Hypertension -lists no home meds -acceptable control at present -at therapies as clinically indicated 3. Type 2 diabetes -continue metformin at outpatient dosing. .. Adjust as indicated -lispro correctional scale -ADA diet 4. UTI resolved - Full code [facility] Will require ongoing hospitalization for IV antibiotics to treat UTI ; psychiatry to assess presentation Time Spent With Patient Time: Total time managing care of this patient today ____ minutes. Quality Stroke Does the patient have a stroke diagnosis?: No VTE Prior VTE?: No VTE Risk Level:: Medical - moderate - high VTE Device Contraindication: Treatment Not Indicated VTE Drug Contraindication: N/A - Med Ordered
[2022-12-20 15:09] VITALS: BP 106/61; PULSE 70; RESP 18; TEMP 36.4; O2SAT 97
--- NOTE | 2022-12-20 15:28 | MHC.CM.PN ---
CM ATTEMPTED TO MEET WITH PT YESTERDAY, HOWEVER SHE WAS UNABLE TO ANSWER QUESTIONS CM MET WITH PT TODAY WHO IS NOW ANSWERING QUESTIONS WITH DELAY PT REPORTS SHE LIVES WITH A FAMILY MEMBER AND IS INDEPENDENT WITH SELF CARE SHE SAYS SHE HAS A WALKER SHE USES SOMETIMES SHE DENIES HAVING A HCP SHE IS COVID [place] PCP: LORNA PIERSON IMM DELIVERED ON 12/19/21 DCP: HOME NO SERVICES VS PSYCH ADMISSION FAMILY TO TRANSPORT IF PT GOES HOME AT DC
[2022-12-20 16:29] LABS: Glucose, Whole Blood 113 mg/dL (60-115)
[2022-12-20 19:37] VITALS: BP 104/58; PULSE 64; RESP 20; TEMP 36.5; O2SAT 96
[2022-12-20 20:17] VITALS: PULSE 64; RESP 20
[2022-12-20 20:45] LABS: Glucose, Whole Blood 100 mg/dL (60-115)
[2022-12-21 03:36] VITALS: BP 133/63; PULSE 68; RESP 20; TEMP 36.4; O2SAT 95
[2022-12-21 06:20] LABS: MANUAL DIFF FLAG NO
[2022-12-21 06:31] LABS: Basophils Absolute Auto 0.1 X10*3/uL (0.0-0.2); Basophils Percent Auto 1.4 % (0-2); Eosinophils Absolute Auto 0.1 X10*3/uL (0.0-0.4); Eosinophils Percent Auto 1.9 % (0-4); Hematocrit 40.7 % (37.0-47.0); Hemoglobin 13.1 g/dl (12.0-16.0); Imm Gran Abs Auto 0.02 X10*3/uL (0.00-0.03); Imm Gran Pct Auto 0.3 % (0.0-0.4); Lymphocytes Absolute Auto 1.7 X10*3/uL (1.2-4.9); Lymphocytes Percent Auto 26.7 % (20-40); Mean Corpuscular HGB Conc 32.2 g/dl (31.0-35.0); Mean Corpuscular Hemoglobin 28.7 pg (27.0-33.0); Mean Corpuscular Volume 89.1 fL (80.0-98.0); Mean Platelet Volume 9.9 fL (9.4-12.3); Monocytes Absolute Auto 0.6 X10*3/uL (0.1-1.2); Monocytes Percent Auto 9.4 % (2-11); Neutrophils Absolute Auto 3.9 x10*3/uL (2.0-8.3); Neutrophils Percent Auto 60.3 % (45-73); Platelet Count 224 X10*3/uL (160-400); Red Blood Count 4.57 X10*6/uL (4.20-5.50); Red Cell Distribution Width 15.2 % (11.0-16.0); White Blood Count 6.5 X10*3/uL (4.8-10.8)
[2022-12-21 06:53] LABS: Alanine Aminotransferase 14 U/L (0-31); Albumin Level 3.4 g/dL (3.5-5.0); Alkaline Phosphatase 66 U/L (39-117); Anion Gap 10 (12-20); Aspartate Amino Transferase 13 U/L (5-31); Bilirubin Total 0.5 mg/dL (0.0-1.0); Blood Urea Nitrogen 9 mg/dL (9-16); Carbon Dioxide 28 mmol/L (22-29); Chloride 108 mmol/L (96-108); Creatinine Clr Calc Pharmacy 83.8; Estimated Glomerular Filt Rate > 60; Glucose Fasting 107 mg/dL (60-99); Potassium 3.8 mmol/L (3.3-5.1); Sodium 142 mmol/L (135-145); Total Protein 5.4 g/dL (6.5-8.0)
[2022-12-21 07:24] VITALS: BP 126/62; PULSE 67; RESP 18; TEMP 36.2; O2SAT 96
[2022-12-21 07:40] LABS: Glucose, Whole Blood 113 mg/dL (60-115)
[2022-12-21] MEDS: Multivitamin TABLET 1 TAB PO (08:11)
[2022-12-21] MEDS: 0.9 % Sodium Chloride Flush 3 ML SYRINGE IVFLUSH ×2 (08:11→23:25)
[2022-12-21] MEDS: Enoxaparin Sodium 40 MG/0.4 ML SYRINGE SUBCUT (08:11)
[2022-12-21] MEDS: metFORMIN HCl 500 MG TABLET PO (08:12)
[2022-12-21] MEDS: buPROPion HCl XL 300 MG TAB.ER.24H PO (08:12)
[2022-12-21] MEDS: Cholecalciferol (Vitamin D3) 25 MCG TABLET PO (08:12)
[2022-12-21] MEDS: Venlafaxine HCL 25 MG TABLET 75 MG PO (08:12)
[2022-12-21] MEDS: ARIPiprazole 5 MG TABLET PO (08:12)
[2022-12-21] MEDS: Atorvastatin Calcium 20 MG TABLET PO (08:12)
[2022-12-21] MEDS: cefTRIAXone sodium 2 GM in 0.9 % Sodium Chloride 50 ML IV (08:13)
[2022-12-21 11:35] LABS: Glucose, Whole Blood 91 mg/dL (60-115)
--- NOTE | 2022-12-21 14:25 | HO.PM.IMPN ---
Subjective Subjective Date of Service: 12/21/22 Interval History: No acute issues overnight remains nonverbal Review of Systems Unable to obtain Physical Exam Vital Signs: Vital Signs: Last Vital Signs Temp 97.1 F 12/21/22 07:24 Pulse 67 12/21/22 07:24 Resp 18 12/21/22 07:24 BP 126/62 12/21/22 07:24 Pulse Ox 96 12/21/22 07:24 O2 Del Method Room Air 12/21/22 07:24 BMI result Body Mass Index 29.2 Const: Other: Awake; minimally verbal. Will make eye contact Resp: Other: Clear to auscultation bilaterally no rales rhonchi or wheezes Cardio: Other: No S4; positive S1-S2; no S3 murmurs rubs or gallops GI: Other: Soft nontender nondistended normoactive bowel sounds Neuro: Other: Awake alert. Cranial nerves 2-12 appear grossly intact (limited exam) motor 5/5 all extremities. Extrem: Other: No edema bilaterally Objective Data Active Medications Acetaminophen (Acetaminophen 325 Mg Tablet) 650 mg PO Q8H PRN PRN Reason: pain Last Admin: 12/17/22 20:03 Dose: 650 mg Documented By: ANGUS Acetaminophen (Acetaminophen 325 Mg Tablet) 650 mg PO Q6H PRN PRN Reason: Pain, Mild (Pain Scale 1-3) Aripiprazole (Aripiprazole 5 Mg Tablet) 5 mg PO DAILY [facility] Last Admin: 12/21/22 08:12 Dose: 5 mg Documented By: MARY Atorvastatin Calcium (Atorvastatin Calcium 20 Mg Tablet) 20 mg PO DAILY [facility] Last Admin: 12/21/22 08:12 Dose: 20 mg Documented By: MARY Bupropion HCl (Bupropion Hcl Xl 300 Mg Tab.Er.24h) 300 mg PO DAILY [facility] Last Admin: 12/21/22 08:12 Dose: 300 mg Documented By: MARY Enoxaparin Sodium (Enoxaparin Sodium 40 Mg/0.4 Ml Syringe) 40 mg SUBCUT Q24H [facility] Last Admin: 12/21/22 08:11 Dose: 40 mg Documented By: MARY Fluticasone Propionate (Fluticasone Propionate 250 Mcg Blst.W.Dev) 1 puff INHALE RBID [facility] Last Admin: 12/21/22 08:37 Dose: Not Given Documented By: HAZEL Non-Admin Reason: Patient Refused Glucose (Glucose Gel 15 Gm Gel..Gram.) 15 gm PO Q15M PRN; Protocol PRN Reason: per Hypoglycemia Standing Ord. Dextrose (D10) 250 mls @ 750 mls/hr IV Q15M PRN; Protocol PRN Reason: per Hypoglycemia Standing Ord. Ceftriaxone Sodium 2 gm/ (Sodium Chloride) 50 mls @ 100 mls/hr IV Q24H [facility] Last Infusion: 12/21/22 08:57 Dose: 0 mls/hr Documented By: MARY Insulin Human Lispro (Insulin Lispro 100 Unit/Ml 3 Ml Vial) 0 unit SUBCUT QIDACHS [facility]; Protocol Last Admin: 12/21/22 11:37 Dose: Not Given Documented By: MAYR Non-Admin Reason: No Insulin Coverage Metformin HCl (Metformin Hcl 500 Mg Tablet) 500 mg PO BID [facility] Last Admin: 12/21/22 08:12 Dose: 500 mg Documented By: MARY Multivitamins/Vitamin C (Multivitamin Tablet) 1 tab PO DAILY [facility] Last Admin: 12/21/22 08:11 Dose: 1 tab Documented By: MARY Pharmacy Consult (Consult Rx Perform Med Rec) 1 each MISCELLANE ONCE PRN PRN Reason: Consult order Sodium Chloride (0.9 % Sodium Chloride Flush 3 Ml Syringe) 3 ml IVFLUSH QSHIFT [facility] Last Admin: 12/21/22 08:11 Dose: 3 ml Documented By: MARY Venlafaxine HCl (Venlafaxine Hcl 25 Mg Tablet) 75 mg PO DAILY [facility] Last Admin: 12/21/22 08:12 Dose: 75 mg Documented By: MARY Vitamin D (Cholecalciferol (Vitamin D3) 25 Mcg Tablet) 25 mcg PO DAILY [facility] Last Admin: 12/21/22 08:12 Dose: 25 mcg Documented By: MARY Labs 12/21/22 06:00 12/21/22 06:00 Labs: Laboratory Results - last 24 hr 12/20/22 12/20/22 12/21/22 16:21 20:35 06:00 MCV 89.1 MCH 28.7 MCHC 32.2 RDW 15.2 Plt Count 224 MPV 9.9 Immature Gran % (Auto) 0.3 Neut % (Auto) 60.3 Lymph % (Auto) 26.7 [place] % (Auto) 9.4 Eos % (Auto) 1.9 Baso % (Auto) 1.4 Lymph # (Auto) 1.7 [place] # (Auto) 0.6 Eos # (Auto) 0.1 Baso # (Auto) 0.1 Abs Immat Gran (auto) 0.02 Absolute Neuts (auto) 3.9 Absolute Nucleated RBC 0.000 Nucleated RBC % (auto) 0.0 Anion Gap Estim Creat Clear Calc Estimated GFR POC Glucose 113 100 Fasting Glucose Calcium Total Bilirubin AST ALT Alkaline Phosphatase Total Protein Albumin 12/21/22 12/21/22 12/21/22 06:00 07:36 11:32 MCV MCH MCHC RDW Plt Count MPV Immature Gran % (Auto) Neut % (Auto) Lymph % (Auto) [place] % (Auto) Eos % (Auto) Baso % (Auto) Lymph # (Auto) [place] # (Auto) Eos # (Auto) Baso # (Auto) Abs Immat Gran (auto) Absolute Neuts (auto) Absolute Nucleated RBC Nucleated RBC % (auto) Anion Gap 10 L Estim Creat Clear Calc 83.8 Estimated GFR > 60 POC Glucose 113 91 Fasting Glucose 107 H Calcium 9.0 Total Bilirubin 0.5 AST 13 ALT 14 Alkaline Phosphatase 66 Total Protein 5.4 L Albumin 3.4 L Assessment and Plan (1) Depression: Status: Acute (2) Hypertension: Status: Acute Plan 62-year-old female with history of hypertension type 2 diabetes and unknown psychiatric disorder presents to the emergency room with acute mental status changes. Remains essentially nonverbal but more alert this a.m. 1. Depression with psychotic features(catatonic features) -UTI resolved. Klebsiella sensitive to ceftriaxone. This presentation is in no way related to UTI. Purely psychiatric manifestation -will re consult Psychiatry -call placed to daughter Dana; message left for further information -ceftriaxone 2 g IV daily -urine culture... Klebsiella SS CTX 2. Hypertension -lists no home meds -acceptable control at present -at therapies as clinically indicated 3. Type 2 diabetes -continue metformin at outpatient dosing. .. Adjust as indicated -lispro correctional scale -ADA diet 4. UTI resolved - Full code Lovenox Will require ongoing hospitalization for IV antibiotics to treat UTI ; psychiatry to assess presentation. Unable to get in touch with primary contact daughter; patient will not verbalize who she lives with her phone number Time Spent With Patient Time: Total time managing care of this patient today ____ minutes. Quality Stroke Does the patient have a stroke diagnosis?: No VTE Prior VTE?: No VTE Risk Level:: Medical - moderate - high VTE Device Contraindication: Treatment Not Indicated VTE Drug Contraindication: N/A - Med Ordered
[2022-12-21 15:55] VITALS: BP 118/71; PULSE 63; RESP 14; TEMP 36.9; O2SAT 96
[2022-12-21 16:17] LABS: Glucose, Whole Blood 92 mg/dL (60-115)
[2022-12-21] MEDS: Fluticasone Propionate 250 MCG BLST.W.DEV 1 PUFF INHALE (19:15)
[2022-12-21 20:00] VITALS: BP 119/59; PULSE 72; RESP 16; TEMP 37.1; O2SAT 94
[2022-12-21 20:42] LABS: Glucose, Whole Blood 102 mg/dL (60-115)
[2022-12-22 03:39] VITALS: BP 118/59; PULSE 69; RESP 18; TEMP 36.4; O2SAT 94
[2022-12-22 07:15] VITALS: BP 134/63; PULSE 64; RESP 18; TEMP 36.5; O2SAT 95
[2022-12-22 07:40] LABS: Glucose, Whole Blood 110 mg/dL (60-115)
[2022-12-22 08:23] LABS: MANUAL DIFF FLAG NO
[2022-12-22 08:29] LABS: Basophils Absolute Auto 0.1 X10*3/uL (0.0-0.2); Basophils Percent Auto 0.9 % (0-2); Eosinophils Absolute Auto 0.1 X10*3/uL (0.0-0.4); Hematocrit 42.2 % (37.0-47.0); Hemoglobin 13.7 g/dl (12.0-16.0); Imm Gran Abs Auto 0.05 X10*3/uL (0.00-0.03); Imm Gran Pct Auto 0.5 % (0.0-0.4); Lymphocytes Absolute Auto 1.8 X10*3/uL (1.2-4.9); Lymphocytes Percent Auto 18.2 % (20-40); Mean Corpuscular HGB Conc 32.5 g/dl (31.0-35.0); Mean Corpuscular Hemoglobin 29.2 pg (27.0-33.0); Mean Platelet Volume 9.9 fL (9.4-12.3); Monocytes Absolute Auto 0.8 X10*3/uL (0.1-1.2); Monocytes Percent Auto 7.7 % (2-11); Neutrophils Absolute Auto 7.1 x10*3/uL (2.0-8.3); Neutrophils Percent Auto 71.7 % (45-73); Platelet Count 233 X10*3/uL (160-400); Red Blood Count 4.69 X10*6/uL (4.20-5.50); Red Cell Distribution Width 15.3 % (11.0-16.0); White Blood Count 9.9 X10*3/uL (4.8-10.8)
[2022-12-22 08:43] LABS: Alanine Aminotransferase 18 U/L (0-31); Albumin Level 3.8 g/dL (3.5-5.0); Alkaline Phosphatase 72 U/L (39-117); Anion Gap 12 (12-20); Aspartate Amino Transferase 17 U/L (5-31); Bilirubin Total 0.5 mg/dL (0.0-1.0); Blood Urea Nitrogen 10 mg/dL (9-16); Calcium 9.4 mg/dL (8.4-10.2); Carbon Dioxide 25 mmol/L (22-29); Chloride 108 mmol/L (96-108); Creatinine Clr Calc Pharmacy 83.8; Estimated Glomerular Filt Rate > 60; Glucose Fasting 98 mg/dL (60-99); Potassium 4.1 mmol/L (3.3-5.1); Sodium 141 mmol/L (135-145)
[2022-12-22] MEDS: Multivitamin TABLET 1 TAB PO (08:55)
[2022-12-22] MEDS: ARIPiprazole 5 MG TABLET PO (08:55)
[2022-12-22] MEDS: Cholecalciferol (Vitamin D3) 25 MCG TABLET PO (08:55)
[2022-12-22] MEDS: 0.9 % Sodium Chloride Flush 3 ML SYRINGE IVFLUSH ×3 (08:55→20:20)
[2022-12-22] MEDS: metFORMIN HCl 500 MG TABLET PO ×2 (08:55→20:19)
[2022-12-22] MEDS: Venlafaxine HCL 25 MG TABLET 75 MG PO (08:55)
[2022-12-22] MEDS: Atorvastatin Calcium 20 MG TABLET PO (08:55)
[2022-12-22] MEDS: cefTRIAXone sodium 2 GM in 0.9 % Sodium Chloride 50 ML IV (08:55)
[2022-12-22] MEDS: buPROPion HCl XL 300 MG TAB.ER.24H PO (08:55)
[2022-12-22] MEDS: Enoxaparin Sodium 40 MG/0.4 ML SYRINGE SUBCUT (08:56)
[2022-12-22 11:15] LABS: Glucose, Whole Blood 96 mg/dL (60-115)
--- NOTE | 2022-12-22 11:48 | P.PNIM_ITS ---
Subjective Subjective Date of Service: 12/22/22 Interval History: Awake alert answering questions appropriately for taking a long time to respond complaining of intermittent left upper thigh discomfort that resolved by itself no aggravating or relieving factors pain can occur any time, denies associated fever chills, redness swelling, no trauma, denies urinary symptoms. Review of Systems All other systems are reviewed and negative, although cannot obtain detailed review of system due to mental status Physical Exam Vital Signs: Vital Signs: Last Vital Signs Temp 97.7 F 12/22/22 07:15 Pulse 64 12/22/22 07:15 Resp 18 12/22/22 07:15 BP 134/63 12/22/22 07:15 Pulse Ox 95 12/22/22 07:15 O2 Del Method Room Air 12/22/22 07:15 BMI result Body Mass Index 29.2 Const: Other: General sitting comfortably, in no acute distress. Neck supple no JVD. CVS regular rate rhythm, Respiratory lungs clear to auscultation, no respiratory distress, no wheeze, no rhonchi. Gastrointestinal abdomen soft, nontender, bowel sounds audible Extremities no edema. Neuro awake alert answering questions appropriately take a long time to answer, moving all 4 extremity, speech clear. Skin no rash Left thigh examination normal with no redness, no swelling no tenderness to palpation, Objective Data Active Medications Acetaminophen (Acetaminophen 325 Mg Tablet) 650 mg PO Q8H PRN PRN Reason: pain Last Admin: 12/17/22 20:03 Dose: 650 mg Documented By: ANGUS Acetaminophen (Acetaminophen 325 Mg Tablet) 650 mg PO Q6H PRN PRN Reason: Pain, Mild (Pain Scale 1-3) Aripiprazole (Aripiprazole 5 Mg Tablet) 5 mg PO DAILY [facility] Last Admin: 12/22/22 08:55 Dose: 5 mg Documented By: CESAR Atorvastatin Calcium (Atorvastatin Calcium 20 Mg Tablet) 20 mg PO DAILY [facility] Last Admin: 12/22/22 08:55 Dose: 20 mg Documented By: CESAR Bupropion HCl (Bupropion Hcl Xl 300 Mg Tab.Er.24h) 300 mg PO DAILY [facility] Last Admin: 12/22/22 08:55 Dose: 300 mg Documented By: CESAR Enoxaparin Sodium (Enoxaparin Sodium 40 Mg/0.4 Ml Syringe) 40 mg SUBCUT Q24H [facility] Last Admin: 12/22/22 08:56 Dose: 40 mg Documented By: CESAR Fluticasone Propionate (Fluticasone Propionate 250 Mcg Blst.W.Dev) 1 puff INHALE RBID [facility] Last Admin: 12/22/22 11:48 Dose: Not Given Documented By: TOM Non-Admin Reason: Patient Refused Glucose (Glucose Gel 15 Gm Gel..Gram.) 15 gm PO Q15M PRN; Protocol PRN Reason: per Hypoglycemia Standing Ord. Dextrose (D10) 250 mls @ 750 mls/hr IV Q15M PRN; Protocol PRN Reason: per Hypoglycemia Standing Ord. Ceftriaxone Sodium 2 gm/ (Sodium Chloride) 50 mls @ 100 mls/hr IV Q24H [facility] Last Infusion: 12/22/22 09:47 Dose: 0 mls/hr Documented By: CESAR Insulin Human Lispro (Insulin Lispro 100 Unit/Ml 3 Ml Vial) 0 unit SUBCUT QIDACHS [facility]; Protocol Last Admin: 12/22/22 11:17 Dose: Not Given Documented By: CESAR Non-Admin Reason: No Insulin Coverage Metformin HCl (Metformin Hcl 500 Mg Tablet) 500 mg PO BID [facility] Last Admin: 12/22/22 08:55 Dose: 500 mg Documented By: CESAR Multivitamins/Vitamin C (Multivitamin Tablet) 1 tab PO DAILY [facility] Last Admin: 12/22/22 08:55 Dose: 1 tab Documented By: CESAR Pharmacy Consult (Consult Rx Perform Med Rec) 1 each MISCELLANE ONCE PRN PRN Reason: Consult order Sodium Chloride (0.9 % Sodium Chloride Flush 3 Ml Syringe) 3 ml IVFLUSH QSHIFT [facility] Last Admin: 12/22/22 08:55 Dose: 3 ml Documented By: CESAR Venlafaxine HCl (Venlafaxine Hcl 25 Mg Tablet) 75 mg PO DAILY [facility] Last Admin: 12/22/22 08:55 Dose: 75 mg Documented By: CESAR Vitamin D (Cholecalciferol (Vitamin D3) 25 Mcg Tablet) 25 mcg PO DAILY [facility] Last Admin: 12/22/22 08:55 Dose: 25 mcg Documented By: CESAR Labs 12/22/22 08:10 12/22/22 08:10 Labs: Laboratory Results - last 24 hr 12/21/22 12/21/22 12/22/22 16:09 20:35 07:13 MCV MCH MCHC RDW Plt Count MPV Immature Gran % (Auto) Neut % (Auto) Lymph % (Auto) [place] % (Auto) Eos % (Auto) Baso % (Auto) Lymph # (Auto) [place] # (Auto) Eos # (Auto) Baso # (Auto) Abs Immat Gran (auto) Absolute Neuts (auto) Absolute Nucleated RBC Nucleated RBC % (auto) Anion Gap Estim Creat Clear Calc Estimated GFR POC Glucose 92 102 110 Fasting Glucose Calcium Total Bilirubin AST ALT Alkaline Phosphatase Total Protein Albumin 12/22/22 12/22/22 12/22/22 08:10 08:10 11:08 MCV 90.0 MCH 29.2 MCHC 32.5 RDW 15.3 Plt Count 233 MPV 9.9 Immature Gran % (Auto) 0.5 H Neut % (Auto) 71.7 Lymph % (Auto) 18.2 L [place] % (Auto) 7.7 Eos % (Auto) 1.0 Baso % (Auto) 0.9 Lymph # (Auto) 1.8 [place] # (Auto) 0.8 Eos # (Auto) 0.1 Baso # (Auto) 0.1 Abs Immat Gran (auto) 0.05 H Absolute Neuts (auto) 7.1 Absolute Nucleated RBC 0.000 Nucleated RBC % (auto) 0.0 Anion Gap 12 Estim Creat Clear Calc 83.8 Estimated GFR > 60 POC Glucose 96 Fasting Glucose 98 Calcium 9.4 Total Bilirubin 0.5 AST 17 ALT 18 Alkaline Phosphatase 72 Total Protein 6.0 L Albumin 3.8 Microbiology Microbiology Results: Microbiology 12/17/22 07:57 Blood Culture - Final Blood - Venous No growth after 5 days. Assessment and Plan (1) Depression: Status: Acute (2) Hypertension: Status: Acute Plan 62-year-old female with history of hypertension type 2 diabetes and unknown psychiatric disorder presents to the emergency room with acute mental status ch anges. Remains essentially nonverbal but more alert this a.m. 1. Depression with psychotic features(catatonic features) -UTI due to a Klebsiella sensitive to ceftriaxone. Patient answering questions appropriately but slow to respond , her mentation more likely due to psychiatric manifestation and not due to UTI. spoke with patient's daughter Dana, according to her patient stop taking her medications since her younger brother diet patient has history of bipolar disorder/schizophrenia for last 15 years has had multiple psychiatric hospitalization was doing well while she was on her medications, answer his questions appropriately without taking time at present does not seem to be at her baseline Will request psych team to re-evaluate patient since it seems that her UTI is resolving with IV antibiotics 2. Hypertension -lists no home meds, stable blood pressures 3. Type 2 diabetes -continue metformin at outpatient dosing. .. Adjust as indicated -lispro correctional scale -ADA diet 4. UTI on IV ceftriaxone will transition to by mouth Ceftin 250 mg b.i.d. - 5. History of anxiety/depression/psychiatric disorder continue all home medications including Abilify, Wellbutrin, and venlafaxine 6. Chronic right thigh pain will place patient back on Celebrex 100 mg Full code DVT prophylaxis Lovenox Will require ongoing hospitalization for to treat UTI ; psychiatry to assess presentation. Time Spent With Patient Time: Total time managing care of this patient today ____ minutes. Quality Stroke Does the patient have a stroke diagnosis?: No VTE Prior VTE?: No VTE Risk Level:: Medical - moderate - high VTE Device Contraindication: Treatment Not Indicated VTE Drug Contraindication: N/A - Med Ordered
[2022-12-22 15:53] VITALS: BP 109/63; PULSE 71; RESP 18; TEMP 36.2; O2SAT 95
[2022-12-22 16:05] LABS: Glucose, Whole Blood 106 mg/dL (60-115)
[2022-12-22] MEDS: Fluticasone Propionate 250 MCG BLST.W.DEV 1 PUFF INHALE (19:59)
[2022-12-22 20:00] VITALS: BP 121/56; PULSE 74; RESP 18; TEMP 36.8; O2SAT 93
[2022-12-22 20:02] VITALS: PULSE 73; RESP 18; O2SAT 94
[2022-12-22 20:30] LABS: Glucose, Whole Blood 130 mg/dL (60-115)
[2022-12-23 02:56] VITALS: BP 119/58; PULSE 73; RESP 18; TEMP 36.7; O2SAT 95
[2022-12-23 07:08] LABS: Glucose, Whole Blood 112 mg/dL (60-115)
[2022-12-23 07:36] VITALS: BP 112/58; PULSE 74; RESP 18; TEMP 37.2; O2SAT 95
[2022-12-23] MEDS: Fluticasone Propionate 250 MCG BLST.W.DEV 1 PUFF INHALE ×2 (07:45→20:06)
[2022-12-23 07:46] VITALS: PULSE 74; RESP 16; O2SAT 95
[2022-12-23] MEDS: Enoxaparin Sodium 40 MG/0.4 ML SYRINGE SUBCUT (08:43)
[2022-12-23] MEDS: metFORMIN HCl 500 MG TABLET PO ×2 (08:43→21:03)
[2022-12-23] MEDS: Venlafaxine HCL 25 MG TABLET 75 MG PO (08:44)
[2022-12-23] MEDS: ARIPiprazole 5 MG TABLET PO (08:44)
[2022-12-23] MEDS: Multivitamin TABLET 1 TAB PO (08:44)
[2022-12-23] MEDS: Acetaminophen 325 MG TABLET 650 MG PO (08:44)
[2022-12-23] MEDS: buPROPion HCl XL 300 MG TAB.ER.24H PO (08:44)
[2022-12-23] MEDS: Cholecalciferol (Vitamin D3) 25 MCG TABLET PO (08:44)
[2022-12-23] MEDS: Atorvastatin Calcium 20 MG TABLET PO (08:44)
[2022-12-23] MEDS: Celecoxib 100 MG CAPSULE PO (08:44)
[2022-12-23] MEDS: 0.9 % Sodium Chloride Flush 3 ML SYRINGE IVFLUSH ×2 (08:47→15:46)
[2022-12-23 11:28] LABS: Glucose, Whole Blood 99 mg/dL (60-115)
--- NOTE | 2022-12-23 15:13 | P.PNPSI_ITS ---
Subjective Subjective Date of Service: 12/23/22 Reason For Visit: Sepsis secondary to UTI Interim History: Follow-up from psych consult on 12/19 Patient sitting in bed calmly. Speech latency remains and patient says that it is hard to get her words out; however it is much improved since last week and patient can talk in sentences. Patient says she feels confused sometimes and that says she is not that great. Patient thinks it would be hard for her to take care of herself were she to return home and staff reports patient still needs prompting to attend some ADLs. She endorses auditory hallucinations that tell her to do crazy things including to get out of the house...that people want her out of the house which is why she was found outside on the curb a 3am the morning. Care team contacted patient's daughter who reports that patient is not at baseline and is presenting similarly to how she was when she was last psychiatrically admitted years ago. Daughter reports diagnosis of bipolar/schizophrenia Mental Status Exam Mental Status Exam Narrative: Pt is alert and oriented; behavior is cooperative but also disorganized; calm; dressed in hospital attire, combed hair; mood is described as not that great and affect constricted, anxious; eye contact appropriate; Speech is latent; psychomotor retardation present; thought process is goal directed but slow; Thought content is somewhat confused about situation; + AH and pt is internally preoccupied. No SI/HI Patients insight and judgment impaired Diagnostics Vital Signs (24Hr): Vital Signs - 24 hr 12/22/22 15:53 12/22/22 20:02 12/22/22 20:00 Temperature 97.2 F 98.3 F Pulse Rate 71 73 74 Respiratory Rate 18 18 18 Blood Pressure 109/63 121/56 L Pulse Oximetry 95 93 Oxygen Delivery Method Room Air Room Air 12/23/22 02:56 12/23/22 07:36 12/23/22 07:46 Temperature 98.1 F 98.9 F Pulse Rate 73 74 74 Respiratory Rate 18 18 16 Blood Pressure 119/58 L 112/58 L Pulse Oximetry 95 95 Oxygen Delivery Method Room Air Room Air BMI result Body Mass Index 29.2 Labs 12/22/22 08:10 12/22/22 08:10 Labs: Laboratory Results - last 48 hr 12/21/22 12/21/22 12/22/22 16:09 20:35 07:13 WBC RBC Hgb Hct MCV MCH MCHC RDW Plt Count MPV Immature Gran % (Auto) Neut % (Auto) Lymph % (Auto) [place] % (Auto) Eos % (Auto) Baso % (Auto) Lymph # (Auto) [place] # (Auto) Eos # (Auto) Baso # (Auto) Abs Immat Gran (auto) Absolute Neuts (auto) Absolute Nucleated RBC Nucleated RBC % (auto) Sodium Potassium Chloride Carbon Dioxide Anion Gap BUN Creatinine Estim Creat Clear Calc Estimated GFR POC Glucose 92 102 110 Fasting Glucose Calcium Total Bilirubin AST ALT Alkaline Phosphatase Total Protein Albumin 12/22/22 12/22/22 12/22/22 08:10 08:10 11:08 WBC 9.9 RBC 4.69 Hgb 13.7 Hct 42.2 MCV 90.0 MCH 29.2 MCHC 32.5 RDW 15.3 Plt Count 233 MPV 9.9 Immature Gran % (Auto) 0.5 H Neut % (Auto) 71.7 Lymph % (Auto) 18.2 L [place] % (Auto) 7.7 Eos % (Auto) 1.0 Baso % (Auto) 0.9 Lymph # (Auto) 1.8 [place] # (Auto) 0.8 Eos # (Auto) 0.1 Baso # (Auto) 0.1 Abs Immat Gran (auto) 0.05 H Absolute Neuts (auto) 7.1 Absolute Nucleated RBC 0.000 Nucleated RBC % (auto) 0.0 Sodium 141 Potassium 4.1 Chloride 108 Carbon Dioxide 25 Anion Gap 12 BUN 10 Creatinine 0.83 Estim Creat Clear Calc 83.8 Estimated GFR > 60 POC Glucose 96 Fasting Glucose 98 Calcium 9.4 Total Bilirubin 0.5 AST 17 ALT 18 Alkaline Phosphatase 72 Total Protein 6.0 L Albumin 3.8 12/22/22 12/22/22 12/23/22 15:57 20:05 07:03 WBC RBC Hgb Hct MCV MCH MCHC RDW Plt Count MPV Immature Gran % (Auto) Neut % (Auto) Lymph % (Auto) [place] % (Auto) Eos % (Auto) Baso % (Auto) Lymph # (Auto) [place] # (Auto) Eos # (Auto) Baso # (Auto) Abs Immat Gran (auto) Absolute Neuts (auto) Absolute Nucleated RBC Nucleated RBC % (auto) Sodium Potassium Chloride Carbon Dioxide Anion Gap BUN Creatinine Estim Creat Clear Calc Estimated GFR POC Glucose 106 130 H 112 Fasting Glucose Calcium Total Bilirubin AST ALT Alkaline Phosphatase Total Protein Albumin 12/23/22 11:23 WBC RBC Hgb Hct MCV MCH MCHC RDW Plt Count MPV Immature Gran % (Auto) Neut % (Auto) Lymph % (Auto) [place] % (Auto) Eos % (Auto) Baso % (Auto) Lymph # (Auto) [place] # (Auto) Eos # (Auto) Baso # (Auto) Abs Immat Gran (auto) Absolute Neuts (auto) Absolute Nucleated RBC Nucleated RBC % (auto) Sodium Potassium Chloride Carbon Dioxide Anion Gap BUN Creatinine Estim Creat Clear Calc Estimated GFR POC Glucose 99 Fasting Glucose Calcium Total Bilirubin AST ALT Alkaline Phosphatase Total Protein Albumin Imaging Radiology Impressions: ITS Impressions Chest X-Ray 12/17/22 06:50 IMPRESSION: No acute cardiopulmonary process. Head CT 12/17/22 08:55 IMPRESSION: No acute intracranial process seen. Minimal right maxillary sinus inflammatory changes. Medications Medications Current Medications Acetaminophen (Acetaminophen 325 Mg Tablet) 650 mg PO Q8H PRN PRN Reason: pain Last Admin: 12/23/22 08:44 Dose: 650 mg Acetaminophen (Acetaminophen 325 Mg Tablet) 650 mg PO Q6H PRN PRN Reason: Pain, Mild (Pain Scale 1-3) Aripiprazole (Aripiprazole 5 Mg Tablet) 5 mg PO DAILY [facility] Last Admin: 12/23/22 08:44 Dose: 5 mg Atorvastatin Calcium (Atorvastatin Calcium 20 Mg Tablet) 20 mg PO DAILY [facility] Last Admin: 12/23/22 08:44 Dose: 20 mg Bupropion HCl (Bupropion Hcl Xl 300 Mg Tab.Er.24h) 300 mg PO DAILY [facility] Last Admin: 12/23/22 08:44 Dose: 300 mg Cefuroxime Axetil (Cefuroxime Axetil 250 Mg Tablet) 250 mg PO Q12H [facility] Last Admin: 12/23/22 14:21 Dose: 250 mg Celecoxib (Celecoxib 100 Mg Capsule) 100 mg PO DAILY [facility] Last Admin: 12/23/22 08:44 Dose: 100 mg Enoxaparin Sodium (Enoxaparin Sodium 40 Mg/0.4 Ml Syringe) 40 mg SUBCUT Q24H [facility] Last Admin: 12/23/22 08:43 Dose: 40 mg Fluticasone Propionate (Fluticasone Propionate 250 Mcg Blst.W.Dev) 1 puff INHALE RBID [facility] Last Admin: 12/23/22 07:45 Dose: 1 puff Glucose (Glucose Gel 15 Gm Gel..Gram.) 15 gm PO Q15M PRN; Protocol PRN Reason: per Hypoglycemia Standing Ord. Dextrose (D10) 250 mls @ 750 mls/hr IV Q15M PRN; Protocol PRN Reason: per Hypoglycemia Standing Ord. Insulin Human Lispro (Insulin Lispro 100 Unit/Ml 3 Ml Vial) 0 unit SUBCUT QIDACHS [facility]; Protocol Last Admin: 12/23/22 12:36 Dose: Not Given Metformin HCl (Metformin Hcl 500 Mg Tablet) 500 mg PO BID [facility] Last Admin: 12/23/22 08:43 Dose: 500 mg Multivitamins/Vitamin C (Multivitamin Tablet) 1 tab PO DAILY [facility] Last Admin: 12/23/22 08:44 Dose: 1 tab Pharmacy Consult (Consult Rx Perform Med Rec) 1 each MISCELLANE ONCE PRN PRN Reason: Consult order Sodium Chloride (0.9 % Sodium Chloride Flush 3 Ml Syringe) 3 ml IVFLUSH QSHIFT [facility] Last Admin: 12/23/22 08:47 Dose: 3 ml Venlafaxine HCl (Venlafaxine Hcl 25 Mg Tablet) 75 mg PO DAILY [facility] Last Admin: 12/23/22 08:44 Dose: 75 mg Vitamin D (Cholecalciferol (Vitamin D3) 25 Mcg Tablet) 25 mcg PO DAILY [facility] Last Admin: 12/23/22 08:44 Dose: 25 mcg Allergies Allergies Allergy/AdvReac Type Severity Reaction Status Date / Time Iodinated Contrast Media Allergy Mild RASH Verified 12/22/22 20:19 [IV Dye, Iodine Containing] Sulfa (Sulfonamide Allergy Mild RASH Verified 12/22/22 20:20 Antibiotics) [Sulfa (Sulfonamides)] oxycodone [From Percocet] AdvReac Mild NAUSEA & Verified 12/22/22 20:20 VOMITING Assessment & Plan Assessment & Plan (1) Depression: Status: Acute Code(s): F32.A - Depression, unspecified (2) Hypertension: Status: Acute Code(s): I10 - Essential (primary) hypertension Plan Pt is a 62 yo female with hx for Schizoaffective disorder, HTN, DM, who presents with disorganized behavior in face of urosepsis after having gone off her medications due to sadness dealing with her recently brother.? Patient was found sitting outside her house at 03:00 in the morning and brought to the emergency room. Psychiatry asked to assess for speech latency. Psyc consult: 12/19 Patient is medically stabilizing; White count returned to normal, vitals stable however patient remains confused and speaking very little, seems confused and continues to need? consistent help from nursing to attend ADLs.? Patient has significant speech latency and seems confused, still needing help attending to ADLs.? Patient's history and level of function remain unknown other than she self reports living in [place] with her stepbrother.? Patient has psychiatric history for at least depression/anxiety however it is unclear if she also has psychotic illness.? Even though WBC has normalized and vitals are stable, it remains possible that she is off of her baseline and still with some delirium due to the residual effects of urosepsis.? It is likely that grief from the recent of her younger brother is contributory. Cpc recommends giving patient a little more time to clear up while gathering collateral from either her sister or stepbrother to better assess how close she is to her baseline functioning. F/U psych consult on 12/23 Patient sitting in bed calmly. Speech latency remains and patient says that it is hard to get her words out; however it is much improved since last week and patient can talk in sentences. Patient says she feels confused sometimes and t hat says she is not that great. Patient thinks it would be hard for her to take care of herself were she to return home and staff reports patient still needs prompting to attend some ADLs. She endorses auditory hallucinations that tell her to do crazy things including to get out of the house...that people want her out of the house which is why she was found outside on the curb a 3am the morning. Care team contacted patient's daughter who reports that patient is not at baseline and is presenting similarly to how she was when she was last psychiatrically admitted years ago. Daughter reports diagnosis of bipolar/schizophrenia IMPRESSION: Collateral reports patient has history of what sounds like schizoaffective disorder though she has been stable on psychiatric medication regimen for years. It seems that patient's current decompensation is due to going off her medications after her brother complicated by patient's sadness and delirium from infection. Patient is improving however remains with speech latency and residual disorganization. Daughter says this is far from patient's baseline. Patient appears with some catatonic like symptoms. She agrees to start Ativan Currently patient is psychiatrically decompensated and unable to take care of herself in the community; inpatient admission for stabilization and medication management PLAN: Start Ativan 0.5 mg t.i.d.; will increase if needed Continue Abilify 5 mg Continue Wellbutrin Continue Effexor Patient educated on: diagnosis and medication risk/benefits Informed Consent: understands and further education needed Reason for continued inpatient stay Substantial Risk for: inability to function Time Spent With Patient Time: Total time managing care of this patient today ____ minutes.
[2022-12-23 15:15] VITALS: BP 114/68; PULSE 73; RESP 18; TEMP 36; O2SAT 95
[2022-12-23] MEDS: LORazepam 0.5 MG TABLET PO ×2 (15:45→21:03)
--- NOTE | 2022-12-23 15:57 | PM.DS ---
DS: Providers Provider Date of Service: 12/23/22 Date of admission: 12/18/22 08:08 Primary care physician: Kaitlynn Marina MD Consults: 12/19/22 11:17 Consult to Care Team Stat Comment: Reason for consultation: depression Has provider been notified: No 12/19/22 12:50 Consult to Psychiatry Stat Consulting Provider: Psych Covering Reason for consultation: depression/nonverbal Has provider been notified: Yes 12/23/22 09:54 Consult to Care Team Stat Comment: Reason for consultation: depression grief DS: Diagnosis Discharge Diagnosis (1) Depression: Status: Acute (2) Hypertension: Status: Acute DS: Summary Hospital Course Hospital Course: History of presenting illness: Date of Service: 12/18/22 Chief Complaint: confusion 62-year-old female with history of HTN, T2DM, and unknown psychiatric disorder presenting to the emergency department via EMS for altered mental status.? Per EMS, patient lives with her brother and he noted that she was not in the home around 3:00 a.m. and was later found sitting in the road outside.? Patient nonverbal during assessment but resisting some interventions.? In the ER, CT of head unremarkable.? Urine with active sediment consistent with UTI. Hospital course: 62-year-old female with history of hypertension type 2 diabetes and unknown psychiatric disorder presents to the emergency room with acute mental status changes.? Remains essentially nonverbal but more alert this a.m. 1. Depression with psychotic features(catatonic features) initially felt to be related to UTI treated with IV ceftriaxone urine culture grew Klebsiella, patient mentation improved able to answer questions appropriately but very slow to respond, case discussed with patient's daughter she admitted that patient has history of bipolar disorder and schizophrenia diagnosed 15 years ago follows with psychiatrist Dr Peyman Moore, patient's younger brother recently since then patient stop taking her medications and became more confused, since patient received 5 days of antibiotics and remains withdrawn, she was evaluated by Psychiatry and now being discharged to psychiatric floor for further treatment for decompensated schizoaffective affective disorder. 2. Hypertension patient not on home medications blood pressure noted to be stable 3. Type 2 diabetes stable blood sugars recommend to continue metformin and diabetic diet monitor blood sugars twice daily, will hold off on insulin sliding scale since did not require insulin coverage. 4. UTI finished 4 days of IV ceftriaxone now on last day of by mouth Ceftin 250 mg b.i.d. - 5. History of anxiety/depression/psychiatric disorder continue all home medications including Abilify, Wellbutrin, and venlafaxine. 6. Chronic right thigh pain will place patient back on Celebrex 100 mg prn. Time Spent with Patient Time attestation: Total time managing care of this patient today ____ minutes. Discharge coordination time: Greater than 30 minutes Quality: Safe Use of Opioids Does Pt have an Active Cancer Diagnosis on the Problem List?: No Quality: Stroke Does the patient have a stroke diagnosis?: No Physical Exam Vital Signs: Vital Signs: Last Vital Signs Temp 96.8 F 12/23/22 15:15 Pulse 73 12/23/22 15:15 Resp 18 12/23/22 15:15 BP 114/68 12/23/22 15:15 Pulse Ox 95 12/23/22 15:15 O2 Del Method Room Air 12/23/22 15:15 BMI result Body Mass Index 29.2 Const: Other: General sitting co mfortably, in no a cute distress.? Ne ck? supple no JVD. CVS? regular rate rhythm, Respirato ry lungs clear to auscultation, no r espiratory distres s, no wheeze, no r honchi. Gastrointe stinal abdomen sof t, nontender, kath l sounds audible E xtremities no edyta a. Neuro awake emili rt answering quest ions appropriately take a long time to answer, moving all 4 extremity, s peech clear. Skin no rash Left thigh examination willis l with no redness, no swelling no te nderness to palpat ion, DS: Data Data Completed and Pending Labs on day of discharge: Laboratory Results - last 24 hr 12/22/22 12/22/22 12/23/22 15:57 20:05 07:03 POC Glucose 106 130 H 112 12/23/22 11:23 POC Glucose 99 Discharge Plan Discharge Patient Disposition: Xfer Psychiatric Hosp Discharge Diagnosis: UTI History of schizoaffective disorder with decompensation Referrals: Kaitlynn Marina MD [Primary Care Provider] - 1 Week Discharge Medications: New cefuroxime axetil 250 mg Tablet 250 mg PO Q12H Qty: 1 0RF lorazepam 0.5 mg Tablet 0.5 mg PO TID Qty: 30 0RF Continued fluticasone propionate [Flovent HFA] 220 mcg/actuation HFA aerosol inhaler 1 puff inhalation BID celecoxib 100 mg capsule 100 mg PO DAILY PRN (Reason: Pain) Cerovite Senior 0.4 mg-300 mcg- 250 mcg tablet 1 tab PO DAILY cholecalciferol (vitamin D3) 25 mcg (1,000 unit) tablet 25 mcg PO DAILY metformin 500 mg tablet 500 mg PO BID aripiprazole 5 mg tablet 5 mg PO DAILY bupropion HCl 300 mg tablet extended release 24 hr 300 mg PO DAILY venlafaxine 75 mg tablet 75 mg PO DAILY omega-3 fatty acids [Fish Oil Concentrate] 1,000 mg capsule 1,000 mg PO DAILY atorvastatin 20 mg tablet 20 mg PO DAILY acetaminophen 650 mg tablet extended release 650 mg PO Q8H PRN (Reason: pain) Qty: 90 0RF Discontinued ibuprofen 600 mg Tablet 600 mg PO TID PRN (Reason: Pain) Discharge Orders: Discharge Order (Routine); Ordered 12/23/22 Ordered By: Moris Manjarrez Diet: Diabetic diet Activity on Discharge: As tolerated Stand Alone Forms: Patient Portal Discharge page Care Plan Goals: Take Ceftin 250 mg 1 tablet tonight to finish total 5 day course of antibiotic Continue all home medications as above Plan of Treatment: Outpatient follow-up with primary care physician and Psychiatry. Assessment: As above Discharge Date/Time: 12/23/22 23:32
[2022-12-23 16:17] LABS: Glucose, Whole Blood 99 mg/dL (60-115)
--- NOTE | 2022-12-23 17:18 | HO.PM.IMPN ---
Subjective Subjective Date of Service: 12/23/22 Interval History: Patient awake alert answering questions appropriately the take a long time to answer, still needs prompting to attend some ADLs, is ambulating to bathroom, feeding herself, daughter does not feel that patient is at her baseline, no overnight events, no fevers, no chills, no nausea, no abdominal pain or diarrhea, denies shortness of breath, no headache, no dizziness. Review of Systems All other system reviewed and negative. Physical Exam Vital Signs: Vital Signs: Last Vital Signs Temp 96.8 F 12/23/22 15:15 Pulse 73 12/23/22 15:15 Resp 18 12/23/22 15:15 BP 114/68 12/23/22 15:15 Pulse Ox 95 12/23/22 15:15 O2 Del Method Room Air 12/23/22 15:15 BMI result Body Mass Index 29.2 Const: Other: General sitting co mfortably, in no a cute distress.? Ne ck? supple no JVD. CVS? regular rate rhythm, Respirato ry lungs clear to auscultation, no r espiratory distres s, no wheeze, no r honchi. Gastrointe stinal abdomen sof t, nontender, kath l sounds audible E xtremities no edyta a. Neuro awake emili rt answering quest ions appropriately take a long time to answer, moving all 4 extremity, s peech clear. Skin no rash Left thigh examination willis l with no redness, no swelling no te nderness to palpat ion, Objective Data Active Medications Acetaminophen (Acetaminophen 325 Mg Tablet) 650 mg PO Q8H PRN PRN Reason: pain Last Admin: 12/23/22 08:44 Dose: 650 mg Documented By: CESAR Acetaminophen (Acetaminophen 325 Mg Tablet) 650 mg PO Q6H PRN PRN Reason: Pain, Mild (Pain Scale 1-3) Aripiprazole (Aripiprazole 5 Mg Tablet) 5 mg PO DAILY [facility] Last Admin: 12/23/22 08:44 Dose: 5 mg Documented By: CESAR Atorvastatin Calcium (Atorvastatin Calcium 20 Mg Tablet) 20 mg PO DAILY [facility] Last Admin: 12/23/22 08:44 Dose: 20 mg Documented By: CESAR Bupropion HCl (Bupropion Hcl Xl 300 Mg Tab.Er.24h) 300 mg PO DAILY [facility] Last Admin: 12/23/22 08:44 Dose: 300 mg Documented By: CESAR Cefuroxime Axetil (Cefuroxime Axetil 250 Mg Tablet) 250 mg PO Q12H [facility] Last Admin: 12/23/22 14:21 Dose: 250 mg Documented By: CESAR Celecoxib (Celecoxib 100 Mg Capsule) 100 mg PO DAILY [facility] Last Admin: 12/23/22 08:44 Dose: 100 mg Documented By: CESAR Enoxaparin Sodium (Enoxaparin Sodium 40 Mg/0.4 Ml Syringe) 40 mg SUBCUT Q24H [facility] Last Admin: 12/23/22 08:43 Dose: 40 mg Documented By: CESAR Fluticasone Propionate (Fluticasone Propionate 250 Mcg Blst.W.Dev) 1 puff INHALE RBID [facility] Last Admin: 12/23/22 07:45 Dose: 1 puff Documented By: ERICK Glucose (Glucose Gel 15 Gm Gel..Gram.) 15 gm PO Q15M PRN; Protocol PRN Reason: per Hypoglycemia Standing Ord. Dextrose (D10) 250 mls @ 750 mls/hr IV Q15M PRN; Protocol PRN Reason: per Hypoglycemia Standing Ord. Insulin Human Lispro (Insulin Lispro 100 Unit/Ml 3 Ml Vial) 0 unit SUBCUT QIDACHS [facility]; Protocol Last Admin: 12/23/22 16:55 Dose: Not Given Documented By: USMAN Non-Admin Reason: No Insulin Coverage Lorazepam (Lorazepam 0.5 Mg Tablet) 0.5 mg PO TID [facility] Metformin HCl (Metformin Hcl 500 Mg Tablet) 500 mg PO BID [facility] Last Admin: 12/23/22 08:43 Dose: 500 mg Documented By: CESAR Multivitamins/Vitamin C (Multivitamin Tablet) 1 tab PO DAILY [facility] Last Admin: 12/23/22 08:44 Dose: 1 tab Documented By: CESAR Pharmacy Consult (Consult Rx Perform Med Rec) 1 each MISCELLANE ONCE PRN PRN Reason: Consult order Sodium Chloride (0.9 % Sodium Chloride Flush 3 Ml Syringe) 3 ml IVFLUSH QSHIFT [facility] Last Admin: 12/23/22 15:46 Dose: 3 ml Documented By: USMAN Venlafaxine HCl (Venlafaxine Hcl 25 Mg Tablet) 75 mg PO DAILY [facility] Last Admin: 12/23/22 08:44 Dose: 75 mg Documented By: CESAR Vitamin D (Cholecalciferol (Vitamin D3) 25 Mcg Tablet) 25 mcg PO DAILY [facility] Last Admin: 12/23/22 08:44 Dose: 25 mcg Documented By: CESAR Labs 12/22/22 08:10 12/22/22 08:10 Labs: Laboratory Results - last 24 hr 12/22/22 12/23/22 12/23/22 20:05 07:03 11:23 POC Glucose 130 H 112 99 12/23/22 16:11 POC Glucose 99 Assessment and Plan (1) UTI (urinary tract infection): Status: Acute Plan 62-year-old female with history of hypertension type 2 diabetes and unknown psychiatric disorder presents to the emergency room with acute mental status changes.? Remains essentially nonverbal but more alert this a.m. 1. Depression with psychotic features(catatonic features) initially felt to be related to UTI treated with IV ceftriaxone urine culture grew Klebsiella, patient mentation improved able to answer questions appropriately but very slow to respond, case discussed with patient's daughter she admitted that patient has history of bipolar disorder and schizophrenia diagnosed 15 years ago follows with psychiatrist Dr Peyman Moore, patient's younger brother recently since then patient stop taking her medications and became more confused, since patient received 5 days of antibiotics and remains withdrawn, she was evaluated by Psychiatry and felt to have schizoaffective disorder with decompensation with auditory hallucination therefore plan is for patient to be transferred to psychiatric floor. 2. Hypertension patient not on home medications blood pressure noted to be stable. 3. Type 2 diabetes stable blood sugars ,recommend to continue metformin and diabetic diet, monitor blood sugars twice daily, will hold off on insulin sliding scale since did not require insulin coverage. 4. UTI finished 4 days of IV ceftriaxone now on last day of by mouth Ceftin 250 mg b.i.d. - 5. History of anxiety/depression/psychiatric disorder continue all home medications including Abilify, Wellbutrin, and venlafaxine. 6. Chronic right thigh pain will place patient back on Celebrex 100 mg prn. Patient will need continued inpatient hospitalization for safe discharge to psychiatric floor. Time Spent With Patient Time: Total time managing care of this patient today ____ minutes. Quality Stroke Does the patient have a stroke diagnosis?: No VTE Prior VTE?: No VTE Risk Level:: Medical - moderate - high VTE Device Contraindication: Treatment Not Indicated VTE Drug Contraindication: N/A - Med Ordered
--- NOTE | 2022-12-23 17:20 | MHC.CARE ---
Clinical was presented to Sharda Nava at [facility], please call to obtain authorization number when a bed is secured.
--- NOTE | 2022-12-23 18:56 | PC.NURSE ---
Addendum entered by Rajani Greene RN 12/23/22 21:56: no call from Psych unit till now,nursing Uniform Designer made aware Original Note: Notified [facility]3 unit of this patient transfer ,RN will call for report when able
[2022-12-23 19:26] VITALS: BP 109/56; PULSE 72; RESP 18; TEMP 36.6; O2SAT 94
[2022-12-23 20:07] VITALS: PULSE 72; RESP 18; O2SAT 94
[2022-12-23 20:27] LABS: Glucose, Whole Blood 141 mg/dL (60-115)
== END 2022-12-23 23:32 | DRG 871 ==
LOC: HO.ED 13:32 → HO.EDOVER 12-18 08:18 → HO.S3 12-18 13:23
PROVIDERS: Emergency Medicine; Registered Nurse Emergency; Admitting Provider Hospitalist; Emergency Provider Emergency Medicine Emergency Medical Services; PCP Pediatrics; Visit Provider Hospitalist
DX: A41.9 Sepsis, unspecified organism (principal); G93.41 Metabolic encephalopathy; N39.0 Urinary tract infection, site not specified; F05 Delirium due to known physiological condition; F41.9 Anxiety disorder, unspecified; I10 Essential (primary) hypertension; B96.1 Klebsiella pneumoniae [K. pneumoniae] as the cause of diseases classified elsewhere; G89.29 Other chronic pain; F32.A Depression, unspecified; F25.9 Schizoaffective disorder, unspecified; E11.9 Type 2 diabetes mellitus without complications; Z87.891 Personal history of nicotine dependence; Z91.148 Patient's other noncompliance with medication regimen for other reason; Z91.041 Radiographic dye allergy status; Z88.2 Allergy status to sulfonamides; Z88.5 Allergy status to narcotic agent; Z79.84 Long term (current) use of oral hypoglycemic drugs; Z79.899 Other long term (current) drug therapy
CPT/HCPCS: 36415; 70450; 71045; 80048; 80053; 80076; 80307; 81001; 82803; 82947; 83605; 83690; 83880; 84443; 84484; 85025; 87040; 87086; 87088; 87186; 93005; 94640; 99285; J0696; J1650; J2060; S9485

== ENCOUNTER 2022-12-23 23:39 | Inpatient (IN) | payer OTHER, SELFPAY ==
[2022-12-23 23:15] VITALS: BP 125/66; PULSE 81; RESP 18; TEMP 36.4; O2SAT 93
--- NOTE | 2022-12-24 00:28 | PC.ADMIT ---
Pt is a 62-year-old, Malay speaking female who presented to the [facility] ED via ambulance on 12/18/22 after leaving her home at 3 AM and was found sitting in the road outside by her step brother and he called 911. She was admitted to the medical floor with UTI and sepsis and was eventually medically cleared and referred to the CARE team for assessment. Patient has been stable in the community for many years; recently she lost her brother and as a result stopped taking her medications as her brother?s has been traumatizing to her and she is not currently able to function in the community. Patient reports audio hallucinations, however when asked what the voices say she states ?people want me out of the house and voices tell me to do crazy things?. When asked what crazy things she is being told to do she states ?I don?t know?. She reports her mood as ?scared of what?s going to happen?, affect is flat. She has been non compliant with medications before coming to the hospital.? On admission patient reports anxiety 5/10 with depression 3/10. Patient denies any SI/HI or AH/VH. Patient signed a CV. Patient was cooperative with admission process.
--- NOTE | 2022-12-24 07:48 | PHA.MEDREC ---
Pharmacy Consult ? Medication Reconciliation Pharmacy has completed the medication reconciliation. Pharmacy reviewed discharge from most recent admission and claim history. Previous med rec patient didn't know medications and she currently has altered mental status.
[2022-12-24 08:32] VITALS: BP 104/62; PULSE 82; RESP 18; TEMP 36.6; O2SAT 95
[2022-12-24 09:54] LABS: Alanine Aminotransferase 40 U/L (0-31); Albumin Level 4.1 g/dL (3.5-5.0); Alkaline Phosphatase 71 U/L (39-117); Anion Gap 15 (12-20); Aspartate Amino Transferase 33 U/L (5-31); Bilirubin Total 0.4 mg/dL (0.0-1.0); Blood Urea Nitrogen 11 mg/dL (9-16); Calcium 9.5 mg/dL (8.4-10.2); Carbon Dioxide 22 mmol/L (22-29); Chloride 107 mmol/L (96-108); Cholesterol 130 mg/dL; Estimated Glomerular Filt Rate > 60; Glucose Fasting 101 mg/dL (60-99); HDL Cholesterol 48 mg/dL; LDL Cholesterol Calculated 46 mg/dl; Potassium 4.6 mmol/L (3.3-5.1); Sodium 139 mmol/L (135-145); Total Protein 6.3 g/dL (6.5-8.0); Triglycerides 180 mg/dL
[2022-12-24] MEDS: metFORMIN HCl 500 MG TABLET PO ×2 (12:01→22:46)
[2022-12-24] MEDS: ARIPiprazole 5 MG TABLET PO (12:01)
[2022-12-24] MEDS: LORazepam 1 MG TABLET PO ×3 (12:01→22:47)
[2022-12-24] MEDS: Venlafaxine HCL 25 MG TABLET 75 MG PO (12:01)
[2022-12-24] MEDS: Atorvastatin Calcium 20 MG TABLET PO (12:01)
[2022-12-24] MEDS: Celecoxib 100 MG CAPSULE PO (12:02)
[2022-12-24] MEDS: Cholecalciferol (Vitamin D3) 25 MCG TABLET PO (12:02)
[2022-12-24] MEDS: Fluticasone Propionate 250 MCG BLST.W.DEV 1 PUFF INHALE ×2 (12:32→22:46)
--- NOTE | 2022-12-24 15:40 | HO.PSYADMNOT ---
HPI Date of Service: 12/24/22 Chief Complaint: altered mental status Sources of Information: patient interviewed, chart reviewed and crisis/core team assessment reviewed HPI Subjective Notes: Ramon Warning Narrative: Pt is a 62 yo female with hx for Schizoaffective disorder, HTN, DM, who presents with disorganized behavior in face of urosepsis and having gone off her medications due to sadness dealing with her recently brother.? Patient was found sitting outside her house at 03:00 in the morning and brought to the emergency room. Patient was medically stabilized and infection cleared. However she remained with significant speech latency and some mild confusion, speaking very little, and needing consistent help from nursing to attend ADLs.? Patient had been restarted on her home medications of Abilify, Wellbutrin and venlafaxine. After few more days on medication and chance for any residual delirium to resolve, patient had improved some, able to speak in full sentences however she still remained with significant speech latency, needed help attending to some ADLs and per daughter is not at baseline and in fact presenting similar to past episodes when she required inpatient admission. On approach patient is sitting in bed. She says that she is trying to hang in there but continues to have auditory hallucinations that tell her get out of the house...that people want her out of the house (which is why she was found outside on the curb a 3am the morning). She remains with some confusion and does not think she would be able to take care of herself at home. Patient reports that at baseline she does not have any AH. Past Psychiatric History: Patient currently on Abilify 5 mg, Wellbutrin 300 mg, venlafaxine Medical Evaluation Reviewed: Yes [facility] Medical History (Updated 12/24/22 @ 15:48 by Luis A Martinez MD) Anxiety Arthritis Depression Dyslipidemia (high LDL; low HDL) Hypertension Obesity Psychiatric disorder Schizoaffective disorder Type 2 diabetes mellitus without complication Surgical History History of cholecystectomy Family History: Unknown Social History: Lives with her stepbrother Phil in [place] Has a daughter named Dana who was involved Patient's younger brother recently Substance History: Unknown Trauma History: Unknown Diagnostics Vital Signs (24Hr): Vital Signs - 24 hr 12/23/22 23:15 12/24/22 08:32 Temperature 97.6 F 97.9 F Pulse Rate 81 82 Respiratory Rate 18 18 Blood Pressure 125/66 104/62 Pulse Oximetry 93 95 Oxygen Delivery Method Room Air Room Air Labs 12/24/22 09:03 Labs: Laboratory Results - last 48 hr 12/24/22 09:03 Sodium 139 Potassium 4.6 Chloride 107 Carbon Dioxide 22 Anion Gap 15 BUN 11 Creatinine 0.83 Estim Creat Clear Calc TNP Estimated GFR > 60 Fasting Glucose 101 H Calcium 9.5 Total Bilirubin 0.4 AST 33 H ALT 40 H Alkaline Phosphatase 71 Total Protein 6.3 L Albumin 4.1 Triglycerides 180 Cholesterol 130 LDL Cholesterol, Calc 46 HDL Cholesterol 48 Meds/Allergies Meds Home Medications Medication Instructions Recorded Confirmed Type aripiprazole 5 mg tablet 5 mg PO DAILY 06/03/21 12/24/22 History atorvastatin 20 mg tablet 20 mg PO DAILY 06/03/21 12/24/22 History bupropion HCl 300 mg 24 hr tablet, 300 mg PO DAILY 06/03/21 12/24/22 History extended release metformin 500 mg tablet 500 mg PO BID 06/03/21 12/24/22 History omega-3 fatty acids 1,000 mg 1,000 mg PO DAILY 06/03/21 12/24/22 History capsule (Fish Oil Concentrate) venlafaxine 75 mg tablet 75 mg PO DAILY 06/03/21 12/24/22 History celecoxib 100 mg capsule 100 mg PO DAILY PRN Pain 12/17/22 12/24/22 History cholecalciferol (vitamin D3) 25 25 mcg PO DAILY 12/17/22 12/24/22 History mcg (1,000 unit) tablet fluticasone propionate 220 1 puff inhalation BID 12/17/22 12/24/22 History mcg/actuation HFA aerosol inhaler (Flovent HFA) etuyxjdi-nym-desyu acid 0.4 1 tab PO DAILY 12/17/22 12/24/22 History mg-lycopene 300 mcg-lutein 250 mcg tablet (Cerovite Senior) Allergies Allergies Allergy/AdvReac Type Severity Reaction Status Date / Time Iodinated Contrast Media Allergy Mild RASH Verified 12/22/22 20:19 [IV Dye, Iodine Containing] Sulfa (Sulfonamide Allergy Mild RASH Verified 12/22/22 20:20 Antibiotics) [Sulfa (Sulfonamides)] oxycodone [From Percocet] AdvReac Mild NAUSEA & Verified 12/22/22 20:20 VOMITING Mental Status Exam Mental Status Exam Narrative: Pt is alert and oriented; behavior is cooperative but also disorganized; calm; dressed in hospital attire, combed hair; mood is described as hanging in there and affect constricted, anxious; eye contact appropriate; Speech is latent; psychomotor retardation present; thought process is goal directed but slow; Thought content is somewhat confused about situation; + AH and pt is internally preoccupied. No SI/HI Patients insight and judgment impaired Assessment & Plan Assessment & Plan (1) Schizoaffective disorder: Status: Acute Code(s): F25.9 - Schizoaffective disorder, unspecified (2) Type 2 diabetes mellitus without complication: Status: Acute Code(s): E11.9 - Type 2 diabetes mellitus without complications (3) UTI (urinary tract infection): Status: Acute Code(s): N39.0 - Urinary tract infection, site not specified Plan Pt is a 62 yo female with hx for Schizoaffective disorder, HTN, DM, who presents with disorganized behavior in face of urosepsis and having gone off her medications due to sadness dealing with her recently brother.? Reportedly patient has been stable for years. At baseline on current regimen patient symptoms reportedly well controlled and without any AVH with patient able to care for herself in the community. Patient's decompensation in the face of going off her medications following grief at her brother's and further complicated by delirium from urosepsis. Patient has improved some now back on medications and with infection cleared however she remains with speech latency, AH and still with some confusion. Patient has some catatonic features and agrees to medication management. PLAN: CV Q 15 minute checks Increase Ativan to 1 mg t.i.d. for catatonic-like symptoms. Will continue to monitor Will Continue Abilify 5 mg which seems to have helped somewhat compared to confusion at admission however will monitor and possibly hold if catatonic symptoms continue or worsen Continue Wellbutrin Continue Effexor Continue oral antibiotic, Ceftin q.12h for UTI; will get recommendation on duration Patient educated on: diagnosis, medication risk/benefits and medical condition Informed Consent: understands and further education needed Reason for continued inpatient stay Substantial Risk for: inability to function Statement Statement: I have reviewed the history and physical and performed a pertinent examination on my patient. No changes have occurred unless specified. If the History and Physical was not performed prior to admission, the Hospitalist's service will be consulted for completing the admission physical. Time Spent With Patient Time: Total time managing care of this patient today ____ minutes.
[2022-12-24 22:00] VITALS: BP 99/51; PULSE 87; RESP 18; TEMP 36.2; O2SAT 94
[2022-12-24 22:53] LABS: Glucose, Whole Blood 140 mg/dL (60-115)
[2022-12-25 08:26] LABS: Glucose, Whole Blood 108 mg/dL (60-115)
[2022-12-25] MEDS: Venlafaxine HCL 25 MG TABLET 75 MG PO (08:55)
[2022-12-25] MEDS: Cholecalciferol (Vitamin D3) 25 MCG TABLET PO (08:55)
[2022-12-25] MEDS: metFORMIN HCl 500 MG TABLET PO ×2 (08:56→22:39)
[2022-12-25] MEDS: Celecoxib 100 MG CAPSULE PO (08:56)
[2022-12-25] MEDS: Multivitamin TABLET 1 TAB PO (08:56)
[2022-12-25] MEDS: buPROPion HCl XL 300 MG TAB.ER.24H PO (08:56)
[2022-12-25] MEDS: ARIPiprazole 5 MG TABLET PO (08:56)
[2022-12-25] MEDS: LORazepam 1 MG TABLET PO ×3 (08:56→22:39)
[2022-12-25] MEDS: Atorvastatin Calcium 20 MG TABLET PO (08:56)
[2022-12-25] MEDS: Fluticasone Propionate 250 MCG BLST.W.DEV 1 PUFF INHALE ×2 (09:08→22:38)
--- NOTE | 2022-12-25 09:32 | P.PNPSI_ITS ---
Subjective Subjective Date of Service: 12/25/22 Reason For Visit: altered mental status Interim History: Met with patient; discussed with team Patient reports that she is okay and a little better. Patient says that the auditory hallucinations are mostly resolved and not really there. Patient is attending to her ADLs on her; however she mostly stays lying in bed much of the day keeping to herself and remains with significant speech latency though when she does talk she is organized and talks in complete sentences. Discussed with patient is regularly like when she is stable which patient described as doing errands throughout the day, pain bills, shopping etcetera. Discussed medication and patient was hesitant to have Ativan raised to 4 times a day; securities underwriter agreed to leave it at t.i.d. dosing for now, but that if catatonic symptoms linger Ativan that it might need to go to q.i.d. Diagnostics Vital Signs (24Hr): Vital Signs - 24 hr 12/24/22 22:00 Temperature 97.1 F Pulse Rate 87 Respiratory Rate 18 Blood Pressure 99/51 L Pulse Oximetry 94 Oxygen Delivery Method Room Air Labs 12/24/22 09:03 Labs: Laboratory Results - last 48 hr 12/24/22 12/24/22 12/25/22 09:03 22:44 08:17 Sodium 139 Potassium 4.6 Chloride 107 Carbon Dioxide 22 Anion Gap 15 BUN 11 Creatinine 0.83 Estim Creat Clear Calc TNP Estimated GFR > 60 POC Glucose 140 H 108 Fasting Glucose 101 H Calcium 9.5 Total Bilirubin 0.4 AST 33 H ALT 40 H Alkaline Phosphatase 71 Total Protein 6.3 L Albumin 4.1 Triglycerides 180 Cholesterol 130 LDL Cholesterol, Calc 46 HDL Cholesterol 48 Medications Medications Current Medications Acetaminophen (Acetaminophen 325 Mg Tablet) 650 mg PO Q6H PRN PRN Reason: Headache/Pain Mild Scale (1-3) Al Hydroxide/Mg Hydroxide (Magnesium Hydrox/Alum Hydrox 30 Ml Oral.Susp) 30 ml PO Q6H PRN PRN Reason: Heartburn/Nausea Aripiprazole (Aripiprazole 5 Mg Tablet) 5 mg PO DAILY [facility] Last Admin: 12/25/22 08:56 Dose: 5 mg Atorvastatin Calcium (Atorvastatin Calcium 20 Mg Tablet) 20 mg PO DAILY [facility] Last Admin: 12/25/22 08:56 Dose: 20 mg Bupropion HCl (Bupropion Hcl Xl 300 Mg Tab.Er.24h) 300 mg PO DAILY [facility] Last Admin: 12/25/22 08:56 Dose: 300 mg Cefuroxime Axetil (Cefuroxime Axetil 250 Mg Tablet) 250 mg PO Q12H [facility] Last Admin: 12/25/22 03:14 Dose: 250 mg Celecoxib (Celecoxib 100 Mg Capsule) 100 mg PO DAILY [facility] Last Admin: 12/25/22 08:56 Dose: 100 mg Fluticasone Propionate (Fluticasone Propionate 250 Mcg Blst.W.Dev) 1 puff INHALE RBID [facility] Last Admin: 12/25/22 09:08 Dose: 1 puff Lorazepam (Lorazepam 1 Mg Tablet) 1 mg PO TID [facility] Last Admin: 12/25/22 08:56 Dose: 1 mg Magnesium Hydroxide (Milk Of Magnesia 30 Ml Oral.Susp) 30 ml PO DAILY PRN PRN Reason: Constipation Metformin HCl (Metformin Hcl 500 Mg Tablet) 500 mg PO BID [facility] Last Admin: 12/25/22 08:56 Dose: 500 mg Multivitamins/Vitamin C (Multivitamin Tablet) 1 tab PO DAILY [facility] Last Admin: 12/25/22 08:56 Dose: 1 tab Trazodone HCl (Trazodone Hcl 50 Mg Tablet) 50 mg PO BEDTIME [id number] PRN PRN Reason: Insomnia Venlafaxine HCl (Venlafaxine Hcl 25 Mg Tablet) 75 mg PO DAILY [facility] Last Admin: 12/25/22 08:55 Dose: 75 mg Vitamin D (Cholecalciferol (Vitamin D3) 25 Mcg Tablet) 25 mcg PO DAILY [facility] Last Admin: 12/25/22 08:55 Dose: 25 mcg Allergies Allergies Allergy/AdvReac Type Severity Reaction Status Date / Time Iodinated Contrast Media Allergy Mild RASH Verified 12/22/22 20:19 [IV Dye, Iodine Containing] Sulfa (Sulfonamide Allergy Mild RASH Verified 12/22/22 20:20 Antibiotics) [Sulfa (Sulfonamides)] oxycodone [From Percocet] AdvReac Mild NAUSEA & Verified 12/22/22 20:20 VOMITING Assessment & Plan Assessment & Plan (1) Schizoaffective disorder: Status: Acute Code(s): F25.9 - Schizoaffective disorder, unspecified (2) Type 2 diabetes mellitus without complication: Status: Acute Code(s): E11.9 - Type 2 diabetes mellitus without complications (3) UTI (urinary tract infection): Status: Acute Code(s): N39.0 - Urinary tract infection, site not specified Plan Pt is a 62 yo female with hx for Schizoaffective disorder, HTN, DM, who presents with disorganized behavior in face of urosepsis and having gone off her medications due to sadness dealing with her recently brother.? Reportedly patient has been stable for years. At baseline on current regimen patient symptoms reportedly well controlled and without any AVH with patient able to care for herself in the community. Patient's decompensation in the face of going off her medications following grief at her brother's and further complicated by delirium from urosepsis. Patient has improved some now back on medications and with infection cleared however she remains with speech latency, AH and still with some confusion. Patient has some catatonic features and agrees to medication management. Hospital course: 12/25 patient reports she is doing a little better; AH nearly fully resolved. patient remains with significant speech latency and inactivity however when she does talk she is organized and talks in full sentences. At baseline patient is very active, going on errands, pain her bills and fully capable of living on her own. Discussed medication and patient was hesitant to have Ativan raised to 4 times a day; securities underwriter agreed to leave it at t.i.d. dosing for now, but that if catatonic symptoms linger Ativan might need to go to q.i.d. PLAN: CV Q 15 minute checks Continue Ativan to 1 mg t.i.d. for catatonic-like symptoms. Catatonic symptoms linger, need to go to q.i.d. Continue Abilify 5 mg which seems to have helped somewhat compared to confusion at admission however will monitor and possibly hold if catatonic symptoms continue or worsen Continue Wellbutrin Continue Effexor Continue oral antibiotic, Ceftin q.12h for UTI; will get recommendation on duration Patient educated on: diagnosis and medication risk/benefits Informed Consent: understands Reason for continued inpatient stay Substantial Risk for: rapid decompensation Time Spent With Patient Time: Total time managing care of this patient today ____ minutes.
[2022-12-25 10:01] VITALS: BP 105/56; PULSE 81; RESP 18; TEMP 36.6; O2SAT 96
[2022-12-25 18:00] VITALS: BP 100/57; PULSE 81; RESP 18; TEMP 36.6; O2SAT 93
[2022-12-26 00:06] LABS: Glucose, Whole Blood 145 mg/dL (60-115)
[2022-12-26 08:16] LABS: Glucose, Whole Blood 103 mg/dL (60-115)
[2022-12-26 08:34] VITALS: BP 129/70; PULSE 91; RESP 16; TEMP 36.3; O2SAT 95
[2022-12-26] MEDS: Multivitamin TABLET 1 TAB PO (08:37)
[2022-12-26] MEDS: Venlafaxine HCL 25 MG TABLET 75 MG PO (08:37)
[2022-12-26] MEDS: ARIPiprazole 5 MG TABLET PO ×2 (08:37→15:39)
[2022-12-26] MEDS: Cholecalciferol (Vitamin D3) 25 MCG TABLET PO (08:37)
[2022-12-26] MEDS: metFORMIN HCl 500 MG TABLET PO ×2 (08:37→21:42)
[2022-12-26] MEDS: buPROPion HCl XL 300 MG TAB.ER.24H PO (08:37)
[2022-12-26] MEDS: LORazepam 1 MG TABLET PO ×2 (08:37→15:11)
[2022-12-26] MEDS: Celecoxib 100 MG CAPSULE PO (08:37)
[2022-12-26] MEDS: Atorvastatin Calcium 20 MG TABLET PO (08:38)
[2022-12-26] MEDS: Fluticasone Propionate 250 MCG BLST.W.DEV 1 PUFF INHALE ×2 (08:41→21:42)
--- NOTE | 2022-12-26 15:16 | HO.PSYCHPN ---
Subjective Subjective Date of Service: 12/26/22 Reason For Visit: altered mental status Subjective Notes: Conditional Voluntary Interim History: Met with patient; discussed with team Pt continues to present with delayed response rate, appears internally preoccupied. She does report hearing voices. She has been mostly in bed. She is staring, no waxy flexibility noted on exam. She denies SI/HI. Per nursing, pt mostly in bed, staring, minimally visible on the unit. Medication Compliance: Yes Side effects from medications: No Mental Status Exam Mental Status Exam Narrative: Appearance: casually groomed, fair hygiene, in bed staring, in NAD Behavior: indifferent Psychomotor: retardation noted SPeech: single word, delayed response rate, minimally spotaneous TP: poverty of thought TC: hearing voices Mood: good Affect: constricted SI: denies HI: denies VH/AH: hearing voices unclear extend as pt does not provide much details but appears internally preoccupied Delusions: no overt delusional content noted or reported Insight/judgment: poor x 2. Alert, oriented x 3. Not formally tested. Diagnostics Vital Signs (24Hr): Vital Signs - 24 hr 12/25/22 18:00 12/26/22 08:34 Temperature 97.8 F 97.4 F Pulse Rate 81 91 Respiratory Rate 18 16 Blood Pressure 100/57 L 129/70 Pulse Oximetry 93 95 Oxygen Delivery Method Room Air Room Air Labs 12/24/22 09:03 Labs: Laboratory Results - last 48 hr 12/24/22 12/25/22 12/25/22 22:44 08:17 22:30 POC Glucose 140 H 108 145 H 12/26/22 08:12 POC Glucose 103 Medications Medications Current Medications Acetaminophen (Acetaminophen 325 Mg Tablet) 650 mg PO Q6H PRN PRN Reason: Headache/Pain Mild Scale (1-3) Al Hydroxide/Mg Hydroxide (Magnesium Hydrox/Alum Hydrox 30 Ml Oral.Susp) 30 ml PO Q6H PRN PRN Reason: Heartburn/Nausea Aripiprazole (Aripiprazole 10 Mg Tablet) 10 mg PO DAILY [facility] Atorvastatin Calcium (Atorvastatin Calcium 20 Mg Tablet) 20 mg PO DAILY [facility] Last Admin: 12/26/22 08:38 Dose: 20 mg Bupropion HCl (Bupropion Hcl Xl 300 Mg Tab.Er.24h) 300 mg PO DAILY [facility] Last Admin: 12/26/22 08:37 Dose: 300 mg Cefuroxime Axetil (Cefuroxime Axetil 250 Mg Tablet) 250 mg PO Q12H [facility] Last Admin: 12/26/22 08:37 Dose: 250 mg Celecoxib (Celecoxib 100 Mg Capsule) 100 mg PO DAILY [facility] Last Admin: 12/26/22 08:37 Dose: 100 mg Fluticasone Propionate (Fluticasone Propionate 250 Mcg Blst.W.Dev) 1 puff INHALE RBID [facility] Last Admin: 12/26/22 08:41 Dose: 1 puff Lorazepam (Lorazepam 1 Mg Tablet) 1 mg PO TID [facility] Last Admin: 12/26/22 15:11 Dose: 1 mg Magnesium Hydroxide (Milk Of Magnesia 30 Ml Oral.Susp) 30 ml PO DAILY PRN PRN Reason: Constipation Metformin HCl (Metformin Hcl 500 Mg Tablet) 500 mg PO BID [facility] Last Admin: 12/26/22 08:37 Dose: 500 mg Multivitamins/Vitamin C (Multivitamin Tablet) 1 tab PO DAILY [facility] Last Admin: 12/26/22 08:37 Dose: 1 tab Trazodone HCl (Trazodone Hcl 50 Mg Tablet) 50 mg PO BEDTIME MRX1 PRN PRN Reason: Insomnia Venlafaxine HCl (Venlafaxine Hcl 25 Mg Tablet) 37.5 mg PO DAILY [facility] Vitamin D (Cholecalciferol (Vitamin D3) 25 Mcg Tablet) 25 mcg PO DAILY [facility] Last Admin: 12/26/22 08:37 Dose: 25 mcg Allergies Allergies Allergy/AdvReac Type Severity Reaction Status Date / Time Iodinated Contrast Media Allergy Mild RASH Verified 12/22/22 20:19 [IV Dye, Iodine Containing] Sulfa (Sulfonamide Allergy Mild RASH Verified 12/22/22 20:20 Antibiotics) [Sulfa (Sulfonamides)] oxycodone [From Percocet] AdvReac Mild NAUSEA & Verified 12/22/22 20:20 VOMITING Assessment & Plan Assessment & Plan (1) Schizoaffective disorder: Status: Acute Code(s): F25.9 - Schizoaffective disorder, unspecified (2) Type 2 diabetes mellitus without complication: Status: Acute Code(s): E11.9 - Type 2 diabetes mellitus without complications (3) UTI (urinary tract infection): Status: Acute Code(s): N39.0 - Urinary tract infection, site not specified Plan Pt is a 62 yo female with hx for Schizoaffective disorder, HTN, DM, who presents with disorganized behavior in face of urosepsis and having gone off her medications due to sadness dealing with her recently brother.? Reportedly patient has been stable for years. At baseline on current regimen patient symptoms reportedly well controlled and without any AVH with patient able to care for herself in the community. Patient's decompensation in the face of going off her medications following grief at her brother's and further complicated by delirium from urosepsis. Patient has improved some now back on medications and with infection cleared however she remains with speech latency, AH and still with some confusion. Patient has some catatonic features and agrees to medication management. Hospital course: 12/25 patient reports she is doing a little better; AH nearly fully resolved. patient remains with significant speech latency and inactivity however when she does talk she is organized and talks in full sentences. At baseline patient is very active, going on errands, pain her bills and fully capable of living on her own. Discussed medication and patient was hesitant to have Ativan raised to 4 times a day; advertising copywriter agreed to leave it at t.i.d. dosing for now, but that if catatonic symptoms linger Ativan might need to go to q.i.d. PLAN: 12/26 pt continues to present with AH, internally preoccupied, degree of catatonic like symptoms including speech minimally spontaneous and delayed response. No waxy flexibility. Recommend to decrease effexor as it may worsen psychosis, increase abilify to 10mg po daily- do not suspect increase in antipsychotic will worsen catatonic like symptoms. Continue with ativan 1mg po TID. Increase if need be over the weekend. Reason for continued inpatient stay Substantial Risk for: inability to function Time Spent With Patient Time: Total time managing care of this patient today ____ minutes.
[2022-12-26] MEDS: LORazepam 1 MG TABLET 2 MG PO ×2 (15:39→21:42)
[2022-12-26 21:00] VITALS: BP 113/55; PULSE 92; RESP 16; TEMP 36.4; O2SAT 97
[2022-12-26 21:18] LABS: Glucose, Whole Blood 134 mg/dL (60-115)
[2022-12-27 08:00] VITALS: BP 108/66; PULSE 89; RESP 18; TEMP 36.6; O2SAT 96
[2022-12-27] MEDS: LORazepam 1 MG TABLET 2 MG PO ×3 (09:27→21:27)
[2022-12-27] MEDS: buPROPion HCl XL 300 MG TAB.ER.24H PO (09:28)
[2022-12-27] MEDS: Celecoxib 100 MG CAPSULE PO (09:29)
[2022-12-27] MEDS: Atorvastatin Calcium 20 MG TABLET PO (09:29)
[2022-12-27] MEDS: Multivitamin TABLET 1 TAB PO (09:29)
[2022-12-27] MEDS: ARIPiprazole 10 MG TABLET PO (09:30)
[2022-12-27] MEDS: Cholecalciferol (Vitamin D3) 25 MCG TABLET PO (09:30)
[2022-12-27] MEDS: Venlafaxine HCL 25 MG TABLET 37.5 MG PO (09:30)
[2022-12-27] MEDS: Fluticasone Propionate 250 MCG BLST.W.DEV 1 PUFF INHALE ×2 (09:31→21:27)
[2022-12-27] MEDS: metFORMIN HCl 500 MG TABLET PO ×2 (10:16→21:27)
[2022-12-27 12:10] LABS: Glucose, Whole Blood 91 mg/dL (60-115)
--- NOTE | 2022-12-27 20:10 | HO.PSYCHPN ---
Subjective Subjective Date of Service: 12/27/22 Reason For Visit: altered mental status Subjective Notes: Conditional Voluntary Interim History: Pt continues to present with delayed response rate, appears internally preoccupied. She does report hearing voices. She has been mostly in bed. she was observed talking on phone in common area today. She is staring at times, no waxy flexibility noted on exam. She denies SI/HI. Per nursing, pt in bed much of the time but some time visible on the unit. Medication Compliance: Yes Side effects from medications: No Attending Groups: No Review of Systems Acute medical concerns: No Medical Review of Systems: unchanged Review of Systems Review of Systems no changes Mental Status Exam Mental Status Exam Narrative: Appearance: casually groomed, fair hygiene, in bed staring, in NAD Behavior: indifferent Psychomotor: retardation noted SPeech: single word, delayed response rate, minimally spotaneous TP: poverty of thought TC: hearing voices Mood: good Affect: constricted SI: denies HI: denies VH/AH: hearing voices unclear extend as pt does not provide much details but appears internally preoccupied Delusions: no overt delusional content noted or reported Insight/judgment: poor x 2. Alert, oriented x 3. Not formally tested. Diagnostics Vital Signs (24Hr): Vital Signs - 24 hr 12/26/22 21:00 12/27/22 08:00 Temperature 97.6 F 97.8 F Pulse Rate 92 89 Respiratory Rate 16 18 Blood Pressure 113/55 L 108/66 Pulse Oximetry 97 96 Oxygen Delivery Method Room Air Room Air Labs 12/24/22 09:03 Labs: Laboratory Results - last 48 hr 12/25/22 12/26/22 12/26/22 22:30 08:12 21:03 POC Glucose 145 H 103 134 H 12/27/22 11:59 POC Glucose 91 Medications Medications Current Medications Acetaminophen (Acetaminophen 325 Mg Tablet) 650 mg PO Q6H PRN PRN Reason: Headache/Pain Mild Scale (1-3) Al Hydroxide/Mg Hydroxide (Magnesium Hydrox/Alum Hydrox 30 Ml Oral.Susp) 30 ml PO Q6H PRN PRN Reason: Heartburn/Nausea Aripiprazole (Aripiprazole 10 Mg Tablet) 10 mg PO DAILY [facility] Last Admin: 12/27/22 09:30 Dose: 10 mg Atorvastatin Calcium (Atorvastatin Calcium 20 Mg Tablet) 20 mg PO DAILY [facility] Last Admin: 12/27/22 09:29 Dose: 20 mg Bupropion HCl (Bupropion Hcl Xl 300 Mg Tab.Er.24h) 300 mg PO DAILY [facility] Last Admin: 12/27/22 09:28 Dose: 300 mg Cefuroxime Axetil (Cefuroxime Axetil 250 Mg Tablet) 250 mg PO Q12H [facility] Last Admin: 12/27/22 09:29 Dose: 250 mg Celecoxib (Celecoxib 100 Mg Capsule) 100 mg PO DAILY [facility] Last Admin: 12/27/22 09:29 Dose: 100 mg Fluticasone Propionate (Fluticasone Propionate 250 Mcg Blst.W.Dev) 1 puff INHALE RBID [facility] Last Admin: 12/27/22 09:31 Dose: 1 puff Lorazepam (Lorazepam 1 Mg Tablet) 2 mg PO TID [facility] Last Admin: 12/27/22 14:38 Dose: 2 mg Magnesium Hydroxide (Milk Of Magnesia 30 Ml Oral.Susp) 30 ml PO DAILY PRN PRN Reason: Constipation Metformin HCl (Metformin Hcl 500 Mg Tablet) 500 mg PO BID [facility] Last Admin: 12/27/22 10:16 Dose: 500 mg Multivitamins/Vitamin C (Multivitamin Tablet) 1 tab PO DAILY [facility] Last Admin: 12/27/22 09:29 Dose: 1 tab Trazodone HCl (Trazodone Hcl 50 Mg Tablet) 50 mg PO BEDTIME [id number] PRN PRN Reason: Insomnia Venlafaxine HCl (Venlafaxine Hcl 25 Mg Tablet) 37.5 mg PO DAILY [facility] Last Admin: 12/27/22 09:30 Dose: 37.5 mg Vitamin D (Cholecalciferol (Vitamin D3) 25 Mcg Tablet) 25 mcg PO DAILY [facility] Last Admin: 12/27/22 09:30 Dose: 25 mcg Allergies Allergies Allergy/AdvReac Type Severity Reaction Status Date / Time Iodinated Contrast Media Allergy Mild RASH Verified 12/22/22 20:19 [IV Dye, Iodine Containing] Sulfa (Sulfonamide Allergy Mild RASH Verified 12/22/22 20:20 Antibiotics) [Sulfa (Sulfonamides)] oxycodone [From Percocet] AdvReac Mild NAUSEA & Verified 12/22/22 20:20 VOMITING Assessment & Plan Assessment & Plan (1) Schizoaffective disorder: Status: Acute Code(s): F25.9 - Schizoaffective disorder, unspecified (2) Type 2 diabetes mellitus without complication: Status: Acute Code(s): E11.9 - Type 2 diabetes mellitus without complications (3) UTI (urinary tract infection): Status: Acute Code(s): N39.0 - Urinary tract infection, site not specified Plan Pt is a 62 yo female with hx for Schizoaffective disorder, HTN, DM, who presents with disorganized behavior in face of urosepsis and having gone off her medications due to sadness dealing with her recently brother.? Reportedly patient has been stable for years. At baseline on current regimen patient symptoms reportedly well controlled and without any AVH with patient able to care for herself in the community. Patient's decompensation in the face of going off her medications following grief at her brother's and further complicated by delirium from urosepsis. Patient has improved some now back on medications and with infection cleared however she remains with speech latency, AH and still with some confusion. Patient has some catatonic features and agrees to medication management. Hospital course: 12/25 patient reports she is doing a little better; AH nearly fully resolved. patient remains with significant speech latency and inactivity however when she does talk she is organized and talks in full sentences. At baseline patient is very active, going on errands, pain her bills and fully capable of living on her own. Discussed medication and patient was hesitant to have Ativan raised to 4 times a day; writer producer agreed to leave it at t.i.d. dosing for now, but that if catatonic symptoms linger Ativan might need to go to q.i.d. PLAN: 12/26 pt continues to present with AH, internally preoccupied, degree of catatonic like symptoms including speech minimally spontaneous and delayed response. No waxy flexibility. Recommend to decrease effexor as it may worsen psychosis, increase abilify to 10mg po daily- do not suspect increase in antipsychotic will worsen catatonic like symptoms. Continue with ativan 1mg po TID. Increase if need be over the weekend. 12/27 continue treatmentplan; seeing some improvement Reason for continued inpatient stay Substantial Risk for: harm to self, inability to function and rapid decompensation Time Spent With Patient Time: Total time managing care of this patient today ____ minutes.
--- NOTE | 2022-12-27 20:13 | HO.PSYCHPN ---
Subjective Subjective Date of Service: 12/27/22 Reason For Visit: altered mental status Subjective Notes: Conditional Voluntary Interim History: Pt continues to present with delayed response rate, appears internally preoccupied. She does report hearing voices. She has been mostly in bed. she was observed talking on phone in common area today. She is staring at times, no waxy flexibility noted on exam. She denies SI/HI. Per nursing, pt in bed much of the time but some time visible on the unit. Medication Compliance: Yes Side effects from medications: No Attending Groups: No Review of Systems Acute medical concerns: No Medical Review of Systems: unchanged Review of Systems Review of Systems no changes Mental Status Exam Mental Status Exam Narrative: Appearance: casually groomed, fair hygiene, in bed staring, in NAD Behavior: indifferent Psychomotor: retardation noted SPeech: single word, delayed response rate, minimally spotaneous TP: poverty of thought TC: hearing voices Mood: good Affect: constricted SI: denies HI: denies VH/AH: hearing voices unclear extend as pt does not provide much details but appears internally preoccupied Delusions: no overt delusional content noted or reported Insight/judgment: poor x 2. Alert, oriented x 3. Not formally tested. Diagnostics Vital Signs (24Hr): Vital Signs - 24 hr 12/26/22 21:00 12/27/22 08:00 Temperature 97.6 F 97.8 F Pulse Rate 92 89 Respiratory Rate 16 18 Blood Pressure 113/55 L 108/66 Pulse Oximetry 97 96 Oxygen Delivery Method Room Air Room Air Labs 12/24/22 09:03 Labs: Laboratory Results - last 48 hr 12/25/22 12/26/22 12/26/22 22:30 08:12 21:03 POC Glucose 145 H 103 134 H 12/27/22 11:59 POC Glucose 91 Medications Medications Current Medications Acetaminophen (Acetaminophen 325 Mg Tablet) 650 mg PO Q6H PRN PRN Reason: Headache/Pain Mild Scale (1-3) Al Hydroxide/Mg Hydroxide (Magnesium Hydrox/Alum Hydrox 30 Ml Oral.Susp) 30 ml PO Q6H PRN PRN Reason: Heartburn/Nausea Aripiprazole (Aripiprazole 10 Mg Tablet) 10 mg PO DAILY [facility] Last Admin: 12/27/22 09:30 Dose: 10 mg Atorvastatin Calcium (Atorvastatin Calcium 20 Mg Tablet) 20 mg PO DAILY [facility] Last Admin: 12/27/22 09:29 Dose: 20 mg Bupropion HCl (Bupropion Hcl Xl 300 Mg Tab.Er.24h) 300 mg PO DAILY [facility] Last Admin: 12/27/22 09:28 Dose: 300 mg Cefuroxime Axetil (Cefuroxime Axetil 250 Mg Tablet) 250 mg PO Q12H [facility] Last Admin: 12/27/22 09:29 Dose: 250 mg Celecoxib (Celecoxib 100 Mg Capsule) 100 mg PO DAILY [facility] Last Admin: 12/27/22 09:29 Dose: 100 mg Fluticasone Propionate (Fluticasone Propionate 250 Mcg Blst.W.Dev) 1 puff INHALE RBID [facility] Last Admin: 12/27/22 09:31 Dose: 1 puff Lorazepam (Lorazepam 1 Mg Tablet) 2 mg PO TID [facility] Last Admin: 12/27/22 14:38 Dose: 2 mg Magnesium Hydroxide (Milk Of Magnesia 30 Ml Oral.Susp) 30 ml PO DAILY PRN PRN Reason: Constipation Metformin HCl (Metformin Hcl 500 Mg Tablet) 500 mg PO BID [facility] Last Admin: 12/27/22 10:16 Dose: 500 mg Multivitamins/Vitamin C (Multivitamin Tablet) 1 tab PO DAILY [facility] Last Admin: 12/27/22 09:29 Dose: 1 tab Trazodone HCl (Trazodone Hcl 50 Mg Tablet) 50 mg PO BEDTIME MRX1 PRN PRN Reason: Insomnia Venlafaxine HCl (Venlafaxine Hcl 25 Mg Tablet) 37.5 mg PO DAILY [facility] Last Admin: 12/27/22 09:30 Dose: 37.5 mg Vitamin D (Cholecalciferol (Vitamin D3) 25 Mcg Tablet) 25 mcg PO DAILY [facility] Last Admin: 12/27/22 09:30 Dose: 25 mcg Allergies Allergies Allergy/AdvReac Type Severity Reaction Status Date / Time Iodinated Contrast Media Allergy Mild RASH Verified 12/22/22 20:19 [IV Dye, Iodine Containing] Sulfa (Sulfonamide Allergy Mild RASH Verified 12/22/22 20:20 Antibiotics) [Sulfa (Sulfonamides)] oxycodone [From Percocet] AdvReac Mild NAUSEA & Verified 12/22/22 20:20 VOMITING Assessment & Plan Assessment & Plan (1) Schizoaffective disorder: Status: Acute Code(s): F25.9 - Schizoaffective disorder, unspecified (2) Type 2 diabetes mellitus without complication: Status: Acute Code(s): E11.9 - Type 2 diabetes mellitus without complications (3) UTI (urinary tract infection): Status: Acute Code(s): N39.0 - Urinary tract infection, site not specified Plan Pt is a 62 yo female with hx for Schizoaffective disorder, HTN, DM, who presents with disorganized behavior in face of urosepsis and having gone off her medications due to sadness dealing with her recently brother.? Reportedly patient has been stable for years. At baseline on current regimen patient symptoms reportedly well controlled and without any AVH with patient able to care for herself in the community. Patient's decompensation in the face of going off her medications following grief at her brother's and further complicated by delirium from urosepsis. Patient has improved some now back on medications and with infection cleared however she remains with speech latency, AH and still with some confusion. Patient has some catatonic features and agrees to medication management. Hospital course: 12/25 patient reports she is doing a little better; AH nearly fully resolved. patient remains with significant speech latency and inactivity however when she does talk she is organized and talks in full sentences. At baseline patient is very active, going on errands, pain her bills and fully capable of living on her own. Discussed medication and patient was hesitant to have Ativan raised to 4 times a day; scientific writer agreed to leave it at t.i.d. dosing for now, but that if catatonic symptoms linger Ativan might need to go to q.i.d. PLAN: 12/26 pt continues to present with AH, internally preoccupied, degree of catatonic like symptoms including speech minimally spontaneous and delayed response. No waxy flexibility. Recommend to decrease effexor as it may worsen psychosis, increase abilify to 10mg po daily- do not suspect increase in antipsychotic will worsen catatonic like symptoms. Continue with ativan 1mg po TID. Increase if need be over the weekend. 12/27 continue treatmentplan; seeing some improvement Reason for continued inpatient stay Substantial Risk for: harm to self, inability to function and rapid decompensation Time Spent With Patient Time: Total time managing care of this patient today ____ minutes.
[2022-12-27 21:06] LABS: Glucose, Whole Blood 135 mg/dL (60-115)
[2022-12-27 21:20] VITALS: BP 103/62; PULSE 89; RESP 16; TEMP 36.6; O2SAT 95
[2022-12-28 08:15] VITALS: BP 109/65; PULSE 84; RESP 18; TEMP 36.6; O2SAT 97
[2022-12-28 08:26] LABS: Glucose, Whole Blood 102 mg/dL (60-115)
[2022-12-28] MEDS: buPROPion HCl XL 300 MG TAB.ER.24H PO (08:58)
[2022-12-28] MEDS: Venlafaxine HCL 25 MG TABLET 37.5 MG PO (08:59)
[2022-12-28] MEDS: ARIPiprazole 10 MG TABLET PO (09:00)
[2022-12-28] MEDS: Celecoxib 100 MG CAPSULE PO (09:00)
[2022-12-28] MEDS: LORazepam 1 MG TABLET 2 MG PO ×3 (09:01→21:01)
[2022-12-28] MEDS: metFORMIN HCl 500 MG TABLET PO ×2 (09:02→21:01)
[2022-12-28] MEDS: Multivitamin TABLET 1 TAB PO (09:02)
[2022-12-28] MEDS: Cholecalciferol (Vitamin D3) 25 MCG TABLET PO (09:03)
[2022-12-28] MEDS: Fluticasone Propionate 250 MCG BLST.W.DEV 1 PUFF INHALE ×2 (09:04→21:00)
[2022-12-28] MEDS: Atorvastatin Calcium 20 MG TABLET PO (09:04)
--- NOTE | 2022-12-28 17:14 | P.PNPSI_ITS ---
Subjective Subjective Date of Service: 12/28/22 Reason For Visit: altered mental status Subjective Notes: 3 Day Medical Problems Affecting Mental Status: No Interim History: Pt presents less delayed in her response rate, appears less internally preoccupied. She is more appropriate and more active todya; asking for needs . She does report hearing voices. She has been in the milieu more today. Spending more time in commn area; walking more. She is staring at times, no waxy flexibility noted on exam. She denies SI/HI. eating well. staff report patient is more delayed and slowed with more catatonia in evenings. Medication Compliance: Yes Side effects from medications: No Attending Groups: No Review of Systems Acute medical concerns: No Medical Review of Systems: unchanged Review of Systems Review of Systems no changes Mental Status Exam Mental Status Exam Narrative: Appearance: casually groomed, fair hygiene, in NAD Behavior: indifferent Psychomotor: retardation noted SPeech: single word, delayed response rate, more spontaneous TP: poverty of thought TC: hearing voices Mood: good Affect: constricted SI: denies HI: denies VH/AH: hearing voices unclear extend as pt does not provide much details but sarah ears internally preoccupied Delusions: no overt delusional content noted or reported Insight/judgment: poor x 2. Alert, oriented x 3. Not formally tested. Diagnostics Vital Signs (24Hr): Vital Signs - 24 hr 12/27/22 21:20 12/28/22 08:15 Temperature 97.8 F 97.9 F Pulse Rate 89 84 Respiratory Rate 16 18 Blood Pressure 103/62 109/65 Pulse Oximetry 95 97 Oxygen Delivery Method Room Air Room Air Labs 12/24/22 09:03 Labs: Laboratory Results - last 48 hr 12/26/22 12/27/22 12/27/22 21:03 11:59 20:54 POC Glucose 134 H 91 135 H 12/28/22 08:09 POC Glucose 102 Medications Medications Current Medications Acetaminophen (Acetaminophen 325 Mg Tablet) 650 mg PO Q6H PRN PRN Reason: Headache/Pain Mild Scale (1-3) Al Hydroxide/Mg Hydroxide (Magnesium Hydrox/Alum Hydrox 30 Ml Oral.Susp) 30 ml PO Q6H PRN PRN Reason: Heartburn/Nausea Aripiprazole (Aripiprazole 10 Mg Tablet) 10 mg PO DAILY [facility] Last Admin: 12/28/22 09:00 Dose: 10 mg Atorvastatin Calcium (Atorvastatin Calcium 20 Mg Tablet) 20 mg PO DAILY [facility] Last Admin: 12/28/22 09:04 Dose: 20 mg Bupropion HCl (Bupropion Hcl Xl 300 Mg Tab.Er.24h) 300 mg PO DAILY [facility] Last Admin: 12/28/22 08:58 Dose: 300 mg Cefuroxime Axetil (Cefuroxime Axetil 250 Mg Tablet) 250 mg PO Q12H [facility] Last Admin: 12/28/22 09:02 Dose: 250 mg Celecoxib (Celecoxib 100 Mg Capsule) 100 mg PO DAILY [facility] Last Admin: 12/28/22 09:00 Dose: 100 mg Fluticasone Propionate (Fluticasone Propionate 250 Mcg Blst.W.Dev) 1 puff IN GUILLEN RBID [facility] Last Admin: 12/28/22 09:04 Dose: 1 puff Lorazepam (Lorazepam 1 Mg Tablet) 2 mg PO TID [facility] Last Admin: 12/28/22 15:09 Dose: 2 mg Magnesium Hydroxide (Milk Of Magnesia 30 Ml Oral.Susp) 30 ml PO DAILY PRN PRN Reason: Constipation Metformin HCl (Metformin Hcl 500 Mg Tablet) 500 mg PO BID [facility] Last Admin: 12/28/22 09:02 Dose: 500 mg Multivitamins/Vitamin C (Multivitamin Tablet) 1 tab PO DAILY [facility] Last Admin: 12/28/22 09:02 Dose: 1 tab Trazodone HCl (Trazodone Hcl 50 Mg Tablet) 50 mg PO BEDTIME MRX1 PRN PRN Reason: Insomnia Venlafaxine HCl (Venlafaxine Hcl 25 Mg Tablet) 37.5 mg PO DAILY [facility] Last Admin: 12/28/22 08:59 Dose: 37.5 mg Vitamin D (Cholecalciferol (Vitamin D3) 25 Mcg Tablet) 25 mcg PO DAILY [facility] Last Admin: 12/28/22 09:03 Dose: 25 mcg Allergies Allergies Allergy/AdvReac Type Severity Reaction Status Date / Time Iodinated Contrast Media Allergy Mild RASH Verified 12/22/22 20:19 [IV Dye, Iodine Containing] Sulfa (Sulfonamide Allergy Mild RASH Verified 12/22/22 20:20 Antibiotics) [Sulfa (Sulfonamides)] oxycodone [From Percocet] AdvReac Mild NAUSEA & Verified 12/22/22 20:20 VOMITING Assessment & Plan Assessment & Plan (1) Schizoaffective disorder: Status: Acute Code(s): F25.9 - Schizoaffective disorder, unspecified (2) Type 2 diabetes mellitus without complication: Status: Acute Code(s): E11.9 - Type 2 diabetes mellitus without complications (3) UTI (urinary tract infection): Status: Acute Code(s): N39.0 - Urinary tract infection, site not specified Plan Pt is a 62 yo female with hx for Schizoaffective disorder, HTN, DM, who presents with disorganized behavior in face of urosepsis and having gone off her medications due to sadness dealing with her recently brother.? Reportedly patient has been stable for years. At baseline on current regimen patient symptoms reportedly well controlled and without any AVH with patient able to care for herself in the community. Patient's decompensation in the face of going off her medications following grief at her brother's and further complicated by delirium from urosepsis. Patient has improved some now back on medications and with infection cleared however she remains with speech latency, AH and still with some confusion. Patient has some catatonic features and agrees to medication management. Hospital course: 12/25 patient reports she is doing a little better; AH nearly fully resolved. patient remains with significant speech latency and inactivity however when she does talk she is organized and talks in full sentences. At baseline patient is very active, going on errands, pain her bills and fully capable of living on her own. Discussed medication and patient was hesitant to have Ativan raised to 4 times a day; proposal manager writer agreed to leave it at t.i.d. dosing for now, but that if catatonic symptoms linger Ativan might need to go to q.i.d. PLAN: 12/26 pt continues to present with AH, internally preoccupied, degree of catatonic like symptoms including speech minimally spontaneous and delayed response. No waxy flexibility. Recommend to decrease effexor as it may worsen psychosis, increase abilify to 10mg po daily- do not suspect increase in antipsychotic will worsen catatonic like symptoms. Continue with ativan 1mg po TID. Increase if need be over the weekend. 6 continue treatmentplan; seeing some improvement 12/27 continues to improve; continue treatment plan Reason for continued inpatient stay Substantial Risk for: harm to self, inability to function and rapid decompensation Time Spent With Patient Time: Total time managing care of this patient today ____ minutes.
[2022-12-28 20:48] LABS: Glucose, Whole Blood 177 mg/dL (60-115)
[2022-12-28 20:50] VITALS: BP 116/62; PULSE 98; RESP 18; TEMP 36.4; O2SAT 93
[2022-12-29 08:15] VITALS: BP 128/62; PULSE 92; RESP 18; TEMP 36.6; O2SAT 95
[2022-12-29 08:45] LABS: Glucose, Whole Blood 159 mg/dL (60-115)
[2022-12-29] MEDS: Venlafaxine HCL 25 MG TABLET 37.5 MG PO (09:16)
[2022-12-29] MEDS: LORazepam 1 MG TABLET 2 MG PO ×3 (09:18→21:06)
[2022-12-29] MEDS: Atorvastatin Calcium 20 MG TABLET PO (09:18)
[2022-12-29] MEDS: metFORMIN HCl 500 MG TABLET PO ×2 (09:19→21:05)
[2022-12-29] MEDS: ARIPiprazole 10 MG TABLET PO (09:19)
[2022-12-29] MEDS: Multivitamin TABLET 1 TAB PO (09:19)
[2022-12-29] MEDS: Cholecalciferol (Vitamin D3) 25 MCG TABLET PO (09:20)
[2022-12-29] MEDS: Celecoxib 100 MG CAPSULE PO (09:20)
[2022-12-29] MEDS: buPROPion HCl XL 300 MG TAB.ER.24H PO (09:20)
[2022-12-29] MEDS: Fluticasone Propionate 250 MCG BLST.W.DEV 1 PUFF INHALE ×2 (09:21→21:05)
--- NOTE | 2022-12-29 14:48 | HO.PSYCHPN ---
Subjective Subjective Date of Service: 12/29/22 Reason For Visit: altered mental status Subjective Notes: Conditional Voluntary and 3 Day Interim History: Pt reports feels better with higher dose in ativan in that she can talk and move better. This engineering writer noted today that pt's speech is much more spontaneous and provides more detail as to how she is doing and plan after hospitalization. She denies SI/HI. She reports less voices, although it seems she was reporting to covering provider yesterday. We discussed that as catatonia like symptoms resolve, will try to lower ativan. Medication Compliance: Yes Review of Systems Review of Systems no changes Mental Status Exam Mental Status Exam Narrative: Appearance: casually groomed, fair hygiene, in NAD Behavior: more cooperative Psychomotor: less retardation noted SPeech: clear, less delayed response rate, more spontaneous TP: more linear and coherent, less poverty of thought TC: hearing voices Mood: good Affect: constricted SI: denies HI: denies VH/AH: reports less AH. Delusions: no overt delusional content noted or reported Insight/judgment: poor x 2. Alert, oriented x 3. Not formally tested. Diagnostics Vital Signs (24Hr): Vital Signs - 24 hr 12/28/22 20:50 12/29/22 08:15 Temperature 97.6 F 97.8 F Pulse Rate 98 92 Respiratory Rate 18 18 Blood Pressure 116/62 128/62 Pulse Oximetry 93 95 Oxygen Delivery Method Room Air Room Air Labs 12/24/22 09:03 Labs: Laboratory Results - last 48 hr 12/27/22 12/28/22 12/28/22 20:54 08:09 20:42 POC Glucose 135 H 102 177 H 12/29/22 08:33 POC Glucose 159 H Medications Medications Current Medications Acetaminophen (Acetaminophen 325 Mg Tablet) 650 mg PO Q6H PRN PRN Reason: Headache/Pain Mild Scale (1-3) Al Hydroxide/Mg Hydroxide (Magnesium Hydrox/Alum Hydrox 30 Ml Oral.Susp) 30 ml PO Q6H PRN PRN Reason: Heartburn/Nausea Aripiprazole (Aripiprazole 10 Mg Tablet) 10 mg PO DAILY STELLA Last Admin: 12/29/22 09:19 Dose: 10 mg Atorvastatin Calcium (Atorvastatin Calcium 20 Mg Tablet) 20 mg PO DAILY STELLA Last Admin: 12/29/22 09:18 Dose: 20 mg Bupropion HCl (Bupropion Hcl Xl 300 Mg Tab.Er.24h) 300 mg PO DAILY [facility] Last Admin: 12/29/22 09:20 Dose: 300 mg Cefuroxime Axetil (Cefuroxime Axetil 250 Mg Tablet) 250 mg PO Q12H [facility] Last Admin: 12/29/22 09:18 Dose: 250 mg Celecoxib (Celecoxib 100 Mg Capsule) 100 mg PO DAILY [facility] Last Admin: 12/29/22 09:20 Dose: 100 mg Fluticasone Propionate (Fluticasone Propionate 250 Mcg Blst.W.Dev) 1 puff INHALE RBID [facility] Last Admin: 12/29/22 09:21 Dose: 1 puff Lorazepam (Lorazepam 1 Mg Tablet) 2 mg PO TID [facility] Last Admin: 12/29/22 14:06 Dose: 2 mg Magnesium Hydroxide (Milk Of Magnesia 30 Ml Oral.Susp) 30 ml PO DAILY PRN PRN Reason: Constipation Metformin HCl (Metformin Hcl 500 Mg Tablet) 500 mg PO BID [facility] Last Admin: 12/29/22 09:19 Dose: 500 mg Multivitamins/Vitamin C (Multivitamin Tablet) 1 tab PO DAILY [facility] Last Admin: 12/29/22 09:19 Dose: 1 tab Trazodone HCl (Trazodone Hcl 50 Mg Tablet) 50 mg PO BEDTIME MRX1 PRN PRN Reason: Insomnia Vitamin D (Cholecalciferol (Vitamin D3) 25 Mcg Tablet) 25 mcg PO DAILY [facility] Last Admin: 12/29/22 09:20 Dose: 25 mcg Allergies Allergies Allergy/AdvReac Type Severity Reaction Status Date / Time Iodinated Contrast Media Allergy Mild RASH Verified 12/22/22 20:19 [IV Dye, Iodine Containing] Sulfa (Sulfonamide Allergy Mild RASH Verified 12/22/22 20:20 Antibiotics) [Sulfa (Sulfonamides)] oxycodone [From Percocet] AdvReac Mild NAUSEA & Verified 12/22/22 20:20 VOMITING Assessment & Plan Assessment & Plan (1) Schizoaffective disorder: Status: Acute Code(s): F25.9 - Schizoaffective disorder, unspecified (2) Type 2 diabetes mellitus without complication: Status: Acute Code(s): E11.9 - Type 2 diabetes mellitus without complications (3) UTI (urinary tract infection): Status: Acute Code(s): N39.0 - Urinary tract infection, site not specified Plan Pt is a 62 yo female with hx for Schizoaffective disorder, HTN, DM, who presents with disorganized behavior in face of urosepsis and having gone off her medications due to sadness dealing with her recently brother.? Reportedly patient has been stable for years. At baseline on current regimen patient symptoms reportedly well controlled and without any AVH with patient able to care for herself in the community. Patient's decompensation in the face of going off her medications following grief at her brother's and further complicated by delirium from urosepsis. Patient has improved some now back on medications and with infection cleared however she remains with speech latency, AH and still with some confusion. Patient has some catatonic features and agrees to medication management. Hospital course: 12/25 patient reports she is doing a little better; AH nearly fully resolved. patient remains with significant speech latency and inactivity however when she does talk she is organized and talks in full sentences. At baseline patient is very active, going on errands, pain her bills and fully capable of living on her own. Discussed medication and patient was hesitant to have Ativan raised to 4 times a day; engineering writer agreed to leave it at t.i.d. dosing for now, but that if catatonic symptoms linger Ativan might need to go to q.i.d. PLAN: 12/26 pt continues to present with AH, internally preoccupied, degree of catatonic like symptoms including speech minimally spontaneous and delayed response. No waxy flexibility. Recommend to decrease effexor as it may worsen psychosis, increase abilify to 10mg po daily- do not suspect increase in antipsychotic will worsen catatonic like symptoms. Continue with ativan 1mg po TID. Increase if need be over the weekend. 12/27 continue treatmentplan; seeing some improvement 12/28 continues to improve; continue treatment plan 12/29 d/c effexor. continue ativan, lower wellbutrin as it may be worsening psychosis. consider increasing abilify. Reason for continued inpatient stay Substantial Risk for: inability to function Time Spent With Patient Time: Total time managing care of this patient today ____ minutes.
[2022-12-29 21:02] LABS: Glucose, Whole Blood 149 mg/dL (60-115)
[2022-12-29 21:10] VITALS: BP 120/59; PULSE 91; RESP 20; TEMP 36.6; O2SAT 93
[2022-12-30 08:26] LABS: Glucose, Whole Blood 135 mg/dL (60-115)
[2022-12-30 09:27] LABS: Estimated Glomerular Filt Rate > 60
[2022-12-30 09:45] VITALS: BP 117/66; PULSE 86; RESP 18; TEMP 36.2; O2SAT 96
[2022-12-30] MEDS: Fluticasone Propionate 250 MCG BLST.W.DEV 1 PUFF INHALE ×2 (10:05→21:02)
[2022-12-30] MEDS: metFORMIN HCl 500 MG TABLET PO ×2 (10:06→21:02)
[2022-12-30] MEDS: ARIPiprazole 10 MG TABLET PO (10:06)
[2022-12-30] MEDS: Celecoxib 100 MG CAPSULE PO (10:06)
[2022-12-30] MEDS: Multivitamin TABLET 1 TAB PO (10:07)
[2022-12-30] MEDS: buPROPion HCl XL 150 MG TAB.ER.24H PO (10:07)
[2022-12-30] MEDS: Cholecalciferol (Vitamin D3) 25 MCG TABLET PO (10:07)
[2022-12-30] MEDS: Atorvastatin Calcium 20 MG TABLET PO (10:07)
[2022-12-30] MEDS: LORazepam 1 MG TABLET 2 MG PO (10:08)
--- NOTE | 2022-12-30 12:56 | P.DS_ITS ---
DS: Providers Provider Date of Service: 12/30/22 Date of admission: 12/23/22 23:39 Primary care physician: Unknown Physician DS: Diagnosis Discharge Diagnosis (1) Schizoaffective disorder: Status: Acute (2) Type 2 diabetes mellitus without complication: Status: Acute (3) UTI (urinary tract infection): Status: Resolved DS: Medications Discharge Medications Home Medications: Home Medications Medication Instructions Recorded Confirmed atorvastatin 20 mg tablet 20 mg PO DAILY 06/03/21 12/24/22 metformin 500 mg tablet 500 mg PO BID 06/03/21 12/24/22 omega-3 fatty acids 1,000 mg 1,000 mg PO DAILY 06/03/21 12/24/22 capsule (Fish Oil Concentrate) celecoxib 100 mg capsule 100 mg PO DAILY PRN Pain 12/17/22 12/24/22 cholecalciferol (vitamin D3) 25 25 mcg PO DAILY 12/17/22 12/24/22 mcg (1,000 unit) tablet fluticasone propionate 220 1 puff inhalation BID 12/17/22 12/24/22 mcg/actuation HFA aerosol inhaler (Flovent HFA) [id number] acid 0.4 1 tab PO DAILY 12/17/22 12/24/22 mg-lycopene 300 mcg-lutein 250 mcg tablet (Cerovite Senior) Previous Rx's Medication Instructions Recorded acetaminophen 650 mg 650 mg PO Q8H PRN pain #90 tabs 06/03/21 tablet,extended release aripiprazole 10 mg tablet 10 mg PO DAILY 30 days #30 tabs 12/30/22 bupropion HCl 150 mg 24 hr tablet, 150 mg PO DAILY 30 days #30 tabs 12/30/22 extended release lorazepam 1 mg tablet 0.5 mg PO BID 7 days #7 tabs 12/30/22 lorazepam 1 mg tablet 1 mg PO QID catatonia 7 days #28 12/30/22 tabs lorazepam 1 mg tablet 1 mg PO TID 7 days #21 tabs 12/30/22 lorazepam 1 mg tablet (Ativan) 1 mg PO BID 7 days #14 tabs 12/30/22 Mental Status Exam Mental Status Exam Narrative: Appearance: casually groomed, fair hygiene, in NAD Behavior: cooperative Psychomotor: less retardation noted SPeech: clear, less delayed response rate, more spontaneous TP: linear and coherent, less poverty of thought TC: no paranoid or delusional content noted Mood: pretty good Affect: blunted SI: denies HI: denies VH/AH: denies Insight/judgment: improving Alert, oriented x 3. Not formally tested. Data Data Completed and Pending Completed studies during hospitalization [Text1]: 12/24/22 12/24/22 12/25/22 09:03 22:44 08:17 Sodium 139 Potassium 4.6 Chloride 107 Carbon Dioxide 22 Anion Gap 15 BUN 11 Creatinine 0.83 Estim Creat Clear Calc TNP Estimated GFR > 60 POC Glucose 140 H 108 Fasting Glucose 101 H Calcium 9.5 Total Bilirubin 0.4 AST 33 H ALT 40 H Alkaline Phosphatase 71 Total Protein 6.3 L Albumin 4.1 Triglycerides 180 Cholesterol 130 LDL Cholesterol, Calc 46 HDL Cholesterol 48 12/25/22 12/26/22 12/26/22 22:30 08:12 21:03 Sodium Potassium Chloride Carbon Dioxide Anion Gap BUN Creatinine Estim Creat Clear Calc Estimated GFR POC Glucose 145 H 103 134 H Fasting Glucose Calcium Total Bilirubin AST ALT Alkaline Phosphatase Total Protein Albumin Triglycerides Cholesterol LDL Cholesterol, Calc HDL Cholesterol 12/27/22 12/27/22 12/28/22 11:59 20:54 08:09 Sodium Potassium Chloride Carbon Dioxide Anion Gap BUN Creatinine Estim Creat Clear Calc Estimated GFR POC Glucose 91 135 H 102 Fasting Glucose Calcium Total Bilirubin AST ALT Alkaline Phosphatase Total Protein Albumin Triglycerides Cholesterol LDL Cholesterol, Calc HDL Cholesterol 12/28/22 12/29/22 12/29/22 20:42 08:33 20:56 Sodium Potassium Chloride Carbon Dioxide Anion Gap BUN Creatinine Estim Creat Clear Calc Estimated GFR POC Glucose 177 H 159 H 149 H Fasting Glucose Calcium Total Bilirubin AST ALT Alkaline Phosphatase Total Protein Albumin Triglycerides Cholesterol LDL Cholesterol, Calc HDL Cholesterol 12/30/22 12/30/22 08:20 08:38 Sodium Potassium Chloride Carbon Dioxide Anion Gap BUN Creatinine 0.82 Estim Creat Clear Calc TNP Estimated GFR > 60 POC Glucose 135 H Fasting Glucose Calcium Total Bilirubin AST ALT Alkaline Phosphatase Total Protein Albumin Triglycerides Cholesterol LDL Cholesterol, Calc HDL Cholesterol DS: Summary Hospital Course Hospital Course: per 12/24 admission note: Pt is a 62 yo female with hx for Schizoaffective disorder, HTN, DM, who presents with disorganized behavior in face of urosepsis and having gone off her medications due to sadness dealing with her recently brother.? Patient was found sitting outside her house at 03:00 in the morning and brought to the emergency room.? Patient was medically stabilized and infection cleared.? However she remained with significant speech latency and some mild confusion, speaking very little, and needing consistent help from nursing to attend ADLs.? Patient had been restarted on her home medications of Abilify, Wellbutrin and venlafaxine.? After few more days on medication and chance for any residual delirium to resolve, patient had improved some, able to speak in full sentences however she still remained with significant speech latency, needed help attending to some ADLs and per daughter is not at baseline and in fact presenting similar to past episodes when she required inpatient admission.? On approach patient is sitting in bed.? She says that she is trying to hang in there but continues to have auditory hallucinations that tell her get out of the house...that people want her out of the house (which is why she was found outside on the curb a 3am the morning).? She remains with some confusion and does not think she would be able to take care of herself at home.? Patient reports that at baseline she does not have any AH. Past Psychiatric History: Patient currently on Abilify 5 mg, Wellbutrin 300 mg, venlafaxine Medical Evaluation Reviewed: Yes [facility] Medical History?(Updated 12/24/22 @ 15:48 by Luis A Martinez MD) Anxiety Arthritis Depression Dyslipidemia (high LDL; low HDL) Hypertension Obesity Psychiatric disorder Schizoaffective disorder Type 2 diabetes mellitus without complication Surgical History? History of cholecystectomy Family History: Unknown Social History: Lives with her stepbrother Phil in [place] Has a daughter named Dana who was involved Patient's younger brother recently Substance History: Unknown Trauma History: Unknown Precis: Pt is a 62 yo female with hx for Schizoaffective disorder, HTN, DM, who presents with disorganized behavior in face of urosepsis and having gone off her medications due to sadness dealing with her recently brother.? Reportedly patient has been stable for years.? At baseline on current regimen patient symptoms reportedly well controlled and without any AVH with patient able to care for herself in the community.? Patient's decompensation in the face of going off her medications following grief at her brother's and further complicated by delirium from urosepsis.? Patient has improved some now back on medications and with infection cleared however she remains with speech latency, AH and still with some confusion.? Patient has some catatonic features and agrees to medication management. Hospital course: 12/25 patient reports she is doing a little better; AH nearly fully resolved.? patient remains with significant speech latency and inactivity however when she does talk she is organized and talks in full sentences.? At baseline patient is very active, going on errands, pain her bills and fully capable of living on her own. Discussed medication and patient was hesitant to have Ativan raised to 4 times a day; conventional mortgage underwriter agreed to leave it at t.i.d. dosing for now, but that if catatonic symptoms linger Ativan? might need to go to q.i.d. 12/26 pt continues to present with AH, internally preoccupied, degree of catatonic like symptoms including speech minimally spontaneous and delayed response. No waxy flexibility. Recommend to decrease effexor as it may worsen psychosis, increase abilify to 10mg po daily- do not suspect increase in antipsychotic will worsen catatonic like symptoms. Continue with ativan 1mg po TID. Increase if need be over the weekend. 12/27 continue treatment plan; seeing some improvement 12/28 continues to improve; continue treatment plan 12/29 d/c effexor. continue ativan, lower wellbutrin as it may be worsening psychosis. consider increasing abilify. 12/30: stable. discharged to home per plan. 3-day notice matured. Time Spent with Patient Time attestation: Total time managing care of this patient today ____ minutes. Time spent: Greater than 30 minutes Discharge Plan Discharge Anticipated Discharge Date/Time: 12/31/22 11:00 Patient Disposition: Home, Self-Care Discharge Diagnosis: Schizoaffective Disorder Referrals: Physician,Unknown J [Primary Care Provider] - 1 Week Discharge Medications: New aripiprazole 10 mg Tablet 10 mg PO DAILY 30 Days Qty: 30 0RF bupropion HCl 150 mg Tablet Extended Release 24 Hr 150 mg PO DAILY 30 Days Qty: 30 0RF lorazepam 1 mg tablet 1 mg PO QID 7 Days Qty: 28 0RF lorazepam 1 mg tablet 1 mg PO TID 7 Days Qty: 21 0RF Rx Instructions: start once lorazepam 1 mg four times per day is finished lorazepam [Ativan] 1 mg tablet 1 mg PO BID 7 Days Qty: 14 0RF Rx Instructions: start once lorazepam 1 mg three times per day is finished lorazepam 1 mg tablet 0.5 mg PO BID 7 Days Qty: 7 0RF Rx Instructions: start once lorazepam 1 mg twice daily is finished Continued fluticasone propionate [Flovent HFA] 220 mcg/actuation HFA aerosol inhaler 1 puff inhalation BID celecoxib 100 mg capsule 100 mg PO DAILY PRN (Reason: Pain) Cerovite Senior 0.4 mg-300 mcg- 250 mcg tablet 1 tab PO DAILY cholecalciferol (vitamin D3) 25 mcg (1,000 unit) tablet 25 mcg PO DAILY metformin 500 mg tablet 500 mg PO BID omega-3 fatty acids [Fish Oil Concentrate] 1,000 mg capsule 1,000 mg PO DAILY atorvastatin 20 mg tablet 20 mg PO DAILY acetaminophen 650 mg tablet extended release 650 mg PO Q8H PRN (Reason: pain) Qty: 90 0RF Discontinued cefuroxime axetil 250 mg Tablet 250 mg PO Q12H Qty: 1 0RF lorazepam 0.5 mg Tablet 0.5 mg PO TID Qty: 30 0RF aripiprazole 5 mg tablet 5 mg PO DAILY bupropion HCl 300 mg tablet extended release 24 hr 300 mg PO DAILY venlafaxine 75 mg tablet 75 mg PO DAILY Discharge Orders: Discharge Order (Routine); Ordered 12/31/22 Ordered By: Anthony Gabriel Diet: Advance to usual diet Activity on Discharge: As tolerated Stand Alone Forms: Patient Portal Discharge page, Community Support Care Plan Goals: remain safe and stable in the outpatient treatment setting Health Concerns: none Plan of Treatment: take medications as prescribed, attend appointments as scheduled Assessment: not at imminent risk of harm to self or others Discharge Date/Time: 12/31/22 11:10
[2022-12-30] MEDS: LORazepam 1 MG TABLET PO ×2 (16:54→21:02)
[2022-12-30 20:30] VITALS: BP 110/56; PULSE 84; RESP 16; TEMP 36.2; O2SAT 96
[2022-12-30 21:14] LABS: Glucose, Whole Blood 145 mg/dL (60-115)
[2022-12-31 09:03] VITALS: BP 124/59; PULSE 87; TEMP 36.6; O2SAT 97
[2022-12-31 09:14] LABS: Glucose, Whole Blood 158 mg/dL (60-115)
[2022-12-31] MEDS: buPROPion HCl XL 150 MG TAB.ER.24H PO (09:14)
[2022-12-31] MEDS: Fluticasone Propionate 250 MCG BLST.W.DEV 1 PUFF INHALE (09:14)
[2022-12-31] MEDS: Multivitamin TABLET 1 TAB PO (09:14)
[2022-12-31] MEDS: Cholecalciferol (Vitamin D3) 25 MCG TABLET PO (09:15)
[2022-12-31] MEDS: Celecoxib 100 MG CAPSULE PO (09:15)
[2022-12-31] MEDS: Atorvastatin Calcium 20 MG TABLET PO (09:15)
[2022-12-31] MEDS: ARIPiprazole 10 MG TABLET PO (09:15)
[2022-12-31] MEDS: LORazepam 1 MG TABLET PO (09:16)
[2022-12-31] MEDS: metFORMIN HCl 500 MG TABLET PO (09:16)
--- NOTE | 2022-12-31 10:52 | PC.NURSE ---
Reviewed discharge information with pt. Pt denies SI/HI/AH/VH but reports feeling overwhelmed with the discharge process. Pt plans to take medications as directed and attend follow up appointments.
== END 2022-12-31 11:10 | disposition home or self-care (01) | DRG 885 ==
PROVIDERS: Psychiatry & Neurology Psychiatry; Admitting Provider Internal Medicine; Visit Provider Social Worker
DX: F25.9 Schizoaffective disorder, unspecified (principal); N39.0 Urinary tract infection, site not specified; E11.9 Type 2 diabetes mellitus without complications; Z91.148 Patient's other noncompliance with medication regimen for other reason; Z91.041 Radiographic dye allergy status; Z79.51 Long term (current) use of inhaled steroids; Z79.84 Long term (current) use of oral hypoglycemic drugs; Z79.899 Other long term (current) drug therapy
CPT/HCPCS: 36415; 80053; 80061; 82565; 82947

== ENCOUNTER 2025-02-17 08:44 | Outpatient (REF) | payer OTHER, SELFPAY ==
--- OUTSIDE RECORDS SUMMARY | 2025-02-17 08:56 | XMS_ITS | Data Portability ---
Author Organization [facility] Address [address] [place] [phone] Care Team Providers Care Biomedical Engineering Director Name Role Phone LORNA PIERSON Primary Care Provider HIM IRENE OTHER Assessment Encounter Date Assessment Date Assessment LastModified by Organization Details LastModified Time 04/10/2023 04/10/2023 As noted, we were called to see this patient regarding concerns of urinary frequency. Evaluation in the field was performed by my service assistant colleague, as noted above, I provided real-time direction and supervision for this visit. The evaluation revealed last UTI was in november. has sulfa allergy. exam and vitals reassuring. Dip positive. Impression: uti Plan: augmentin, [facility] Disposition: We discussed the diagnostic uncertainty of home visits and the risk associated with this. In this case, the patient and I felt this to be an acceptable and reasonable amount of risk given the benefit of avoiding an ED visit. We discussed the need to seek care urgently/emergen tly in the setting of any new or worsening serious symptoms, particularly Fevers chills lswamy Not available 04/10/2023 12:02:27 12/15/2023 12/15/2023 I have reviewed and agree with the Assessment and Plan as documented by the Building Rental Manager. I provided real-time medical direction via phone for this encounter, and was available for additional phone based assistance as needed. Pt seen for 1 weeks of sinus pain and congestion w/ yellow mucus. AVSS and well appearing per report. Not worsening just not getting better per pt. Denies fevers, CRAFT, neck pain, change in vision. Advised symptomatic care with ongoing monitoring of sxs and callback vs PCP evalutation in 1 week if persistent sxs for consideration of antibiotics per IDSA guidelines for non-severe sinusitis. pallfather Not available 12/25/2023 10:25:57 Plan of Treatment Reminders Order Date Submit Date Provider Last Modified By Organization Details Last Modified Time Details Appointments None recorded. Lab culture, urine 2023 024 [place] (Centralized Electronic Ordering - All Locations), Patient Can Go To The Location Of Their Choice, [id number] 4 10:05:20 urinalysis, dipstick 2023 024 [facility], [address] [place] [address], [phone] 20:47:17 culture, urine 2022 023 [place] (Centralized Electronic Ordering - All Locations), Patient Can Go To The Location Of Their Choice, 15:04:45 urinalysis, dipstick 2022 023 [facility], [address] [place] [address], [phone] 3 09:05:17 Referral None recorded. Procedures None recorded. Surgeries None recorded. Imaging None recorded. Medication Orders cefpodoxime 100 mg tablet 2023 024 [facility] #[id number], [address] [place] [address], [id number], 17:08:21 amoxicillin 875 mg-potassiu m clavulanate 125 mg tablet 2022 023 [facility], [address], [place], [phone], 13:09:35 Patient TargetsNo targets recorded. Patient InstructionsNo instructions recorded. Reason for Referral None Reported. Results Created Date Observation Date Name Description Value Unit Range Abnormal Flag Note LastModifiedBy Organization Detail LastModifiedTime 04/10/2004/10/2023 URINE CULTU RE specimen description URINE Not Available [facility] ([facility] Ordering - All Locations) Patient Can Go To The Location Of Their Choice, [id number] 04/13/2023 15:04:45 04/10/2004/10/2023 URINE CULTU RE special requests NONE Not Available [facility] (Centralized [facility] Ordering - All Locations) Patient Can Go To The Location Of Their Choice, 04/13/2023 15:04:45 04/10/2004/13/2023 URINE CULTU RE culture abnormal >100, 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 This isola te was ident ified using Maldi -TOF syste m These AST resul ts were perfo rmed on the Micro scan ID and AST syste m Not Available [facility] (Centralized Electronic Ordering - All Locations) Patient Can Go To The Location Of Their Choice, 04/13/2023 15:04:45 04/10/2004/13/2023 URINE CULTU RE report status FINAL 2022 Not Available [facility] (Centralized Electronic Ordering - All Locations) Patient Can Go To The Location Of Their Choice, 04/13/2023 15:04:45 04/10/2004/13/2023 URINE CULTU RE organism ORGAN ISM >100, 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 This isola te was ident ified using Maldi -TOF syste m These AST resul ts were perfo rmed on the Micro scan ID and AST syste m Not Available [facility] (Centralized Electronic Ordering - All Locations) Patient Can Go To The Location Of Their Choice, 04/13/2023 15:04:45 04/10/2004/13/2023 URINE CULTU RE method METHOD MIN. INHIB. CONC. (MCG/M L) Not Available [facility] (Centralized Electronic Ordering - All Locations) Patient Can Go To The Location Of Their Choice, 04/13/2023 15:04:45 04/10/2004/13/2023 URINE CULTU RE amoxicillin/ clavulanic acid AMOXIC ILLIN/ CLAVUL AN SUSCEP TIBLE susceptib le Not Available [facility] (Centralized Electronic Ordering - All Locations) Patient Can Go To The Location Of Their Choice, 04/13/2023 15:04:45 04/10/2004/13/2023 URINE CULTU RE ampicillin AMPICI LLIN RESIST ANT resistant Not Available [facility] (Centralized Electronic Ordering - All Locations) Patient Can Go To The Location Of Their Choice, 04/13/2023 15:04:45 04/10/2004/13/2023 URINE CULTU RE ampicillin/s ulbactam AMPICI LLIN/S ULBACT AM INTERM EDIATE intermedi ate Not Available [facility] (Centralized Electronic Ordering - All Locations) Patient Can Go To The Location Of Their Choice, 04/13/2023 15:04:45 04/10/2004/13/2023 URINE CULTU RE cefazolin CEFAZO CHRISTOPH SUSCEP TIBLE susceptib le Not Available [facility] (Centralized Electronic Ordering - All Locations) Patient Can Go To The Location Of Their Choice, 04/13/2023 15:04:45 04/10/2004/13/2023 URINE CULTU RE cefepime CEFEPI ME SUSCEP TIBLE susceptib le Not Available [facility] (Centralized Electronic Ordering - All Locations) Patient Can Go To The Location Of Their Choice, 04/13/2023 15:04:45 04/10/2004/13/2023 URINE CULTU RE ceftriaxone CEFTRI AXONE SUSCEP TIBLE susceptib le Not Available [facility] (Centralized Electronic Ordering - All Locations) Patient Can Go To The Location Of Their Choice, 04/13/2023 15:04:45 04/10/2004/13/2023 URINE CULTU RE ciprofloxaci n CIPROF LOXACI N SUSCEP TIBLE susceptib le Not Available [facility] (Centralized Electronic Ordering - All Locations) Patient Can Go To The Location Of Their Choice, 04/13/2023 15:04:45 04/10/2004/13/2023 URINE CULTU RE ertapenem ERTAPE NEM SUSCEP TIBLE susceptib le Not Available [facility] (Centralized Electronic Ordering - All Locations) Patient Can Go To The Location Of Their Choice, 04/13/2023 15:04:45 04/10/2004/13/2023 URINE CULTU RE gentamicin GENTAM ICIN SUSCEP TIBLE susceptib le Not Available [facility] (Centralized Electronic Ordering - All Locations) Patient Can Go To The Location Of Their Choice, 04/13/2023 15:04:45 04/10/2004/13/2023 URINE CULTU RE levofloxacin LEVOFL OXACIN SUSCEP TIBLE susceptib le Not Available [facility] (Centralized Electronic Ordering - All Locations) Patient Can Go To The Location Of Their Choice, 04/13/2023 15:04:45 04/10/2004/13/2023 URINE CULTU RE meropenem MEROPE NEM SUSCEP TIBLE susceptib le Not Available [facility] (Centralized Electronic Ordering - All Locations) Patient Can Go To The Location Of Their Choice, 04/13/2023 15:04:45 04/10/2004/13/2023 URINE CULTU RE nitrofuranto in NITROF URANTO IN SUSCEP TIBLE susceptib le Not Available [facility] (Centralized Electronic Ordering - All Locations) Patient Can Go To The Location Of Their Choice, 04/13/2023 15:04:45 04/10/2004/13/2023 URINE CULTU RE piperacillin /tazobactam PIPERA CILLIN /TAZOB AC SUSCEP TIBLE susceptib le Not Available [facility] (Centralized Electronic Ordering - All Locations) Patient Can Go To The Location Of Their Choice, 04/13/2023 15:04:45 04/10/2004/13/2023 URINE CULTU RE tetracycline TETRAC YCLINE SUSCEP TIBLE susceptib le Not Available [facility] (Centralized Electronic Ordering - All Locations) Patient Can Go To The Location Of Their Choice, 04/13/2023 15:04:45 04/10/2004/13/2023 URINE CULTU RE trimeth/sulf amethox TRIMET H/SULF AMETHO X SUSCEP TIBLE susceptib le Not Available [facility] (Centralized Electronic Ordering - All Locations) Patient Can Go To The Location Of Their Choice, 04/13/2023 15:04:45 07/22/2007/24/2024 URINE CULTU RE,CO MPREH ENSIV E urine culture,comp rehensive Final report abnormal Not Available [facility] ([facility]) [address], [place], [address], 07/24/2024 10:05:20 07/22/2007/24/2024 URINE CULTU RE,CO MPREH ENSIV E result 1 Klebsi tanmay pneumo niae abnormal Great er than 100,0 00 colon y formi ng units per mL Cefaz darek <=4 ug/mL Cefaz darek with an TOBIAS <=16 predi cts susce ptibi lity to the oral agent s cefac ade, cefdi blair, cefpo doxim e, cefpr ozil, cefur oxime , cepha lexin , and lorac arbef when used for thera py of uncom plica kaylee urina ry tract infec tions due to E. coli, Klebs iella pneum oniae , and Prote us mirab ilis. Not Available [facility] ([facility]) [address] [facility], [place], [address], 07/24/2024 10:05:20 07/22/20 24 07/24/2024 URINE CULTU RE,CO MPREH ENSIV E antimicrobia l susceptibili ty Commen t S = Susce ptibl e; I = Inter media te; R = Resis tant P = Posit prieto; N = Negat prieto MICS are expre ssed in micro grams per mL Antib iotic RSLT# 1 RSLT# 2 RSLT# 3 RSLT# 4 Amoxi cilli n/Cla vulan ic Acid S Ampic illin R Cefep jeremie S Ceftr iaxon e S Cefur oxime S Cipro floxa minesh S Ertap enem S Genta micin S Imipe nem S Levof loxac in S Merop enem S Nitro furan toin S Piper acill in/Ta zobac michaud S Tetra cycli ne S Tobra mycin S Trime thopr im/Gee lfa S Not Available [facility] ([facility]) [address] [facility], [place], [address], 07/24/2024 10:05:20 Result Notes None recorded. Medical Equipment None Reported. Allergies Allergen ID Allergen Name Allergen Category Reaction Reaction Severity Criticality Documentation Date Start Date Code Code System Note Provider Name and Address Organization Details Recorded Time 57279 iodine medicatio n Not available Not available Not available 07/22/2024 5933 RxNorm Not Available [facility] - production 10:52:51 32859 nitrofura ntoin medicatio n Not available Not available Not available 07/22/2024 7454 RxNorm Not Available [facility] - production 4 10:52:51 46241 Bactrim medicatio n Not available Not available Not available 07/22/2024 59488 9 RxNorm Not Available [facility] - production 4 10:52:51 3298 Substance with sulfonami de structure and antibacte rial mechanism of action (substanc e) medicatio n rash mild Not available 04/10/2023 97513 [id number] ROBERT ZELAYA MD [address], [place], [phone], Becual 3 11:56:15 3299 Iodinated contrast media (substanc e) medicatio n dyspnea moderate Not available 04/10/2023 78559 2004 ROBERT ZELAYA MD [address] [facility],[address], [place], [phone], Becual 3 11:56:37 Medications Name Sig Start Date Stop Date Status Note LastModified by Organization Details LastModified Time pulse oximet airial og5625 USE DIRECTED active Not Available Not Available No t Available furosemide 40 mg tablet TAKE ONE TABLET EVERY MORNING active Not Available Not Available No t Available metformin 500 mg tablet TAKE ONE TABLET BY MOUTH IN THE MORNING AND EVENING WITH MEALS active Not Available Not Available N ot Available venlafaxine ER 75 mg capsule,exte nded release 24 hr TAKE ONE CAPSULE EVERY MORNING active Not Available Not Available No t Available atorvastatin 20 mg tablet TAKE ONE TABLET DAILY active Not Available Not Available No t Available nicotine 14 mg/24 hr daily transdermal patch APPLY 1 PATCH TOPICALLY EVERY DAY. REMOVE OLD PATCH BEFORE APPLYING NEW ONE. active Not Available Not Available No t Available cefpodoxime 100 mg tablet TAKE 1 TABLET BY MOUTH EVERY 12 HOURS FOR 7 DAYS active Not Available Not Available N ot Available metoprolol succinate ER 50 mg tablet,exten ded release 24 hr TAKE ONE TABLET EVERY DAY active Not Available Not Available No t Available meloxicam 15 mg tablet TAKE ONE TABLET BY MOUTH EVERY DAY WITH FOOD OR MILK active Not Available Not Available No t Available polyvinyl alcohol 1.4 % eye drops PLACE ONE DROP IN EACH EYE TWICE DAILY active Not Available Not Available Not Available prednisone 20 mg tablet TAKE 2 TABLETS BY MOUTH EVERY DAY FOR 4 DAYS active Not Available Not Available No t Available acetaminophe n 300 mg-codeine 30 mg tablet TAKE ONE TABLET BY MOUTH EVERY SIX HOURS NEEDED FOR SEVERE PAIN active Not Available Not Available No t Available tramadol 50 mg tablet TAKE 1 TO 2 TABLETS BY MOUTH EVERY 6 HOURS NEEDED FOR MILD PAIN. DO NOT EXCEED 8 TABLETS (400MG) PER DAY. active Not Available Not Available No t Available acetaminophe n ER 650 mg tablet,exten ded release TAKE ONE TABLET EVERY 8 HOURS NEEDED active Not Available Not Available No t Available methocarbamo l 750 mg tablet TAKE ONE TABLET BY MOUTH EVERY DAY NEEDED active Not Available Not Available No t Available aspirin 325 mg tablet,delay ed release TAKE 1 TABLET BY MOUTH TWO TIMES A DAY active Not Available Not Available Not Available furosemide 80 mg tablet TAKE ONE TABLET BY MOUTH EVERY MORNING active Not Available Not Available No t Available cephalexin 500 mg capsule TAKE ONE CAPSULE BY MOUTH TWICE DAILY FOR ONE WEEK active Not Available Not Available No t Available pantoprazole 40 mg tablet,delay ed release TAKE 1 TABLET BY MOUTH EVERY DAY active Not Available Not Available No t Available docusate sodium 100 mg capsule TAKE 1 CAPSULE BY MOUTH TWO TIMES A DAY active Not Available Not Available Not Available lorazepam 1 mg tablet TAKE 1/2 TABLET BY MOUTH TWICE DAILY. START AFTER ONE MG TWICE DAILY COMPLETE active Not Available Not Available No t Available ibuprofen 600 mg tablet TAKE ONE TABLET BY MOUTH THREE TIMES DAILY WITH FOOD NEEDED MODERATE PAIN (4-6 PAIN SCALE) active Not Available Not Available Not Available polyethylene glycol 3350 17 gram/dose oral powder MIX 17 GRAM IN WATER OR JUICE AND DRINK DAILY. MAY INCREASE TO TWO TO THREE TIMES DAILY NEEDED FOR CONSTIPATIO N active Not Available Not Available No t Available celecoxib 100 mg capsule TAKE ONE CAPSULE TWICE DAILY active Not Available Not Available Not Available metformin ER 500 mg tablet,exten ded release 24 hr TAKE 1 TABLET DAILY WITH SUPPER active Not Available Not Available No t Available amoxicillin 875 mg-potassium clavulanate 125 mg tablet TAKE ONE TABLET EVERY TWELVE HOURS FOR 10 DAYS active Not Available Not Available No t Available nicotine 7 mg/24 hr daily transdermal patch APPLY 1 PATCH TOPICALLY TO THE SKIN DAILY IN THE MORNING THEN REMOVE AT BEDTIME DIRECTED DO NOT SMOKE WHILE USING PATCH active Not Available Not Available Not Available Ventolin HFA 90 mcg/actuatio n aerosol inhaler INHALE TWO PUFFS BY MOUTH EVERY 4 HOURS NEEDED FOR WHEEZING active Not Available Not Available No t Available oxycodone 5 mg tablet TAKE 1 TO 2 TABLETS BY MOUTH EVERY 4 HOURS NEEDED FOR SEVERE PAIN active Not Available Not Available Not Available azithromycin 500 mg tablet TAKE ONE TABLET DAILY FOR FIVE DAYS active Not Available Not Available No t Available aripiprazole 10 mg tablet TAKE ONE TABLET EVERY MORNING active Not Available Not Available No t Available aripiprazole 5 mg tablet TAKE ONE TABLET EVERY MORNING active Not Available Not Available No t Available bupropion HCl XL 300 mg 24 hr tablet, extended release TAKE ONE TABLET DAILY active Not Available Not Available No t Available bupropion HCl XL 150 mg 24 hr tablet, extended release TAKE ONE TABLET EVERY DAY active Not Available Not Available No t Available Flovent HFA 220 mcg/actuatio n aerosol inhaler INHALE ONE PUFF TWICE DAILY IN THE MORNING AND AT BEDTIME, RINSE MOUTH AFTER USE active Not Available Not Available No t Available varenicline tartrate 1 mg tablet TAKE ONE TABLET BY MOUTH TWICE DAILY active Not Available Not Available No t Available varenicline tartrate 0.5 mg (11)-1 mg (42) tablets in a dose pack USE DIRECTED ON PACKAGE active Not Available Not Available No t Available cholecalcife rol (vitamin D3) 25 mcg (1,000 unit) tablet TAKE ONE TABLET BY MOUTH ONCE DAILY active Not Available Not Available No t Available peg 3350-electro lytes 236 gram-22.74 gram-6.74 gram-5.86 gram solution TAKE DIRECTED active Not Available Not Available No t Available FreeStyle Lite Strips USE TO TEST BLOOD SUGAR EVERY MORNING active Not Available Not Available No t Available Cerovite Senior 0.4 mg-300 mcg-250 mcg tablet TAKE ONE TABLET BY MOUTH EVERY DAY active Not Available Not Available No t Available Artificial Tears (ye417-ukcvs clover-glyceri n) 1 %-0.2 %-0.2 % eye drops PLACE ONE DROP IN EACH EYE TWICE DAILY active Not Available Not Available Not Available Easy Touch Alcohol Prep Pads USE TWICE DAILY active Not Available Not Available No t Available Racquel-Mucil (aspartame) 3.4 gram/5.8 gram oral powder MIX with liquid AND TAKE 1.7 GRAM DAILY DIRECTED. MAY INCREASE TO TWO TO THREE TIMES DAILY NEEDED active Not Available Not Available No t Available Belsomra 10 mg tablet TAKE ONE TABLET AT BEDTIME active Not Available Not Available No t Available Arnuity Ellipta 200 mcg/actuatio n powder for inhalation INHALE 1 PUFF EVERY MORNING. RINSE MOUTH AFTER USE active Not Available Not Available No t Available omega-3 300 mg-dha 120 mg-epa 180 mg-fish oil 1,000 mg capsule TAKE ONE CAPSULE TWICE DAILY active Not Available Not Available Not Available Vitals Date Recorded Respiratory rate Body temperature Oxygen saturation Oxygen saturation in Arterial blood by Pulse oximetry Heart rate Systolic And Diastolic Provider Name and Address Organization Details Last Updated DateTime 4 15 /min 98.1 [degF] 97 % 97 % 60 /min 158/62 mm[Hg] Not Available [facility] 4 17:23:11 Date Recorded Oxygen saturation Oxygen saturation in Arterial blood by Pulse oximetry Heart rate Body height Body weight Respiratory rate Body temperature Systolic And Diastolic Provider Name and Address Organization Details Last Updated DateTime 3 94 % 94 % 81 /min 172.72 cm 22516.0 32 g 18 /min 97.8 [degF] 146/86 mm[Hg] Not Available [facility] 3 11:54:28 Date Recorded Heart rate Oxygen saturation Oxygen saturation in Arterial blood by Pulse oximetry Body temperature Respiratory rate Body weight Body height Systolic And Diastolic Provider Name and Address Organization Details Last Updated DateTime 4 80 /min 95 % 95 % 98.5 [degF] 18 /min 23744.9 52 g 170.18 cm 125/85 mm[Hg] Not Available [facility] 4 17:01:59 Social History None recorded. Functional Status None recorded. Mental Status None recorded. Family History Nothing Reported. Medical History No medical history recorded. Gynecological HistoryNo gynecological history recorded. Obstetrics History GPAL:G 0 P 0 0 0 0 Past Encounters Encounter ID Performer Location Encounter Start Date Encounter Closed Date Diagnosis/Indication Diagnosis SNOMED-CT Code Diagnosis ICD10 Code Diagnosis Note [id number] ELIDA ZELAYA MD [facility] [address] [place] [phone] 04/10/2023 11:54:22 04/13/2023 11:37:58 Urinary symptoms [id number] R39.9 [id number] Abdi Rueda MD [facility] [address] [place] [phone] 12/15/2023 17:23:06 12/25/2023 10:43:58 Sinusitis [id number] J32.9 [id number] SUSAN GOMEZ MD [facility] [address] [place] [phone] 07/22/2024 16:47:34 07/26/2024 19:48:03 Urinary symptoms [id number] R39.9 Evaluation in the field was performed by my service assistant colleague, as noted above, I provided real-time direction and supervisio n for this visit. The evaluation revealed a 64-year-ol d female with a history of COPD, asthma, and type 2 diabetes mellitus, presenting with complaints suggestive of a urinary tract infection . The patient reports dark and cloudy urine for the past week. She denies headache, dizziness, fever, chills, chest pain, shortness of breath, nausea, vomiting, diarrhea, abdominal pain, back pain, hematuria, or dysuria. The patient states [facility] with similar symptoms.P er chart review, her urine culture from March 2023 grew >100,000 CFU/mL of Klebsiella sensitive to cephalospo rins and fluoroquin olones, but resistant to trimethopr im-sulfame thoxazole. VS: Stable, afebrile.E xam: Alert and oriented, no acute distress.L karmen sounds: Clear bilaterall y.Abdomen: Soft, non-tender , no distension .No CVA tenderness .UA showed leukestera se and nitrates but no blood or ketones.Al kenan reviewed. Impression :Cystitis Plan:-Pt with no signs of systemic infection. Rx for Cefpodoxim e 100 mg BID for 7 days sent to her pharmacy.- The patient was advised to continue oral hydration. -A urine culture was sent to [facility]. Results will be followed up. If the culture is negative, the patient can discontinu e the antibiotic s.-Red flags discussed with the patient, including worsening symptoms, fever, flank pain, or blood in the urine. Primary care, consider__ _ Dispositio n: We discussed the diagnostic uncertaint y of home visits and the risk associated with this. In this case, the patient and I felt this to be an acceptable and reasonable amount of risk given the benefit of avoiding an ED visit. We discussed the need to seek care urgently/e mergently in the setting of any new or worsening serious symptoms, particular ly fever, flank pain, or blood in the urine, nausea vomiting or any other concerns . Health Concerns Section Related Observation LastModified by Organization Detai ls LastModified Time None Recorded Concern Status LastModified by Organization Details LastModified Time None Recorded Advance Directives Directive None Recorded Payers Insurance Date Sequence Insurance Name Policy Number Policy Rosario Covered Member ID Rosario Member ID Guarantor Name 07/31/2024 1 [facility] - DOS ON OR AFTER 2022 - DUAL ELIGIBLE - [employer] AND ONE [employer] (MEDICARE REPLACEMENT/ADV ANTAGE - HMO) Belle Garcia [id number] Belle Garcia Notes Date Note Type Note Provider Name and Address Organization Details Recorded Time 04/10/2023 text/html HPI: Patient with history of Mental disorder NOS. Patient alert and able to make all needs and concerns known. One week history of cloudy urine. Fluid intake good. No fever and no blood in urine. Increased urinary frequency. .................... .................... .................... .................... .................... .................... .................... . CRC Nursing Assessment: Comments: CRC RN did not require any additional information to process this visit. .................... .................... .................... .................... .................... .................... .................... . Building Rental Manager Note From Crys Uribe: Sent to a call for a pt complaining of uti symptoms. [facility] arrives on scene, pt is alert and oriented, airway is patent. Pt complains of increased urinary frequency, foul smelling urine x 1 wk and intermittent abd pain (near naval) yesterday. Abd pain yesterday (3 incidents) described as sharp pain, lasting approx 5 min. Pt denies craft, dizziness, cp, sob, n/v/d, current abd pain, dysuria, hematuria, increased urgency, urinary incontinence, flank pain, or fever. Pt is allergic to Sulfa and contrast dye. Pt states last UTI was in November. BP:146/86, P:81, RR:18, SpO2:94% RA, T:97.8; Head: unremarkable; Lung sounds: clear bilaterally; Abdomen: soft, non-tender, no distention; Back: no CVA tenderness; Extremities: unremarkable; Urine sample obtained: yellow, clear, concentrated; Urine dip: positive; [facility] consulted and orders urine culture to be sent to [facility]. [facility] sends script to pt's pharmacy. Red flags discussed. Pt has no further questions. [facility] Lab Orders: culture, urine: Performed urinalysis, dipstick: Performed .................... .................... .................... .................... .................... .................... .................... . Disposition: Fulfilled ELIDA ZELAYA MD [address] [facility],[address], [place], [address], TATIANA CHRISTIAN 04/10/2023 12:36:42 12/15/2023 text/html HPI: Patient started with a sore throat last week and now with suspected sinus infection. Thick creamy to yellow mucous and very congested. Underlying COPD no exacerbation at present. .................... .................... .................... .................... .................... .................... .................... . CRC Nurse Triage Notes (Cara Kruger): Comments: Reviewed HPI, no further info needed. HPattmazin RN .................... .................... .................... .................... .................... .................... .................... . Building Rental Manager Note From Micheal Willingham: Dispatched to the call address for the female with congestion and concerns for sinus infection. Pt states last Thursday she had a sore throat and then by Thursday evening that pain was gone but she started with nasal congestion. Pt states that she has had thick yellow tinged nasal discharge and sinus pressure. She denies headaches, fevers or cough (outside of baseline COPD cough). She has not taken any OTC medications for it. Pt denies shortness of breath, CP or any other symptoms at this time.Pt was found opening door, CAOx4, airway open and patent, breathing non labored, able to speak in full sentences, -JVD, -HEENT, skin PWD with good turgor, mucous membranes pink and moist, pupils PERRL, +CMSx4, lung sounds clear and equal bilaterally. VMC consulted. Pt advised to use steam to help evacuate sinus back up. Pt also advised that if symptoms continued for 14 total days or if she experiences worsening symptoms to call for a reevaluation. Red flags discussed. ALL times are approx. .................... .................... .................... .................... .................... .................... .................... . Disposition: Fulfilled Abdi Rueda MD [address] [place] [address],[address], [place], [address], [employer] 12/25/2023 10:26:13 07/22/2024 text/html ROS as noted in the HPI HPI: Patient with complaints of urinary concerns of dark cloudy urine . .................... .................... .................... .................... .................... .................... .................... . CRC Nurse Triage Notes (Clotilde Soto - RN): Chief Complaints: Urinary symptoms PMH: COPD/Asthma, Diabetes Mellitus Type 2 Comments: Per requestor also has allergies too- Povidone ,zoster vaccine live Building Rental Manager Organization Information for [employer] Legal Name: [employer]. Address: [address] [place] [address], [place]: Moody Jaffe MD [facility] No.: [id number] Building Rental Manager POC Test Results from [employer] [employer] - ALS Urine Dipstick (17:02:07) Urine leukocytes: 70+ NIDHI Urine nitrites: + NIT Urine urobilinogen: 0.2 URO Urine protein: 15+/- PRO Urine pH: 5.0 pH Urine blood: - BLO Urine specific gravity: 1.015 SG Urine ketones: - KET Urine bilirubin: - TARA Urine glucose: - GLU .................... .................... .................... .................... .................... .................... .................... . Building Rental Manager Note From [employer]rys [employer]ribe: Sent to a call for a pt complaining of UTI symptoms. SC8 arrives on scene, pt is alert and oriented, airway is patent. Pt allergies: IV contrast dye, and Sulfa; Pt unsure if allergic to Nitrofurantoin, Povidone, or Zoster vaccine; Pt complains of dark and cloudy urine x 1 week. Pt states last UTI was approx 1 yr ago and presented similarly. Pt denies craft, dizziness, cp, sob, n/v/d, abd pain, back pain, fever, hematuria, dysuria, or loc. BP:125/85, P:80, RR:18, SpO2:95% RA, T:98.5; Head: unremarkable; Lung sounds: clear bilaterally; Abdomen: soft, non-tender, no distention; Extremities: unremarkable; Skin: pink, warm, dry; Urine dip results: uploaded to [employer]. [facility] orders urine culture to be sent to [facility]. [facility] sends script to pt's pharmacy. Pt advised to increase oral hydration. Red flags discussed. Pt has no further questions. .................... .................... .................... .................... .................... .................... .................... . [facility] Consulted: Susan Gomez .................... .................... .................... .................... .................... .................... .................... . Disposition: Fulfilled SUSAN GOMEZ MD [address] [place] [address],[address] [facility], [place], [address], [facility] 07/22/2024 22:59:41 OBGyn Episode No OBEpisode recorded.
--- OUTSIDE RECORDS SUMMARY | 2025-02-17 08:56 | XMS_ITS | Patient Health Record ---
Author Organization [facility] Address [address] [place] [address] Care Team Providers Care Linux Support Engineer Name Role Phone Kaitlynn Marina Primary Care Provider Unavailab Kristen Lazo Unavailable [phone] Rudi Mcginnis Unavailable [phone] Allergies Allergen (clinical drug ingredient) Drug/Non Drug Allergy documented on EMR Reaction Allergy Type Onset Date Status povidone-iodine Povidone Iodine contrast dye- rash Drug Allergy Active Substance with sulfonamide structure and antibacterial mechanism of action (substance) Sulfa Antibiotics rash Drug Allergy Active Results Component Value Reference Range Notes HEMOGLOBIN A1C (GLYCOHEMOGLO BIN) Reviewed date:04/19/2024 09:06:43 AM Interpretation: Performing Lab: Notes/Report: TOTAL HEMOGLOBIN (HGBA1C) 6.3 HEMOGLOBIN A1C (GLYCOHEMOGLO BIN) Reviewed date:12/20/2024 09:26:32 AM Interpretation: Performing Lab: Notes/Report: HEMOGLOBIN A1C % (HH) 6.3 Reason For Referral No Information Medications Medication SIG (Take, Route, Frequency, Duration) Notes Start Date End Date Status buPROPion HCl 150MG Active Atorvastatin Calcium 20 MG 1 tablet Orally Once a day; Duration: 30 day(s) Active Arnuity Ellipta Acti ve Metoprolol Succinate 50 MG 1 capsule Orally Once a day; Duration: 30 day(s) Active Cerovite Senior Acti ve Ventolin HFA Active metFORMIN HCl ER 500 MG 1 tablet with ev ening meal Orally Once a day; Duration: 30 day(s) Active Vitamin D3 Active Fish Oil Not-Taking ARIPiprazole 10 MG 1 tablet Orally Once a day; Duration: 30 day(s) Active Flovent HFA Not-Taki ng Meloxicam 15 MG 1 tablet Orally Once a day; Duration: 30 day(s) Not-Taking Social History Tobacco Use: Social History Observation Description Date Details (start date - stop date) Current Smoker NA - NA Alcohol Screen Question Answer Notes Did you have a drink containing alcohol in the p ast year? No Points 0 Interpretation Negative Tobacco use other than smoking: Question Answer Notes Are you an other tobacco user? No Tobacco Control (Standard) Question Answer Notes Tobacco use: Current smoker How many cigarettes a day do you smoke? 11- Problems Problem Type SNOMED Code ICD Code Onset Dates Problem Status W/U Status Risk Notes Problem Polyneuropathy due to diabetes mellitus type I (680094801) Type 1 diabetes mellitus with diabetic polyneuropathy (E10.42) Active confirmed Problem Polyneuropathy due to type 2 diabetes mellitus (708181562) Type 2 diabetes mellitus with diabetic polyneuropathy (E11.42) Active confirmed Vital Signs Heart Rate 79 /min 12/20/2024 Blood pressure diastolic 82 mm Hg 12/20/2024 Height 5ft 8in in 12/20/2024 Blood pressure systolic 116 mm Hg 12/20/2024 Weight 211 lbs 12/20/2024 BMI 32.08 kg/m2 12/20/2024 Procedures Procedure Date Ordered Date Performed Result Body Sit e 34047-SIZLEEN NAIL, 6 OR MORE 07/22/2024 N/A 71971-ABHJ SKIN LESIONS, OVER 4 07/22/2024 N/A 79443-MTQLXOA NAIL, 6 OR MORE 12/20/2024 N/A 32136-EMID SKIN LESIONS, OVER 4 12/20/2024 N/A Encounters Encounter Location Date Provider Diagnosis [address] [address] 04/19/2024 Rudi Mcginnis Type 2 diabetes mellitus with diabetic polyneuropathy E11.42 ; Pain in right toe(s) M79.674 ; Pain in left toe(s) M79.675 ; Tinea unguium B35.1 and Xerosis cutis L85.[address] [address] 07/22/2024 Kristen Faria Type 2 diabetes mellitus with diabetic polyneuropathy E11.42 and Tinea unguium B35.[address] [facility] [address] [address] 12/20/2024 Kristen Faria Type 2 diabetes mellitus with diabetic polyneuropathy E11.42 and Tinea unguium B35.[address] [facility] [address] 10/28/2024 Kristen Faria Assessments Encounter Date Diagnosis (ICD Code) Assessment Notes Treatment Notes Treatment Clinical Notes Section Notes 04/19/2024 Type 2 diabetes mellitus with diabetic polyneuropathy (ICD-10 - E11.42) 07/22/2024 Type 2 diabetes mellitus with diabetic polyneuropathy (ICD-10 - E11.42) 07/22/2024 Tinea unguium (ICD-10 - B35.1) 12/20/2024 Type 2 diabetes mellitus with diabetic polyneuropathy (ICD-10 - E11.42) 12/20/2024 Tinea unguium (ICD-10 - B35.1) 04/19/2024 Pain in right toe(s) (ICD-10 - M79.674) 04/19/2024 Pain in left toe(s) (ICD-10 - M79.675) 04/19/2024 Tinea unguium (ICD-10 - B35.1) 04/19/2024 Xerosis cutis (ICD-10 - L85.3) Plan Of Treatment Pending Test Test Name Order Date 28816-WKOUDLN NAIL, 6 OR MORE 07/22/2024 11556-PJXEEDX NAIL, 6 OR MORE 12/20/2024 91940-IIKS SKIN LESIONS, OVER 4 12/21/19 25 30102-GUDT SKIN LESIONS, OVER 4 07/22/20 45830-YNTD SKIN LESIONS, OVER 4 08/28/19 24 01011-ZJSX SKIN LESIONS, OVER 4 01/05/20 24 Next Appt Details Provider Name:Kristen Thornton catherine, 05/12/2025 09:15:00 AM, [address] [address], [place], [address], Insurance Providers Payer Name Payer Address Payer Phone Subscriber Number Group Number Insured Name Patient Relationship to Insured Coverage Start Date Coverage End Date [facility] [employer] Claims [address] [place] [phone] [id number] Belle Garcia Self - patient is the insured Medical (General) History Medical History History ICD Code Anxiety Arthritis Back,Hip,and Knee pain Depression Diabetic Measles Chicken pox Surgical History Surgery Date(Month/Year) right hip replacement 12/2023 Hospitalization History Reason Date(Month/Year) Colonoscopy 11/08/24
--- OUTSIDE RECORDS SUMMARY | 2025-02-17 08:56 | XMS_ITS | Clinical Summary ---
Author Organization [facility] Address [address] [place] [address] Care Team Providers Care Labour Market Economist Name Role Phone Unavailable Primary Care Provider Unavailabl e Social History Tobacco Use Types Packs/Day Years Used Date Smoking Tobacco: Never Assessed Comments Unknown Sex and Gender Information Value Date Recorded Sex Assigned at Not on file Legal Sex Female 5:04 PM EST Gender Identity Not on file Sexual Orientation Not on file Plan of Treatment Health Maintenance Due Date Last Done Comments Breast Cancer Screening 1960 Colorectal Cancer Screening: Annual FOBT 2009 Colorectal Cancer Screening: Colonoscopy 2009 Colorectal Cancer Screening: Sigmoidoscopy 2009 Pneumococcal Vaccine: 50+ Ye ars (1 of 1 - PCV) 2010 Influenza Vaccine (#1) 2025 Hepatitis B Vaccine Aged Out No longe r eligible based on patient's age to complete this topic Insurance [facility] ([id number]) [facility] ([id number]) [place] [id number]
[2025-02-17 13:55] LABS: MANUAL DIFF FLAG NO
[2025-02-17 14:10] LABS: Hematocrit 49.9 % (37.0-47.0); Hemoglobin 16.2 g/dl (12.0-16.0); Imm Gran Abs Auto 0.02 X10*3/uL (0.00-0.03); Imm Gran Pct Auto 0.2 % (0.0-0.4); Lymphocytes Absolute Auto 2.5 X10*3/uL (1.2-4.9); Mean Corpuscular HGB Conc 32.5 g/dl (31.0-35.0); Mean Corpuscular Hemoglobin 30.5 pg (27.0-33.0); Mean Corpuscular Volume 93.8 fL (80.0-98.0); NRBC Abs Auto 0.000 X10*3/uL (0.0-0.012); NRBC Pct Auto 0.0 /100WBC (0.0-0.2); Platelet Count 223 X10*3/uL (160-400); Red Blood Count 5.32 X10*6/uL (4.20-5.50); White Blood Count 8.7 X10*3/uL (4.8-10.8)
[2025-02-17 14:16] LABS: Alanine Aminotransferase 14 U/L (0-31); Albumin Level 4.5 g/dL (3.5-5.0); Alkaline Phosphatase 97 U/L (39-117); Anion Gap 12 (12-20); Aspartate Amino Transferase 17 U/L (5-31); Blood Urea Nitrogen 12 mg/dL (9-16); Calcium 9.3 mg/dL (8.4-10.2); Carbon Dioxide 30 mmol/L (22-29); Chloride 106 mmol/L (96-108); Cholesterol 156 mg/dL (<200); Estimated Glomerular Filt Rate 54; HDL Cholesterol 54 mg/dL (>40); Potassium 4.9 mmol/L (3.3-5.1); Sodium 143 mmol/L (135-145); Total Protein 7.1 g/dL (6.5-8.0); Triglycerides 145 mg/dL (<150)
[2025-02-17 14:44] LABS: Folate 13.9 ng/mL (> or = 4.0); Vitamin B12 1018 pg/mL (200-900)
== END 2025-02-17 08:45 | disposition home or self-care (01) ==
LOC: HO.CHCLDS 08:44
PROVIDERS: Visit Provider Pediatrics
DX: E11.9 Type 2 diabetes mellitus without complications (principal); E78.5 Hyperlipidemia, unspecified
CPT/HCPCS: 36415; 80053; 80061; 82248; 82306; 82607; 82746; 84443; 85025

== ENCOUNTER 2025-05-18 08:29 | Outpatient (REF) | payer OTHER, SELFPAY | END 2025-05-18 08:30 | disposition home or self-care (01) | LOC: HO.MAMMO 08:29 | PROVIDERS: PCP Pediatrics; Visit Provider Pediatrics | DX: Z12.31 Encounter for screening mammogram for malignant neoplasm of breast (principal) | CPT/HCPCS: 77063; 77067 ==

== ENCOUNTER → 2025-05-18 08:30 | Outpatient (BNV) | payer OTHER, SELFPAY | PROVIDERS: PCP Pediatrics; Visit Provider Radiology Body Imaging | DX: Z12.31 Encounter for screening mammogram for malignant neoplasm of breast (principal) | CPT/HCPCS: 77063; 77067 ==

== ENCOUNTER 2025-05-25 15:18 | Outpatient (REF) | payer OTHER, SELFPAY ==
--- OUTSIDE RECORDS SUMMARY | 2023-12-04 05:30 | XMS_ITS ---
Author Organization [facility] Address [address] [place] [id number] Care Team Providers Care Award Machine Operator Name Role Phone Kaitlynn Marina Primary Care Provider UnavailKristen Hopkins Unavailable [phone] Rudi Rashid Unavailable [phone] Hunter Encounters Encounter Location Date Provider Diagnosis [address] [id number] 12/04/2023 Rudi Rashid Plan Of Treatment Next Appt Details Provider Name:Kristen Thornton catherine, 08/11/2025 09:30:00 AM, [address] [place] [address], [phone], Progress Notes * Belle FORDE ADOB: 0 (65 yo F)Acc No.[id number]:12/04/2023 Progress Note Patient: Belle ESCOBEDO Provider: Kiana Mcginnis DPM :1960 A ge:63 Y S ex:Female Date:12/04/2023 Address:[address] [place] [id number] Pcp:Kaitlynn Marina Subjective: * Chief Complaints: * [address] Hunter[address] * Medical History: Objective: * Vitals: Assessment: Plan: * Treatment: * Images: * The named appointment provid er may or may not be the originator of this progress note, and it is not deemed complete until electronically signed by the appointment provider. Sign off status: Pending * Provider: Kiana Mcginnis DPM Date: 0 12/04/2023 Generated for Nafisa boyd/Audra/Odilia on: 1 05:57 PM EDT
--- OUTSIDE RECORDS SUMMARY | 2023-12-18 05:15 | XMS_ITS ---
Author Organization [facility] Address [address] [place] [address] Care Team Providers Care Aboriginal Education Teacher Name Role Phone Kaitlynn Marina Primary Care Provider Mauricioab Kristen Lazo Unavailable [phone] Rudi Rashid Unavailable [phone] REASON FOR VISIT Painful nail(s) aggrevated by shoes and causing difficulty standing/walking. Encounters Encounter Location Date Provider [facility] [address] [place] [phone] 12/18/2023 Rudi Rashid Tinea unguium B35.1 ; Pain in right toe(s) M79.674 and Pain in left toe(s) M79.675 Assessments Encounter Date Diagnosis (ICD Code) Assessment Notes Treatment Notes Treatment Clinical Notes Section Notes 12/18/2023 Tinea unguium (ICD-10 - B35.1) 12/18/2023 Pain in right toe(s) (ICD-10 - M79.674) 12/18/2023 Pain in left toe(s) (ICD-10 - M79.675) Plan Of Treatment Next Appt Details Provider Name:Kristen alexander, 08/11/2025 09:30:00 AM, [address] [place] [address], [phone], Procedure Notes * Category Sub-Category Detail Notes Debride Nail 6-10 Nail debridement Nail debridem ent performed extensively to reduce/remove overall nail length and girth, subungual debris, and necrotic tissue, by manual and electrical means with use of a nail nipper and/or dremel, to more viable healthy nail plate or bed tissue 6-10. Silver nitrate used for any petechial bleeding as necessary. Patient chooses, no pharmaceutical tx ([id number]) Progress Notes * Belle FORDE ADOB: 0 (65 yo F)Acc No.[id number]:12/18/2023 Progress Note Patient: Belle ESCOBEDO Provider: Kiana Mcginnis DPM :1960 A ge:63 Y S ex:Female Date:12/18/2023 Address:[address] [place], [place] [phone] Pcp:Kaitlynn Marina Subjective: * Chief Complaints: * 1 . Painful nail(s) aggrevated by shoes and causing difficulty standing/walking.. * HPI: P ainful Nails: Pt States Last PCP Visit: D ate: 1 08/29/2022 F oot Pain: Nature: n umbness, tingling, cold feeling. Location B /L. Duration: s everal years. Onset/Cause: d pn. Course: w orse. Aggrevated: e specially at night. Treatments: n one. Quality/Severity m oderate. * Medical History: Objective: * Vitals: * Examination: N ails: NAILS are: e longated,overgrown,dystrophic,greater than 3mm thick,discolored and friable with crumbly malodorous subungual debris, with pain on palpation. Assessment: * Assessment: 1. T inea unguium - B35.1 (Primary) 2 . P ain in right toe(s) - M79.674? 3. P ain in left toe(s) - M79.675 Plan: * Treatment: * Procedures: D ebride Nail 6-10: Nail debridement N ail debridement performed extensively to reduce/remove overall nail length and girth, subungual debris, and necrotic tissue, by manual and electrical means with use of a nail nipper and/or dremel, to more viable healthy nail plate or bed tissue 6-10. Silver nitrate used for any petechial bleeding as necessary. Patient chooses, no pharmaceutical tx ([id number]). * Procedure Codes: 1 1721 DEBRIDE NAIL, 6 OR MORE, Modifiers: XS * Images: * The named appointment provid er may or may not be the originator of this progress note, and it is not deemed complete until electronically signed by the appointment provider. Sign off status: Pending * Provider: Kiana Mcginnis DPM Date: 0 12/18/2023 Generated for Nafisa boyd/Audra/Nathalieitting on: 05:57 PM EDT History and Physical Notes * HPI (History of Present Illness) Category Sub-Category Detail Notes Category Not es Painful Nails Pt States Last PCP Visit: Date:: 06/28/2023 Foot Pain Aggrevated: especially at night Onset/Cause: dpn Course: worse Duration: several years Nature: numbness, tingling, cold feeling Treatments: none Quality/Severity moderate Location B/L Examination Category Sub-Category Detail Notes Category Not es Nails NAILS are: elongated,overgr own,dystrophic,greater than 3mm thick,discolored and friable with crumbly malodorous subungual debris, with pain on palpation
--- OUTSIDE RECORDS SUMMARY | 2024-11-18 05:30 | XMS_ITS ---
Author Organization [facility] Address [address] [place] [phone] Care Team Providers Care Supervisor Metal Cans Name Role Phone Kaitlynn Marina Primary Care Provider Kristen Hess [phone] Encounters Encounter Location Date Provider Diagnosis [address] [phone] 11/18/2024 Kristen Faria Plan Of Treatment Next Appt Details Provider Name:Kristen alexander, 08/11/2025 09:30:00 AM, [address] [place] [address], [phone], Progress Notes * Belle FORDE ADOB: 0 (65 yo F)Acc No.[id number]:11/18/2024 Progress Note Patient: Belle ESCOBEDO Provider: Mitchell Faria DPM :1960 A ge:64 Y S ex:Female Date:11/18/2024 Address:[address] [place], [place] [phone] Pcp:Kaitlynn Marina Subjective: * Chief Complaints: * * Medical History: Objective: * Vitals: Assessment: Plan: * Treatment: * Images: * The named appointment provid er may or may not be the originator of this progress note, and it is not deemed complete until electronically signed by the appointment provider. Sign off status: Pending * Provider: Mitchell Faria DPM Date: 0 11/18/2024 Generated for Nafisa boyd/Audra/Odilia on: 1 02:10 PM EDT
--- OUTSIDE RECORDS SUMMARY | 2025-05-12 05:15 | XMS_ITS ---
Author Organization [facility] Address [address] [place] [address] Care Team Providers Care Setter Automatic Spinning Lathe Name Role Phone Kaitlynn Marina Primary Care Provider Kristen Hess [phone] Encounters Encounter Location Date Provider Diagnosis [address] [address] 05/12/2025 Kristen Faria Plan Of Treatment Next Appt Details Provider Name:Kristen alexander, 08/11/2025 09:30:00 AM, [address] [place] [address], [phone], Progress Notes * Belle FORDE ADOB: 0 (65 yo F)Acc No.[id number]:05/12/2025 Progress Note Patient: Belle ESCOBEDO Provider: Mitchell Faria DPM :1960 A ge:65 Y S ex:Female Date:05/12/2025 Address:[address] [place], [place] [id number] Pcp:Kaitlynn Marina Subjective: * Chief Complaints: * * Medical History: Objective: * Vitals: Assessment: Plan: * Treatment: * Images: * The named appointment provid er may or may not be the originator of this progress note, and it is not deemed complete until electronically signed by the appointment provider. Sign off status: Pending * Provider: Mitchell Faria DPM Date: Generated for Nafisa boyd/Audra/Odilia on: 1 02:10 PM EDT
--- OUTSIDE RECORDS SUMMARY | 2025-05-25 14:00 | XMS_ITS | Encounter Summary ---
Author Organization [employer] Address [address] [facility] 7t [place] [address] Care Team Providers Care Desk Operator Name Role Phone Kaitlynn Marina MD Primary Care Provider [phone] Encounter Details Date Type Department Care Team ([facility] st Contact Info) Description 05/25/2025 2:00 PM EDT Office Visit [facility] [address] [place] [address] Kaitlynn Marina MD [address] [place] [address] Granuloma, skin (Primary Dx) Social History Tobacco Use Types Packs/Day Years Used Date Smoking Tobacco: Every Day Cigarettes 1 49.8 Started: 07/27/1975 Passive Smoke Exposure: Current Smokeless Tobacco: Never Depression Answer Date Recorded Patient Health Questionnaire-9 Score 5 08/31/2024 Patient Health Questionnaire-9 Score 5 08/31/2024 Last PHQ-9: Questionnaire Data Not on file 0 08/31/2024 Housing Stability Answer Date Recorded What is your housing situation today? I have mario kennedy 08/31/[address] you li ve. Do you have problems with any of the following? None of the above 08/31/2024 Food Insecurity Answer Date Recorded Within the past 12 months, y ou worried that your food would run out before you got money to buy more: Never True 08/31/2024 Within the past 12 months,th e food you bought just didn't last and you didn't have enough money to get more: Never True 11/2024 Transportation Answer Date Recorded In the past 12 months, has l ack of transportation kept you from medical appts, meetings, work or from getting things needed for daily living? No 08/31/2024 Utilities Answer Date Recorded In the past 12 months, has t he electric, gas, oil or water company threatened to shut off services in your home? No 08/31/2024 Depression Answer Date Recorded Patient Health Questionnaire-2 Score 1 08/31/2024 Internet Access Answer Date Recorded Internet Access Q1 Yes 08/31/2024 Internet Access Q2 Not on file 08/31/2024 Comments No Sex and Gender Information Value Date Recorded Sex Assigned at Female 05/26/2022 10:21 AM EDT Legal Sex Female 10:21 AM EDT Gender Identity Female 05/26/2022 10:21 AM EDT Sexual Orientation Straight 05/26/2022 10 :21 AM EDT documented as of this encounter Last Filed Vital Signs Vital Sign Reading Time Taken Comments Blood Pressure 152/80 05/25/2025 2:24 PM EDT Pulse 88 05/25/2025 2:24 PM EDT Temperature 36.9 C (98.5 F) 05/25/2025 2:24 PM EDT Respiratory Rate 20 05/25/2025 2:24 PM EDT Oxygen Saturation - - Inhaled Oxygen Concentration - - Weight 95.7 kg (211 lb) 05/25/2025 2:24 PM EDT Height - - Body Mass Index 33.05 08/31/2024 10:33 AM EST documented in this encounter Progress Notes * Kaitlynn Marina MD - 05/25/2025 2:00 PM EDT Subjective Patient ID: Belle Garcia is a 65 y.o. female who presents for left earlobe swelling. HPI Belle Garcia, 65 years Earring-Related Ear Swelling Swelling at the ear began approximately one and a half weeks ago. Noted difficulty with removal of an earring, with the back of the earring covered by tissue and possible skin overgrowth. Reports redness and sensation of the earring post moving when twisted. Denies use of antibiotic ointment. Consulted a nurse in [place] earlier today regarding the issue. No prior attempts at removal from the back due to concern about trapping the earring. Review of Systems Constitutional: Negative for fever. HENT: Negative for ear discharge and ear pain. Psychiatric/Behavioral: The patient is nervous/anxious. Objective Vitals: 05/25/25 1424 BP: (!) 152/80 BP Location: Left arm Patient Position: Sitting BP Cuff Size: Adult Pulse: 88 Resp: 20 Temp: 98.5 ??F (36.9 ??C) TempSrc: Oral Weight: 211 lb (95.7 kg) Physical Exam Constitutional: General: She is not in acute distress. Appearance: She is obese. HENT: Head: Normocephalic. Right Ear: Tympanic membrane normal. Left Ear: Tympanic membrane normal. Ears: Comments: Swelling left earlobe, earring stud stuck back of ear lobe Assessment/Plan Diagnoses and all orders for this visit: Granuloma, skin Comments: Affecting left earlobe. Stud of earing was able to removed w/o complication today.No antibiotic therapy needed.F/U with me as scheduled. Future Appointments Date Time Provider Department Center 06/20/2025 9:00 AM Kaitlynn Marina MD [facility] This note was drafted using Ambient (AI) technology. The patient/patient's guardian has been informed and has consented to the use of this technology: Yes documented in this encounter Plan of Treatment Upcoming Encounters Date Type Department Care Team (Late st Contact Info) Description 06/20/2025 9:00 AM EST Office Visit [facility] [address] [place] [address] Kaitlynn Marina MD [address] [place] [address] documented as of this encounter Visit Diagnoses Diagnosis Granuloma, skin- Primary Pyogenic granuloma of skin and subcutaneous tissue documented in this encounter Additional Health Concerns Assessment Noted Time PHQ-9 Depression Total Score: 5 08/31/19 25 10:36 AM EST documented as of this encounter Care Teams Desk Operator Relationship Specialty Start Date End Date Kaitlynn Marina MD [address] [place] [address] PCP - General Family Medicine 06/18/15 documented as of this encounter
[2025-05-25 17:46] LABS: Appearance Urine Clear; Glucose Urine UA Negative (Negative); PH 6.0 (5.0-9.0); Specific Gravity - Urine 1.010 (1.005-1.025); UMIC TRIGGER UACC YES
[2025-05-25 17:51] LABS: UACC Culture Trigger YES
--- OUTSIDE RECORDS SUMMARY | 2025-05-25 17:57 | XMS_ITS | Encounter Summary ---
Author Organization [employer] Address [address] [facility] 7t [place] [address] Care Team Providers Care Rehabilitation Specialist Name Role Phone Kaitlynn Marina MD Primary Care Provider [phone] Encounter Details Date Type Department Care Team (Late st Contact Info) Description 05/22/2025 Orders Only [facility] [address] [place] [address] Kaitlynn Marina MD [address] [place] [address] Type 2 diabetes mellitus without complication, without long-term current use of insulin (HCC) (Primary Dx) Social History Tobacco Use Types [...] AM EDT documented as of this encounter Plan of Treatment Upcoming Encounters Date Type Department Care Team ([facility] st Contact Info) Description 06/20/2025 9:00 AM EST Office Visit [facility] [address] [place] [address] Kaitlynn Marina MD [address] [place] [address] documented as of this encounter Visit Diagnoses Diagnosis Type 2 diabetes mellitus without complication, without long-term current use of insulin (HCC)- Primary documented in this encounter Additional Health Concerns Assessment Noted Time PHQ-9 Depression Total Score: 5 08/31/19 25 10:36 AM EST documented as of this encounter Care Teams Rehabilitation Specialist Relationship Specialty Start Date End Date Kaitlynn Marina MD [address] [place] [address] PCP - General Family Medicine 06/18/15 documented as of this encounter
--- OUTSIDE RECORDS SUMMARY | 2025-05-25 17:57 | XMS_ITS | Encounter Summary ---
Author Organization [employer] Address [address] [place] [address] [address]t [place] [address] Care Team Providers Care Instrument Repairer Steam Plant Name Role Phone Kaitlynn Marina MD Primary Care Provider [phone] Reason for Visit * Reason Comments Med Refill Encounter Details Date Type Department Care Team ([facility] Contact Info) Description 02/02/2023 Refill [facility] [address] [place], [place] [phone] Kaitlynn Marina MD [address] [place] [address] Social History Tobacco Use Types Packs/Day Years Used Date Smoking Tobacco: Never Passive Smoke Exposure: Never Smokeless Tobacco: Never Depression Answer Date Recorded Patient Health Questionnaire-9 Score 10 10/28/2022 Depression Answer Date Recorded Patient Health Questionnaire-2 Score 6 10/28/2022 Comments Unknown Sex and Gender Information Value Date Recorded Sex Assigned at Female 05/26/2022 10:21 AM EDT Legal Sex Female 10:21 AM EDT Gender Identity Female 05/26/2022 10:21 AM EDT Sexual Orientation Straight 05/26/2022 10 :21 AM EDT COVID-19 Exposure Response Date Recorded In the last 10 days, have yo u been in contact with someone who was confirmed or suspected to have Coronavirus/COVID-19? No / Unsure 01/29/2023 11:19 AM EDT documented as of this encounter Plan of Treatment Upcoming Encounters Date Type Department Care Team ([facility] Contact Info) Description 06/20/2025 9:00 AM EST Office Visit [facility] [address] [place] [address] Kaitlynn Marina MD [address] [place] [address] documented as of this encounter Visit Diagnoses Not on filedocumented in this encounter Additional Health Concerns Assessment Noted Time PHQ-9 Depression Total Score: 10 023 9:01 AM EDT documented as of this encounter Care Teams Instrument Repairer Steam Plant Relationship Specialty Start Date End Date Kaitlynn Marina MD [address] [place] [address] PCP - General Family Medicine 06/18/15 documented as of this encounter
--- OUTSIDE RECORDS SUMMARY | 2025-05-25 17:57 | XMS_ITS | Encounter Summary ---
Author Organization [employer] Address [address] [place] [address] [address] [place] [address] Care Team Providers Care Broth Setter Name Role Phone Kaitlynn Marina MD Primary Care Provider [phone] Encounter Details Date Type Department Care Team (Late Contact Info) Description 02/05/2023 Orders Only [facility] [address] [place] [address] Kaitlynn Marina MD [address] [place] [address] Social History Tobacco Use Types Packs/Day Years [...] Encounters Date Type Department Care Team (Late Contact Info) Description 06/20/2025 9:00 AM EST Office Visit [facility] [address] [place] [address] Kaitlynn Marina MD [address] [place] [address] documented as of this encounter Visit Diagnoses Not on filedocumented in this encounter Additional Health Concerns Assessment Noted Time PHQ-9 Depression Total Score: 10 023 9:01 AM EDT documented as of this encounter Care Teams Broth Setter Relationship Specialty Start Date End Date Kaitlynn Marina MD [address] [place] [address] PCP - General Family Medicine 06/18/15 documented as of this encounter
--- OUTSIDE RECORDS SUMMARY | 2025-05-25 17:57 | XMS_ITS | Encounter Summary ---
Author Organization [employer] Address [address] [facility] 7t [place] [address] Care Team Providers Care Building Code Inspector Name Role Phone Kaitlynn Marina MD Primary Care Provider Encounter Details Date Type Department Care Team ([facility] st Contact Info) Description 05/18/2025 Orders Only [facility] MED & PEDS [address] [place] [address] Kaitlynn Marina MD [address] [place] [address] Social History Tobacco Use Types Packs/Day Years [...] Upcoming Encounters Date Type Department Care Team ([facility] Contact Info) Description 06/20/2025 9:00 AM EST Office Visit [facility] MED & PEDS [address] [place] [address] Kaitlynn Marina MD [address] [place] [address] documented as of this encounter Procedures Procedure Name Priority Date/Time Associated Diagnosis Comments BI MAMMOGRAM SCREENING TOMOSYNTHESIS BILATERAL Routine 05/18/2025 8:46 AM EDT documented in this encounter Results * BI Mammogram Screening Tomosynthesis Bilateral (05/18/2025 8:46 AM EDT) Anatomical Region Laterality Modality Breast Bilateral Mammography 05/18/2025 8:46 AM EDT Narrative 05/21/2025 5:21 PM EDT [facility] [address] [place] [address] Mammography Report Signed Patient: Belle Garcia MR#: [id number] : 1960 Acct:[id number] Age/Sex: 65 / F ADM Date: 05/18/25 Loc: HO.MAMMO Attending Dr: Kaitlynn Marina MD Ordering Physician: Kaitlynn Marina MD Results: 1Ne gative Date of Service: 05/18/25 Follow Up: 1 Year From [facility] Mammogram Procedure(s): MM tomosynthesis screening BI Accession Number(s): [id number] cc: Kaitlynn Marina MD Reason For Exam: SCREENING EXAMINATION: MM SCREENING DIGITAL BREAST TOMOSYNTHESIS, BILATERAL CLINICAL INFORMATION: Screening. Asymptomatic. COMPARISON: Comparison made to multiple prior, most recent December 31, 2021, and most remote May 01, 2017. TECHNIQUE: Digital breast tomosynthesis is performed in mediolateral oblique and craniocaudal views along with computer-aided detection (CAD). Synthesized 2D images are generated from the tomosynthesis. FINDINGS: BREAST COMPOSITION: There are scattered areas of fibroglandular density. BILATERAL BREASTS: No significant masses, suspicious calcifications or other abnormalities are seen in either breast. MM/MM tomosynthesis screening BI IMPRESSION: BILATERAL BREASTS: Negative, no mammographic evidence of malignancy. Normal interval follow-up is recommended in 12 months. ASSESSMENT: BI-RADS: Category 1: Negative RECOMMENDATION: Routine annual mammography screening. FOLLOW-UP: 1 year F/U This examination should not preclude the clinical evaluation of a suspicious palpable abnormality. This patient's information was entered into a reminder system with a target due date for their next mammogram. Electronically signed by: Harleen Beckford MD 05/21/2025 05:18 PM EDT Dictated By: Harleen Beckford MD Signed By: <Electronically signed by Harleen Beckford MD in OV> 05/21/25 1718 DD/ 0846 TD/TT: 05/18/25 0900 Speeder Worker: Procedure Note Donotuseinterpreter, Image - [facility]/21/[facility] [address] [place] [address] Mammography Report Signed Patient: Belle Garcia#: [id number] : 1960Acct:[id number] Age/Sex: 65 / FADM Date: 05/18/25 Loc: MAMMO Attending Dr: Kaitlynn Marina MD Ordering Physician: Kaitlynn Marina MDResults: 1Ne gative Date of Service: 05/18/25Follow Up: 1 Year From Orig ina Mammogram Procedure(s): MM tomosynthesis screening BI Accession Number(s): [id number] cc: Kaitlynn Marina MD Reason For Exam: SCREENING EXAMINATION: MM SCREENING DIGITAL BREAST TOMOSYNTHESIS, BILATERAL CLINICAL INFORMATION: Screening. Asymptomatic. COMPARISON: Comparison made to multiple prior, most recent December 31, 2021, and most remote May 01, 2017. TECHNIQUE: Digital breast tomosynthesis is performed in mediolateral oblique and craniocaudal views along with computer-aided detection (CAD). Synthesized 2D images are generated from the tomosynthesis. FINDINGS: BREAST COMPOSITION: There are scattered areas of fibroglandular density. BILATERAL BREASTS: No significant masses, suspicious calcifications or other abnormalities are seen in either breast. MM/MM tomosynthesis screening BI IMPRESSION: BILATERAL BREASTS: Negative, no mammographic evidence of malignancy. Normal interval follow-up is recommended in 12 months. ASSESSMENT: BI-RADS: Category 1: Negative RECOMMENDATION: Routine annual mammography screening. FOLLOW-UP: 1 year F/U This examination should not preclude the clinical evaluation of a suspicious palpable abnormality. This patient's information was entered into a reminder system with a target due date for their next mammogram. Electronically signed by: Harleen Beckford MD 05/21/2025 05:18 PM EDT Dictated By: Harleen Beckford MD Signed By: <Electronically signed by Harleen Beckford MD in OV> 05/21/25 1718 DD/ 0846 TD/TT: 05/18/25 0900 Speeder Worker: us Kaitlynn Marina MD IMG BI PROCEDURES Edited Resu lt - Final documented in this encounter Visit Diagnoses Not on filedocumented in this encounter Additional Health Concerns Assessment Noted Time PHQ-9 Depression Total Score: 5 08/31/19 25 10:36 AM EST documented as of this encounter Care Teams Building Code Inspector Relationship Specialty Start Date End Date Kaitlynn Marina MD [address] [place] [address] PCP - General Family Medicine 06/18/15 documented as of this encounter
--- OUTSIDE RECORDS SUMMARY | 2025-05-25 17:57 | XMS_ITS | Encounter Summary ---
Author Organization [employer] Address [address] [facility] 7t [place] [address] Care Team Providers Care Environmental Law Professor Name Role Phone Kaitlynn Marina MD Primary Care Provider [phone] Encounter Details Date Type Department Care Team ([facility] st Contact Info) Description 05/25/2025 Orders Only [facility] MED & PEDS [address] [place] [address] Kaitlynn Marina MD [address] [place] [address] Social History Tobacco Use Types Packs/Day Years [...] Upcoming Encounters Date Type Department Care Team ([facility] st Contact Info) Description 06/20/2025 9:00 AM EST Office Visit [facility] MED & PEDS [address] [place] [address] Kaitlynn Marina MD [address] [place], [place] [phone] documented as of this encounter Procedures Procedure Name Priority Date/Time Associated Diagnosis Comments URINALYSIS, COMPLETE, WITH REFLEX TO CULTURE Routine 05/25/2025 3:10 PM EDT documented in this encounter Results * (ABNORMAL) Urinalysis, Complete, with Reflex to Culture (05/25/2025 3:10 PM EDT) Color Urine Yellow [facility] Appearance Urine Clear [facility] PH 6.0 5.0 - 9.0 [facility] Glucose Urine UA Negative Negative mg/dL [facility] Urine Blood Negative Negative [facility] Specific [place] - Urine 1.010 1.005 - 1.025 [facility] Urine Protein Negative Neg-Trace mg/dL [facility] Urine Ketones Negative Negative mg/dL [facility] Nitrite Urine Negative Negative [facility] Leukocyte Esterase Urine Large (3+)(A) Negative [facility] RBC Urine 0-2 0 - 2 /HPF [facility] Urine WBC 21-50(A) 0 - 5 /HPF [facility] Urine Squamous Epithelial Cell 3-5 0 - 2 /HPF [facility] Urine Bacteria 4+ None Seen [facility] Hyaline Casts, Urine 0-2 0 - 2 /LPF [facility] 05/25/2025 3:10 PM EDT 05/25/2025 5:25 PM EDT Narrative [facility] - 05/25/2025 5:53 PM EDT [id number], Clean Catch us Kaitlynn Marina MD LAB URINE ORDERABLES Final Re sult [facility] [address] [place] [address] [phone] documented in this encounter Visit Diagnoses Not on filedocumented in this encounter Additional Health Concerns Assessment Noted Time PHQ-9 Depression Total Score: 5 08/31/19 25 10:36 AM EST documented as of this encounter Care Teams Environmental Law Professor Relationship Specialty Start Date End Date Kaitlynn Marina MD [address] [place] [address] PCP - General Family Medicine 06/18/15 documented as of this encounter
--- OUTSIDE RECORDS SUMMARY | 2025-05-25 17:57 | XMS_ITS | Encounter Summary ---
Author Organization [employer] Address [address] [facility] 7 [place] [address] Care Team Providers Care Systems Protection Technician Name Role Phone Kaitlynn Marina MD Primary Care Provider [phone] Reason for Visit * Reason Onset Date Comments Nurse Triage 05/25/2025 Encounter Details Date Type Department Care Team ([facility] st Contact Info) Description 05/25/2025 Telephone C [facility] MED [facility] PEDS [address] [place] [address] Kaitlynn Marina MD [address] [place] [address] Nurse Triage Social History Tobacco Use Types Packs/Day Years [...] AM EDT documented as of this encounter Miscellaneous Notes * Telephone Encounter - Dali Montemayor RN - 05/25/2025 10:04 AM EDT T/C returned to pt to triage. Pt reports that she has had her ears pierced for many years. She has had the same pair of stud earrings in for a few months but noticed today that her left earlobe is swollen and red. It is sore but not painful per pt. Pt reports earring is still in her ear. She tried to get it out but isn't able to get a good model engine mechanic on the wen of the earring. She denies it being healed over and states that she can see the back of the earring in the mirror. Pt denies any drainage orcrust and denies fever. Pt states can only come to [facility] and wants to see PCP if possible. Discussed with Charlene [facility] RN, who states okay to use PCP appt block for this afternoon. Booked pt for 2PM withPCP. We discussed that if PCP is unable to get the back of the earring off she may need to go to the ED or UC. Pt aware and agrees with plan. Protocol Used: Ear Piercing Symptoms and Questions (Adult) Protocol-Based Disposition: Go to Office or Video Visit Now Video visit offer not recorded Positive Triage Question: * Ear pain and entire lower ear is red or swollen * All higher-acuity triage questions were negative * Telephone Encounter - Linda Salazar - 05/25/2025 9:09 AM EDT Tc from pt stating she feels she has an infection in ear piercing . She can got get the earring off Contact pt at [phone] documented in this encounter Plan of Treatment Upcoming Encounters Date Type Department Care Team (Late st Contact Info) Description 06/20/2025 9:00 AM EST Office Visit [facility] MED & PEDS [address] [place] [address] Kaitlynn Marina MD [address] [place] [address] documented as of this encounter Visit Diagnoses Not on filedocumented in this encounter Additional Health Concerns Assessment Noted Time PHQ-9 Depression Total Score: 5 08/31/19 25 10:36 AM EST documented as of this encounter Care Teams Systems Protection Technician Relationship Specialty Start Date End Date Kaitlynn Marina MD [address] [place] [address] PCP - General Family Medicine 06/18/15 documented as of this encounter
--- OUTSIDE RECORDS SUMMARY | 2025-05-25 17:57 | XMS_ITS | Data Portability ---
Author Organization [employer] [facility], [facility] Address [address] [place] [phone] Care Team Providers Care Field Marketing Specialist Name Role Phone LORNA PIERSON Primary Care Provider HIM IRENE OTHER Assessment Encounter Date Assessment Date Assessment LastModified by Organization Details LastModified Time 04/10/2023 04/10/2023 As noted, we were called to see this patient regarding concerns of urinary frequency. Evaluation in the field was performed by my digital librarian colleague, as noted above, I provided real-time direction and supervision for this visit. The evaluation revealed last UTI was in november. has sulfa allergy. exam and vitals reassuring. Dip positive. Impression: uti Plan: augmentin, [facility] Disposition: We discussed the diagnostic uncertainty of [...] Assessment and Plan as documented by the Can Stacker. I provided real-time medical direction via phone [...] None recorded. Lab culture, urine 2023 024 [place] (Centralized Electronic Ordering - All Locations), Patient Can Go To The Location Of Their Choice, [id number] 4 10:05:20 urinalysis, dipstick 2023 024 [facility], [address] [place] [address], [phone] 20:47:17 culture, urine 2022 023 [place] [facility] (Centralized Electronic Ordering - All Locations), Patient Can Go To The Location Of Their Choice, 15:04:45 urinalysis, dipstick 2022 023 [facility], [address] [place] [address], [phone] 3 09:05:17 Referral None recorded. Procedures None recorded. Surgeries None recorded. Imaging None recorded. Medication Orders cefpodoxime 100 mg tablet 2023 024 [id number], [address] [place] [address], [address], 17:08:21 amoxicillin 875 mg-potassiu m clavulanate 125 mg tablet 2022 023 [facility], [address] [place], [place], [id number], 13:09:35 Patient TargetsNo targets recorded. Patient InstructionsNo instructions recorded. Reason for Referral None Reported. Results Created Date Observation Date Name Description Value Unit Range Abnormal Flag Note LastModifiedBy Organization Detail LastModifiedTime 04/10/2004/10/2023 URINE CULTU RE specimen description URINE Not Available [facility] (Centralized Electronic Ordering - All Locations) Patient Can Go To The Location Of Their Choice, [id number] 04/13/2023 15:04:45 04/10/2004/10/2023 URINE CULTU RE special [...] rehensive Final report abnormal Not Available [facility] ([facility]) [address], [place], [address], 07/24/2024 10:05:20 07/22/2007/24/2024 URINE CULTU RE,CO MPREH [...] Prote us mirab ilis. Not Available [facility] ([facility]) [address] [facility], [place], [address], 07/24/2024 10:05:20 07/22/20 24 07/24/2024 URINE CULTU [...] thopr im/Gee lfa S Not Available [facility] ([facility]) [address] [facility], [place], [address], 07/24/2024 10:05:20 Result Notes None recorded. Medical Equipment None Reported. Allergies Allergen ID Allergen Name Allergen Category Reaction Reaction Severity Criticality Documentation Date Start Date Code Code System Note Provider Name and Address Organization Details Recorded Time 80258 iodine medicatio n Not available Not available Not available 07/22/2024 5933 RxNorm Not Available [facility] - production 10:52:51 03906 nitrofura ntoin medicatio n Not available Not available Not available 07/22/2024 7454 RxNorm Not Available [facility] - production 4 10:52:51 73851 Bactrim medicatio n Not available Not available Not available 07/22/2024 05464 9 RxNorm Not Available [facility] - production 4 10:52:51 3298 Substance with sulfonami de structure and antibacte rial mechanism of action (substanc e) medicatio n rash mild Not available 04/10/2023 69441 8003 ROBERT ZELAYA MD [address], [place], [phone], [employer] 3 11:56:15 3299 Iodinated contrast media (substanc e) medicatio n dyspnea moderate Not available 04/10/2023 57457 2004 ROBERT ZELAYA MD [address] [facility],[address], [place], [phone], [employer] 3 11:56:37 Medications Name Sig Start Date Stop Date Status Note LastModified by Organization Details LastModified Time pulse oximet airial gy9327 USE DIRECTED active Not Available Not Available [...] Not Available No t Available Artificial Tears (ct092-hmpgm clover-glyceri n) 1 %-0.2 %-0.2 % eye [...] % 60 /min 158/62 mm[Hg] Not Available [facility] 4 17:23:11 Date Recorded Oxygen saturation Oxygen saturation in Arterial blood by Pulse oximetry Heart rate Body height Body weight Respiratory rate Body temperature Systolic And Diastolic Provider Name and Address Organization Details Last Updated DateTime 3 94 % 94 % 81 /min 172.72 cm 24332.0 32 g 18 /min 97.8 [degF] 146/86 mm[Hg] Not Available [facility] 3 11:54:28 Date Recorded Heart rate Oxygen saturation Oxygen saturation in Arterial blood by Pulse oximetry Body temperature Respiratory rate Body weight Body height Systolic And Diastolic Provider Name and Address Organization Details Last Updated DateTime 4 80 /min 95 % 95 % 98.5 [degF] 18 /min 59881.9 52 g 170.18 cm 125/85 mm[Hg] Not Available [facility] 4 17:01:59 Social History None recorded. Functional Status None recorded. Mental Status None recorded. Family History Nothing Reported. Medical History No medical history recorded. Gynecological HistoryNo gynecological history recorded. Obstetrics History GPAL:G 0 P 0 0 0 0 Past Encounters Encounter ID Performer Location Encounter Start Date Encounter Closed Date Diagnosis/Indication Diagnosis SNOMED-CT Code Diagnosis ICD10 Code Diagnosis IMO Codes Diagnosis Note [id number] ELIDA ZELAYA MD [facility] [address] [place] [phone] 04/10/2023 11:54:22 04/13/2023 11:37:58 Urinary symptoms 658596382 R39.9 [id number] Abdi Rueda MD [facility] [address] [place] [phone] 12/15/2023 17:23:06 12/25/2023 10:43:58 Sinusitis [id number] J32.9 [id number] SUSAN GOMEZ MD Main - [facility] [address] [place] [phone] 07/22/2024 16:47:34 07/26/2024 19:48:03 Urinary symptoms [id number] R39.9 Evaluation in the field was performed by my digital librarian colleague, as noted above, I provided real-time [...] patient [facility] that [facility], with similar symptoms.P [...] and nitrates but no blood or ketones.Al waynegies reviewed. Impression :Cystitis Plan:-Pt with no signs [...] Rosario Member ID Guarantor Name 07/31/2024 1 [facility] - DOS ON OR AFTER 2022 - DUAL ELIGIBLE - FPC OPTIONS AND ONE CARE (MEDICARE REPLACEMENT/ADV ANTAGE - HMO) Belle Garcia [id number] Belle Garcia Notes Date Note Type Note [...] .................... .................... .................... .................... .................... .................... . Can Stacker Note From Crys Uribe: Sent to a [...] obtained: yellow, clear, concentrated; Urine dip: positive; [facility] [place] and orders urine culture to be sent to [facility]. [facility] [place] script to pt's pharmacy. Red flags discussed. Pt has no further questions. [facility] Lab Orders: culture, urine: Performed urinalysis, dipstick: Performed .................... .................... .................... .................... .................... .................... .................... . Disposition: Fulfilled ELIDA ZELAYA MD [address] [facility],[address], [place], [phone], TATIANA CHRISTIAN 04/10/2023 12:36:42 12/15/2023 text/html HPI: Patient started with a sore throat last week and now with suspected sinus infection. Thick creamy to yellow mucous and very congested. Underlying COPD no exacerbation at present. .................... .................... .................... .................... .................... .................... .................... . [facility] Nurse Triage Notes (Cara Kruger): Comments: Reviewed HPI, no further info needed. HPafrancis RN .................... .................... .................... .................... .................... .................... .................... . Can Stacker Note From Micheal Willingham: Dispatched to the [...] .................... . Disposition: Fulfilled Abdi Rueda MD [address] [place] [address],[address], [place], [phone], [employer] 12/25/2023 10:26:13 07/22/2024 text/html ROS as noted in the HPI HPI: Patient with complaints of urinary concerns of dark cloudy urine . .................... .................... .................... .................... .................... .................... .................... . [facility] Nurse Triage Notes (Clotilde Soto - RN): Chief Complaints: Urinary symptoms PMH: COPD/Asthma, Diabetes Mellitus Type 2 Comments: Per requestor also has allergies too- Povidone ,zoster vaccine live Can Stacker Organization Information for Crys Uribe [employer] Business Legal Name: [employer]. Address: [address] [place] [id number], Faculty Administrator: Moody Jaffe MD [facility] No.: [id number] Can Stacker POC Test Results from Rony Crys - [facility] Urine Dipstick (17:02:07) Urine leukocytes: 70+ NIDHI Urine nitrites: + NIT Urine urobilinogen: 0.2 URO Urine protein: 15+/- PRO Urine pH: 5.0 pH Urine blood: - BLO Urine specific gravity: 1.015 SG Urine ketones: - KET Urine bilirubin: - TARA Urine glucose: - GLU .................... .................... .................... .................... .................... .................... .................... . Can Stacker Note From Crys Uribe: Sent to a [...] warm, dry; Urine dip results: uploaded to [employer]. [facility] [place] urine culture to be sent to [facility]. [facility] sends script to pt's pharmacy. Pt advised to increase oral hydration. Red flags discussed. Pt has no further questions. .................... .................... .................... .................... .................... .................... .................... . [facility] Consulted: Susan Gomez .................... .................... .................... .................... .................... .................... .................... . Disposition: Fulfilled SUSAN GOMEZ MD [address] [facility],[address] [facility], [place], [phone], [employer] - PlanexTATIANA COTO 07/22/2024 22:59:41 OBGyn Episode No OBEpisode recorded.
--- OUTSIDE RECORDS SUMMARY | 2025-05-25 17:57 | XMS_ITS | Encounter Summary ---
Author Organization [employer] Address [address] [facility] 7t [place] [address] Care Team Providers Care Wood Getter Name Role Phone Kaitlynn Marina MD Primary Care Provider [phone] Encounter Details Date Type Department Care Team (Latest Contact Info) Description 05/25/2025 Travel Social History Tobacco Use Types Packs/Day Years [...] Upcoming Encounters Date Type Department Care Team ([facility] st Contact Info) Description 06/20/2025 9:00 AM EST Office Visit [facility] MED & PEDS [address] [place] [address] Kaitlynn Marina MD [address] [place] [address] documented as of this encounter Visit Diagnoses Not on filedocumented in this encounter Additional Health Concerns Assessment Noted Time PHQ-9 Depression Total Score: 5 08/31/19 10:36 AM EST documented as of this encounter Care Teams Wood Getter Relationship Specialty Start Date End Date Kaitlynn Marina MD [address] [place] [address] PCP - General Family Medicine 06/18/15 documented as of this encounter
--- OUTSIDE RECORDS SUMMARY | 2025-05-25 17:58 | XMS_ITS | Clinical Summary ---
Author Organization [employer] Address [address] [facility] 7t [place] [address] Care Team Providers Care Tight Cooper Name Role Phone Kaitlynn Marina MD Primary Care Provider [phone] Allergies Active Allergy Reactions Criticality Noted Date Comments Iodinated Contrast Media Hives,Shortness of breath High Iodine Hives Nitrofurantoin 11/23/2020 Povidone Iodine 12/24/2023 Other Reaction(s): contrast dye- rash Sulfa Antibiotics Hives,Rash Low Zoster Vaccine Live 04/26/2018 Other reaction(s): localized redness/swelling and cellulitis Medications ARIPiprazole (Abilify) 10 MG tablet Take 1 tablet by mouth 1 (one) time each day. 12/31/19 23 Active buPROPion XL (Wellbutrin XL) 150 MG 24 hr tablet Take 1 tablet by mouth 1 (one) time each day. 12/31/19 23 Active LORazepam (Ativan) 1 MG tablet 1 tab four times a day x7, 1 mg three times a day x7, 1 mg twice a day x7, 0.5 mg twice a day x 7 days 01/06/20 23 Active methocarbamol (Robaxin) 750 MG tablet Take 1 tab orally prn pain 30 tablet 1 01/22/20 23 Active varenicline (Chantix) 0.5 MG tablet Take 1 tablet (0.5 mg) by mouth 2 times daily. Take with full glass of water. 60 tablet 2 02/06/20 23 Active Arthritis Pain Relief 650 MG ER tablet TAKE ONE TABLET EVERY 8 HOURS NEEDED 90 tablet 3 03/18/20 23 Active Alcohol Swabs (Alcohol Prep) 70 % pads USE TWO DAILY 100 each 3 03/25/20 23 Active nicotine (Nicoderm, Step 2) 14 MG/24HR patch APPLY 1 PATCH TOPICALLY EVERY DAY. REMOVE OLD PATCH BEFORE APPLYING NEW ONE. Active nicotine (Nicoderm, Step 3) 7 MG/24HR patch APPLY 1 PATCH TOPICALLY TO THE SKIN DAILY IN THE MORNING THEN REMOVE AT BEDTIME DIRECTED DO NOT SMOKE WHILE USING PATCH Active buPROPion XL (Wellbutrin XL) 150 MG 24 hr tablet Take 1 tablet by mouth in the morning. Active meloxicam (Mobic) 15 MG tablet TAKE ONE TABLET BY MOUTH DAILY WITH FOOD OR MILK 30 tablet 3 01/19/20 24 Active omega-3 (Fish Oil) 1000 MG capsule TAKE ONE CAPSULE TWICE DAILY 60 capsule 5 07/22/20 24 Active fluticasone furoate (Arnuity Ellipta) 200 MCG/ACT inhalerIndicati ons:Chronic obstructive pulmonary disease, unspecified COPD type (CMS/HCC) ([facility]) INHALE 1 PUFF EVERY MORNING. RINSE MOUTH AFTER USE 30 each 07/26/20 24 Active Multiple Vitamins-Minera ls (CertaVite Senior/Antioxid ant) tablet TAKE ONE TABLET BY MOUTH EVERY DAY 90 tablet 5 07/29/19 25 Active cholecalciferol (Vitamin D-3) 25 MCG tablet TAKE ONE TABLET BY MOUTH ONCE DAILY 90 tablet 5 10/22/19 25 Active atorvastatin (Lipitor) 20 MG tablet TAKE ONE TABLET DAILY 30 tablet 11 11/16/19 25 Active FREESTYLE LITE test stripIndication s:Type 2 diabetes mellitus without complication, without long-term current use of insulin ([facility]) USE TO TEST BLOOD SUGAR EVERY MORNING 100 strip 3 12/22/19 25 Active Ventolin HFA 108 (90 Base) MCG/ACT inhaler INHALE TWO PUFFS BY MOUTH EVERY 4 HOURS NEEDED FOR WHEEZING 18 g 3 01/27/20 25 Active metFORMIN XR (Glucophage-XR) 500 MG 24 hr tablet TAKE 1 TABLET DAILY WITH SUPPER 30 tablet 03/20/20 25 Active fluticasone (Flonase) 50 MCG/ACT nasal spray INHALE 1 - 2 SPRAYS IN EACH NOSTRIL ONCE DAILY 16 g 2 05/16/20 25 Active FreeStyle lancetsIndicati ons:Type 2 diabetes mellitus without complication, without long-term current use of insulin ([facility]) 1 each by Other route 2 times daily. 60 each 11 05/22/20 Active fluticasone (Flonase) 50 MCG/ACT nasal spray Administer 1-2 sprays into each nostril Once per day. 16 g 2 08/31/19 25 025 Discontinued Active Problems Problem Noted Date Diagnosed Date Polyp of ascending colon 02/15/2025 Chronic obstructive pulmonar y disease, unspecified COPD type ([facility]/HCC) 08/31/2024 History of hip replacement 04/07/2024 Polyneuropathy due to type 2 diabetes mellitus 0 12/24/2023 Class 1 obesity 12/24/2023 Dyslipidemia 11/22/2015 Type 2 diabetes mellitus 11/22/2015 Mental disorder 09/10/2012 Obesity 09/10/2012 Encounters Date Type Department Care Team Description 05/25/2025 2:00 PM EDT Office Visit [facility] [address] [place] [address] Kaitlynn Marina MD Granuloma, skin (Primary Dx) 05/25/2025 Orders Only [facility] [address] [place] [address] Kaitlynn Marina MD 05/25/2025 Travel 05/25/2025 Telephone [facility] [address] [place] [address] Kaitlynn Marina MD Nurse Triage 05/22/2025 Orders Only [facility] [address] [place] [address] Kaitlynn Marina MD Type 2 diabetes mellitus without complication, without long-term current use of insulin ([facility]) (Primary Dx) 05/18/2025 Orders Only [facility] [address] [place] [address] Kaitlynn Marina MD 05/17/2025 Telephone [facility] [address] [place] [address] Kaitlynn Marina MD Medication Question 05/15/2025 Refill [facility] [address] [place] [address] Kaitlynn Marina MD 04/20/2025 2:45 PM EDT Immunization [facility] [address] [place] [address] Leola Camarena RN Encounter for immunization 04/20/2025 Travel 04/18/2025 Telephone [facility] [address] [place], [place] [phone] Kaitlynn Marina MD Durable Medical Equipment 03/19/2025 Refill [facility] [address] [facility] [place] [phone] Kaitlynn Marina MD 02/27/2025 Results Follow-Up [facility] [address] [place] [address] Kaitlynn Marina MD POCT Glucose, POCT HGB A1C, Lipid Panel, Standard, Additional followed-up results: 6 from Last 3 Months Immunizations Immunization Administration Dates Next Due Influenza injectable quadriv alent IIV4 with preservative 05/24/2019,05/12/2018,08/17/2017 Influenza injectable quadriv alent preservative free 04/22/2023,05/08/2022,05/14/2020 Influenza, IIV3, injectable 05/08/2022,1 ,05/24/2019,05/12,08/17/2017 Influenza, seasonal, injecta ble, preservative free 04/20/2025,04/07/2024 Pneumococcal Polysaccharide PPSV23 05/11/2017 Tdap 02/09/2017 Zoster, Recombinant 04/19/2019,02/15/2019 Zoster, live 04/22/2018 Social History Tobacco Use Types Packs/Day Years Used Date Smoking Tobacco: Every Day Cigarettes 1 49.8 Started: 07/27/1975 Passive Smoke Exposure: Current Smokeless Tobacco: Never Tobacco Cessation:Ready to Q uit: Not Asked; Counseling Given: Not Answered Depression Answer Date Recorded Patient Health Questionnaire-9 [...] Orientation Straight 05/26/2022 10 :21 AM EDT Last Filed Vital Signs Vital Sign Reading Time Taken Comments Blood Pressure 152/80 05/25/2025 2:24 PM EDT Pulse 88 05/25/2025 2:24 PM EDT Temperature 36.9 C (98.5 F) 05/25/2025 2:24 PM EDT Respiratory Rate 20 05/25/2025 2:24 PM EDT Oxygen Saturation 96% 02/15/2025 9:26 AM EDT Inhaled Oxygen Concentration - - Weight 95.7 kg (211 lb) 05/25/2025 2:24 PM EDT Height 170.2 cm (5' 7 ) 08/31/2024 10:33 AM EST Body Mass Index 33.05 08/31/2024 10:33 AM EST Plan of Treatment Upcoming Encounters Date Type Department Care Team (Late st Contact Info) Description 06/20/2025 9:00 AM EST Office Visit [facility] [address] [place] [address] Kaitlynn Marina MD [address] [place] [address] Health Maintenance Due Date Last Done Comments CT Colonography 1960 FIT 1960 Sigmoidoscopy 1960 Eye Exam 1970 Hepatitis C Screening 1978 Lung Cancer Screening 2010 Pneumococcal Vaccine: 50+ Years (2 of 2 - PCV) 05/11/2018 05/11/2017 RSV Patients and Patients Aged 60 years or older (1 - Risk 60-74 years 1-dose series) 2020 Diabetes: Urine Protein Screening 06/09/2023 06/09/2022, 05/01/2021, 07/03/2020, Additional history exists FOBT 09/22/2024 09/22/2023 COVID-19 Vaccine ( season) 2025 10/22/2020 Diabetes: Hemoglobin A1C 08/18/2025 025, 04/07/2024, 12/24/2023, Additional history exists Alcohol/Substance Use Screening 08/31/2025 08/31/2024 Depression Screening 08/31/2025 08/31/2024, 08/31/19 Diabetes: Foot Exam 08/31/2025 08/31/2024, 08/31/2024, 08/31/2024, Additional history exists SDOH Screening 08/31/2025 08/31/2024 Colonoscopy 11/08/2025 11/10/2024 Colorectal Cancer Screening 11/08/2025 Lipid Panel 02/17/2026 02/17/2025, 05/27, 05/01/2021, Additional history exists Tobacco Screening 05/25/2026 05/25/2025 FIT DNA/Cologuard 09/22/2026 09/22/2023 Cervical Cancer Screening 11/25/2026 HPV/Cotest 11/25/2026 11/25/2021 Pap Smear 11/25/2026 11/25/2021 DTaP/Tdap/Td Vaccines (2 - Td or Tdap) 02/09/2027 02/09/2017 Mammogram 05/18/2027 05/18/2025, 06/0 01/2022, 12/31/2021, Additional history exists Zoster Vaccines Completed 04/19/2019, 01/25, 04/22/2018 Influenza Vaccine Completed 04/20/2025, , 04/07/2024, Additional history exists HIB Vaccines Aged Out No longer eligi ble based on patient's age to complete this topic HPV Vaccines Aged Out No longer eligi ble based on patient's age to complete this topic Hepatitis A Vaccines Aged Out No long er eligible based on patient's age to complete this topic Hepatitis B Vaccines Aged Out No long er eligible based on patient's age to complete this topic IPV Vaccines Aged Out No longer eligi ble based on patient's age to complete this topic Meningococcal B Vaccine Aged Out No l onger eligible based on patient's age to complete this topic Meningococcal Vaccine Aged Out No deborah arlet eligible based on patient's age to complete this topic RSV under 20 months Aged Out No longe r eligible based on patient's age to complete this topic Rotavirus Vaccines Aged Out No longer eligible based on patient's age to complete this topic Procedures Procedure Name Priority Date/Time Associated Diagnosis Comments URINALYSIS, COMPLETE, WITH REFLEX TO CULTURE Routine 05/25/2025 3:10 PM EDT BI MAMMOGRAM SCREENING TOMOSYNTHESIS BILATERAL Routine 05/18/2025 8:46 AM EDT LIPID PANEL, STANDARD Routine 02/17/2025 8:50 AM EDT Type 2 diabetes mellitus without complication, without long-term current use of insulin ([facility]) Dyslipidemia POCT GLYCATED HEMOGLOBIN, TOTAL Routine 02/15/2025 9:38 AM EDT Type 2 diabetes mellitus without complication, without long-term current use of insulin ([facility]) HM COLONOSCOPY Routine 11/10/2024 LAB COLOGUARD COLON CANCER SCREEN Routine 09/22/2023 11:35 AM EST Colon cancer screening ALBUMIN, RANDOM URINE W/CREATININE Routine 06/09/2022 8:32 AM EST HM PAP/HPV Routine 11/25/2021 from Last 3 Months or Most Recently Relevant to Health Maintenance Results * (ABNORMAL) Urinalysis, Complete, with Reflex to Culture (05/25/2025 3:10 PM EDT) Color Urine Yellow [facility] Appearance Urine Clear [facility] PH 6.0 5.0 - 9.0 [facility] Glucose Urine UA Negative Negative mg/dL [facility] Urine Blood Negative Negative [facility] Specific [place] - Urine 1.010 1.005 - 1.025 [facility] Urine Protein Negative Neg-Trace mg/dL [facility] Urine Ketones Negative Negative mg/dL [facility] Nitrite Urine Negative Negative [facility] Leukocyte Esterase Urine Large (3+)(A) Negative [facility] RBC Urine 0-2 0 - 2 /HPF [facility] Urine WBC 21-50(A) 0 - 5 /HPF [facility] Urine Squamous Epithelial Cell 3-5 0 - 2 /HPF [facility] Urine Bacteria 4+ None Seen [facility] Hyaline Casts, Urine 0-2 0 - 2 /LPF [facility] 05/25/2025 3:10 PM EDT 05/25/2025 5:25 PM EDT Narrative [facility] - 05/25/2025 5:53 PM EDT [id number], Clean Catch us Kaitlynn Marina MD LAB URINE ORDERABLES Final Re sult [facility] [address] [place] [phone] * BI Mammogram Screening Tomosynthesis Bilateral (05/18/2025 8:46 AM EDT) Anatomical Region Laterality Modality Breast Bilateral Mammography 05/18/2025 8:46 AM EDT Narrative 05/21/2025 5:21 PM EDT [facility] [address] [place] [address] Mammography Report Signed Patient: Belle Garcia MR#: [id number] : 1960 Acct:[id number] Age/Sex: 65 / F ADM Date: 05/18/25 Loc: HO.MAMMO Attending Dr: Kaitlynn Marina MD Ordering Physician: Kaitlynn Marina MD Results: 1Ne gative Date of Service: 05/18/25 Follow Up: 1 Year From [facility] ina Mammogram Procedure(s): MM tomosynthesis screening BI Accession Number(s): [id number] cc: Kaitlynn Marina MD Reason For Exam: [...] 05/21/25 1718 DD/ 0846 TD/TT: 05/18/25 0900 Photography Professor: Procedure Note Donotuseinterpreter, Image - 05/21/2025 [facility] [address] [place] [address] Mammography Report Signed Patient: Belle GarciaMR#: [id number] : 1960Acct:[id number] Age/Sex: 65 / FADM Date: 05/18/25 Loc: HO.MAMMO Attending Dr: Kaitlynn Marina MD Ordering Physician: Kaitlynn Marina MDResults: 1Ne gative Date of Service: 05/18/25Follow Up: 1 Year From Orig inal Mammogram Procedure(s): MM tomosynthesis screening BI Accession Number(s): [id number] cc: Kaitlynn Marina MD Reason For Exam: [...] 05/21/25 1718 DD/ 0846 TD/TT: 05/18/25 0900 Photography Professor: Kaitlynn Marina MD IMG BI PROCEDURES Edited Resu lt - Final * Lipid Panel, Standard (02/17/2025 8:50 AM EDT) Triglycerides 145 <150 mg/dL [facility] Comment:Desirable Triglyceri de: less than 150 mg/dLBorderline High Triglyceride 150-199 mg/dLHigh Triglyceride: 200-499 mg/dLVery High Triglyceride: greater than or equal to 5OO mg/dL Cholesterol 156 <200 mg/dL [facility] Comment:Desirable Cholestero l: less than 200 mg/dLBorderline High Cholesterol: 200-239 mg/dLHigh Cholesterol: greater than 239 mg/dL LDL Cholesterol Calculated 73 <100 mg/dL [facility] Comment:Desirable LDL: less than 100 mg/dLNear Optimal/Above Optimal LDL: 110- 129 mg/dLBorderline High LDL: 130-159 mg/dLHigh LDL: 160-189 mg/dLVery High LDL: greater than or equal to 190 mg/dL HDL Cholesterol 54 >40 mg/dL [facility] Comment:Desirable HDL: great er than 40 mg/dL Note: This HDL assay may give artificially low results in patients with liver disease. Blood Venous blood specimen / Unknown 02/17/2025 8:50 AM EDT 02/17/2025 1:50 PM EDT us Kaitlynn Marina MD LAB BLOOD ORDERABLES Final Re sult [facility] [address] [place], [place] [phone] * (ABNORMAL) POCT HGB A1C (02/15/2025 9:38 AM EDT) Hemoglobin A1C 6.5(A) 4.0 - 5.7 % QC Media Lot # [id number] Lot# Expiration Date Blood 02/15/2025 9:38 AM EDT us Kaitlynn Marina MD POINT OF CARE TEST ENTER/EDIT ORDERABLES Final Result * (ABNORMAL) Hm Colonoscopy (11/10/2024) Colonoscopy Abnormal(A ) Normal us Kaitlynn Marina MD HEALTH MAINTENANCE Final Resu lt * (ABNORMAL) Cologuard?? colon cancer screening (09/22/2023 11:35 AM EST) Cologuard Result Positive( A) Negative 09/30/2023 1:02 PM EST [facility] (CLIA #:[id number]) Comment: POSITIVE TEST RESULT. A positive Cologuard result should be followed with a colonoscopy or visual examination of the colon. The normal value (reference range) for this assay is negative. TEST DESCRIPTION: Composite algorithmic analysis of stool DNA-biomarkers with hemoglobin immunoassay. Quantitative values of individual biomarkers are not reportable and are not associated with individual biomarker result reference ranges. Cologuard is intended for colorectal cancer screening of adults of either sex, 45 years or older, who are at average-risk for colorectal cancer (CRC). Cologuard has been approved for use by the U.S. FDA. The performance of Cologuard was established in a cross sectional study of average-risk adults aged 50-84. Cologuard performance in patients ages 45 to 49 years was estimated by sub-group analysis of near-age groups. Colonoscopies performed for a positive result may find as the most clinically significant lesion: colorectal cancer [4.0%], advanced adenoma (including sessile serrated polyps greater than or equal to 1cm diameter) [20%] or non- advanced adenoma [31%]; or no colorectal neoplasia [45%]. These estimates are derived from a prospective cross-sectional screening study of 10,000 individuals at average risk for colorectal cancer who were screened with both Cologuard and colonoscopy. (Gosia Youssef al, N Engl J Med 2014;370(14):9963-0269.) Cologuard may produce a false negative or false positive result (no colorectal cancer or precancerous polyp present at colonoscopy follow up). A negative Cologuard test result does not guarantee the absence of CRC or advanced adenoma (pre-cancer). The current Cologuard screening interval is every 3 years. ([place] [employer] and U.S. Multi-Society Task Force). Cologuard performance data in a 10,000 patient pivotal study using colonoscopy as the reference method can be accessed at the following location: www.[employer]/results. Additional description of the Cologuard test process, warnings and precautions can be found at [email or web address]. Stool specimen (specimen) 09/22/2023 11:35 AM EST 09/24/2023 12:35 PM EST Kaitlynn Marina MD LAB MOLECULAR DIAGNOSTICS ORD ERABLES Final Result Performing Organization Address [facility]/ZIP Co de Phone Number [facility] (CLIA #:[id number]) [place] [address], * ALBUMIN, RANDOM URINE W/CREATININE (06/09/2022 8:32 AM EST) Microalbumin Urine 0.5 See Note: mg/dL [facility] Comment: Reference Range: Reference Range Not established Microalb/Creat Ratio 14 <30 mcg/mg creat [facility] Comment: The ADA defines abnormalities in albumin excretion as follows: Albuminuria Category Result (mcg/mg creatinine) Normal to Mildly increased <30 Moderately increased 30-299 Severely increased > OR = 300 The ADA recommends that at least two of three specimens collected within a 3-6 month period be abnormal before considering a patient to be within a diagnostic category. Creatinine, Urine 35 20 - 275 mg/dL [facility] 06/09/2022 8:32 AM EST Kaitlynn Marina MD LAB URINE ORDERABLES Final Re sult Performing Organization Address City/[facility]/ZIP Co de Phone Number [facility] * Hm Pap Smear (11/25/2021) Pap Negative for intraephithelial lesion or malignancy Negative for intraephithelial lesion or malignancy, Other HPV Undetected Undetected, Indeterminate, Quantitative, Not Detected us Historical Provider HEALTH MAINTENANCE Final Result from Last 3 Months or Most Recently Relevant to Health Maintenance Insurance [employer] [id number] Care Teams Tight Cooper Relationship Specialty Start Date End Date Kaitlynn Marina MD [address] [place] [address] PCP - General Family Medicine 06/18/15
--- OUTSIDE RECORDS SUMMARY | 2025-05-25 17:58 | XMS_ITS | Encounter Summary ---
Author Organization [employer] Address [address] [place] [address] [address] [place] [address] Care Team Providers Care Posting Clerk Name Role Phone Kaitlynn Marina MD Primary Care Provider [phone] Encounter Details Date Type Department Care Team (Late Contact Info) Description 01/05/2023 Orders Only [facility] [address] [place], [place] [phone] Kaitlynn Marina MD [address] [place] [address] Closed fracture of hip with routine healing, unspecified laterality, subsequent encounter (Primary Dx) Social History Tobacco Use Types Packs/Day Years Used Date Smoking Tobacco: Never Assessed Depression Answer Date Recorded Patient Health Questionnaire-9 [...] suspected to have Coronavirus/COVID-19? No / Unsure 01/07/2023 4:09 PM EDT documented as of this encounter Plan of Treatment Upcoming Encounters Date Type Department Care Team (Late Contact Info) Description 06/20/2025 9:00 AM EST Office Visit [facility] [address] [place], [place] [phone] Kaitlynn Marina MD [address] [place] [address] documented as of this encounter Visit Diagnoses Diagnosis Closed fracture of hip with routine healing, unspecified laterality, subsequent encounter- Primary documented in this encounter Additional Health Concerns Assessment Noted Time PHQ-9 Depression Total Score: 10 023 9:01 AM EDT documented as of this encounter Care Teams Posting Clerk Relationship Specialty Start Date End Date Kaitlynn Marina MD [address] [place] [address] PCP - General Family Medicine 06/18/15 documented as of this encounter
--- OUTSIDE RECORDS SUMMARY | 2025-05-25 17:58 | XMS_ITS | Encounter Summary ---
Author Organization [employer] Address [address] [facility] 7 [place] [address] Care Team Providers Care Tourist Information Officer Name Role Phone Kaitlynn Marina MD Primary Care Provider [phone] Reason for Visit * Reason Onset Date Comments Nurse Triage 01/08/2023 Encounter Details Date Type Department Care Team ([facility] st Contact Info) Description 01/08/2023 Telephone [facility] [address] [place] [address] Kaitlynn Marina MD [address] [place] [address] Nurse Triage Social History Tobacco Use Types [...] PM EDT documented as of this encounter Miscellaneous Notes * Telephone Encounter - Chichi Velázquez RN - 01/08/2023 8:46 AM EDT called pt to triage, spoke to pt. pt states fell yesterday and was [place] in [place] [facility] recommended by triage. pt states right shoulder, upper back, neck, and hip pain. pt states severe pain in theright shoulder and a small fracture on her right hip pt denies head injury, inability to stand orwalk, inability to move her neck or right shoulder, fevers, or other associated symptoms. given appt today with [facility] at 1:00 for exam and recheck. Pt requesting referral to ortho as appropriate. advised home care: rest, fluids, ice, heat, OTC as needed, and call back if worsening or new concerns. pt has a HDF appt scheduled as well for unrelated hospitalization. pt understands and agrees with plan. insurance verified. Protocol Used: Falls and Falling (Adult) Protocol-Based Disposition: See in Office or Video Visit within 3 Days Positive Triage Questions: * Patient wants to be seen * Fall and went to emergency department for evaluation or treatment * All higher-acuity triage questions were negative Care Advice Discussed: * Reasons To Call Back - You become worse. * Telephone Encounter - Lisa Soler - 01/08/2023 8:14 AM EDT Symptoms: Shoulder Injury, Neck Injury (patient had a fall on 01/05/23) states she feels a sharp pinching on her right neck and shoulder area. Outcome: Transfer to a nurse or provider NOW! Reason: This is the only possible outcome for these symptoms The caller accepted this outcome documented in this encounter Plan of Treatment Upcoming Encounters Date Type Department Care Team (Late st Contact Info) Description 06/20/2025 9:00 AM EST Office Visit [facility] [address] [place] [address] Kaitlynn Marina MD [address] [place] [address] documented as of this encounter Visit Diagnoses Not on filedocumented in this encounter Additional Health Concerns Assessment Noted Time PHQ-9 Depression Total Score: 10 04/04/2 023 9:01 AM EDT documented as of this encounter Care Teams Tourist Information Officer Relationship Specialty Start Date End Date Kaitlynn Marina MD [address] [place] [phone] PCP - General Family Medicine 06/18/15 documented as of this encounter
--- OUTSIDE RECORDS SUMMARY | 2025-05-25 17:58 | XMS_ITS | Encounter Summary ---
Author Organization [employer] Address [address] [facility] 7 [place] [address] Care Team Providers Care Auto Body Estimator Name Role Phone Kaitlynn Marina MD Primary Care Provider [phone] Reason for Visit * Reason Onset Date Comments Medication Question 05/17/2025 Encounter Details Date Type Department Care Team ([facility] Contact Info) Description 05/17/2025 Telephone [facility] MED & PEDS [address] [place] [address] Kaitlynn Marina MD [address] [place] [address] Medication Question Social History Tobacco Use Types Packs/Day Years [...] encounter Miscellaneous Notes * Telephone Encounter - Linda Salazar - 05/17/2025 8:15 AM EDT Tc from pt requesting Lansets to be sent too [facility] - [place], [place] - [address] [facility] Contact pt at [phone] documented in this encounter Plan of Treatment Upcoming Encounters Date Type Department Care Team (Late st Contact Info) Description 06/20/2025 9:00 AM EST Office Visit [facility] MED & PEDS [address] [place] [address] Kaitlynn Marina MD [address] [place] [address] documented as of this encounter Visit Diagnoses Not on filedocumented in this encounter Additional Health Concerns Assessment Noted Time PHQ-9 Depression Total Score: 5 08/31/19 25 10:36 AM EST documented as of this encounter Care Teams Auto Body Estimator Relationship Specialty Start Date End Date Kaitlynn Marina MD [address] [place] [address] PCP - General Family Medicine 06/18/15 documented as of this encounter
--- OUTSIDE RECORDS SUMMARY | 2025-05-25 17:58 | XMS_ITS | Clinical Summary ---
Author Organization [facility] Address [address] [place] [address] Care Team Providers Care Manager Wireless Name Role Phone Unavailable Primary Care Provider [...] age to complete this topic Insurance [facility] ([id number]) [facility] ([id number]) [place] [id number]
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
--- OUTSIDE RECORDS SUMMARY | 2025-05-25 17:58 | XMS_ITS | Encounter Summary ---
Author Organization [employer] Address [address] [place] [address] Care Team Providers Care Director Of Income Tax Name Role Phone Kaitlynn Marina MD Primary Care Provider [phone] Encounter Details Date Type Department Care Team ([facility] Contact Info) Description 09/05/2022 Abstract [facility] MED & PEDS [address] [place] [address] Kaitlynn Marina MD [address] [place], [place] [phone] Social History Tobacco Use Types Packs/Day Years [...] 9:00 AM EST Office Visit [facility] MED & PEDS [address] [place] [address] Kaitlynn Marina MD [address] [place], [place] [phone] documented as of this encounter Visit Diagnoses Not on filedocumented in this encounter Care Teams Director Of Income Tax Relationship Specialty Start Date End Date Kaitlynn Marina MD [address] [place] [address] PCP - General Family Medicine 06/18/15 documented as of this encounter
--- OUTSIDE RECORDS SUMMARY | 2025-05-25 17:58 | XMS_ITS | Encounter Summary ---
Author Organization [employer] Address [address] [facility] 7 [place] [address] Care Team Providers Care Agricultural Science Professor Name Role Phone Kaitlynn Marina MD Primary Care Provider [phone] Reason for Visit * Reason Onset Date Comments triage 10/15/2022 Encounter Details Date Type Department Care Team ([facility] st Contact Info) Description 10/15/2022 Telephone [facility] MEDICINE [address] [place] [address] Kaitlynn Marina MD [address] [place] [address] triage Social History Tobacco Use Types Packs/Day Years [...] suspected to have Coronavirus/COVID-19? No / Unsure 09/17/2022 10:59 AM EST documented as of this encounter Miscellaneous Notes * Telephone Encounter - Jenna Draper RN - 10/15/2022 12:50 PM EDT Triage call Pt reports diarrhea is just a little bit and not calling due to this. Pt reports calling regarding incontinence of urine. Pt reports for last two weeks incontinence has increased to the point that Pt is having accidents frequently. Pt reports some hesitancy while one the toilet and then will have incontinence when already finished in the bathroom. Pt reports incontinence is a large amt of urine and with out warning. Pt denies burning with urination, flank pain or blood in urine. Pt doesn't do kegel exercises. Pt requests to speak with provider. Tele visit with Dr. Townsend 10/17 @100pm advised to look for registration call before visit. Pt agreed . Pt requested apt as soon as po ssible. Protocol Used: Urinary Symptoms (Adult) Protocol-Based Disposition: See in Office or Video Visit within 2 Weeks Positive Triage Questions: * Can't control passage of urine (i.e., urinary incontinence, wetting self) and present > 2 weeks * Urination is difficult to start (i.e., hesitancy) or straining * All higher-acuity triage questions were negative Care Advice Discussed: * Reasons To Call Back - Fever occurs - Pain or burning with urination - Unable to urinate and bladder feels full - You become worse * Telephone Encounter - Arron Glasgow - 10/15/2022 9:31 AM EDT Symptom: Diarrhea Outcome: Schedule an appointment to be seen within 24 hours Reason: No high acuity concerns reported by caller The caller accepted this outcome documented in this encounter Plan of Treatment Upcoming Encounters Date Type Department Care Team ([facility] st Contact Info) Description 06/20/2025 9:00 AM EST Office Visit [facility] MED & PEDS [address] [place] [address] Kaitlynn Marina MD [address] [place] [address] documented as of this encounter Visit Diagnoses Not on filedocumented in this encounter Care Teams Agricultural Science Professor Relationship Specialty Start Date End Date Kaitlynn Marina MD [address] [place] [address] PCP - General Family Medicine 06/18/15 documented as of this encounter
--- OUTSIDE RECORDS SUMMARY | 2025-05-25 17:58 | XMS_ITS | Patient Health Record ---
Author Organization [facility] Address [address] [place] [address] Care Team Providers Care Power Hair Clipper Name Role Phone Kaitlynn Marina Primary Care Provider UnavailKristen Hopkins Unavailable [phone] Allergies Allergen (clinical drug ingredient) Drug/Non Drug Allergy documented on EMR Reaction Allergy Type Onset Date Status povidone-iodine Povidone Iodine contrast dye- rash Drug Allergy Active Substance with sulfonamide structure and antibacterial mechanism of action (substance) Sulfa Antibiotics rash Drug Allergy Active Results Component Value Reference Range Notes HEMOGLOBIN A1C (GLYCOHEMOGLO BIN) Reviewed date:12/20/2024 09:26:32 AM Interpretation: Performing Lab: Notes/Report: HEMOGLOBIN A1C % (HH) 6.3 Reason For Referral No Information Medications Medication SIG (Take, Route, Frequency, Duration) Notes Start Date End Date Status Fish Oil Not-Taking Meloxicam 15 MG 1 tablet Orally Once a day; Duration: 30 day(s) Not-Taking Vitamin D3 Active metFORMIN HCl ER 500 MG 1 tablet with ev ening meal Orally Once a day; Duration: 30 day(s) Active Cerovite Senior Acti ve Arnuity Ellipta Acti ve Ventolin HFA Active buPROPion HCl 150MG Active Metoprolol Succinate 50 MG 1 capsule Orally Once a day; Duration: 30 day(s) Not-Taking ARIPiprazole 10 MG 1 tablet Orally Once a day; Duration: 30 day(s) Active Flovent HFA Not-Taki ng Atorvastatin Calcium 20 MG 1 tablet Orally Once a day; Duration: 30 day(s) Active Immunizations Vaccine Route Administration Date Status Comme nts Influenza Unknown 04/27/2024 Administered Social History Tobacco Use: Social History Observation [...] many cigarettes a day do you smoke? 06-15 AUDIT-C (Standard) Question Answer Notes Did you have a drink containing alcohol in the p ast year? No Points 0 Interpretation Negative Problems Problem Type SNOMED Code ICD Code Onset Dates Problem Status W/U Status Risk Notes Problem Acquired hammer toe of right foot (1135241381109276 ) Other hammer toe(s) (acquired), right foot (M20.41) Active confirmed Problem Acquired hammer toe of left foot (1689546699802191 ) Other hammer toe(s) (acquired), left foot (M20.42) Active confirmed Problem Polyneuropathy due to diabetes mellitus type I (104416001) Type 1 diabetes mellitus with diabetic polyneuropathy (E10.42) Active confirmed Problem Polyneuropathy due to type 2 diabetes mellitus (972968223) Type 2 diabetes mellitus with diabetic polyneuropathy (E11.42) Active confirmed Vital Signs Heart Rate 79 /min 12/20/2024 Blood pressure diastolic 70 mm Hg 04/07/2025 Height 5ft 8in in 04/07/2025 Blood pressure systolic 128 mm Hg 04/07/2025 Weight 211 lbs 04/07/2025 BMI 32.08 kg/m2 04/07/2025 Procedures Procedure Date Ordered Date Performed Result Body Sit e 77141-CTHSZNC NAIL, 6 OR MORE 07/22/2024 N/A 14177-LBPC SKIN LESIONS, OVER 4 07/22/2024 N/A 40600-OCFLDHN NAIL, 6 OR MORE 12/20/2024 N/A 16470-CSNS SKIN LESIONS, OVER 4 12/20/2024 N/A 09083-HDYCDMG NAIL, 6 OR MORE 04/07/2025 N/A 51169-BISP SKIN LESIONS, OVER 4 04/07/2025 N/A Encounters Encounter Location Date Provider Diagnosis [facility] [address] [address] 07/22/2024 Kristen Faria Type 2 diabetes mellitus with diabetic polyneuropathy E11.42 and Tinea unguium B35.1 [facility] [address] [address] 12/20/2024 Kristen Faria Type 2 diabetes mellitus with diabetic polyneuropathy E11.42 and Tinea unguium B35.1 [facility] [address] [place] [phone] 04/07/2025 Kristen Faria Type 2 diabetes mellitus with diabetic polyneuropathy E11.42 ; Tinea unguium B35.1 ; Other hammer toe(s) (acquired), right foot M20.41 and Other hammer toe(s) (acquired), left foot M20.[address] [address] 10/28/2024 Kristen Faria [address] [address] 04/05/2025 Kristen Faria Assessments Encounter Date Diagnosis (ICD Code) Assessment Notes Treatment Notes Treatment Clinical Notes Section Notes 07/22/2024 Type 2 diabetes mellitus with diabetic polyneuropathy (ICD-10 - E11.42) 07/22/2024 Tinea unguium (ICD-10 - B35.1) 12/20/2024 Type 2 diabetes mellitus with diabetic polyneuropathy (ICD-10 - E11.42) 12/20/2024 Tinea unguium (ICD-10 - B35.1) 04/07/2025 Type 2 diabetes mellitus with diabetic polyneuropathy (ICD-10 - E11.42) 04/07/2025 Tinea unguium (ICD-10 - B35.1) 04/07/2025 Other hammer toe(s) (acquired), right foot (ICD-10 - M20.41) Patient Educated with: DIABETIC FOOT CARE INSTRUCTIONS. pdf (DIABETIC FOOT CARE INSTRUCTIONS. pdf) 04/07/2025 Other hammer toe(s) (acquired), left foot (ICD-10 - M20.42) Plan Of Treatment Pending Test Test Name Order Date 64305-GNBWBDY NAIL, 6 OR MORE 07/22/2024 21357-IIHXBKA NAIL, 6 OR MORE 12/20/2024 40473-KCTZBUQ NAIL, 6 OR MORE 04/07/2025 90359-BNYL SKIN LESIONS, OVER 4 04/07/20 01530-KWIY SKIN LESIONS, OVER 4 12/21/19 23710-AMYH SKIN LESIONS, OVER 4 07/22/20 31040-JGRS SKIN LESIONS, OVER 4 08/28/19 83407-AXIX SKIN LESIONS, OVER 4 01/05/20 Next Appt Details Provider Name:Kristen Thornton catherine, 08/11/2025 09:30:00 AM, [address] [facility], [facility] [address], [place], [address], Insurance Providers Payer Name Payer Address Payer Phone Subscriber Number Group Number Insured Name Patient Relationship to Insured Coverage Start Date Coverage End Date [facility] [employer] Claims [address] [place] [address] [id number] Belle Garcia Self - patient is the insured Medical (General) History Medical History History ICD Code Anxiety Arthritis Back,Hip,and Knee pain Depression Diabetic Measles Chicken pox Surgical History Surgery Date(Month/Year) right hip replacement 12/2023 Hospitalization History Reason Date(Month/Year) Colonoscopy 11/08/24
--- OUTSIDE RECORDS SUMMARY | 2025-05-25 17:58 | XMS_ITS | Encounter Summary ---
Author Organization [employer] Address [address] [facility] 7t [place] [address] Care Team Providers Care Copyright Clerk Name Role Phone Kaitlynn Marina MD Primary Care Provider [phone] Encounter Details Date Type Department Care Team ([facility] st Contact Info) Description 07/23/2023 Orders Only [facility] CHC MED & PEDS [address] [place] [address] Giselle Townsend MD [address] [place] [address] Social History Tobacco Use Types Packs/Day Years Used Date Smoking Tobacco: Never Passive Smoke Exposure: Never Smokeless Tobacco: Never Depression Answer Date Recorded Patient Health Questionnaire-9 Score 10 10/28/2022 Housing Stability Answer Date Recorded What is your housing situation today? I have mariowei kennedy 05/16/[address] you li ve. Do you have problems with any of the following? None of the above 05/16/2023 Food Insecurity Answer Date Recorded Within the past 12 months, y ou worried that your food would run out before you got money to buy more: Never True 05/16/2023 Within the past 12 months,th e food you bought just didn't last and you didn't have enough money to get more: Not on file Transportation Answer Date Recorded In the past 12 months, has l ack of transportation kept you from medical appts, meetings, work or from getting things needed for daily living? No 05/16/2023 Utilities Answer Date Recorded In the past 12 months, has t he electric, gas, oil or water company threatened to shut off services in your home? No 05/16/2023 Depression Answer Date Recorded Patient Health Questionnaire-2 [...] AM EST Office Visit [facility] MED & PEDS [address] [place] [address] Kaitlynn Marina MD [address] [place] [address] documented as of this encounter Visit Diagnoses Not on filedocumented in this encounter Additional Health Concerns Assessment Noted Time PHQ-9 Depression Total Score: 10 023 9:01 AM EDT documented as of this encounter Care Teams Copyright Clerk Relationship Specialty Start Date End Date Kaitlynn Marina MD [address] [place] [address] PCP - General Family Medicine 06/18/15 documented as of this encounter
--- OUTSIDE RECORDS SUMMARY | 2025-05-25 17:58 | XMS_ITS | Encounter Summary ---
Author Organization [employer] Address [address] [facility] 7 [place] [address] Care Team Providers Care Panel Saw Operator Name Role Phone Kaitlynn Marina MD Primary Care Provider [phone] Reason for Visit * Reason Onset Date Comments Prior Authorization 07/21/2023 Encounter Details Date Type Department Care Team ([facility] Contact Info) Description 07/21/2023 Telephone [facility] MEDICINE [address] [place] [address] Kaitlynn Marina MD [address] [place] [address] Prior Authorization Social History Tobacco Use Types Packs/Day Years [...] the past 12 months, has t he [employer], gas, oil or water company threatened to [...] encounter Miscellaneous Notes * Telephone Encounter - Warner Lopez - 07/21/2023 12:36 PM EST Tc from patient calling for the medication Mometasone Furoate (Asmanex, 120 Metered Doses,) 220 MCG/ACT aerosol powder stated the pharmacy is requesting a PA from PCP documented in this encounter Plan of Treatment Upcoming Encounters Date Type Department Care Team (Late st Contact Info) Description 06/20/2025 9:00 AM EST Office Visit [facility] MED & PEDS [address] [place] [address] Kaitlynn Marina MD [address] [place] [address] documented as of this encounter Visit Diagnoses Not on filedocumented in this encounter Additional Health Concerns Assessment Noted Time PHQ-9 Depression Total Score: 10 023 9:01 AM EDT documented as of this encounter Care Teams Panel Saw Operator Relationship Specialty Start Date End Date Kaitlynn Marina MD [address] [place] [address] PCP - General Family Medicine 06/18/15 documented as of this encounter
== END 2025-05-25 15:19 | disposition home or self-care (01) ==
LOC: HO.CHCLDS 15:18
PROVIDERS: Visit Provider Pediatrics
DX: E11.9 Type 2 diabetes mellitus without complications (principal); E78.5 Hyperlipidemia, unspecified
CPT/HCPCS: 81001; 82570; 87086; 87088; 87186